=== PATIENT | female | born 1940 | race African-American/Black ===

== ENCOUNTER → 2017-07-17 | Day surgery (SDC) | payer OTHER ==
[~2017-07-17] MED LIST: LIDOCAINE 1% PF 2 ML VIAL. ID; LIDOCAINE 2% PF Vial for OR 5 ML VIAL.; ONDANSETRON PF 4 MG/2 ML VIAL. IV; PROCHLORPERAZINE 10 MG/2 ML VIAL. IV; PROPOFOL 40 ML IV; fentaNYL PF VIAL 100 MCG/2 ML VIAL IV
[2017-07-17] MEDS: IV RINGERS,LACTATED 1000ML 1,000 ML IV (10:59)
== END | disposition home or self-care (01) ==
LOC: SURG 10:14
DX: K59.00 Constipation, unspecified (principal); Z86.010 Personal history of colon polyps; M15.9 Polyosteoarthritis, unspecified; I10 Essential (primary) hypertension; E66.9 Obesity, unspecified; K21.9 Gastro-esophageal reflux disease without esophagitis; J44.9 Chronic obstructive pulmonary disease, unspecified; F17.200 Nicotine dependence, unspecified, uncomplicated; Z90.49 Acquired absence of other specified parts of digestive tract; Z98.890 Other specified postprocedural states; Z79.899 Other long term (current) drug therapy; Z88.1 Allergy status to other antibiotic agents; Z88.8 Allergy status to other drugs, medicaments and biological substances
CPT/HCPCS: 45378; J2704

== ENCOUNTER → 2017-11-09 | Outpatient (CLI) | payer OTHER ==
[2017-09-07 14:40] VITALS: BP 116/65
[~2017-11-09] MED LIST changes: +AMIT50TA PO; +AMLO5TAB4 PO; +CIPR250T30 PO; +DICY10CA3 PO; +GABA-585 PO; +IBAN150T PO; -LIDOCAINE 1% PF 2 ML VIAL. ID; -LIDOCAINE 2% PF Vial for OR 5 ML VIAL.; +LOSA25TA5 PO; +MAGN400T3 PO; +OMEP40CA5 PO; -ONDANSETRON PF 4 MG/2 ML VIAL. IV; +OXYB5TAB7 PO; +POTA20TA4 PO; -PROCHLORPERAZINE 10 MG/2 ML VIAL. IV; -PROPOFOL 40 ML IV; +ROPI1TAB PO; +TRAM50TA PO; +TRIA1CAP PO; -fentaNYL PF VIAL 100 MCG/2 ML VIAL IV
--- NOTE | 2017-11-12 08:43 | RAD ---
DATE: 11/09/2017 EXAM: DIGITAL SCREEN BILAT W/CAD HISTORY: Routine screening COMPARISON: 09/07/2014 This study was interpreted with the benefit of Computerized Aided Detection (CAD). The breast parenchyma shows scattered fibroglandular densities. Breast parenchyma level B. FINDINGS: No new or enlarging breast densities are seen. Benign-appearing lymph node type densities are again noted posterolaterally on the right. Benign type calcifications are present. No suspicious microcalcifications have developed. IMPRESSION: Stable mammograms without evidence of malignancy. BI-RADS CATEGORY: 2 BENIGN FINDING(S) RECOMMENDED FOLLOW-UP: 12M 12 MONTH FOLLOW-UP PQRS compliance statement: Patient information was entered into a reminder system with a target due date for the next mammogram. Mammography is a sensitive method for finding small breast cancers, but it does not detect them all and is not a substitute for careful clinical examination. A negative mammogram does not negate a clinically suspicious finding and should not result in delay in biopsying a clinically suspicious abnormality. "Our facility is accredited by the [employer] Mammography Program."
== END | disposition home or self-care (01) ==
LOC: MAMMO 14:00
PROVIDERS: ATTEND Internal Medicine
DX: Z12.31 Encounter for screening mammogram for malignant neoplasm of breast (principal); I12.9 Hypertensive chronic kidney disease with stage 1 through stage 4 chronic kidney disease, or unspecified chronic kidney disease; N18.2 Chronic kidney disease, stage 2 (mild); K21.9 Gastro-esophageal reflux disease without esophagitis; J44.9 Chronic obstructive pulmonary disease, unspecified; E87.6 Hypokalemia; Z90.49 Acquired absence of other specified parts of digestive tract; Z68.30 Body mass index [BMI] 30.0-30.9, adult; Z88.1 Allergy status to other antibiotic agents; Z88.8 Allergy status to other drugs, medicaments and biological substances; Z82.49 Family history of ischemic heart disease and other diseases of the circulatory system; Z83.3 Family history of diabetes mellitus
CPT/HCPCS: 77067

== ENCOUNTER → 2019-09-26 | Outpatient (CLI) | payer MEDICAID ==
[2017-09-07 14:40] VITALS: BP 116/65
[~2019-09-26] MED LIST changes: +CONTRAST GIVEN. MC PRN; -IBAN150T PO; +IBAN150T15 PO; +IOHEXOL 240 MG/ML 50ML VIAL. PO ONE; +IOHEXOL 300 MG/ML 100ML VIAL. IV ONE; -LOSA25TA5 PO; +LOSA25TA54 PO; -MAGN400T3 PO; +MAGN400T5 PO; +OMEP40CA45 PO; -OMEP40CA5 PO; +OXYB5TAB10 PO; -OXYB5TAB7 PO
[2019-09-26 11:01] LABS: CREATININE 1.3 mg/dL (0.6-1.0); GFR 47.6
--- NOTE | 2019-09-26 15:15 | RAD ---
CT abdomen and pelvis with contrast History: Ventral hernia with obstruction Technique: After the administration of intravenous contrast, CT imaging was performed of the abdomen and pelvis. Oral contrast was also given. Multiplanar images are reviewed. Exposure: One or more of the following individualized dose reduction techniques were utilized for this examination: 1. Automated exposure control 2. Adjustment of the mA and/or kV according to patient size 3. Use of iterative reconstruction technique. Comparison: None Findings: There is small dependent left pleural effusion at the lung base. There is no significant abnormality of the spleen, pancreas, adrenal glands. There is a small hypodense lesion of the left lobe of the liver 0.6 cm, density measurements suggestive of cyst 10 Hounsfield units. Both kidneys enhance without hydronephrosis. There has been cholecystectomy. Extra hepatic common bile duct is somewhat prominent at 0.9 cm, also mild central intrahepatic biliary ductal dilatation. There is a 2.2 cm hypodense lesion of the superior left kidney, density measurements suggestive of cyst 10 Hounsfield units. There is some scattered plaque of the abdominal aorta and iliac arteries. There is some variable multilevel thoracolumbar degenerative disc disease. There is grade 1 anterior spondylolisthesis L4-5, facet degenerative change greater inferiorly of the lumbar spine. There is lytic focus of the right L2 vertebral body about 1.2 cm in size. There is mild lumbar levoscoliosis. There is shallow, fairly broad ventral fat-containing hernia more eccentric to the right above the umbilicus, neck of the hernia about 2.8 cm transverse and hernia sac about 5.4 cm transverse, no internal bowel. There is also shallow fat-containing ventral hernia more superiorly in the abdomen image 18 series 2, neck about 3 cm transverse, no internal bowel. Bowel is not dilated. There is no free fluid or free air. Normal caliber appendix is visualized without adjacent inflammatory-type change. There is retained stool greater of the right colon. Impression: 1. There is small left pleural effusion. 2. There is shallow broad ventral fat-containing hernia just above the umbilicus, also separate small ventral fat-containing hernia in the abdomen more superiorly. 3. There is left renal cyst. 4. There is mild biliary ductal dilatation although sometimes can be normally seen after cholecystectomy. 5. There is lytic focus of the right L2 vertebral body. This could be a hemangioma although nonspecific. Lesion would be more accurately characterized by MRI as per clinical indication. Electronically signed by: Dean Altman MD (09/26/2019 3:11 PM) [facility]
== END ==
LOC: CT 13:57
PROVIDERS: ATTEND Specialist
DX: K43.6 Other and unspecified ventral hernia with obstruction, without gangrene (principal); J90 Pleural effusion, not elsewhere classified
CPT/HCPCS: 36415; 74177; 82565; Q9966; Q9967

== ENCOUNTER → 2019-10-23 | Outpatient (CLI) | payer MEDICAID ==
[2017-09-07 14:40] VITALS: BP 116/65
[~2019-10-23] MED LIST changes: +ACET1TAB37 PO; +ALBU2.5V8 IH; -CONTRAST GIVEN. MC PRN; -IOHEXOL 240 MG/ML 50ML VIAL. PO ONE; -IOHEXOL 300 MG/ML 100ML VIAL. IV ONE; +LATA2.5D3 EACHEYE; +MELO7.5T29 PO; +PROM25TA10 PO; +tylenol pm PO
[2019-10-23 13:33] LABS: BASO # 0.1 x10^3/uL (0.0-0.2); BASO % 1 % (0-3); EOS # 0.1 x10^3/uL (0.0-0.7); EOS % 1 % (0-3); HEMATOCRIT 38.5 % (36.0-47.0); HEMOGLOBIN 13.3 g/dL (12.0-15.5); LYMPH # 2.4 x10^3/uL (1.0-4.8); LYMPH % 27 % (24-48); MEAN CORPUSCULAR HEMOGLOBIN 33 pg (25-35); MEAN CORPUSCULAR HGB CONC 35 g/dL (31-37); MEAN CORPUSCULAR VOLUME 95 fL (79-100); MONO # 0.6 x10^3/uL (0.0-1.1); MONO % 7 % (0-9); NEUT # 5.6 x10^3/uL (1.8-7.7); NEUT % 64 % (31-73); PLATELET COUNT 422 x10^3/uL (140-400); RED BLOOD COUNT 4.03 x10^6/uL (3.50-5.40); WHITE BLOOD COUNT 8.8 x10^3/uL (4.0-11.0)
[2019-10-23 13:44] LABS: PROTHROMBIN TIME PATIENT 13.4 SEC (11.7-14.0)
[2019-10-23 13:54] LABS: ALBUMIN/GLOBULIN RATIO 0.6 (1.0-1.7); CALCIUM 8.9 mg/dL (8.5-10.1); CREATININE 1.2 mg/dL (0.6-1.0); GFR 52.2; TOTAL BILIRUBIN 0.3 mg/dL (0.2-1.0); TOTAL PROTEIN 7.9 g/dL (6.4-8.2)
[2019-10-23 14:00] LABS: POTASSIUM 2.9 mmol/L (3.5-5.1)
== END | disposition home or self-care (01) ==
LOC: SURGPAT 13:01
PROVIDERS: ATTEND Specialist
DX: Z01.812 Encounter for preprocedural laboratory examination (principal); Z20.828 Contact with and (suspected) exposure to other viral communicable diseases; K43.9 Ventral hernia without obstruction or gangrene
CPT/HCPCS: 36415; 80053; 85025; 85610; U0003

== ENCOUNTER → 2019-10-27 | Outpatient (CLI) | payer MEDICAID ==
[2017-09-07 14:40] VITALS: BP 116/65
== END | disposition home or self-care (01) ==
LOC: LAB 11:20
PROVIDERS: ATTEND Internal Medicine
DX: E87.6 Hypokalemia (principal)
CPT/HCPCS: 36415; 84132

== ENCOUNTER → 2019-10-28 | Day surgery (SDC) | payer MEDICAID ==
[~2019-10-28] VITALS: Ht 157.5 cm; Wt 83.4 kg
[~2019-10-28] MED LIST changes: +BUPIVACAINE-EPI 0.5%-1:200000 MPF 30 ML VIAL. ONE; +DEXAMETHASONE SOD PHOS 4 MG/ML VIAL ONE; +GLYCOPYRROLATE 1 MG/5 ML VIAL. ONE; +HYDROmorphone 2 MG/ML VIAL IV PRN; +IV RINGERS,LACTATED 1000ML 1,000 ML IV SCH; +LIDOCAINE 2% PF 5 ML VIAL. ONE; +MORPHINE SULFATE 2 MG/ML VIAL. IV PRN; +NEOSTIGMINE METHYLSULFATE 5 MG/5 ML SYRINGE. ONE; +ONDANSETRON PF 4 MG/2 ML VIAL. IV PRN; +ONDANSETRON PF 4 MG/2 ML VIAL. ONE; +PROCHLORPERAZINE 10 MG/2 ML VIAL. IV PRN; +PROPOFOL 10 MG/ML (20ML) VIAL. IV ONE; +ROCURONIUM 50 MG/5 ML VIAL. ONE; +ceFAZolin SODIUM IV Push 1 GM VIAL. IVP PRN; +ePHEDrine PF IN SALINE 50 MG/10 ML SYRINGE. IV ONE; +fentaNYL PF VIAL 100 MCG/2 ML VIAL IV PRN; +fentaNYL PF VIAL 100 MCG/2 ML VIAL ONE
--- NOTE | 2019-10-28 06:31 | HP ---
ADMIT DATE: HISTORY OF PRESENT ILLNESS: The patient is referred to me because of abdominal discomfort. She apparently noticed a small mass in her abdomen about 2-3 months ago and went to her doctor and was referred here to me. She states to have indigestion at times and she has noted this mass, but no other abnormalities. She does state sometimes she has to take laxatives and she has had colonoscopy about a year ago, which was normal. She also has had just vague abdominal discomfort when the mass shows up. PAST MEDICAL HISTORY: Significant in that she has had many years ago a gallbladder removed through a midline incision and then a ventral hernia through the midline incision later on. She also had a fractured elbow about a year ago and had a cystocele repair. Otherwise, she has been doing well. She does have hypertension for which she takes medication. ALLERGIES: She has no allergies. FAMILY HISTORY: Noncontributory. SOCIAL HISTORY: She does smoke about 5 cigarettes a day, but does not use illicit drugs nor does she drink. REVIEW OF SYSTEMS: Negative except for the history of present illness with sometimes indigestion, abdominal discomfort associated with this mass when it came up in the abdomen. PHYSICAL EXAMINATION: GENERAL: Shows an alert female in no acute distress. HEAD, EYES, EARS, NOSE AND THROAT: Grossly normal. Trachea was in midline. No goiter was noted. CHEST: Clear bilaterally to auscultation. ABDOMEN: Soft, did have some ill-defined masses in the mid abdomen and also above the umbilicus when she increased intra-abdominal pressure. EXTREMITIES: Negative except for the scar of the right elbow from the previous surgery. This was many years ago. Extremities were grossly normal. HEART: Had no murmurs, heaves, friction rubs or thrills. BREASTS: Not examined. IMPRESSION: 1. Hypertension. 2. Recurrent ventral hernias. BRADLEY VALLE MD DR: CELIA/natalie JOB#: [id number] / [id number] SARA
[2019-10-28 08:15] VITALS: BP 139/74
--- NOTE | 2019-10-28 14:24 | CONS ---
DATE OF CONSULTATION: HOSPITAL NOTE VISIT HISTORY OF PRESENT ILLNESS: The patient was scheduled for repair of ventral hernia. Her potassium had been down. Repeat potassium was up from 2.8 up to 3.4. She still had the small mass at the abdomen, which had been present. She was to have a CT scan the morning of surgery to locate the hernias on repeat examination and talking to the radiologist again. It was not clear that she had a hernia. She may have had an eventration, but she has had surgery before and had 2 or 3 layers of mesh, which appeared to be intact. The patient also had some shortness of breath and when we stood her up, was somewhat weak. I spoke with her and her daughter and decided that this would not be a good time to do this operation as she had 2 or 3 before, it may be a major undertaking and we need to make certain. 1. The hernias were not definitely present as there was a bunch of small posterior fascial defects, but no hernia pass the anterior fascia where the mesh was. As such, I am not sure that she had a true hernia and may have been an eventration. In addition to this, with a history of a low potassium, the shortness of breath at this time would be better, not to do the surgery at this time and I will follow her in the office and see if anything gets worse, probably repeat the CT scan in 6 months and be seen her to make certain she did not have any symptoms. She agreed to this as did her daughter and they were relieved not to have surgery done. I think this would be the best thing for this patient at this time as such the surgery was canceled. BRADLEY VALLE MD DR: CELIA/natalie JOB#: [id number] / [id number] SARA
== END | disposition home or self-care (01) ==
LOC: SURG 07:00
PROVIDERS: ATTEND Specialist
DX: K43.2 Incisional hernia without obstruction or gangrene (principal); I10 Essential (primary) hypertension; F17.210 Nicotine dependence, cigarettes, uncomplicated; Z98.890 Other specified postprocedural states; Z90.49 Acquired absence of other specified parts of digestive tract; Z53.8 Procedure and treatment not carried out for other reasons
CPT/HCPCS: J2704; J2710; J3010; J3490; J1100; J2405

== ENCOUNTER 2019-11-18 15:04 | Inpatient (IN) | payer MEDICAID ==
[~2019-11-18] VITALS: Ht 165.1 cm; Wt 79.0 kg
[~2019-11-18 15:04] MED LIST changes: -BUPIVACAINE-EPI 0.5%-1:200000 MPF 30 ML VIAL. ONE; -DEXAMETHASONE SOD PHOS 4 MG/ML VIAL ONE; -GLYCOPYRROLATE 1 MG/5 ML VIAL. ONE; -HYDROmorphone 2 MG/ML VIAL IV PRN; -IV RINGERS,LACTATED 1000ML 1,000 ML IV SCH; -LIDOCAINE 2% PF 5 ML VIAL. ONE; -MORPHINE SULFATE 2 MG/ML VIAL. IV PRN; -NEOSTIGMINE METHYLSULFATE 5 MG/5 ML SYRINGE. ONE; -ONDANSETRON PF 4 MG/2 ML VIAL. IV PRN; -ONDANSETRON PF 4 MG/2 ML VIAL. ONE; -PROCHLORPERAZINE 10 MG/2 ML VIAL. IV PRN; -PROPOFOL 10 MG/ML (20ML) VIAL. IV ONE; -ROCURONIUM 50 MG/5 ML VIAL. ONE; -ceFAZolin SODIUM IV Push 1 GM VIAL. IVP PRN; -ePHEDrine PF IN SALINE 50 MG/10 ML SYRINGE. IV ONE; -fentaNYL PF VIAL 100 MCG/2 ML VIAL IV PRN; -fentaNYL PF VIAL 100 MCG/2 ML VIAL ONE
[2019-11-18 15:56] LABS: BASO # 0.1 x10^3/uL (0.0-0.2); BASO % 1 % (0-3); EOS # 0.1 x10^3/uL (0.0-0.7); EOS % 1 % (0-3); HEMATOCRIT 37.2 % (36.0-47.0); HEMOGLOBIN 12.9 g/dL (12.0-15.5); LYMPH # 1.7 x10^3/uL (1.0-4.8); LYMPH % 18 % (24-48); MEAN CORPUSCULAR HEMOGLOBIN 33 pg (25-35); MEAN CORPUSCULAR HGB CONC 35 g/dL (31-37); MEAN CORPUSCULAR VOLUME 94 fL (79-100); MONO # 0.8 x10^3/uL (0.0-1.1); MONO % 8 % (0-9); NEUT % 73 % (31-73); PLATELET COUNT 425 x10^3/uL (140-400); RED BLOOD COUNT 3.96 x10^6/uL (3.50-5.40); RED CELL DISTRIBUTION WIDTH 12.7 % (11.5-14.5); WHITE BLOOD COUNT 9.6 x10^3/uL (4.0-11.0)
[2019-11-18 16:01] LABS: BILIRUBIN,URINE MODERATE (NEG); CLARITY,URINE CLEAR; NITRITE,URINE NEGATIVE (NEG); PROTEIN,URINE NEGATIVE (NEG-TRACE)
[2019-11-18 16:06] LABS: CALCIUM 9.5 mg/dL (8.5-10.1); COLOR,URINE DK YELLOW; CREATININE 1.2 mg/dL (0.6-1.0); GFR 52.2; SQUAMOUS EPITHELIAL CELL,UR MOD /LPF
[2019-11-18 16:07] LABS: PROTHROMBIN TIME PATIENT 13.6 SEC (11.7-14.0)
[2019-11-18 16:08] LABS: BACTERIA,URINE MODERATE /HPF (0-FEW)
[2019-11-18 16:09] LABS: RBC,URINE 0 /HPF (0-2)
[2019-11-18 16:10] LABS: HYALINE CASTS, URINE MANY /HPF
[2019-11-18 16:11] LABS: ALBUMIN/GLOBULIN RATIO 0.6 (1.0-1.7); MAGNESIUM 1.2 mg/dL (1.8-2.4); TOTAL BILIRUBIN 0.4 mg/dL (0.2-1.0); TOTAL PROTEIN 8.3 g/dL (6.4-8.2)
[2019-11-18 16:21] LABS: CREATINE KINASE 72 U/L (26-192)
--- NOTE | 2019-11-18 16:45 | RAD ---
AP portable chest radiograph 11/18/2019 Clinical History: Chest pain. An AP erect portable digital radiograph of the chest was obtained. Comparison study is dated 09/05/2017. The cardiac silhouette is mildly enlarged. The thoracic aorta is tortuous. Atherosclerotic calcification of the thoracic aorta is seen. Near complete opacification of the left hemithorax likely due to combination of a large left pleural effusion and left lung atelectasis is noted. No pneumothorax is seen. The right lung is clear. There is diffuse osteopenia the visualized bony structures. Degenerative changes are seen involving the thoracic spine and both shoulders. Impression: Near complete opacification of the left hemithorax which likely reflects a large left pleural effusion with left lung atelectasis. Electronically signed by: Charles Kearns MD (11/18/2019 4:42 PM) [id number]
[2019-11-18] MEDS ORDERED: MAGNESIUM OXIDE 400 MG TABLET PO SCH (17:15)
[2019-11-18] MEDS ORDERED: POTASSIUM CHLORIDE 20 MEQ TABLET.ER. PO ONE (17:15)
[2019-11-18] MEDS ORDERED: IOHEXOL 350 MG/ML 100 ML VIAL. IV ONE (17:30)
--- NOTE | 2019-11-18 17:31 | EKG ---
[facility] [address] [place] [address] Test Date: 2019-11-18 Test Time: 15:29:37 Pat Name: JUSTIN RICH Department: Room: Gender: F Regional Guide: : 1940 Requested By: MYA ZHANG Order Number: [id number] Reading MD: Measurements Intervals [place] Rate: 102 P: 47 MN: 148 QRS: -30 QRSD: 76 T: 49 QT: 310 QTc: 408 Interpretive Statements SINUS TACHYCARDIA ABNORMAL LEFT AXIS DEVIATION QRS(T) CONTOUR ABNORMALITY CONSIDER ANTEROSEPTAL MYOCARDIAL DAMAGE ABNORMAL ECG RI6.02 No previous ECG available for comparison
--- NOTE | 2019-11-18 18:29 | RAD ---
CT angiogram of the chest with contrast: Reason for examination: Short of breath for 3 weeks. Helical images were obtained through the chest with intravenous administration of 80 cc Omnipaque 350 using PE protocol. 3-D MIPS reconstruction was performed in sagittal and coronal planes. Exposure: One or more of the following individualized dose reduction techniques were utilized for this examination: 1. Automated exposure control 2. Adjustment of the mA and/or kV according to patient size 3. Use of iterative reconstruction technique. There is a heterogeneous hypodense lesion in the right lobe of the thyroid gland measuring approximately 1.7 cm in greatest dimension. The trachea and mainstem bronchi show no intraluminal lesion. No abnormality is seen at the esophagus. The thoracic aorta shows no aneurysmal dilatation or dissection. The heart size is normal with no pericardial effusion. There is no pulmonary embolus. There is a shift of midline to the right. There is heterogeneous density within the left hemithorax with near complete opacification of the left hemithorax. Some of this density appears to represent a moderate to large pleural effusion. There is also some minimal aeration of compressed lung in the left lower lobe. The left upper lobe however shows no aeration and the density in the left upper lobe distribution surrounds and narrows the pulmonary arteries. A mass cannot be excluded. The right lung field shows some mild emphysematous changes. No abnormality seen in the visualized portion of the liver, spleen, adrenal glands or pancreas. The gallbladder surgically absent. There is a 1.5 cm hypodense lesion in the upper pole of the left kidney which is not definitely cystic by Hounsfield units. No acute bony abnormalities are seen. IMPRESSION: No evidence of pulmonary embolus. Near complete opacification of the left hemithorax which appears be due to a moderate to large amount of left pleural effusion but there is increased density without aeration in the left upper lobe distribution which appears to surround and narrow the left pulmonary artery structures. Malignancy cannot be excluded. Collapsed left lower lung field with minimal aeration. Mild emphysematous changes in the right lung field. 1.7 cm heterogeneous hypodense nodule in the right lobe of the thyroid gland. 1.5 cm hypodense lesion in the upper pole the left kidney which is not definitely cystic by Hounsfield units. This can be further evaluated with ultrasound. Electronically signed by: Susana Garnett MD (11/18/2019 6:26 PM) [facility]
--- NOTE | 2019-11-18 20:36 | PHYS DOC ---
Past Medical History Past Medical History: Arthritis, GERD, Hypertension Past Surgical History: Other Additional Past Surgical Histo: R ELBOW, HERNIA Smoking Status: Current Every Day Smoker Alcohol Use: None Drug Use: None General Adult EDM: Chief Complaint: SHORTNESS OF BREATH HPI: HPI: Patient is a 79 year old AA female who presents to the emergency department with complaints of shortness of breath for the last 3 to 4 weeks and increases with ambulation. Patient reports that she has had a cough with white sputum produced. She reports that she was tested for COVID-19 at this facility 3 weeks ago and was advised that it was a negative result. She denies any nausea, vomiting, diarrhea, abdominal pain, chest pain, palpitations, fever, sore throat, body aches, headache, or rash. The patient denies any swelling in her lower extremities. Patient reports that she has been feeling fatigued recently. She reports that she quit smoking cigarettes approximately 2 weeks ago. She denies any pain at this time. Review of Systems: Review of Systems: Constitutional: Denies fever or chills; reports fatigue. [] Eyes: Denies change in visual acuity. [] HENT: Denies nasal congestion or sore throat. [] Respiratory: See HPI Cardiovascular: Denies chest pain, palpitation, or edema. [] GI: Denies abdominal pain, nausea, vomiting, or diarrhea. [] : Denies dysuria. [] Musculoskeletal: Denies back pain or joint pain. [] Integument: Denies rash. [] Neurologic: Denies headache, focal weakness or sensory changes. [] Psychiatric: Denies depression or anxiety. [] Heart Score: Risk Factors: Risk Factors: DM, Current or recent (<one month) smoker, HTN, HLP, family history of CAD, obesity. Risk Scores: Score 0 - 3: 2.5% MACE over next 6 weeks - Discharge Home Score 4 - 6: 20.3% MACE over next 6 weeks - Admit for Clinical Observation Score 7 - 10: 72.7% MACE over next 6 weeks - Early Invasive Strategies Current Medications: Current Medications Medications (Trade) Dose Ordered Sig/Prabhjot Start Time Stop Time Status Last Admin Dose Admin Iohexol (Omnipaque 350 Mg/ml) 80 ml 1X ONCE 11/18/19 17:30 11/18/19 17:32 DC 11/18/19 17:30 80 ML Magnesium Oxide (Magnesium Oxide) 400 mg 1X 11/18/19 17:15 11/18/19 18:27 400 MG Potassium Chloride (Klor-Con) 40 meq 1X ONCE 11/18/19 17:15 11/18/19 17:16 DC 11/18/19 18:27 40 MEQ Allergies: Allergies: Allergies Coded Allergies Type Severity Reaction Last Updated Verified No Known Drug Allergies 07/17/17 No Physical Exam: PE: Constitutional: Well developed, well nourished, no acute distress, non-toxic appearance. [] HENT: Normocephalic, atraumatic, bilateral external ears normal, oropharynx moist, nose normal. [] Eyes: PERRLA, EOMI, conjunctiva normal, no discharge. [] Neck: Normal range of motion, no stridor. [] Cardiovascular:Heart rate regular rhythm, no murmur [] Lungs & Thorax: Bilateral breath sounds clear to auscultation in upper anterior lobes and right posterior lobes; diminished in left posterior lobes, no wheezing, no retractions [] Abdomen: soft, no tenderness, no masses, no pulsatile masses. [] Skin: Warm, dry, no erythema, no rash. [] Back: No tenderness Extremities: No cyanosis, ROM intact, no edema. [] Neurologic: Alert and oriented X 3, normal motor function, normal sensory function, no focal deficits noted. [] Psychologic: Affect normal, judgement normal, mood normal. [] Current Patient Data: Labs: Laboratory Tests Test 11/18/19 15:34 White Blood Count 9.6 x10^3/uL (4.0-11.0) Red Blood Count 3.96 x10^6/uL (3.50-5.40) Hemoglobin 12.9 g/dL (12.0-15.5) Hematocrit 37.2 % (36.0-47.0) Mean Corpuscular Volume 94 fL (79-100) Mean Corpuscular Hemoglobin 33 pg (25-35) Mean Corpuscular Hemoglobin Concent 35 g/dL (31-37) Red Cell Distribution Width 12.7 % (11.5-14.5) Platelet Count 425 x10^3/uL (140-400) H Neutrophils (%) (Auto) 73 % (31-73) Lymphocytes (%) (Auto) 18 % (24-48) L Monocytes (%) (Auto) 8 % (0-9) Eosinophils (%) (Auto) 1 % (0-3) Basophils (%) (Auto) 1 % (0-3) Neutrophils # (Auto) 7.0 x10^3/uL (1.8-7.7) Lymphocytes # (Auto) 1.7 x10^3/uL (1.0-4.8) Monocytes # (Auto) 0.8 x10^3/uL (0.0-1.1) Eosinophils # (Auto) 0.1 x10^3/uL (0.0-0.7) Basophils # (Auto) 0.1 x10^3/uL (0.0-0.2) Prothrombin Time 13.6 SEC (11.7-14.0) Prothrombin Time INR 1.1 (0.8-1.1) Activated Partial Thromboplast Time 31 SEC (24-38) Urine Collection Type Void Urine Color Dk yellow Urine Clarity Clear Urine pH 5.0 (<5.0-8.0) Urine Specific [place] 1.020 (1.000-1.030) Urine Protein Negative mg/dL (NEG-TRACE) Urine Glucose (UA) Negative mg/dL (NEG) Urine Ketones (Stick) Trace mg/dL (NEG) Urine Blood Negative (NEG) Urine Nitrite Negative (NEG) Urine Bilirubin Moderate (NEG) Urine Urobilinogen Dipstick 1.0 mg/dL (0.2 mg/dL) Urine Leukocyte Esterase Negative (NEG) Urine RBC 0 /HPF (0-2) Urine WBC 1-4 /HPF (0-4) Urine Squamous Epithelial Cells Mod /LPF Urine Bacteria Moderate /HPF (0-FEW) Urine Hyaline Casts Many /HPF Urine Mucus Marked /LPF Sodium Level 136 mmol/L (136-145) Potassium Level 3.0 mmol/L (3.5-5.1) L Chloride Level 101 mmol/L (98-107) Carbon Dioxide Level 23 mmol/L (21-32) Anion Gap 12 (6-14) Blood Urea Nitrogen 14 mg/dL (7-20) Creatinine 1.2 mg/dL (0.6-1.0) H Estimated GFR (Cockcroft-Gault) 52.2 BUN/Creatinine Ratio 12 (6-20) Glucose Level 143 mg/dL (70-99) H Calcium Level 9.5 mg/dL (8.5-10.1) Magnesium Level 1.2 mg/dL (1.8-2.4) L Total Bilirubin 0.4 mg/dL (0.2-1.0) Aspartate Amino Transferase (AST) 19 U/L (15-37) Alanine Aminotransferase (ALT) 10 U/L (14-59) L Alkaline Phosphatase 63 U/L (46-116) Creatine Kinase 72 U/L (26-192) Creatine Kinase MB (Mass) 1.1 ng/mL (0.0-3.6) Creatine Kinase MB Relative Index % (0-4) Troponin I Quantitative < 0.017 ng/mL (0.000-0.055) NM-Qeo-L-Type Natriuretic Peptide 247 pg/mL (0-449) Total Protein 8.3 g/dL (6.4-8.2) H Albumin 3.0 g/dL (3.4-5.0) L Albumin/Globulin Ratio 0.6 (1.0-1.7) L Lipase 130 U/L (73-393) Laboratory Tests 11/18/19 15:34 Laboratory Tests 11/18/19 15:34 Vital Signs: Vital Signs Date Time Temp Pulse Resp B/P (MAP) Pulse Ox O2 Delivery O2 Flow Rate FiO2 11/18/19 15:45 98.9 100 20 108/69 (82) 100 Room Air 98.9 EKG: EK-sinus tachycardia rate 102, no STEMI, read by Dr. Izquierdo [] Radiology/Procedures: Radiology/Procedures: PROCEDURE: CT ANGIOGRAPHY CHEST CT angiogram of the chest with contrast: Reason for examination: Short of breath for 3 weeks. Helical images were obtained through the chest with intravenous administration of 80 cc Omnipaque 350 using PE protocol. 3-D MIPS reconstruction was performed in sagittal and coronal planes. Exposure: One or more of the following individualized dose reduction techniques were utilized for this examination: 1. Automated exposure control 2. Adjustment of the mA and/or kV according to patient size 3. Use of iterative reconstruction technique. There is a heterogeneous hypodense lesion in the right lobe of the thyroid gland measuring approximately 1.7 cm in greatest dimension. The trachea and mainstem bronchi show no intraluminal lesion. No abnormality is seen at the esophagus. The thoracic aorta shows no aneurysmal dilatation or dissection. The heart size is normal with no pericardial effusion. There is no pulmonary embolus. There is a shift of midline to the right. There is heterogeneous density within the left hemithorax with near complete opacification of the left hemithorax. Some of this density appears to represent a moderate to large pleural effusion. There is also some minimal aeration of compressed lung in the left lower lobe. The left upper lobe however shows no aeration and the density in the left upper lobe distribution surrounds and narrows the pulmonary arteries. A mass cannot be excluded. The right lung field shows some mild emphysematous changes. No abnormality seen in the visualized portion of the liver, spleen, adrenal glands or pancreas. The gallbladder surgically absent. There is a 1.5 cm hypodense lesion in the upper pole of the left kidney which is not definitely cystic by Hounsfield units. No acute bony abnormalities are seen. IMPRESSION: No evidence of pulmonary embolus. Near complete opacification of the left hemithorax which appears be due to a moderate to large amount of left pleural effusion but there is increased density without aeration in the left upper lobe distribution which appears to surround and narrow the left pulmonary artery structures. Malignancy cannot be excluded. Collapsed left lower lung field with minimal aeration. Mild emphysematous changes in the right lung field. 1.7 cm heterogeneous hypodense nodule in the right lobe of the thyroid gland. 1.5 cm hypodense lesion in the upper pole the left kidney which is not definitely cystic by Hounsfield units. This can be further evaluated with ultrasound. Electronically signed by: Susana Garnett MD (11/18/2019 6:26 PM) [facility] PROCEDURE: CHEST AP ONLY AP portable chest radiograph 11/18/2019 Clinical History: Chest pain. An AP erect portable digital radiograph of the chest was obtained. Comparison study is dated 09/05/2017. The cardiac silhouette is mildly enlarged. The thoracic aorta is tortuous. Atherosclerotic calcification of the thoracic aorta is seen. Near complete opacification of the left hemithorax likely due to combination of a large left pleural effusion and left lung atelectasis is noted. No pneumothorax is seen. The right lung is clear. There is diffuse osteopenia the visualized bony structures. Degenerative changes are seen involving the thoracic spine and both shoulders. Impression: Near complete opacification of the left hemithorax which likely reflects a large left pleural effusion with left lung atelectasis. Course & Med Decision Making: Course & Med Decision Making Pertinent Labs and Imaging studies reviewed. (See chart for details) 1900-spoke with who is the admitting physician, and care was assumed following discussion of patient. Will admit patient to med/surg for dyspnea and lung mass and consult pulmonology Patient's vital signs stable. Patient remains afebrile, appears nontoxic, respirations even and unlabored. Patient will be admitted to the med/surg floor. Patient's case and plan of care also discussed with Dr. Izquierdo [] Td Disclaimer: Td Disclaimer: This electronic medical record was generated, in whole or in part, using a voice recognition dictation system. Departure Departure Impression: Primary Impression: Dyspnea Qualified Codes: R06.00 - Dyspnea, unspecified Additional Impression: Lung mass Disposition: ADMITTED INPATIENT Admitting Physician: Gaurav Davila Condition: STABLE Referrals: GAURAV DAVILA MD (PCP) Justicifation of Admission Dx: Justifications for Admission: Justification of Admission Dx: Yes Comments: dyspnea, lung mass MYA ZHANG SHOE SALESMAN Nov 18, 2019 20:36
[2019-11-18] MEDS ORDERED: CONTRAST GIVEN. MC PRN (21:30)
[2019-11-18 21:40] VITALS: BP 149/90
--- NOTE | 2019-11-18 22:40 | NUR ---
Patient arrived on unit at 2240 by wheelchair from ER. Patient A&Ox4, on room air and does not complain of pain. Call light within reach with bed in lowest position. Assessment and admission questions were done at this time. Will continue to monitor.
[2019-11-18 23:00] VITALS: BP 117/70
[2019-11-19] VITALS (16 sets, daily range): BP systolic 92–122; BP diastolic 54–93
[2019-11-19] MEDS ORDERED: ALBUTEROL SULFATE 2.5 MG/3 ML NEBU. NEB PRN (06:30)
[2019-11-19] MEDS: cefTRIAXone IV Push 1 GM VIAL. IVP SCH (07:07)
[2019-11-19] MEDS: AZITHROMYCIN 500 MG in IV NORMAL SALINE 250ML 250 ML IV SCH (07:12)
[2019-11-19] MEDS ORDERED: traMADol 50 MG TABLET PO PRN (07:30)
[2019-11-19] MEDS: IPRATRPIUM/ALBUTEROL 0.5/2.5MG 3 ML NEBU. NEB SCH ×4 (07:33→20:28)
[2019-11-19] MEDS ORDERED: PROMETHAZINE 6.25 MG/5 ML SYRUP. PO PRN (07:45)
[2019-11-19] MEDS: LOSARTAN POTASSIUM 25 MG TABLET. PO SCH (08:43)
[2019-11-19] MEDS: amLODIPine BESYLATE 5 MG TABLET PO SCH (08:44)
[2019-11-19] MEDS: POTASSIUM CHLORIDE 20 MEQ TABLET.ER. PO SCH (08:45)
[2019-11-19] MEDS: PANTOPRAZOLE 40 MG TABLET.DR. PO SCH (08:45)
[2019-11-19] MEDS: DICYCLOMINE HCL 10 MG CAPSULE PO SCH (08:45)
[2019-11-19] MEDS: MELOXICAM 7.5 MG TABLET PO SCH (08:46)
--- NOTE | 2019-11-19 08:46 | PDOC ---
Provider Note Date of Service: DATE: 11/19/19 TIME: 08:45 Provider Note Pt seen.H&P dictated.#[id number] Justifications for Admission Other Justification WALKER DAVILA MD Nov 19, 2019 08:46
[2019-11-19] MEDS ORDERED: POTASSIUM CHLORIDE 20 MEQ TABLET.ER. PO ONE (09:00)
[2019-11-19] MEDS ORDERED: MAGNESIUM SULFATE 2GM 50 ML IV ONE (09:00)
[2019-11-19] MEDS ORDERED: TRIAMTERENE/HCTZ 37.5/25MG TABLET. PO SCH (09:00)
--- NOTE | 2019-11-19 09:34 | CONS ---
DATE OF CONSULTATION: 11/19/2019 PULMONARY CONSULTATION ATTENDING PHYSICIAN: Gaurav Spencer MD REASON FOR CONSULTATION: Abnormal CT chest. HISTORY OF PRESENT ILLNESS: The patient is an 79-year-old female who smoked for about 20 years before quitting many years ago. She presented to the hospital with increasing shortness of breath for the last 3-4 weeks. She has a cough, which has white sputum production and no hemoptysis. She was COVID-19 negative a few weeks ago. She has lost about 10-15 pounds recently. The patient was seen in the Emergency Room and a CT chest was performed, which was reviewed by me. There is a moderate to large left-sided pleural effusion, which appears to be likely malignant. There is a significant narrowing of the left mainstem bronchus. There is suspected left hilar mass with extrinsic compression. There is also narrowing of the left pulmonary artery. The left lower lung field is collapsed. There are evidence of emphysematous changes. There is 1.5 cm lesion in the left kidney. I have been asked to see her for further evaluation. She denies any headaches. No nausea, vomiting, no diarrhea, no dysuria. Occasionally, her legs hurt. No focal weakness. PAST MEDICAL HISTORY: Significant for history of arthritis, GERD, hypertension, possible COPD, could be mild. PAST SURGICAL HISTORY: Elbow and hernia surgery. SOCIAL HISTORY: Smoker for about 20 years before quitting. ALLERGIES: None. MEDICATIONS: Reviewed as listed in the MRAD. REVIEW OF SYSTEMS: Twelve-point system obtained, pertinent positives discussed in my history of present illness, otherwise noncontributory. All systems that were negative were reviewed as well. FAMILY HISTORY: Noncontributory to lungs. PHYSICAL EXAMINATION: VITAL SIGNS: Reviewed. Pulse ox 99-100% on 2 liters. NECK: Supple. LUNGS: Diminished breath sounds, left lung. CARDIOVASCULAR: With a regular rate. ABDOMEN: Soft, nontender. EXTREMITIES: With no pitting edema. LABORATORY DATA: Reviewed. White cell count 9.6, hemoglobin 12.9, platelets are 425. INR is 1.1. IMPRESSION: 1. Dyspnea with acute hypoxic respiratory failure secondary moderate to large left-sided pleural effusion, likely malignant. 2. Abnormal CT chest with moderate to large left-sided pleural effusion along with suspected left hilar mass with obstructive collapse of the left lung. There is suspected left hilar mass with extrinsic compression and left hilar adenopathy suspected as well. These findings are highly suspicious for stage IV malignant cancer. 4. 20+ years of tobacco use, likely chronic obstructive pulmonary disease, could be mild. 5. Weight loss, likely secondary to malignancy. 6. Post -obstructive collapse of lung. RECOMMENDATIONS: 1. I have discussed with the patient. At this time, we will pursue with CT-guided thoracentesis. 2. If the cytology is negative, then she will need a bronchoscopy. 3. Once diagnosis of malignancy is confirmed, we will need Medical Oncology and Radiation Oncology consultation. 4. The patient agrees to proceed with thoracentesis and we will follow along with you. d/w Dr Spencer BRIELLE SHABAZZ MD DR: KATHARINE/nts JOB#: [id number] / [id number] SARA
--- NOTE | 2019-11-19 09:48 | HP ---
ADMIT DATE: 11/18/2019 MEDICAL HISTORY AND PHYSICAL LOCATION: 430. REASON FOR ADMISSION TO THE HOSPITAL: Shortness of breath, large left pleural effusion, left lung atelectasis, and left lung mass. HISTORY OF PRESENT ILLNESS: The patient is an 79-year-old female, patient known to me. She has a history of diabetes, hypertension, smoker, smoked for at least 50 pack years. She still smokes and cut down recently and she was having shortness of breath, was brought to the hospital. She had a COVID test couple of weeks ago, was negative and x-ray and the CT scan shows a left pleural effusion and collapse of the left lung and also density in the left upper lobe, which could be causing collapse. The patient was admitted to the hospital for further investigation and treatment. PAST MEDICAL HISTORY: She has a history of hypertension, GERD, and arthritis. PAST SURGICAL HISTORY: Elbow surgery for nerve compression and hernia repair. PERSONAL HISTORY: Smoker. Social alcohol. Denies any street drugs. FAMILY HISTORY: Positive for diabetes in the brother. REVIEW OF SYSTEMS: Complains of shortness of breath. Denies any chest pain. Rest of the 14-systems was reviewed and negative. PHYSICAL EXAMINATION: GENERAL: The patient is pleasant, not in any distress. VITAL SIGNS: Temperature 99.6, pulse 90, respirations 18, blood pressure 117/70, and 92 on room air. HEENT: Head is atraumatic. Pupils equal. Oral cavity, no teeth. NECK: Supple. Thyroid not enlarged. JVD not elevated. CHEST: Symmetrical. CARDIOVASCULAR: S1, S2. LUNGS: Diminished breath sounds in the left base. ABDOMEN: Soft, no mass palpable. EXTERNAL GENITALIA: No Gibson. RECTAL: Deferred. EXTREMITIES: No calf tenderness, no edema. Pulses 1+. NEUROLOGIC: No focal deficits. Moving all extremities. LABORATORY DATA: Shows a white count 9, hemoglobin 13, and platelets 425. INR 1.1. Electrolytes show sodium 136, potassium 3.0, chloride 101, bicarbonate 23, BUN 14, creatinine 1.2, and magnesium 1.2. LFTs were normal. Troponin and BNP were negative. Urine negative. IMAGING: Chest x-ray showed complete opacification at the left hemithorax. CT of the chest shows a pleural effusion, atelectasis of the lung, possible left upper lung mass. FINAL IMPRESSION: 1. Left pleural effusion, suspicious for cancer. 2. Lung mass. 3. Smoking history for 50 years. 4. Hypertension. PLAN: At this time, was to admit to the hospital. Pulmonary consult, Dr. Jones. The patient would need a thoracocentesis, maybe bronchoscopy depending on what we find. Replace potassium and magnesium. Hold off on the Lovenox because of the procedures. WALKER DAVILA MD DR: RACHAEL/natalie JOB#: [id number] / [id number]
--- NOTE | 2019-11-19 10:00 | NUR ---
consent obtained for thoracentesis. Effie is aware what the procedure is. she has a frequent cough that is occasional productive.
--- NOTE | 2019-11-19 10:17 | NUR ---
SW following. Discussed with RN, pt from home with family, on room air and 2L oxygen. Pt having a thoracentesis, and possible bronchoscopy depending on result of thoracentesis. SW will continue to follow.
[2019-11-19] MEDS ORDERED: LIDOCAINE WITH 8.4% SOD BICARB 3 ML DISP.SYRIN. ONE (10:43)
[2019-11-19] MEDS ORDERED: LIDOCAINE WITH 8.4% SOD BICARB 3 ML DISP.SYRIN. INJ ONE ×2 (10:45→14:15)
[2019-11-19] MEDS: ACETAMINOPHEN/CODEINE 300/30MG TABLET. PO PRN (12:14)
[2019-11-19] MEDS: CODEINE SULFATE 30 MG TABLET. PO PRN (12:18)
--- NOTE | 2019-11-19 12:46 | NUR ---
awaiting thoracentesis. given Tylenol #4 for discomfort from coughing. remains NPO at this time
--- NOTE | 2019-11-19 14:51 | NUR ---
returned from thoracentesis. denies shortness of breath, refused oxygen. Dressing to left mid back is clean dry and intact. wants to eat, late lunch ordered
--- NOTE | 2019-11-19 16:38 | RAD ---
Ultrasound-guided left-sided thoracentesis 11/19/2019 2:33 PM Indication: Left Pleural Effusion Procedure: Informed consent was obtained. A timeout procedure was performed. Sonographic evaluation of the left-sided chest was performed demonstrating moderate pleural effusion. The left posterior chest was prepped and draped in sterile fashion. 1% lidocaine without epinephrine was administered for local anesthesia. Real-time ultrasonographic guidance was used in passing a 5 [place] Teblaeh catheter into the left pleural space. 1.5 L of serosanguineous pleural fluid was removed. Samples of fluid were sent to the lab for further evaluation per ordering physician request. The catheter was removed and pressure held to achieve hemostasis. A sterile dressing was applied. No immediate complications were identified. The patient tolerated the procedure well. Impression: Left sided ultrasound-guided thoracentesis
--- NOTE | 2019-11-19 19:00 | NUR ---
called out. she is more soa with exertion.breath sounds unchanged.O2 applied at 2lnc saline lock in the left antecubital came out.bleeding profusely. pillows and gown changed.
[2019-11-19] MEDS: LACTOBACILLUS RHAMNOSUS GG 1 CAPSULE. PO SCH (20:55)
[2019-11-19] MEDS: AMITRIPTYLINE HCL 25 MG TABLET. PO SCH (20:56)
[2019-11-19] MEDS: ACETAMINOPHEN 500 MG TABLET PO SCH (20:56)
[2019-11-19] MEDS: diphenhydrAMINE HCL 25 MG CAPSULE PO SCH (20:56)
[2019-11-19] MEDS: LATANOPROST 0.005% OPHTH SOLUTION 2.5ML BOTTLE. OU SCH (20:58)
[2019-11-19] MEDS ORDERED: TYLENOL PM PO SCH (21:00)
[2019-11-20] VITALS (7 sets, daily range): BP systolic 85–107; BP diastolic 51–64
[2019-11-20] MEDS: PANTOPRAZOLE 40 MG TABLET.DR. PO SCH (06:14)
[2019-11-20] MEDS: AZITHROMYCIN 500 MG in IV NORMAL SALINE 250ML 250 ML IV SCH (06:14)
[2019-11-20] MEDS: cefTRIAXone IV Push 1 GM VIAL. IVP SCH (06:14)
[2019-11-20 07:23] LABS: BASO # 0.1 x10^3/uL (0.0-0.2); BASO % 1 % (0-3); CALCIUM 8.8 mg/dL (8.5-10.1); CREATININE 1.2 mg/dL (0.6-1.0); EOS # 0.2 x10^3/uL (0.0-0.7); EOS % 3 % (0-3); GFR 52.2; HEMATOCRIT 32.9 % (36.0-47.0); HEMOGLOBIN 11.2 g/dL (12.0-15.5); LYMPH # 1.4 x10^3/uL (1.0-4.8); LYMPH % 19 % (24-48); MAGNESIUM 2.2 mg/dL (1.8-2.4); MEAN CORPUSCULAR HEMOGLOBIN 33 pg (25-35); MEAN CORPUSCULAR HGB CONC 34 g/dL (31-37); MEAN CORPUSCULAR VOLUME 96 fL (79-100); MONO # 0.8 x10^3/uL (0.0-1.1); MONO % 10 % (0-9); NEUT % 67 % (31-73); PLATELET COUNT 342 x10^3/uL (140-400); POTASSIUM 4.4 mmol/L (3.5-5.1); RED BLOOD COUNT 3.43 x10^6/uL (3.50-5.40); RED CELL DISTRIBUTION WIDTH 13.1 % (11.5-14.5); WHITE BLOOD COUNT 7.5 x10^3/uL (4.0-11.0)
[2019-11-20] MEDS: IPRATRPIUM/ALBUTEROL 0.5/2.5MG 3 ML NEBU. NEB SCH ×4 (07:58→20:00)
[2019-11-20] MEDS: LOSARTAN POTASSIUM 25 MG TABLET. PO SCH (08:45)
[2019-11-20] MEDS: amLODIPine BESYLATE 5 MG TABLET PO SCH (08:45)
[2019-11-20] MEDS: LACTOBACILLUS RHAMNOSUS GG 1 CAPSULE. PO SCH ×2 (08:46→21:17)
[2019-11-20] MEDS: DICYCLOMINE HCL 10 MG CAPSULE PO SCH (08:47)
[2019-11-20] MEDS: MELOXICAM 7.5 MG TABLET PO SCH (08:47)
[2019-11-20] MEDS: POTASSIUM CHLORIDE 20 MEQ TABLET.ER. PO SCH (08:47)
--- NOTE | 2019-11-20 08:51 | PDOC ---
PROGRESS NOTES Date of Service: DATE: 11/20/19 TIME: 08:49 Subjective Subjective no new problems Objective Objective Vital Signs Date Time Temp Pulse Resp B/P (MAP) Pulse Ox O2 Delivery O2 Flow Rate FiO2 11/20/19 08:45 81 88/54 11/20/19 08:00 95 Nasal Cannula 2.0 11/20/19 07:00 98.8 18 98.8 Intake and Output 11/20/19 07:00 Intake Total 400 ml Output Total 1550 ml Balance -1150 ml Intake Oral 400 ml Output Drainage Total 1550 ml # Voids 1 Physical Exam Abdomen: Soft Heart: Regular rate, Normal S1 Extremities: No clubbing General: Alert Lungs: Other (left lung dec breath sounds) MUSCULOSKELETAL: No deformity, No swelling Neuro: Normal speech Psych/Mental Status: Mental status NL Skin: No breakdown Assessment Assessment FINAL IMPRESSION: 1. Left pleural effusion, suspicious for cancer. 2. Lung mass. 3. Smoking history for 50 years. 4. Hypertension. PLAN: 1.5 L removed from left pleural space labs ok spoke with pulmonary oncology consult home tomorrow? At this time, was to admit to the hospital. Pulmonary consult, Dr. Jones. The patient would need a thoracocentesis, maybe bronchoscopy depending on what we find. Replace potassium and magnesium. Hold off on the Lovenox because of the procedures. Comment Review of Relevant I have reviewed the following items ankit (where applicable) has been applied. Labs Laboratory Tests Test 11/20/19 06:54 White Blood Count 7.5 x10^3/uL (4.0-11.0) Red Blood Count 3.43 x10^6/uL (3.50-5.40) Hemoglobin 11.2 g/dL (12.0-15.5) Hematocrit 32.9 % (36.0-47.0) Mean Corpuscular Volume 96 fL (79-100) Mean Corpuscular Hemoglobin 33 pg (25-35) Mean Corpuscular Hemoglobin Concent 34 g/dL (31-37) Red Cell Distribution Width 13.1 % (11.5-14.5) Platelet Count 342 x10^3/uL (140-400) Neutrophils (%) (Auto) 67 % (31-73) Lymphocytes (%) (Auto) 19 % (24-48) Monocytes (%) (Auto) 10 % (0-9) Eosinophils (%) (Auto) 3 % (0-3) Basophils (%) (Auto) 1 % (0-3) Neutrophils # (Auto) 5.0 x10^3/uL (1.8-7.7) Lymphocytes # (Auto) 1.4 x10^3/uL (1.0-4.8) Monocytes # (Auto) 0.8 x10^3/uL (0.0-1.1) Eosinophils # (Auto) 0.2 x10^3/uL (0.0-0.7) Basophils # (Auto) 0.1 x10^3/uL (0.0-0.2) Sodium Level 140 mmol/L (136-145) Potassium Level 4.4 mmol/L (3.5-5.1) Chloride Level 107 mmol/L (98-107) Carbon Dioxide Level 24 mmol/L (21-32) Anion Gap 9 (6-14) Blood Urea Nitrogen 14 mg/dL (7-20) Creatinine 1.2 mg/dL (0.6-1.0) Estimated GFR (Cockcroft-Gault) 52.2 Glucose Level 105 mg/dL (70-99) Calcium Level 8.8 mg/dL (8.5-10.1) Magnesium Level 2.2 mg/dL (1.8-2.4) Microbiology 11/19/19 Blood Culture - Preliminary, Resulted NO GROWTH AFTER 1 DAY Medications Current Medications Acetaminophen (Tylenol) 500 mg QHS PO Last administered on 11/19/19at 20:56; Start 11/19/19 at 21:00 Amitriptyline HCl (Elavil) 50 mg QHS PO Last administered on 11/19/19at 20:56; Start 11/19/19 at 21:00 Amlodipine Besylate (Norvasc) 5 mg DAILY PO ; Start 11/19/19 at 09:00 Dicyclomine HCl (Bentyl) 20 mg DAILY PO Last administered on 11/20/19at 08:47; Start 11/19/19 at 09:00 Diphenhydramine HCl (Benadryl) 25 mg QHS PO Last administered on 11/19/19at 20:56; Start 11/19/19 at 21:00 Lactobacillus Rhamnosus (Culturelle) 1 cap BID PO Last administered on 11/20/19at 08:46; Start 11/19/19 at 21:00 Latanoprost (Xalatan) 1 drop QHS OU Last administered on 11/19/19at 20:58; Start 11/19/19 at 21:00 Lidocaine HCl (Buffered Lidocaine 1%) 3 ml STK-MED ONCE .ROUTE ; Start 11/19/19 at 10:43; Stop 11/19/19 at 10:44; Status DC Lidocaine HCl (Buffered Lidocaine 1%) 6 ml 1X ONCE INJ Last administered on 11/19/19at 14:17; Start 11/19/19 at 10:45; Stop 11/19/19 at 10:47; Status DC Lidocaine HCl (Buffered Lidocaine 1%) 6 ml 1X ONCE INJ ; Start 11/19/19 at 14:15; Stop 11/19/19 at 14:16; Status DC Losartan Potassium (Cozaar) 25 mg DAILY PO ; Start 11/19/19 at 09:00 Magnesium Sulfate 50 ml @ 25 mls/hr 1X ONCE IV Last administered on 11/19/19at 12:23; Start 11/19/19 at 09:00; Stop 11/19/19 at 10:59; Status DC Meloxicam (Mobic) 7.5 mg DAILY PO Last administered on 11/20/19at 08:47; Start 11/19/19 at 09:00 Non-Formulary Medication ([tylenol pm] ) 1 tab HS PO ; Start 11/19/19 at 21:00; Status UNV Potassium Chloride (Klor-Con) 20 meq DAILY PO Last administered on 11/20/19at 08:47; Start 11/19/19 at 09:00 Potassium Chloride (Klor-Con) 40 meq 1X ONCE PO Last administered on 11/19/19at 12:17; Start 11/19/19 at 09:00; Stop 11/19/19 at 09:01; Status DC Triamterene/HCTZ (Maxzide 37.5/ 25mg) 1 tab 3X/WEEK PO ; Start 11/19/19 at 09:00; Stop 11/19/19 at 08:49; Status DC Vitals/I & O Vital Sign - Last 24 Hours 11/19/19 11/19/19 11/19/19 11/19/19 11:00 11:42 12:18 13:15 Temp 98.2 98.2 Pulse 95 Resp 18 18 22 B/P (MAP) 92/56 (68) Pulse Ox 96 94 94 100 O2 Delivery Nasal Cannula Room Air Nasal Cannula Room Air O2 Flow Rate 2.0 2.0 11/19/19 11/19/19 11/19/19 11/19/19 13:15 14:10 14:18 14:30 Pulse 89 89 80 Resp 22 B/P (MAP) 107/65 (79) 120/58 (78) 98/56 (70) Pulse Ox 100 97 97 100 O2 Delivery Room Air Room Air Room Air Room Air 11/19/19 11/19/19 11/19/19 11/19/19 14:36 14:45 15:00 15:15 Temp 97.5 97.5 Pulse 85 80 80 Resp 18 18 18 B/P (MAP) 98/56 (70) 98/56 (70) 103/63 (76) Pulse Ox 95 97 100 93 O2 Delivery Room Air Room Air Nasal Cannula Room Air O2 Flow Rate 2.0 11/19/19 11/19/19 11/19/19 11/19/19 15:30 16:00 16:30 17:30 Pulse 80 91 87 83 Resp 18 18 18 18 B/P (MAP) 103/63 (76) 103/63 (76) 115/63 (80) 122/69 (86) Pulse Ox 93 91 92 89 O2 Delivery Room Air Room Air Room Air Room Air 11/19/19 11/19/19 11/19/19 11/19/19 19:00 20:00 20:28 23:00 Temp 99.3 99.1 99.3 99.1 Pulse 83 87 Resp 18 18 B/P (MAP) 103/93 (96) 98/54 (69) Pulse Ox 97 97 93 O2 Delivery Room Air Nasal Cannula Room Air Room Air O2 Flow Rate 2.0 2.0 2.0 11/20/19 11/20/19 11/20/19 11/20/19 03:00 07:00 07:47 08:00 Temp 99.3 98.8 99.3 98.8 Pulse 84 81 Resp 18 18 B/P (MAP) 103/64 (77) 88/54 (65) Pulse Ox 90 96 95 O2 Delivery Nasal Cannula Nasal Cannula Nasal Cannula Nasal Cannula O2 Flow Rate 2.0 2.0 2.0 2.0 11/20/19 11/20/19 08:45 08:45 Pulse 81 81 B/P (MAP) 88/54 88/54 Intake and Output 11/19/19 11/19/19 11/20/19 15:00 23:00 07:00 Intake Total 200 ml 200 ml 0 ml Output Total 1550 ml Balance -1350 ml 200 ml 0 ml Justifications for Admission Other Justification WALKER DAVILA MD Nov 20, 2019 08:51
--- NOTE | 2019-11-20 09:24 | PDOC ---
PULMONARY PROGRESS NOTES DATE: 11/20/19 TIME: 09:21 Subjective FEELS BETTER POST TAP Vitals Vital Signs Date Time Temp Pulse Resp B/P (MAP) Pulse Ox O2 Delivery O2 Flow Rate FiO2 11/20/19 08:59 107/54 (71) 11/20/19 08:45 81 11/20/19 08:00 95 Nasal Cannula 2.0 11/20/19 07:00 98.8 18 98.8 General: Alert, No acute distress Lungs: Other (decrease bs left) Cardiovascular: S1 Abdomen: Soft Neuro Exam: Alert Extremities: No Edema Skin: Warm Labs Laboratory Tests Test 11/18/19 15:34 11/19/19 07:25 11/20/19 06:54 White Blood Count 9.6 x10^3/uL (4.0-11.0) 7.5 x10^3/uL (4.0-11.0) Red Blood Count 3.96 x10^6/uL (3.50-5.40) 3.43 x10^6/uL (3.50-5.40) Hemoglobin 12.9 g/dL (12.0-15.5) 11.2 g/dL (12.0-15.5) Hematocrit 37.2 % (36.0-47.0) 32.9 % (36.0-47.0) Mean Corpuscular Volume 94 fL (79-100) 96 fL (79-100) Mean Corpuscular Hemoglobin 33 pg (25-35) 33 pg (25-35) Mean Corpuscular Hemoglobin Concent 35 g/dL (31-37) 34 g/dL (31-37) Red Cell Distribution Width 12.7 % (11.5-14.5) 13.1 % (11.5-14.5) Platelet Count 425 x10^3/uL (140-400) 342 x10^3/uL (140-400) Neutrophils (%) (Auto) 73 % (31-73) 67 % (31-73) Lymphocytes (%) (Auto) 18 % (24-48) 19 % (24-48) Monocytes (%) (Auto) 8 % (0-9) 10 % (0-9) Eosinophils (%) (Auto) 1 % (0-3) 3 % (0-3) Basophils (%) (Auto) 1 % (0-3) 1 % (0-3) Neutrophils # (Auto) 7.0 x10^3/uL (1.8-7.7) 5.0 x10^3/uL (1.8-7.7) Lymphocytes # (Auto) 1.7 x10^3/uL (1.0-4.8) 1.4 x10^3/uL (1.0-4.8) Monocytes # (Auto) 0.8 x10^3/uL (0.0-1.1) 0.8 x10^3/uL (0.0-1.1) Eosinophils # (Auto) 0.1 x10^3/uL (0.0-0.7) 0.2 x10^3/uL (0.0-0.7) Basophils # (Auto) 0.1 x10^3/uL (0.0-0.2) 0.1 x10^3/uL (0.0-0.2) Prothrombin Time 13.6 SEC (11.7-14.0) Prothromb Time International Ratio 1.1 (0.8-1.1) Activated Partial Thromboplast Time 31 SEC (24-38) Urine Collection Type Void Urine Color Dk yellow Urine Clarity Clear Urine pH 5.0 (<5.0-8.0) Urine Specific [place] 1.020 (1.000-1.030) Urine Protein Negative mg/dL (NEG-TRACE) Urine Glucose (UA) Negative mg/dL (NEG) Urine Ketones (Stick) Trace mg/dL (NEG) Urine Blood Negative (NEG) Urine Nitrite Negative (NEG) Urine Bilirubin Moderate (NEG) Urine Urobilinogen Dipstick 1.0 mg/dL (0.2 mg/dL) Urine Leukocyte Esterase Negative (NEG) Urine RBC 0 /HPF (0-2) Urine WBC 1-4 /HPF (0-4) Urine Squamous Epithelial Cells Mod /LPF Urine Bacteria Moderate /HPF (0-FEW) Urine Hyaline Casts Many /HPF Urine Mucus Marked /LPF Sodium Level 136 mmol/L (136-145) 140 mmol/L (136-145) Potassium Level 3.0 mmol/L (3.5-5.1) 4.4 mmol/L (3.5-5.1) Chloride Level 101 mmol/L (98-107) 107 mmol/L (98-107) Carbon Dioxide Level 23 mmol/L (21-32) 24 mmol/L (21-32) Anion Gap 12 (6-14) 9 (6-14) Blood Urea Nitrogen 14 mg/dL (7-20) 14 mg/dL (7-20) Creatinine 1.2 mg/dL (0.6-1.0) 1.2 mg/dL (0.6-1.0) Estimated GFR (Cockcroft-Gault) 52.2 52.2 BUN/Creatinine Ratio 12 (6-20) Glucose Level 143 mg/dL (70-99) 105 mg/dL (70-99) Calcium Level 9.5 mg/dL (8.5-10.1) 8.8 mg/dL (8.5-10.1) Magnesium Level 1.2 mg/dL (1.8-2.4) 2.2 mg/dL (1.8-2.4) Total Bilirubin 0.4 mg/dL (0.2-1.0) Aspartate Amino Transf (AST/SGOT) 19 U/L (15-37) Alanine Aminotransferase (ALT/SGPT) 10 U/L (14-59) Alkaline Phosphatase 63 U/L (46-116) Creatine Kinase 72 U/L (26-192) Creatine Kinase MB (Mass) 1.1 ng/mL (0.0-3.6) Creatine Kinase MB Relative Index % (0-4) Troponin I Quantitative < 0.017 ng/mL (0.000-0.055) SJ-Gmb-A-Type Natriuretic Peptide 247 pg/mL (0-449) 275 pg/mL (0-449) Total Protein 8.3 g/dL (6.4-8.2) Albumin 3.0 g/dL (3.4-5.0) Albumin/Globulin Ratio 0.6 (1.0-1.7) Lipase 130 U/L (73-393) Laboratory Tests Test 11/20/19 06:54 White Blood Count 7.5 x10^3/uL (4.0-11.0) Red Blood Count 3.43 x10^6/uL (3.50-5.40) Hemoglobin 11.2 g/dL (12.0-15.5) Hematocrit 32.9 % (36.0-47.0) Mean Corpuscular Volume 96 fL (79-100) Mean Corpuscular Hemoglobin 33 pg (25-35) Mean Corpuscular Hemoglobin Concent 34 g/dL (31-37) Red Cell Distribution Width 13.1 % (11.5-14.5) Platelet Count 342 x10^3/uL (140-400) Neutrophils (%) (Auto) 67 % (31-73) Lymphocytes (%) (Auto) 19 % (24-48) Monocytes (%) (Auto) 10 % (0-9) Eosinophils (%) (Auto) 3 % (0-3) Basophils (%) (Auto) 1 % (0-3) Neutrophils # (Auto) 5.0 x10^3/uL (1.8-7.7) Lymphocytes # (Auto) 1.4 x10^3/uL (1.0-4.8) Monocytes # (Auto) 0.8 x10^3/uL (0.0-1.1) Eosinophils # (Auto) 0.2 x10^3/uL (0.0-0.7) Basophils # (Auto) 0.1 x10^3/uL (0.0-0.2) Sodium Level 140 mmol/L (136-145) Potassium Level 4.4 mmol/L (3.5-5.1) Chloride Level 107 mmol/L (98-107) Carbon Dioxide Level 24 mmol/L (21-32) Anion Gap 9 (6-14) Blood Urea Nitrogen 14 mg/dL (7-20) Creatinine 1.2 mg/dL (0.6-1.0) Estimated GFR (Cockcroft-Gault) 52.2 Glucose Level 105 mg/dL (70-99) Calcium Level 8.8 mg/dL (8.5-10.1) Magnesium Level 2.2 mg/dL (1.8-2.4) Medications Active Scripts Medications Dose Route/Sig Max Daily Dose Days Date Category Latanoprost 2.5 Ml Drops 1 Drop EACHEYE QHS 10/23/19 Reported Proair Hfa Inhaler (Albuterol Sulfate) 8.5 Gm Hfa.aer.ad 2 Puff IH PRN Q4-6HRS PRN 21 10/23/19 Reported Promethazine Hcl 25 Mg Tablet 5 Mg PO HS PRN 8/6/20 Reported [tylenol pm] 1 Tab PO HS 10/23/19 Reported Acetaminophen-Cod #4 Tablet (Acetaminophen/Codeine Phosphate) 1 Each Tablet 1 Tab PO Q6HRS PRN 10/23/19 Reported Meloxicam 7.5 Mg Tablet 7.5 Mg PO DAILY 10/23/19 Reported Klor-Con M20 (Potassium Chloride) 20 Meq Tab.er.prt 1 Tab PO DAILY 30 10/23/19 Reported Dicyclomine Hcl 10 Mg Capsule 20 Mg PO DAILY 10/23/19 Reported Tramadol Hcl 50 Mg Tablet 50 Mg PO Q6HRS PRN 07/17/17 Reported Norvasc (Amlodipine Besylate) 5 Mg Tablet 5 Mg PO DAILY 07/17/17 Reported Dyazide 37.5-25 Capsule (Triamterene/Hydrochlorothiazid) 1 Each Capsule 1 Cap PO 3X/WEEK 07/17/17 Reported Losartan Potassium (Losartan Potassium) 25 Mg Tablet 25 Mg PO DAILY 07/17/17 Reported Omeprazole 40 Mg Capsule.dr 40 Mg PO DAILY 07/17/17 Reported Amitriptyline Hcl 50 Mg Tablet 50 Mg PO HS 07/17/17 Reported Impression . 1. Dyspnea with acute hypoxic respiratory failure secondary moderate to large left-sided pleural effusion, likely malignant. 2. Abnormal CT chest with moderate to large left-sided pleural effusion along with suspected left hilar mass with obstructive collapse of the left lung. There is suspected left hilar mass with extrinsic compression and left hilar adenopathy suspected as well. These findings are highly suspicious for stage IV malignant cancer. 4. 20+ years of tobacco use, likely chronic obstructive pulmonary disease, could be mild. 5. Weight loss, likely secondary to malignancy. 6. Post -obstructive collapse of lung. Plan . 1. s/p left thoracentesis. feels better, await cyto 2. If the cytology is negative, then she will need a bronchoscopy. 3. Once diagnosis of malignancy is confirmed, we will need Medical Oncology and Radiation Oncology consultation. 4. The patient agrees to proceed with thoracentesis and we will follow along with you. d/w BRIELLE Grossman MD Nov 20, 2019 09:24
--- NOTE | 2019-11-20 09:31 | NUR ---
SW following. Discussed with RN, pt from home with family, requiring 2L oxygen as needed, cardiac diet. Pt had thoracentesis 11/19/2019. RN attempting to titrate pt off oxygen. SW will continue to follow.
--- NOTE | 2019-11-20 12:52 | PDOC2 ---
CONSULT Date of Consult Date of Consult DATE: 11/20/19 TIME: 12:43 Reason for Consult Reason for Consult: Suspected lung cancer Referring Physician Referring Physician: Dr. Spencer Identification/Chief Complaint Chief Complaint Shortness of breath Source Source: Chart review, Patient History of Present Illness Reason for Visit: Effie Ramesh is an 79-year-old -Spanish female with tobacco use history who was admitted to the hospital for further evaluation and management of shortness of breath. Patient reports new onset dyspnea which began approx imately 1 month ago and had gradually progressed since then. She follows with Dr. Spencer for primary care. She presented to the emergency room for further evaluation of her symptoms. She received COVID-19 test which was negative. She also reports recent weight loss of 10 pounds. She received a CT angiogram in the emergency room for further evaluation of her symptoms. This showed a large left-sided pleural effusion. Additionally narrowing of the left mainstem bronchus was noted at the left hilar mass causing extrinsic compression. There was associated left lung atelectasis. She was also found to have 1.5 cm lesion in the left kidney. She was seen in consultation by Dr. Arnie Jones went a left- sided thoracentesis in interventional radiology. Results from the study are not available at this time. Effie was resting in bed and reported improvement in her symptoms at the time of my evaluation. Denies fever or chills Denies headache or blurred vision/double vision or nausea vomitings She reports that she has smoked half pack per day for the past 20 years. She has not smoked before the age of 58. Past Medical History Cardiovascular: HTN Pulmonary: No pertinent hx GI: No pertinent hx Heme/Onc: No pertinent hx Hepatobiliary: No pertinent hx Psych: No pertinent hx Rheumatologic: No pertinent hx Infectious disease: No pertinent hx Renal/: No pertinent hx Endocrine: No pertinent hx Past Surgical History Past Surgical History: Cholecystectomy, No pertinent history Family History Family History: Cancer, Diabetes, Hypertension Social History ALCOHOL: none Drugs: None Lives: with Family Current Medications Current Medications Current Medications Potassium Chloride (Klor-Con) 40 meq 1X ONCE PO Last administered on 11/18/19at 18:27; Start 11/18/19 at 17:15; Stop 11/18/19 at 17:16; Status DC Magnesium Oxide (Magnesium Oxide) 400 mg 1X PO Last administered on 11/18/19at 18:27; Start 11/18/19 at 17:15 Iohexol (Omnipaque 350 Mg/ml) 80 ml 1X ONCE IV Last administered on 11/18/19at 17:30; Start 11/18/19 at 17:30; Stop 11/18/19 at 17:32; Status DC Info (CONTRAST GIVEN -- Rx MONITORING) 1 each PRN DAILY PRN MC SEE COMMENTS; Start 11/18/19 at 21:30; Stop 11/20/19 at 21:29 Albuterol/ Ipratropium (Duoneb) 3 ml RTQID NEB Last administered on 11/20/19at 11:38; Start 11/19/19 at 08:00 Albuterol Sulfate (Ventolin Neb Soln) 2.5 mg PRN Q4HRS PRN NEB COUGH; Start 11/19/19 at 06:30 Ceftriaxone Sodium (Rocephin) 1 gm Q24H IVP Last administered on 11/20/19at 06:14; Start 11/19/19 at 07:00 Azithromycin 500 mg/Sodium Chloride 250 ml @ 250 mls/hr Q24H IV Last administered on 11/20/19at 06:14; Start 11/19/19 at 07:00 Amlodipine Besylate (Norvasc) 5 mg DAILY PO ; Start 11/19/19 at 09:00 Dicyclomine HCl (Bentyl) 20 mg DAILY PO Last administered on 11/20/19at 08:47; Start 11/19/19 at 09:00 Latanoprost (Xalatan) 1 drop QHS OU Last administered on 11/19/19at 20:58; Start 11/19/19 at 21:00 Losartan Potassium (Cozaar) 25 mg DAILY PO ; Start 11/19/19 at 09:00 Meloxicam (Mobic) 7.5 mg DAILY PO Last administered on 11/20/19at 08:47; Start 11/19/19 at 09:00 Potassium Chloride (Klor-Con) 20 meq DAILY PO Last administered on 11/20/19at 08:47; Start 11/19/19 at 09:00 Tramadol HCl (Ultram) 50 mg PRN Q6HRS PRN PO SEVERE PAIN; Start 11/19/19 at 07:30 Acetaminophen/ Codeine Phosphate (Tylenol #3) 1 tab PRN Q6HRS PRN PO MODERATE PAIN Last administered on 11/19/19at 12:14; Start 11/19/19 at 07:45 Amitriptyline HCl (Elavil) 50 mg QHS PO Last administered on 11/19/19at 20:56; Start 11/19/19 at 21:00 Pantoprazole Sodium (Protonix) 40 mg DAILYAC PO Last administered on 11/20/19at 06:14; Start 11/19/19 at 08:00 Promethazine HCl (Phenergan Syrup) 6.25 mg PRN QHS PRN PO SLEEP; Start 11/19/19 at 07:45 Triamterene/HCTZ (Maxzide 37.5/ 25mg) 1 tab 3X/WEEK PO ; Start 11/19/19 at 09:00; Stop 11/19/19 at 08:49; Status DC Non-Formulary Medication ([tylenol pm] ) 1 tab HS PO ; Start 11/19/19 at 21:00; Status UNV Codeine Sulfate (Codeine) 30 mg PRN Q6HRS PRN PO MODERATE PAIN Last administered on 11/19/19at 12:18; Start 11/19/19 at 07:45 Acetaminophen (Tylenol) 500 mg QHS PO Last administered on 11/19/19at 20:56; Start 11/19/19 at 21:00 Diphenhydramine HCl (Benadryl) 25 mg QHS PO Last administered on 11/19/19at 20:56; Start 11/19/19 at 21:00 Magnesium Sulfate 50 ml @ 25 mls/hr 1X ONCE IV Last administered on 11/19/19at 12:23; Start 11/19/19 at 09:00; Stop 11/19/19 at 10:59; Status DC Potassium Chloride (Klor-Con) 40 meq 1X ONCE PO Last administered on 11/19/19at 12:17; Start 11/19/19 at 09:00; Stop 11/19/19 at 09:01; Status DC Lidocaine HCl (Buffered Lidocaine 1%) 3 ml STK-MED ONCE .ROUTE ; Start 11/19/19 at 10:43; Stop 11/19/19 at 10:44; Status DC Lidocaine HCl (Buffered Lidocaine 1%) 6 ml 1X ONCE INJ Last administered on 11/19/19at 14:17; Start 11/19/19 at 10:45; Stop 11/19/19 at 10:47; Status DC Lidocaine HCl (Buffered Lidocaine 1%) 6 ml 1X ONCE INJ ; Start 11/19/19 at 14:15; Stop 11/19/19 at 14:16; Status DC Lactobacillus Rhamnosus (Culturelle) 1 cap BID PO Last administered on 11/20/19at 08:46; Start 11/19/19 at 21:00 Active Scripts Active Reported Latanoprost 2.5 Ml Drops 1 Drop EACHEYE QHS Proair Hfa Inhaler (Albuterol Sulfate) 8.5 Gm Hfa.aer.ad 2 Puff IH PRN Q4-6HRS P RN 21 Days Promethazine Hcl 25 Mg Tablet 5 Mg PO HS PRN [tylenol pm] 1 Tab PO HS Acetaminophen-Cod #4 Tablet (Acetaminophen/Codeine Phosphate) 1 Each Tablet 1 Tab PO Q6HRS PRN Meloxicam 7.5 Mg Tablet 7.5 Mg PO DAILY Klor-Con M20 (Potassium Chloride) 20 Meq Tab.er.prt 1 Tab PO DAILY 30 Days Dicyclomine Hcl 10 Mg Capsule 20 Mg PO DAILY Tramadol Hcl 50 Mg Tablet 50 Mg PO Q6HRS PRN Norvasc (Amlodipine Besylate) 5 Mg Tablet 5 Mg PO DAILY Dyazide 37.5-25 Capsule (Triamterene/Hydrochlorothiazid) 1 Each Capsule 1 Cap PO 3X/WEEK Losartan Potassium (Losartan Potassium) 25 Mg Tablet 25 Mg PO DAILY Omeprazole 40 Mg Capsule.dr 40 Mg PO DAILY Amitriptyline Hcl 50 Mg Tablet 50 Mg PO HS Allergies Allergies: Coded Allergies: No Known Drug Allergies (Unverified , 07/17/17) ROS General: No: Chills, Night Sweats PSYCHOLOGICAL ROS: No: Anxiety, Behavioral Disorder Eyes: No Blurry vision, No Decreased vision HEENT: No: Heacaches, Visual Changes Hematological and Lymphatic: No: Blood Clots, Brusing ENDOCRINE: No: Malaise/lethargy, Mood Swings Breast: No New/Changing Breast Lumps Respiratory: YES: Cough, Shortness of breath; No: Hemoptysis, Pleuritic Pain Cardiovascular: No Chest Pain, No Palpitations Gastrointestinal: No Nausea, No Vomiting Genitourinary: No Dysuria, No Frequency Musculoskeletal: No Gait Disturbance, No Joint Pain Neurological: No Confusion, No Dizziness Physical Exam General: Alert, Oriented X3 HEENT: Atraumatic, PERRLA Lungs: Clear to auscultation, Normal air movement Heart: Regular rate, Normal S1, Normal S2 Abdomen: Normal bowel sounds, No tenderness, No hepatosplenomegaly Extremities: No clubbing Skin: No rashes Neuro: Normal gait Psych/Mental Status: Mental status NL MUSCULOSKELETAL: No swelling Vitals VITALS Vital Signs Date Time Temp Pulse Resp B/P (MAP) Pulse Ox O2 Delivery O2 Flow Rate FiO2 11/20/19 11:41 99 Room Air 11/20/19 11:00 97.9 86 18 107/61 (76) 97.9 11/20/19 08:00 2.0 Labs Labs Laboratory Tests Test 11/18/19 15:34 11/19/19 07:25 11/20/19 06:54 White Blood Count 9.6 x10^3/uL (4.0-11.0) 7.5 x10^3/uL (4.0-11.0) Red Blood Count 3.96 x10^6/uL (3.50-5.40) 3.43 x10^6/uL (3.50-5.40) Hemoglobin 12.9 g/dL (12.0-15.5) 11.2 g/dL (12.0-15.5) Hematocrit 37.2 % (36.0-47.0) 32.9 % (36.0-47.0) Mean Corpuscular Volume 94 fL (79-100) 96 fL (79-100) Mean Corpuscular Hemoglobin 33 pg (25-35) 33 pg (25-35) Mean Corpuscular Hemoglobin Concent 35 g/dL (31-37) 34 g/dL (31-37) Red Cell Distribution Width 12.7 % (11.5-14.5) 13.1 % (11.5-14.5) Platelet Count 425 x10^3/uL (140-400) 342 x10^3/uL (140-400) Neutrophils (%) (Auto) 73 % (31-73) 67 % (31-73) Lymphocytes (%) (Auto) 18 % (24-48) 19 % (24-48) Monocytes (%) (Auto) 8 % (0-9) 10 % (0-9) Eosinophils (%) (Auto) 1 % (0-3) 3 % (0-3) Basophils (%) (Auto) 1 % (0-3) 1 % (0-3) Neutrophils # (Auto) 7.0 x10^3/uL (1.8-7.7) 5.0 x10^3/uL (1.8-7.7) Lymphocytes # (Auto) 1.7 x10^3/uL (1.0-4.8) 1.4 x10^3/uL (1.0-4.8) Monocytes # (Auto) 0.8 x10^3/uL (0.0-1.1) 0.8 x10^3/uL (0.0-1.1) Eosinophils # (Auto) 0.1 x10^3/uL (0.0-0.7) 0.2 x10^3/uL (0.0-0.7) Basophils # (Auto) 0.1 x10^3/uL (0.0-0.2) 0.1 x10^3/uL (0.0-0.2) Prothrombin Time 13.6 SEC (11.7-14.0) Prothromb Time International Ratio 1.1 (0.8-1.1) Activated Partial Thromboplast Time 31 SEC (24-38) Urine Collection Type Void Urine Color Dk yellow Urine Clarity Clear Urine pH 5.0 (<5.0-8.0) Urine Specific [place] 1.020 (1.000-1.030) Urine Protein Negative mg/dL (NEG-TRACE) Urine Glucose (UA) Negative mg/dL (NEG) Urine Ketones (Stick) Trace mg/dL (NEG) Urine Blood Negative (NEG) Urine Nitrite Negative (NEG) Urine Bilirubin Moderate (NEG) Urine Urobilinogen Dipstick 1.0 mg/dL (0.2 mg/dL) Urine Leukocyte Esterase Negative (NEG) Urine RBC 0 /HPF (0-2) Urine WBC 1-4 /HPF (0-4) Urine Squamous Epithelial Cells Mod /LPF Urine Bacteria Moderate /HPF (0-FEW) Urine Hyaline Casts Many /HPF Urine Mucus Marked /LPF Sodium Level 136 mmol/L (136-145) 140 mmol/L (136-145) Potassium Level 3.0 mmol/L (3.5-5.1) 4.4 mmol/L (3.5-5.1) Chloride Level 101 mmol/L (98-107) 107 mmol/L (98-107) Carbon Dioxide Level 23 mmol/L (21-32) 24 mmol/L (21-32) Anion Gap 12 (6-14) 9 (6-14) Blood Urea Nitrogen 14 mg/dL (7-20) 14 mg/dL (7-20) Creatinine 1.2 mg/dL (0.6-1.0) 1.2 mg/dL (0.6-1.0) Estimated GFR (Cockcroft-Gault) 52.2 52.2 BUN/Creatinine Ratio 12 (6-20) Glucose Level 143 mg/dL (70-99) 105 mg/dL (70-99) Calcium Level 9.5 mg/dL (8.5-10.1) 8.8 mg/dL (8.5-10.1) Magnesium Level 1.2 mg/dL (1.8-2.4) 2.2 mg/dL (1.8-2.4) Total Bilirubin 0.4 mg/dL (0.2-1.0) Aspartate Amino Transf (AST/SGOT) 19 U/L (15-37) Alanine Aminotransferase (ALT/SGPT) 10 U/L (14-59) Alkaline Phosphatase 63 U/L (46-116) Creatine Kinase 72 U/L (26-192) Creatine Kinase MB (Mass) 1.1 ng/mL (0.0-3.6) Creatine Kinase MB Relative Index % (0-4) Troponin I Quantitative < 0.017 ng/mL (0.000-0.055) XP-Kgu-M-Type Natriuretic Peptide 247 pg/mL (0-449) 275 pg/mL (0-449) Total Protein 8.3 g/dL (6.4-8.2) Albumin 3.0 g/dL (3.4-5.0) Albumin/Globulin Ratio 0.6 (1.0-1.7) Lipase 130 U/L (73-393) Laboratory Tests Test 11/20/19 06:54 White Blood Count 7.5 x10^3/uL (4.0-11.0) Red Blood Count 3.43 x10^6/uL (3.50-5.40) Hemoglobin 11.2 g/dL (12.0-15.5) Hematocrit 32.9 % (36.0-47.0) Mean Corpuscular Volume 96 fL (79-100) Mean Corpuscular Hemoglobin 33 pg (25-35) Mean Corpuscular Hemoglobin Concent 34 g/dL (31-37) Red Cell Distribution Width 13.1 % (11.5-14.5) Platelet Count 342 x10^3/uL (140-400) Neutrophils (%) (Auto) 67 % (31-73) Lymphocytes (%) (Auto) 19 % (24-48) Monocytes (%) (Auto) 10 % (0-9) Eosinophils (%) (Auto) 3 % (0-3) Basophils (%) (Auto) 1 % (0-3) Neutrophils # (Auto) 5.0 x10^3/uL (1.8-7.7) Lymphocytes # (Auto) 1.4 x10^3/uL (1.0-4.8) Monocytes # (Auto) 0.8 x10^3/uL (0.0-1.1) Eosinophils # (Auto) 0.2 x10^3/uL (0.0-0.7) Basophils # (Auto) 0.1 x10^3/uL (0.0-0.2) Sodium Level 140 mmol/L (136-145) Potassium Level 4.4 mmol/L (3.5-5.1) Chloride Level 107 mmol/L (98-107) Carbon Dioxide Level 24 mmol/L (21-32) Anion Gap 9 (6-14) Blood Urea Nitrogen 14 mg/dL (7-20) Creatinine 1.2 mg/dL (0.6-1.0) Estimated GFR (Cockcroft-Gault) 52.2 Glucose Level 105 mg/dL (70-99) Calcium Level 8.8 mg/dL (8.5-10.1) Magnesium Level 2.2 mg/dL (1.8-2.4) Images Images CT angiogram of the chest: No evidence of pulmonary embolus. Near complete opacification of the left hemithorax which appears be due to a moderate to large amount of left pleural effusion but there is increased density without aeration in the left upper lobe distribution which appears to surround and narrow the left pulmonary artery structures. Malignancy cannot be excluded. Collapsed left lower lung field with minimal aeration. Mild emphysematous changes in the right lung field. 1.7 cm heterogeneous hypodense nodule in the right lobe of the thyroid gland. 1.5 cm hypodense lesion in the upper pole the left kidney which is not definitely cystic by Hounsfield units. This can be further evaluated with ultrasound. Assessment/Plan Assessment/Plan Assessment: Right-sided pleural effusion Right hilar mass Tobacco use Emphysemano PFTs available Hypertension Normocytic anemia CKD stage III Recommendations: -Agree with thoracentesis. We will follow-up on results -Would recommend bronchoscopy with sampling of perihilar mass if thoracentesis fluid does not show malignancy -Consider thyroid ultrasound and TSH for further evaluation of thyroid nodule -Would plan on staging investigations with CT of the abdomen and pelvis with contrast if thoracentesis does indicate involvement with a suspected pulmonary malignancy -Given anemia and CKD, will check B12, iron panel, SPEP and serum free light chains -Will follow Tomasz Ahmadi MD Medical Oncology/Hematology Ph: [phone] OUSMANE AHMADI MD Nov 20, 2019 12:52
[2019-11-20] MEDS: CODEINE SULFATE 30 MG TABLET. PO PRN ×2 (13:03→21:18)
[2019-11-20] MEDS: ACETAMINOPHEN/CODEINE 300/30MG TABLET. PO PRN ×2 (13:03→21:18)
[2019-11-20] MEDS: ACETAMINOPHEN 500 MG TABLET PO SCH (21:17)
[2019-11-20] MEDS: AMITRIPTYLINE HCL 25 MG TABLET. PO SCH (21:17)
[2019-11-20] MEDS: diphenhydrAMINE HCL 25 MG CAPSULE PO SCH (21:17)
[2019-11-20] MEDS: LATANOPROST 0.005% OPHTH SOLUTION 2.5ML BOTTLE. OU SCH (21:17)
[2019-11-21 03:05] VITALS: BP 97/59
[2019-11-21 07:00] VITALS: BP 94/53
[2019-11-21] MEDS: AZITHROMYCIN 500 MG in IV NORMAL SALINE 250ML 250 ML IV SCH (07:21)
[2019-11-21] MEDS: cefTRIAXone IV Push 1 GM VIAL. IVP SCH (07:22)
--- NOTE | 2019-11-21 09:18 | PDOC ---
PULMONARY PROGRESS NOTES DATE: 11/21/19 TIME: 09:16 Subjective FEELS BETTER POST TAP Vitals Vital Signs Date Time Temp Pulse Resp B/P (MAP) Pulse Ox O2 Delivery O2 Flow Rate FiO2 11/21/19 07:00 98.3 77 18 94/53 (67) 93 Room Air 98.3 11/20/19 22:18 2.0 General: Alert, No acute distress Lungs: Other (decrease bs left) Cardiovascular: S1 Abdomen: Soft Neuro Exam: Alert Extremities: No Edema Skin: Warm Labs Laboratory Tests Test 11/19/19 14:10 11/20/19 06:54 11/21/19 04:25 Body Fluid Total Protein 5.0 g/dL (.) Body Fluid Lactate Dehydrogenase 880 IU/L (.) White Blood Count 7.5 x10^3/uL (4.0-11.0) Red Blood Count 3.43 x10^6/uL (3.50-5.40) Hemoglobin 11.2 g/dL (12.0-15.5) Hematocrit 32.9 % (36.0-47.0) Mean Corpuscular Volume 96 fL (79-100) Mean Corpuscular Hemoglobin 33 pg (25-35) Mean Corpuscular Hemoglobin Concent 34 g/dL (31-37) Red Cell Distribution Width 13.1 % (11.5-14.5) Platelet Count 342 x10^3/uL (140-400) Neutrophils (%) (Auto) 67 % (31-73) Lymphocytes (%) (Auto) 19 % (24-48) Monocytes (%) (Auto) 10 % (0-9) Eosinophils (%) (Auto) 3 % (0-3) Basophils (%) (Auto) 1 % (0-3) Neutrophils # (Auto) 5.0 x10^3/uL (1.8-7.7) Lymphocytes # (Auto) 1.4 x10^3/uL (1.0-4.8) Monocytes # (Auto) 0.8 x10^3/uL (0.0-1.1) Eosinophils # (Auto) 0.2 x10^3/uL (0.0-0.7) Basophils # (Auto) 0.1 x10^3/uL (0.0-0.2) Sodium Level 140 mmol/L (136-145) Potassium Level 4.4 mmol/L (3.5-5.1) Chloride Level 107 mmol/L (98-107) Carbon Dioxide Level 24 mmol/L (21-32) Anion Gap 9 (6-14) Blood Urea Nitrogen 14 mg/dL (7-20) Creatinine 1.2 mg/dL (0.6-1.0) Estimated GFR (Cockcroft-Gault) 52.2 Glucose Level 105 mg/dL (70-99) Calcium Level 8.8 mg/dL (8.5-10.1) Magnesium Level 2.2 mg/dL (1.8-2.4) Iron Level 21 ug/dL (50-170) Total Iron Binding Capacity 170 ug/dL (250-450) Iron Saturation 12 % (15-34) Laboratory Tests Test 11/21/19 04:25 Iron Level 21 ug/dL (50-170) Total Iron Binding Capacity 170 ug/dL (250-450) Iron Saturation 12 % (15-34) Medications Active Scripts Medications Dose Route/Sig Max Daily Dose Days Date Category Latanoprost 2.5 Ml Drops 1 Drop EACHEYE QHS 10/23/19 Reported Proair Hfa Inhaler (Albuterol Sulfate) 8.5 Gm Hfa.aer.ad 2 Puff IH PRN Q4-6HRS PRN 21 10/23/19 Reported Promethazine Hcl 25 Mg Tablet 5 Mg PO HS PRN 10/23/19 Reported [tylenol pm] 1 Tab PO HS 10/23/19 Reported Acetaminophen-Cod #4 Tablet (Acetaminophen/Codeine Phosphate) 1 Each Tablet 1 Tab PO Q6HRS PRN 10/23/19 Reported Meloxicam 7.5 Mg Tablet 7.5 Mg PO DAILY 10/23/19 Reported Klor-Con M20 (Potassium Chloride) 20 Meq Tab.er.prt 1 Tab PO DAILY 30 10/23/19 Reported Dicyclomine Hcl 10 Mg Capsule 20 Mg PO DAILY 10/23/19 Reported Tramadol Hcl 50 Mg Tablet 50 Mg PO Q6HRS PRN 07/17/17 Reported Norvasc (Amlodipine Besylate) 5 Mg Tablet 5 Mg PO DAILY 07/17/17 Reported Dyazide 37.5-25 Capsule (Triamterene/Hydrochlorothiazid) 1 Each Capsule 1 Cap PO 3X/WEEK 07/17/17 Reported Losartan Potassium (Losartan Potassium) 25 Mg Tablet 25 Mg PO DAILY 07/17/17 Reported Omeprazole 40 Mg Capsule.dr 40 Mg PO DAILY 07/17/17 Reported Amitriptyline Hcl 50 Mg Tablet 50 Mg PO HS 07/17/17 Reported Impression . 1. Dyspnea with acute hypoxic respiratory failure secondary moderate to large left-sided pleural effusion, malignant. 2. Abnormal CT chest with moderate to large left-sided pleural effusion along with suspected left hilar mass with obstructive collapse of the left lung. There is suspected left hilar mass with extrinsic compression and left hilar adenopathy suspected as well. These findings are highly suspicious for stage IV malignant cancer. 4. 20+ years of tobacco use, likely chronic obstructive pulmonary disease, could be mild. 5. Weight loss, likely secondary to malignancy. 6. Post -obstructive collapse of lung. Plan . 1. s/p left thoracentesis. feels better, pleural fluid c/w small cell lung cancer 2. No need for bronchoscopy. 3. Medical Oncology and Radiation Oncology consultation. 4. d/w Dr Tj VAZQUEZ WITH [facility] TODAY F'U WITH ONCOLOGY BRIELLE SHABAZZ MD Nov 21, 2019 09:18
--- NOTE | 2019-11-21 09:29 | NUR ---
SW following. Discussed with RN, pt having a bronch at 1100 today. Possible discharge home today if bronch is negative. SW will continue to follow.
--- NOTE | 2019-11-21 09:30 | PDOC ---
PROGRESS NOTES Date of Service: DATE: 11/21/19 TIME: 09:28 Subjective Subjective no new problems Objective Objective Vital Signs Date Time Temp Pulse Resp B/P (MAP) Pulse Ox O2 Delivery O2 Flow Rate FiO2 11/21/19 07:00 98.3 77 18 94/53 (67) 93 Room Air 98.3 11/20/19 22:18 2.0 Intake and Output 11/21/19 06:59 Intake Total 980 ml Balance 980 ml Intake Oral 980 ml # Voids 2 Physical Exam Abdomen: Normal bowel sounds, No tenderness, No hepatosplenomegaly Heart: Regular rate, Normal S1, Normal S2 Extremities: No clubbing General: Alert, Oriented X3 HEENT: Atraumatic, PERRLA Lungs: Clear to auscultation, Normal air movement MUSCULOSKELETAL: No swelling Neuro: Normal gait Psych/Mental Status: Mental status NL Skin: No rashes Assessment Assessment FINAL IMPRESSION: 1. Left pleural effusion, suspicious for cancer. 2. Lung mass. 3. Smoking history for 50 years. 4. Hypertension. 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 Pulmonary consult, Dr. Jones. The patient would need a thoracocentesis, maybe bronchoscopy depending on what we find. Replace potassium and magnesium. Hold off on the Lovenox because of the procedures. Comment Review of Relevant I have reviewed the following items ankit (where applicable) has been applied. Labs Laboratory Tests Test 11/21/19 04:25 Iron Level 21 ug/dL (50-170) Total Iron Binding Capacity 170 ug/dL (250-450) Iron Saturation 12 % (15-34) Microbiology 11/19/19 Gram Stain - Final, Resulted 11/19/19 Aerobic and Anaerobic Culture - Preliminary, Resulted 11/19/19 Blood Culture - Preliminary, Resulted NO GROWTH AFTER 2 DAYS 11/18/19 Urine Culture - Final, Complete Vitals/I & O Vital Sign - Last 24 Hours 11/20/19 11/20/19 11/20/19 11/20/19 11:00 11:41 13:03 13:03 Temp 97.9 97.9 Pulse 86 Resp 18 B/P (MAP) 107/61 (76) Pulse Ox 94 99 O2 Delivery Room Air Room Air Nasal Cannula Nasal Cannula O2 Flow Rate 2.0 2.0 11/20/19 11/20/19 11/20/19 11/20/19 14:00 14:00 15:00 15:40 Temp 98.8 98.8 Pulse 95 Resp 18 B/P (MAP) 90/55 (67) Pulse Ox 97 99 O2 Delivery Nasal Cannula Nasal Cannula Room Air Room Air O2 Flow Rate 2.0 2.0 11/20/19 11/20/19 11/20/19 11/20/19 19:15 20:05 21:18 21:18 Temp 97.4 97.4 Pulse 90 Resp 18 20 20 B/P (MAP) 93/53 (66) Pulse Ox 93 O2 Delivery Room Air Nasal Cannula Room Air Room Air O2 Flow Rate 2.0 11/20/19 11/20/19 11/20/19 11/21/19 22:18 22:18 23:13 03:05 Temp 98.3 98.1 98.3 98.1 Pulse 72 82 Resp 20 20 18 18 B/P (MAP) 85/51 (62) 97/59 (72) Pulse Ox 93 97 O2 Delivery Nasal Cannula Nasal Cannula Room Air Room Air O2 Flow Rate 2.0 2.0 11/21/19 07:00 Temp 98.3 98.3 Pulse 77 Resp 18 B/P (MAP) 94/53 (67) Pulse Ox 93 O2 Delivery Room Air Intake and Output 11/20/19 11/20/19 11/21/19 14:59 22:59 06:59 Intake Total 250 ml 250 ml 480 ml Balance 250 ml 250 ml 480 ml Justifications for Admission Other Justification WALKER DAVILA MD Nov 21, 2019 09:30
[2019-11-21] MEDS ORDERED: IOHEXOL 300 MG/ML 100ML VIAL. IV ONE (09:45)
[2019-11-21] MEDS ORDERED: IOHEXOL 240 MG/ML 50ML VIAL. PO ONE (09:45)
[2019-11-21] MEDS ORDERED: CONTRAST GIVEN. MC PRN (09:45)
--- NOTE | 2019-11-21 10:07 | PATHOLOGY ---
Note [facility] Accession Number: [id number] TESTS RESULT FLAG UNITS REF RANGE LAB Clinician Provided Cytology Information No. of containers..01 Other (Miscellaneous) Source: [A] [address] [place] DIAGNOSIS: [A] [address] [place] POSITIVE FOR MALIGNANT CELLS. METASTATIC CARCINOMA IS PRESENT. THIS INTERPRETATION INCLUDES EVALUATION OF A CELL BLOCK. SEE COMMENT: Comment: Immunohistochemical stains are performed on the cellblock as follows (A1; appropriate control): CD56 - Positive TTF-1 - Positive CK7 - Highlights mesothelial cells Desmin - Highlights mesothelial cells Calretinin - Highlights mesothelial cells Napsin - Negative Julio-EP4 - Negative CK20 - Negative p40 - Negative These findings support the above diagnosis and are consistent with a metastatic small cell carcinoma. The findings are discussed with Dr. Jones on 11/21/[address] Jcarlos Zaragoza co-review. Pathologist ICD10: 02 J91.0 Signed out by: Jaison Rios MD, Pathologist NPI- [id number] Performed by: Jane Harmon, Ground Support Equipment Fitter ([facility]) Gross description: 01 30ML, RED/ORANGE, 1TP, 1CB /LCS 11/20/2019 0535 Local FLAG LEGEND: L-Low Normal,H-High Normal,LL-Alert Low,HH-Alert High <-Panic Low,>-Panic High,A-Abnormal,AA-Critical Abnormal Performed at: 01 [place] [facility] [address] [place] [address] Vishnu Higgins MD, [address] [address] Shikha Ball MD, Specimen Comment: Report sent to Performed at: [address], [place], [place] [id number] MD Vishnu Higgins MD Phone: [phone]
[2019-11-21 11:00] VITALS: BP 93/80
[2019-11-21] MEDS ORDERED: GADOTERATE 7.5 MMOL/15ML VIAL. IVP ONE (12:30)
--- NOTE | 2019-11-21 12:57 | PDOC ---
PROGRESS NOTES Date of Service DATE: 11/21/19 TIME: 12:45 Subjective Subjective Effie was resting at the time of today's visit. Discussed results of pleural fluid cytology. She denies any new symptoms today. Denies fever, chills, chest pain, nausea, vomiting or diarrhea. SOA has improved after thoracentesis. Objective Objective Vital Signs Date Time Temp Pulse Resp B/P (MAP) Pulse Ox O2 Delivery O2 Flow Rate FiO2 11/21/19 11:00 98.2 66 18 93/80 (84) 94 Nasal Cannula 2.0 98.2 Intake and Output 11/21/19 07:00 Intake Total 980 ml Balance 980 ml Intake Oral 980 ml # Voids 2 Physical Exam Abdomen: Normal bowel sounds, Soft Heart: Regular rate, Normal S1, Normal S2 Extremities: No clubbing General: Alert, Oriented X3 HEENT: Atraumatic Lungs: Clear to auscultation MUSCULOSKELETAL: No swelling Neck: Supple, No JVD Neuro: Normal gait, Normal speech Psych/Mental Status: Mental status NL Skin: No rashes Assessment Assessment 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 I counseled her on the diagnostic work-up,staging evaluation, the role of staging in defining the treatment protocol in small cell lung cancer and the prognosis of limited/extensive stage SCLC -I recommended CT abdomen and pelvis and MRI brain to complete staging. Would like MRI completed prior to DC but she may be discharged and does not need to remain inpatient if it is not completed today. -Given preliminary staging of her cancer (limited stage SCLC), I discussed the treatment options. I discussed the potential side effects of Carboplatin and Etoposide based treatment and provided her with educational literature regarding these drugs -She is interested in treatment and maintains an acceptable functional status. She plans to discuss further with her daughter and her nephew (she lives with her Nephew) -Follow-up will be arranged with my office on 11/25/2019 to further discuss treatment recommendations -Given low B12 anemia, would plan on starting outpatient B12 supplementation -I discussed her with Dr Jones and Alvino Spencer today Tomasz Ahmadi MD Medical Oncology/Hematology Ph: [phone] Comment Review of Relevant I have reviewed the following items ankit (where applicable) has been applied. Labs Laboratory Tests Test 11/19/19 14:10 11/20/19 06:54 11/21/19 04:25 Body Fluid Total Protein 5.0 g/dL (.) Body Fluid Lactate Dehydrogenase 880 IU/L (.) White Blood Count 7.5 x10^3/uL (4.0-11.0) Red Blood Count 3.43 x10^6/uL (3.50-5.40) Hemoglobin 11.2 g/dL (12.0-15.5) Hematocrit 32.9 % (36.0-47.0) Mean Corpuscular Volume 96 fL (79-100) Mean Corpuscular Hemoglobin 33 pg (25-35) Mean Corpuscular Hemoglobin Concent 34 g/dL (31-37) Red Cell Distribution Width 13.1 % (11.5-14.5) Platelet Count 342 x10^3/uL (140-400) Neutrophils (%) (Auto) 67 % (31-73) Lymphocytes (%) (Auto) 19 % (24-48) Monocytes (%) (Auto) 10 % (0-9) Eosinophils (%) (Auto) 3 % (0-3) Basophils (%) (Auto) 1 % (0-3) Neutrophils # (Auto) 5.0 x10^3/uL (1.8-7.7) Lymphocytes # (Auto) 1.4 x10^3/uL (1.0-4.8) Monocytes # (Auto) 0.8 x10^3/uL (0.0-1.1) Eosinophils # (Auto) 0.2 x10^3/uL (0.0-0.7) Basophils # (Auto) 0.1 x10^3/uL (0.0-0.2) Sodium Level 140 mmol/L (136-145) Potassium Level 4.4 mmol/L (3.5-5.1) Chloride Level 107 mmol/L (98-107) Carbon Dioxide Level 24 mmol/L (21-32) Anion Gap 9 (6-14) Blood Urea Nitrogen 14 mg/dL (7-20) Creatinine 1.2 mg/dL (0.6-1.0) Estimated GFR (Cockcroft-Gault) 52.2 Glucose Level 105 mg/dL (70-99) Calcium Level 8.8 mg/dL (8.5-10.1) Magnesium Level 2.2 mg/dL (1.8-2.4) Iron Level 21 ug/dL (50-170) Total Iron Binding Capacity 170 ug/dL (250-450) Iron Saturation 12 % (15-34) Vitamin B12 Level 255 pg/mL (247-911) Laboratory Tests Test 11/21/19 04:25 Iron Level 21 ug/dL (50-170) Total Iron Binding Capacity 170 ug/dL (250-450) Iron Saturation 12 % (15-34) Vitamin B12 Level 255 pg/mL (247-911) Microbiology 11/19/19 Gram Stain - Final, Resulted 11/19/19 Aerobic and Anaerobic Culture - Preliminary, Resulted 11/19/19 Blood Culture - Preliminary, Resulted NO GROWTH AFTER 2 DAYS 11/18/19 Urine Culture - Final, Complete Medications Current Medications Potassium Chloride (Klor-Con) 40 meq 1X ONCE PO Last administered on 11/18/19at 18:27; Start 11/18/19 at 17:15; Stop 11/18/19 at 17:16; Status DC Magnesium Oxide (Magnesium Oxide) 400 mg 1X PO Last administered on 11/18/19at 18:27; Start 11/18/19 at 17:15 Iohexol (Omnipaque 350 Mg/ml) 80 ml 1X ONCE IV Last administered on 11/18/19at 17:30; Start 11/18/19 at 17:30; Stop 11/18/19 at 17:32; Status DC Info (CONTRAST GIVEN -- Rx MONITORING) 1 each PRN DAILY PRN MC SEE COMMENTS; Start 11/18/19 at 21:30; Stop 11/20/19 at 21:29; Status DC Albuterol/ Ipratropium (Duoneb) 3 ml RTQID NEB Last administered on 11/20/19at 15:37; Start 11/19/19 at 08:00 Albuterol Sulfate (Ventolin Neb Soln) 2.5 mg PRN Q4HRS PRN NEB COUGH; Start 11/19/19 at 06:30 Ceftriaxone Sodium (Rocephin) 1 gm Q24H IVP Last administered on 11/21/19at 07:22; Start 11/19/19 at 07:00; Stop 11/21/19 at 09:31; Status DC Azithromycin 500 mg/Sodium Chloride 250 ml @ 250 mls/hr Q24H IV Last administered on 11/21/19at 07:21; Start 11/19/19 at 07:00; Stop 11/21/19 at 09:31; Status DC Amlodipine Besylate (Norvasc) 5 mg DAILY PO ; Start 11/19/19 at 09:00 Dicyclomine HCl (Bentyl) 20 mg DAILY PO Last administered on 11/20/19at 08:47; Start 11/19/19 at 09:00 Latanoprost (Xalatan) 1 drop QHS OU Last administered on 11/20/19at 21:17; Start 11/19/19 at 21:00 Losartan Potassium (Cozaar) 25 mg DAILY PO ; Start 11/19/19 at 09:00 Meloxicam (Mobic) 7.5 mg DAILY PO Last administered on 11/20/19at 08:47; Start 11/19/19 at 09:00 Potassium Chloride (Klor-Con) 20 meq DAILY PO Last administered on 11/20/19at 08:47; Start 11/19/19 at 09:00 Tramadol HCl (Ultram) 50 mg PRN Q6HRS PRN PO SEVERE PAIN; Start 11/19/19 at 07:30 Acetaminophen/ Codeine Phosphate (Tylenol #3) 1 tab PRN Q6HRS PRN PO MODERATE PAIN Last administered on 11/20/19at 21:18; Start 11/19/19 at 07:45 Amitriptyline HCl (Elavil) 50 mg QHS PO Last administered on 11/20/19at 21:17; Start 11/19/19 at 21:00 Pantoprazole Sodium (Protonix) 40 mg DAILYAC PO Last administered on 11/20/19at 06:14; Start 11/19/19 at 08:00 Promethazine HCl (Phenergan Syrup) 6.25 mg PRN QHS PRN PO SLEEP; Start 11/19/19 at 07:45 Triamterene/HCTZ (Maxzide 37.5/ 25mg) 1 tab 3X/WEEK PO ; Start 11/19/19 at 09:00; Stop 11/19/19 at 08:49; Status DC Non-Formulary Medication ([tylenol pm] ) 1 tab HS PO ; Start 11/19/19 at 21:00; Status UNV Codeine Sulfate (Codeine) 30 mg PRN Q6HRS PRN PO MODERATE PAIN Last administered on 11/20/19at 21:18; Start 11/19/19 at 07:45 Acetaminophen (Tylenol) 500 mg QHS PO Last administered on 11/20/19at 21:17; Start 11/19/19 at 21:00 Diphenhydramine HCl (Benadryl) 25 mg QHS PO Last administered on 11/20/19at 21:17; Start 11/19/19 at 21:00 Magnesium Sulfate 50 ml @ 25 mls/hr 1X ONCE IV Last administered on 11/19/19at 12:23; Start 11/19/19 at 09:00; Stop 11/19/19 at 10:59; Status DC Potassium Chloride (Klor-Con) 40 meq 1X ONCE PO Last administered on 11/19/19at 12:17; Start 11/19/19 at 09:00; Stop 11/19/19 at 09:01; Status DC Lidocaine HCl (Buffered Lidocaine 1%) 3 ml STK-MED ONCE .ROUTE ; Start 11/19/19 at 10:43; Stop 11/19/19 at 10:44; Status DC Lidocaine HCl (Buffered Lidocaine 1%) 6 ml 1X ONCE INJ Last administered on 11/19/19at 14:17; Start 11/19/19 at 10:45; Stop 11/19/19 at 10:47; Status DC Lidocaine HCl (Buffered Lidocaine 1%) 6 ml 1X ONCE INJ ; Start 11/19/19 at 14:15; Stop 11/19/19 at 14:16; Status DC Lactobacillus Rhamnosus (Culturelle) 1 cap BID PO Last administered on 11/20/19at 21:17; Start 11/19/19 at 21:00 Iohexol (Omnipaque 240 Mg/ml) 30 ml 1X ONCE PO Last administered on 11/21/19at 09:45; Start 11/21/19 at 09:45; Stop 11/21/19 at 09:46; Status DC Iohexol (Omnipaque 300 Mg/ml) 60 ml 1X ONCE IV Last administered on 11/21/19at 09:45; Start 11/21/19 at 09:45; Stop 11/21/19 at 09:46; Status DC Info (CONTRAST GIVEN -- Rx MONITORING) 1 each PRN DAILY PRN MC SEE COMMENTS; Start 11/21/19 at 09:45; Stop 11/23/19 at 09:44 Gadoterate Meglumine (Dotarem) 15.8 ml 1X ONCE IVP Last administered on 11/21/19at 12:37; Start 11/21/19 at 12:30; Stop 11/21/19 at 12:31; Status DC Active Scripts Active Reported Latanoprost 2.5 Ml Drops 1 Drop EACHEYE QHS Proair Hfa Inhaler (Albuterol Sulfate) 8.5 Gm Hfa.aer.ad 2 Puff IH PRN Q4-6HRS PRN 21 Days Promethazine Hcl 25 Mg Tablet 5 Mg PO HS PRN [tylenol pm] 1 Tab PO HS Acetaminophen-Cod #4 Tablet (Acetaminophen/Codeine Phosphate) 1 Each Tablet 1 Tab PO Q6HRS PRN Meloxicam 7.5 Mg Tablet 7.5 Mg PO DAILY Klor-Con M20 (Potassium Chloride) 20 Meq Tab.er.prt 1 Tab PO DAILY 30 Days Dicyclomine Hcl 10 Mg Capsule 20 Mg PO DAILY Tramadol Hcl 50 Mg Tablet 50 Mg PO Q6HRS PRN Norvasc (Amlodipine Besylate) 5 Mg Tablet 5 Mg PO DAILY Dyazide 37.5-25 Capsule (Triamterene/Hydrochlorothiazid) 1 Each Capsule 1 Cap PO 3X/WEEK Losartan Potassium (Losartan Potassium) 25 Mg Tablet 25 Mg PO DAILY Omeprazole 40 Mg Capsule.dr 40 Mg PO DAILY Amitriptyline Hcl 50 Mg Tablet 50 Mg PO HS Vitals/I & O Vital Sign - Last 24 Hours 11/20/19 11/20/19 11/20/19 11/20/19 13:03 13:03 14:00 14:00 O2 Delivery Nasal Cannula Nasal Cannula Nasal Cannula Nasal Cannula O2 Flow Rate 2.0 2.0 2.0 2.0 11/20/19 11/20/19 11/20/19 11/20/19 15:00 15:40 19:15 20:05 Temp 98.8 97.4 98.8 97.4 Pulse 95 90 Resp 18 18 B/P (MAP) 90/55 (67) 93/53 (66) Pulse Ox 97 99 93 O2 Delivery Room Air Room Air Room Air Nasal Cannula O2 Flow Rate 2.0 11/20/19 11/20/19 11/20/19 11/20/19 21:18 21:18 22:18 22:18 Resp 20 O2 Delivery Room Air Room Air Nasal Cannula Nasal Cannula O2 Flow Rate 2.0 2.0 11/20/19 11/21/19 11/21/19 11/21/19 23:13 03:05 07:00 11:00 Temp 98.3 98.1 98.3 98.2 98.3 98.1 98.3 98.2 Pulse 72 82 77 66 Resp 18 18 18 18 B/P (MAP) 85/51 (62) 97/59 (72) 94/53 (67) 93/80 (84) Pulse Ox 93 97 93 94 O2 Delivery Room Air Room Air Room Air Nasal Cannula O2 Flow Rate 2.0 Intake and Output 11/20/19 11/20/19 11/21/19 15:00 23:00 07:00 Intake Total 250 ml 250 ml 480 ml Balance 250 ml 250 ml 480 ml Justifications for Admission Other Justification OUSMANE AHMADI MD Nov 21, 2019 12:57
--- NOTE | 2019-11-21 13:12 | RAD ---
MRI Brain with and without contrast History: Small cell lung cancer staging Technique: Multiplanar, multi sequential pre and postcontrast MR imaging was performed of the brain. Comparison: None Findings: There is some motion degradation. There is no evidence of recent infarct or cytotoxic edema. The ventricles, sulci, and cisterns are within normal limits in size and configuration. There is no significant midline shift, intraaxial mass effect, or focal abnormal extra-axial fluid collection. There is scattered multifocal [id number]-ow-hogemkkd T2 and FLAIR hyperintense signal abnormality of the supratentorial parenchyma bilaterally. There is no nodular parenchymal or leptomeningeal enhancement. There is preservation of the major intracranial flow-voids at the skull base. The cerebellar tonsils are normal in location. There is no significant abnormality of the pineal gland. There is empty sella. Paranasal sinuses are overall aerated. There is fairly prominent fluid of the left mastoid air cells.There is preserved marrow signal of the clivus. There has been lens surgery bilaterally, slightly disconjugate gaze. There is degenerative disc disease of visualized C3-4 and likely C4-5 levels, poorly evaluated. Impression: 1. There is no abnormal intracranial enhancement. Mild to moderate T2 and FLAIR hyperintense signal abnormality of the supratentorial parenchyma bilaterally is more commonly due to chronic microvascular ischemic disease in a patient this age. 2. There is prominent fluid signal change of the left mastoid air cells, uncertain sterility. Electronically signed by: Dean Altman MD (11/21/2019 1:09 PM) [id number]
[2019-11-21 15:00] VITALS: BP 122/72
--- NOTE | 2019-11-21 15:42 | RAD ---
CT abdomen and pelvis with contrast: Reason for examination: Small cell lung cancer staging. Helical images were obtained through the abdomen and pelvis with intravenous administration of 60 cc Omnipaque 300. 30 cc Omnipaque 240 was given orally. Reconstruction was performed in sagittal and coronal planes. Exposure: One or more of the following individualized dose reduction techniques were utilized for this examination: 1. Automated exposure control 2. Adjustment of the mA and/or kV according to patient size 3. Use of iterative reconstruction technique. There continues to be a large left pleural effusion and atelectasis at the left lower lobe and abnormal wall density in the left lingula. Right lung field is clear. The heart size is normal with no significant pericardial effusion. There continues to be a small hypodense lesion in the liver near the gallbladder fossa which is unchanged. No other focal hepatic lesions are seen. No abnormality seen at the spleen, adrenal glands or pancreas. Gallbladder surgically absent. The abdominal aorta and inferior vena cava show no acute abnormalities. There are a few scattered diverticuli colon but no diverticulitis. No abnormality seen at the appendix. The small intestinal tract shows no abnormal dilatation, wall thickening or obstruction. No abnormality seen at the stomach or duodenum. The kidneys show a small hypodense lesion posteriorly at the midpole the left kidney measuring approximately 2.2 cm in size consistent with a cyst. No renal calculi, hydronephrosis or obstructive uropathy is seen. No abnormality seen at the bladder, uterus or ovaries. No free fluid or free air is seen in the abdomen or pelvis. No acute bony abnormalities are seen. IMPRESSION: Large left pleural effusion with lower lobe atelectasis and abnormal density within the lingula consistent with history of small cell carcinoma. Small hypodense lesion in the liver which is stable. Cyst at the midpole. Left kidney which is stable. Electronically signed by: Susana Garnett MD (11/21/2019 3:39 PM) IRIS
[2019-11-21] MEDS: LACTOBACILLUS RHAMNOSUS GG 1 CAPSULE. PO SCH (16:46)
[2019-11-21] MEDS: LOSARTAN POTASSIUM 25 MG TABLET. PO SCH (16:47)
[2019-11-21] MEDS: DICYCLOMINE HCL 10 MG CAPSULE PO SCH (16:47)
[2019-11-21] MEDS: PANTOPRAZOLE 40 MG TABLET.DR. PO SCH (16:47)
[2019-11-21 16:48] VITALS: BP 122/72
[2019-11-21] MEDS: amLODIPine BESYLATE 5 MG TABLET PO SCH (16:48)
[2019-11-21] MEDS: POTASSIUM CHLORIDE 20 MEQ TABLET.ER. PO SCH (16:48)
[2019-11-21] MEDS: MELOXICAM 7.5 MG TABLET PO SCH (16:49)
--- NOTE | 2019-11-21 18:07 | NUR ---
Discharge teaching completed. IV site discontinued without difficulty. Pt states she understands her discharge teaching and follow up instructions and home medications; states she has all of her personal belongings. She was discharged to home with her daughter; escorted out by staff via w/c.
[2019-11-22 16:10] LABS: KAPPA FREE 66.4 mg/L (3.3-19.4); KAPPA LAMBDA RATIO 1.28 (0.26-1.65); LAMBDA FREE 51.8 mg/L (5.7-26.3)
--- NOTE | 2019-11-25 11:22 | PDOC ---
Provider Note Date of Service: DATE: 11/25/19 TIME: 11:22 Provider Note Discharge summary dictated.#[id number]. Justifications for Admission Other Justification WALKER DAVILA MD Nov 25, 2019 11:22
--- NOTE | 2019-11-25 12:34 | DS ---
DATE OF DISCHARGE: 11/21/2019 REASON FOR ADMISSION TO THE HOSPITAL: New onset of left pleural effusion and also mass in the left lung. CONSULTATIONS: Dr. Jones, Pulmonology; and Dr. Tirado, Oncology. PROCEDURES DONE: 1. CT chest. 2. Thoracocentesis. 3. CT of the abdomen. 4. Brain MRI. HOSPITAL COURSE: The patient is an 79-year-old female, chronic smoker. She has been losing weight, cough and came to the Emergency Room. X-ray showed left lung opacification. CT chest showed left lung pleural effusion with collapse of the lung and some mass in the lung. The patient was admitted to the hospital, seen by Pulmonology. IR was consulted; 1-1/2 liters of fluid was removed and it came back positive for small cell lung CA. The patient was seen by Oncology; had a brain MRI, which was negative. The patient had a CT of the abdomen and pelvis, no metastasis in the abdomen or pelvis. The patient will be scheduled to see outpatient for chemotherapy. FINAL DIAGNOSES: 1. New onset of diagnosis of small cell lung cancer with left pleural effusion and density in the left lingula. 2. Chronic smoker. 3. Hypertension. DISPOSITION: Home. See [facility] for discharge medications. Scheduled for chemo as outpatient by Oncology. WALKER DAVILA MD DR: RACHAEL/natalie JOB#: [id number] / [id number]
[2019-11-25 15:12] LABS: ALBUM 2.4 g/dL (2.9-4.4); ALPHA 1 0.2 g/dL (0.0-0.4); BETA 1.2 g/dL (0.7-1.3); GAMMA 0.9 g/dL (0.4-1.8); PROTEIN TOTAL 5.7 g/dL (6.0-8.5); SPEP AG RATIO 0.7 (0.7-1.7)
== END 2019-11-21 18:10 | disposition home or self-care (01) | DRG 180 ==
LOC: ER 15:04 → ED HOLD 19:00 → 4 NORTH 20:41
PROVIDERS: ADMIT Internal Medicine; ATTEND Internal Medicine
PROC: 0W9B3ZZ Drainage of Left Pleural Cavity, Percutaneous Approach (ICD-10-PCS; principal; 2019-11-19)
DX: C34.90 Malignant neoplasm of unspecified part of unspecified bronchus or lung (principal); J96.01 Acute respiratory failure with hypoxia; J91.0 Malignant pleural effusion; E44.0 Moderate protein-calorie malnutrition; D64.9 Anemia, unspecified; E11.22 Type 2 diabetes mellitus with diabetic chronic kidney disease; E11.41 Type 2 diabetes mellitus with diabetic mononeuropathy; F17.200 Nicotine dependence, unspecified, uncomplicated; I12.9 Hypertensive chronic kidney disease with stage 1 through stage 4 chronic kidney disease, or unspecified chronic kidney disease; J43.9 Emphysema, unspecified; N18.3 Chronic kidney disease, stage 3 (moderate); Z82.49 Family history of ischemic heart disease and other diseases of the circulatory system; Z83.3 Family history of diabetes mellitus; K21.9 Gastro-esophageal reflux disease without esophagitis; M19.90 Unspecified osteoarthritis, unspecified site; R63.4 Abnormal weight loss; Z68.29 Body mass index [BMI] 29.0-29.9, adult
CPT/HCPCS: 32555; 36415; 70553; 71045; 71275; 74177; 80048; 80053; 81001; 82553; 82607; 83520; 83540; 83550; 83615; 83690; 83735; 83880; 84157; 84165; 84484; 85025; 85610; 85730; 87040; 87071; 87075; 87086; 88112; 88305; 88341; 88342; 93005; 94640; 94760; 99285; A9575; C1892; J0456; J0696; J3475; J3490; J7050; Q9966; Q9967; G0378; J7030; Q0163

== ENCOUNTER → 2019-12-02 | Outpatient (CLI) | payer MEDICAID ==
[2019-11-21 16:48] VITALS: BP 122/72
[2019-12-02 10:53] LABS: BASO # 0.1 x10^3/uL (0.0-0.2); BASO % 1 % (0-3); EOS # 0.2 x10^3/uL (0.0-0.7); EOS % 2 % (0-3); HEMATOCRIT 37.2 % (36.0-47.0); HEMOGLOBIN 12.6 g/dL (12.0-15.5); LYMPH # 1.7 x10^3/uL (1.0-4.8); LYMPH % 22 % (24-48); MEAN CORPUSCULAR HEMOGLOBIN 32 pg (25-35); MEAN CORPUSCULAR HGB CONC 34 g/dL (31-37); MEAN CORPUSCULAR VOLUME 95 fL (79-100); MONO # 0.8 x10^3/uL (0.0-1.1); MONO % 10 % (0-9); NEUT # 5.1 x10^3/uL (1.8-7.7); NEUT % 65 % (31-73); PLATELET COUNT 523 x10^3/uL (140-400); RED BLOOD COUNT 3.93 x10^6/uL (3.50-5.40); RED CELL DISTRIBUTION WIDTH 12.8 % (11.5-14.5); WHITE BLOOD COUNT 7.9 x10^3/uL (4.0-11.0)
[2019-12-02 11:05] LABS: CALCIUM 9.7 mg/dL (8.5-10.1); CREATININE 1.6 mg/dL (0.6-1.0); GFR 37.4; POTASSIUM 4.1 mmol/L (3.5-5.1)
[2019-12-02 11:11] LABS: ALBUMIN/GLOBULIN RATIO 0.5 (1.0-1.7); TOTAL BILIRUBIN 0.3 mg/dL (0.2-1.0); TOTAL PROTEIN 8.6 g/dL (6.4-8.2); URIC ACID 9.1 mg/dL (2.6-6.0)
== END | disposition home or self-care (01) ==
LOC: ONCLAB 10:26
PROVIDERS: ATTEND Internal Medicine Hematology & Oncology
DX: C34.92 Malignant neoplasm of unspecified part of left bronchus or lung (principal)
CPT/HCPCS: 36415; 80053; 84550; 85025

== ENCOUNTER → 2019-12-03 | Outpatient (CLI) | payer MEDICAID ==
[2019-11-21 16:48] VITALS: BP 122/72
[2019-12-03 09:01] LABS: BILIRUBIN,URINE NEGATIVE (NEG); CLARITY,URINE CLEAR; COLOR,URINE YELLOW; NITRITE,URINE NEGATIVE (NEG); PROTEIN,URINE NEGATIVE (NEG-TRACE); UROBILINOGEN,URINE 0.2 mg/dL (0.2 mg/dL)
[2019-12-03 09:11] LABS: BACTERIA,URINE MODERATE /HPF (0-FEW); HYALINE CASTS, URINE FEW /HPF; RBC,URINE OCC /HPF (0-2); SQUAMOUS EPITHELIAL CELL,UR MOD /LPF
[2019-12-03 10:24] LABS: CALCIUM 8.7 mg/dL (8.5-10.1); CREATININE 1.3 mg/dL (0.6-1.0); GFR 47.6; POTASSIUM 3.8 mmol/L (3.5-5.1)
== END | disposition home or self-care (01) ==
LOC: ONCLAB 07:58
PROVIDERS: ATTEND Physician Assistant
DX: C34.92 Malignant neoplasm of unspecified part of left bronchus or lung (principal)
CPT/HCPCS: 80048; 81001; 83921; 87086

== ENCOUNTER → 2019-12-04 | Outpatient (CLI) | payer MEDICAID ==
[2019-11-21 16:48] VITALS: BP 122/72
[2019-12-04 08:53] LABS: CALCIUM 8.9 mg/dL (8.5-10.1); CREATININE 1.3 mg/dL (0.6-1.0); GFR 47.6
[2019-12-04 08:55] LABS: URIC ACID 8.5 mg/dL (2.6-6.0)
== END | disposition home or self-care (01) ==
LOC: ONCLAB 08:04
PROVIDERS: ATTEND Physician Assistant
DX: C34.92 Malignant neoplasm of unspecified part of left bronchus or lung (principal)
CPT/HCPCS: 36415; 80048; 84550

== ENCOUNTER → 2019-12-05 | Outpatient (CLI) | payer MEDICAID ==
[2019-11-21 16:48] VITALS: BP 122/72
[2019-12-05 08:56] LABS: CALCIUM 8.9 mg/dL (8.5-10.1); CREATININE 1.2 mg/dL (0.6-1.0); GFR 52.2; POTASSIUM 3.9 mmol/L (3.5-5.1)
[2019-12-05 08:59] LABS: URIC ACID 8.2 mg/dL (2.6-6.0)
== END | disposition home or self-care (01) ==
LOC: ONCLAB 08:34
PROVIDERS: ATTEND Internal Medicine Hematology & Oncology
DX: C34.92 Malignant neoplasm of unspecified part of left bronchus or lung (principal)
CPT/HCPCS: 36415; 80048; 84550

== ENCOUNTER → 2019-12-09 | Outpatient (CLI) | payer MEDICAID ==
[2019-11-21 16:48] VITALS: BP 122/72
[2019-12-09 09:42] LABS: BASO # 0.1 x10^3/uL (0.0-0.2); BASO % 1 % (0-3); EOS # 0.1 x10^3/uL (0.0-0.7); EOS % 1 % (0-3); HEMATOCRIT 34.2 % (36.0-47.0); HEMOGLOBIN 11.6 g/dL (12.0-15.5); LYMPH # 1.6 x10^3/uL (1.0-4.8); LYMPH % 24 % (24-48); MEAN CORPUSCULAR HEMOGLOBIN 32 pg (25-35); MEAN CORPUSCULAR HGB CONC 34 g/dL (31-37); MEAN CORPUSCULAR VOLUME 94 fL (79-100); MONO % 0 % (0-9); NEUT # 4.7 x10^3/uL (1.8-7.7); NEUT % 73 % (31-73); PLATELET COUNT 324 x10^3/uL (140-400); RED BLOOD COUNT 3.63 x10^6/uL (3.50-5.40); RED CELL DISTRIBUTION WIDTH 12.8 % (11.5-14.5); WHITE BLOOD COUNT 6.4 x10^3/uL (4.0-11.0)
[2019-12-09 09:50] LABS: CREATININE 1.1 mg/dL (0.6-1.0); GFR 57.7; POTASSIUM 3.2 mmol/L (3.5-5.1)
[2019-12-09 09:56] LABS: ALBUMIN 2.7 g/dL (3.4-5.0); ALBUMIN/GLOBULIN RATIO 0.6 (1.0-1.7); TOTAL BILIRUBIN 0.4 mg/dL (0.2-1.0); TOTAL PROTEIN 7.5 g/dL (6.4-8.2)
== END | disposition home or self-care (01) ==
LOC: ONCLAB 09:27
PROVIDERS: ATTEND Internal Medicine Hematology & Oncology
DX: C34.92 Malignant neoplasm of unspecified part of left bronchus or lung (principal)
CPT/HCPCS: 36415; 80053; 84550; 85025

== ENCOUNTER → 2019-12-12 | Outpatient (CLI) | payer MEDICAID ==
[2019-11-21 16:48] VITALS: BP 122/72
--- NOTE | 2019-12-12 20:02 | RAD ---
EXAMINATION: PET W CT SKULL TO MIDTHIGH HISTORY: Small cell lung cancer initial staging COMPARISON/CORRELATION: 11/21/2019 CT abdomen and pelvis with contrast, 11/18/2019 CTA of the chest FINDINGS: Net dose 14.3 mCi F-18 FDG was administered intravenously for purposes of PET/CT exam. Blood glucose level at the time of radiotracer administration was 100 mg/dL. Imaging was performed from the skull base to the proximal thighs. Hepatic reference uptake is SUV max of 3.9 . Head and neck No abnormal uptake. Well circumscribed right thyroid gland nodule measuring up to 1.9 cm x 1.2 cm present without significant uptake. Thorax Moderate-sized pleural effusion is present. Pleural effusion tracks along the anterior aspect of the thorax and to the apex as well. Left upper lobe atelectasis is seen. There are regions of uptake adjacent to the superior mediastinum corresponding soft tissue densities with SUV maximum of 7.2. In particular, there is a mass adjacent to the left side of the ascending aorta on axial image 109 of series 3 and this measures 4.3 cm x 3 cm. Confluent mass involvement about the left hilum is noted with SUV max of 6.2. Uptake within region of atelectasis of the left upper lobe has SUV max of 4.5. This is presumably reactive. Centrilobular emphysema is present. Small hiatal hernia. Abdomen and pelvis Cholecystectomy noted. No radiopaque collecting system calculi. Liver, spleen, pancreas, adrenal glands, and kidneys are unremarkable. Uterus is grossly unremarkable for patient's age. Diverticulosis is present without acute inflammation. No enlarged abdominal or pelvic lymph nodes. No abnormal uptake of radiotracer involving the abdomen or pelvis. No suspicious bony process. IMPRESSION: Uptake in soft tissue density about the left side of the superior mediastinum and left hilum in particular corresponding to known small cell lung carcinoma. Left upper lobe atelectasis and left pleural effusion are noticeably decreased since the previous CTA of the chest. PQRS Compliance Statement: One or more of the following individualized dose reduction techniques were utilized for this examination: 1. Automated exposure control 2. Adjustment of the mA and/or kV according to patient size 3. Use of iterative reconstruction technique Electronically signed by: Willie Tripp MD (12/12/2019 7:59 PM) [id number]
== END | disposition home or self-care (01) ==
LOC: PETSC 11:27
PROVIDERS: ATTEND Radiology Radiation Oncology
DX: C34.92 Malignant neoplasm of unspecified part of left bronchus or lung (principal); J90 Pleural effusion, not elsewhere classified; K57.90 Diverticulosis of intestine, part unspecified, without perforation or abscess without bleeding; J98.11 Atelectasis; Z90.49 Acquired absence of other specified parts of digestive tract
CPT/HCPCS: 78815; A9552

== ENCOUNTER → 2019-12-24 | Outpatient (CLI) | payer MEDICAID ==
[~2019-12-24] MED LIST changes: +NICO1PAT25 TP
[2019-12-24 10:46] LABS: BASO % 1 % (0-3); EOS % 1 % (0-3); HEMATOCRIT 33.1 % (36.0-47.0); HEMOGLOBIN 11.3 g/dL (12.0-15.5); LYMPH # 2.3 x10^3/uL (1.0-4.8); LYMPH % 33 % (24-48); MEAN CORPUSCULAR HEMOGLOBIN 32 pg (25-35); MEAN CORPUSCULAR HGB CONC 34 g/dL (31-37); MEAN CORPUSCULAR VOLUME 94 fL (79-100); MONO % 14 % (0-9); NEUT # 3.6 x10^3/uL (1.8-7.7); NEUT % 52 % (31-73); PLATELET COUNT 601 x10^3/uL (140-400); RED BLOOD COUNT 3.53 x10^6/uL (3.50-5.40); RED CELL DISTRIBUTION WIDTH 13.6 % (11.5-14.5)
[2019-12-24 11:01] LABS: ALBUMIN 3.1 g/dL (3.4-5.0); ALBUMIN/GLOBULIN RATIO 0.6 (1.0-1.7); ALK PHOS 65 U/L (46-116); ANION GAP 9 (6-14); AST (SGOT) 14 U/L (15-37); BLOOD UREA NITROGEN 14 mg/dL (7-20); BUN/CREATININE RATIO 14 (6-20); CALCIUM 9.1 mg/dL (8.5-10.1); CARBON DIOXIDE 31 mmol/L (21-32); CHLORIDE 101 mmol/L (98-107); GFR 64.4; GLUCOSE 92 mg/dL (70-99); SODIUM 141 mmol/L (136-145); TOTAL BILIRUBIN 0.2 mg/dL (0.2-1.0); TOTAL PROTEIN 8.3 g/dL (6.4-8.2); URIC ACID 6.2 mg/dL (2.6-6.0)
[2019-12-24 11:06] LABS: ALT (SGPT) < 6 U/L (14-59)
[2019-12-24 11:08] LABS: POTASSIUM 2.8 mmol/L (3.5-5.1)
== END ==
LOC: ONCLAB 08:00
PROVIDERS: ATTEND Internal Medicine Hematology & Oncology
DX: C34.92 Malignant neoplasm of unspecified part of left bronchus or lung (principal)
CPT/HCPCS: 36415; 80053; 84550; 85025

== ENCOUNTER 2019-12-26 09:18 | Outpatient (CLI) | payer MEDICAID ==
[~2019-12-26] VITALS: Ht 165.1 cm; Wt 77.6 kg
[2019-12-26] VITALS (7 sets, daily range): BP systolic 98–127; BP diastolic 60–70
[~2019-12-26 09:18] MED LIST changes: -NICO1PAT25 TP
[2019-12-26 10:13] LABS: BASO % 1 % (0-3); EOS % 1 % (0-3); HEMATOCRIT 32.3 % (36.0-47.0); HEMOGLOBIN 10.8 g/dL (12.0-15.5); LYMPH # 1.4 x10^3/uL (1.0-4.8); LYMPH % 26 % (24-48); MEAN CORPUSCULAR HEMOGLOBIN 31 pg (25-35); MEAN CORPUSCULAR HGB CONC 34 g/dL (31-37); MEAN CORPUSCULAR VOLUME 93 fL (79-100); MONO # 0.5 x10^3/uL (0.0-1.1); MONO % 9 % (0-9); NEUT # 3.4 x10^3/uL (1.8-7.7); NEUT % 64 % (31-73); PLATELET COUNT 618 x10^3/uL (140-400); RED BLOOD COUNT 3.46 x10^6/uL (3.50-5.40); RED CELL DISTRIBUTION WIDTH 13.7 % (11.5-14.5); WHITE BLOOD COUNT 5.3 x10^3/uL (4.0-11.0)
[2019-12-26] MEDS ORDERED: NICO1PAT25 TP (10:21)
[2019-12-26 10:23] LABS: PROTHROMBIN TIME PATIENT 13.2 SEC (11.7-14.0)
[2019-12-26] MEDS ORDERED: LIDOCAINE 1%/EPI 1:100,000 20 ML VIAL. ONE (11:04)
[2019-12-26] MEDS ORDERED: ceFAZolin SODIUM IV Push 1 GM VIAL. IVP ONE ×2 (11:09→11:15)
[2019-12-26] MEDS ORDERED: fentaNYL PF VIAL 100 MCG/2 ML VIAL IV ONE (11:15)
[2019-12-26] MEDS ORDERED: MIDAZOLAM HCL/PF 2 MG/2 ML VIAL. IV ONE (11:15)
[2019-12-26] MEDS ORDERED: LIDOCAINE 1%/EPI 1:100,000 20 ML VIAL. INJ ONE (11:15)
--- NOTE | 2019-12-26 12:07 | RAD ---
Procedure: Ultrasound and fluoroscopically guided placement of right internal jugular power port.. 12/26/2019 10:04 AM Clinical Indication: SMALL CELL LUNG CA Sedation: Conscious sedation was administered for 30 minutes. The patient was monitored by a qualified independent observer throughout the time of sedation. Please refer to the medical record for exact doses of medications utilized to achieve moderate sedation. Fluoroscopy time: 0.4 minutes Dose area product: 2 Gycm2 Consent: The procedure was explained in its entirety to the patient or the patients designated automobile rental representative by a member of the treatment team, including a discussion of the risks, benefits and commonly accepted alternatives to the procedure, as well as the expected consequences of no therapy whatsoever. Discussion of the risks included, but was not limited to, those that are most frequent and those that are rare but possibly severe or life-threatening, as well as the possibility of unforeseen complications. Technique and Findings: All elements of maximal sterile barrier technique including the use of a cap, mask, sterile gown, sterile gloves, large sterile sheet, appropriate hand hygiene, and 2% chlorhexidine for cutaneous antisepsis (or acceptable alternative antiseptic per current guidelines) were followed for this procedure. Following informed consent, and a timeout procedure, the patient was prepped and draped in the usual sterile fashion. Ultrasound interrogation of the right neck revealed patency and compressibility of the right internal jugular vein. A 21-gauge micropuncture was then used to gain access to this vein under ultrasound guidance. A hard copy ultrasound image was recorded. The needle was exchanged over a wire for a sheath. A 1 inch incision was made several centimeters inferior to the venotomy site. A catheter was tunneled from this site dermatotomy site in the neck. Catheter was advanced through peel-away sheath such that its tip was in the proximal right atrium with the patient supine. The catheter was trimmed to length and connected to the port reservoir. The port was found to flush and aspirate normally. The wound was closed in layers using 4-0 Vicryl suture. Sterile dressings were applied. Impression: Successful ultrasound and fluoroscopically guided placement of a right internal jugular PowerPort
== END 2019-12-26 13:20 | disposition home or self-care (01) ==
LOC: INTRAD 09:18
PROVIDERS: ATTEND Physician Assistant
DX: C34.91 Malignant neoplasm of unspecified part of right bronchus or lung (principal); I12.9 Hypertensive chronic kidney disease with stage 1 through stage 4 chronic kidney disease, or unspecified chronic kidney disease; N18.9 Chronic kidney disease, unspecified; E11.22 Type 2 diabetes mellitus with diabetic chronic kidney disease; K21.9 Gastro-esophageal reflux disease without esophagitis; J43.9 Emphysema, unspecified; Z87.891 Personal history of nicotine dependence; Z79.899 Other long term (current) drug therapy; Z83.3 Family history of diabetes mellitus
CPT/HCPCS: 36415; 36561; 76937; 77001; 85025; 85610; 99152; 99153; C1751; C1892; J0690; J2250; J3010; J3490

== ENCOUNTER 2019-12-31 10:30 | Emergency (ER) | payer MEDICAID ==
[~2019-12-31] VITALS: Ht 167.6 cm; Wt 79.0 kg
[~2019-12-31 10:30] MED LIST changes: +NICO1PAT25 TP
--- NOTE | 2019-12-31 10:58 | PHYS DOC ---
Past Medical History Past Medical History: Arthritis, GERD, Hypertension Past Surgical History: Other Additional Past Surgical Histo: R ELBOW, HERNIA Smoking Status: Former Smoker Alcohol Use: None Drug Use: None General Adult EDM: Chief Complaint: SHORTNESS OF BREATH HPI: HPI: 79F with PMH of HTN, tobacco abuse, small cell lung CA, p/w SOA. The patient reports sudden onset of dyspnea this morning while undergoing radiation therapy for lung cancer. She also reports some occasional mild nonproductive cough, though this is reportedly been ongoing. No chest pain. No abdominal pain. She also reports occasional bilateral lower extremity swelling. Admitted last month 11/2019 with new diagnosis lung CA with left pleural effusion, undergoing thoracentesis with removal of 1.5 L by IR. Review of Systems: Review of Systems: Gen: No fever, chills. Eyes: No blurred vision, diplopia. ENT: No nasal congestion, sore throat. CV: No CP, palpitations. Resp. Reports SOB, cough. GI: No abd pain, N/V. : No dysuria, hematuria. Neuro: No PECK, dizziness, weakness. MSK: No myalgia, arthralgia. Skin: No acute rash or lesion. Heart Score: Risk Factors: Risk Factors: DM, Current or recent (<one month) smoker, HTN, HLP, family history of CAD, obesity. Risk Scores: Score 0 - 3: 2.5% MACE over next 6 weeks - Discharge Home Score 4 - 6: 20.3% MACE over next 6 weeks - Admit for Clinical Observation Score 7 - 10: 72.7% MACE over next 6 weeks - Early Invasive Strategies Allergies: Allergies: Allergies Coded Allergies Type Severity Reaction Last Updated Verified No Known Drug Allergies 07/17/17 No Physical Exam: PE: Gen: NAD. Head: NC/AT. Eyes: No scleral icterus. No conjunctival injection. ENT: MMM. Posterior OP clear. Neck: Supple. NT. CV: RRR. No M/R/G. Peripheral pulses intact. Resp: Faint rhonchi. Abd: Soft. NT. ND. MSK: No peripheral cyanosis. Trace nonpitting pedal edema. No calf tenderness or asymmetry. Neuro: Awake and alert. Skin. Warm. Dry. Psych: Appropriate mood & affect. Current Patient Data: Labs: Laboratory Tests Test 12/31/19 10:56 White Blood Count 16.6 x10^3/uL (4.0-11.0) Red Blood Count 3.35 x10^6/uL (3.50-5.40) Hemoglobin 10.6 g/dL (12.0-15.5) Hematocrit 31.7 % (36.0-47.0) Mean Corpuscular Volume 95 fL (79-100) Mean Corpuscular Hemoglobin 32 pg (25-35) Mean Corpuscular Hemoglobin Concent 34 g/dL (31-37) Red Cell Distribution Width 14.2 % (11.5-14.5) Platelet Count 489 x10^3/uL (140-400) Neutrophils (%) (Auto) 93 % (31-73) Lymphocytes (%) (Auto) 3 % (24-48) Monocytes (%) (Auto) 4 % (0-9) Eosinophils (%) (Auto) 0 % (0-3) Basophils (%) (Auto) 0 % (0-3) Neutrophils # (Auto) 15.4 x10^3/uL (1.8-7.7) Lymphocytes # (Auto) 0.4 x10^3/uL (1.0-4.8) Monocytes # (Auto) 0.7 x10^3/uL (0.0-1.1) Eosinophils # (Auto) 0.0 x10^3/uL (0.0-0.7) Basophils # (Auto) 0.0 x10^3/uL (0.0-0.2) Sodium Level 139 mmol/L (136-145) Chloride Level 104 mmol/L (98-107) Carbon Dioxide Level 24 mmol/L (21-32) Anion Gap 11 (6-14) Blood Urea Nitrogen 18 mg/dL (7-20) Estimated GFR (Cockcroft-Gault) 64.4 BUN/Creatinine Ratio 18 (6-20) Glucose Level 110 mg/dL (70-99) Calcium Level 9.1 mg/dL (8.5-10.1) Total Bilirubin 0.2 mg/dL (0.2-1.0) Aspartate Amino Transf (AST/SGOT) 14 U/L (15-37) Alkaline Phosphatase 64 U/L (46-116) Troponin I Quantitative < 0.017 ng/mL (0.000-0.055) Total Protein 7.8 g/dL (6.4-8.2) Albumin 3.1 g/dL (3.4-5.0) Albumin/Globulin Ratio 0.7 (1.0-1.7) Vital Signs: Vital Signs Date Time Temp Pulse Resp B/P (MAP) Pulse Ox O2 Delivery O2 Flow Rate FiO2 12/31/19 10:34 97.4 106 22 141/75 (97) 96 Room Air 97.4 EKG: EKG: EKG performed at 1046. Sinus rhythm. Heart rate 86. Normal intervals. No STEMI. Interpreted by me. Radiology/Procedures: Radiology/Procedures: EXAM: CHEST 1 VIEW History: Shortness of breath COMPARISON: 11/18/2019 TECHNIQUE: Single portable radiograph of the chest FINDINGS: The cardiac silhouette is unremarkable. Right-sided Port-A-Cath is identified. Mild prominent bilateral interstitial lung markings likely mild congestive changes or interstitial infiltrates. Trace left pleural effusion. IMPRESSION: 1. Mild prominent bilateral interstitial lung markings likely congestive changes or interstitial infiltrates. 2. Trace left pleural effusion. Electronically signed by: Ger Del Rosario MD (12/31/2019 11:29 AM) [id number] Course & Med Decision Making: Course & Med Decision Making Pertinent Labs and Imaging studies reviewed. (See chart for details) In summary, 79-year-old female who presents for the evaluation of dyspnea that began during radiation today for lung cancer. Hemodynamically stable. Pulse oximetry upper 90s on room air. Unremarkable cardiorespiratory examination. Lab work is otherwise unrevealing with the exception of mild leukocytosis of 16, though currently on steroids. Troponin negative. EKG shows no acute injury pattern. Chest x-ray with possible congestive versus infiltrative findings. The patient reports a chronic cough that is unchanged. She states she feels well and wishes to go home, which I feel would be a reasonable course of action. As a precaution, however, the patient will be conservatively managed with oral antibiotics. She has an inhaler at home. Outpatient PMD follow-up. Strict return precautions given. Dragon Disclaimer: Dragon Disclaimer: This electronic medical record was generated, in whole or in part, using a voice recognition dictation system. Departure Departure Impression: Primary Impression: Dyspnea Disposition: 01 DC HOME SELF CARE/HOMELESS Condition: STABLE Referrals: WALKER DAVILA MD (PCP) Patient Instructions: Shortness of Breath, [id number] Additional Instructions: Please follow up with your primary physician. Return to the ED if you develop new or worsening symptoms. Scripts Azithromycin (ZITHROMAX) 250 Mg Tablet 250 MG PO as directed for ANTI-BIOTIC, #6 TAB 0 Refills Take 2 PO x 1 days Then take 1 PO q 24 hour for the next 4 days Prov: MARY JO CAI DO 12/31/19 MARY JO CAI DO Dec 31, 2019 10:58
[2019-12-31 11:08] LABS: BASO % 0 % (0-3); EOS % 0 % (0-3); HEMATOCRIT 31.7 % (36.0-47.0); HEMOGLOBIN 10.6 g/dL (12.0-15.5); LYMPH # 0.4 x10^3/uL (1.0-4.8); LYMPH % 3 % (24-48); MEAN CORPUSCULAR HEMOGLOBIN 32 pg (25-35); MEAN CORPUSCULAR HGB CONC 34 g/dL (31-37); MEAN CORPUSCULAR VOLUME 95 fL (79-100); MONO # 0.7 x10^3/uL (0.0-1.1); MONO % 4 % (0-9); NEUT # 15.4 x10^3/uL (1.8-7.7); NEUT % 93 % (31-73); PLATELET COUNT 489 x10^3/uL (140-400); RED BLOOD COUNT 3.35 x10^6/uL (3.50-5.40); RED CELL DISTRIBUTION WIDTH 14.2 % (11.5-14.5); WHITE BLOOD COUNT 16.6 x10^3/uL (4.0-11.0)
[2019-12-31 11:18] LABS: CALCIUM 9.1 mg/dL (8.5-10.1); GFR 64.4
[2019-12-31 11:24] LABS: ALBUMIN 3.1 g/dL (3.4-5.0); ALBUMIN/GLOBULIN RATIO 0.7 (1.0-1.7); MAGNESIUM 1.4 mg/dL (1.8-2.4); TOTAL BILIRUBIN 0.2 mg/dL (0.2-1.0); TOTAL PROTEIN 7.8 g/dL (6.4-8.2)
--- NOTE | 2019-12-31 11:32 | RAD ---
EXAM: CHEST 1 VIEW History: Shortness of breath COMPARISON: 11/18/2019 TECHNIQUE: Single portable radiograph of the chest FINDINGS: The cardiac silhouette is unremarkable. Right-sided Port-A-Cath is identified. Mild prominent bilateral interstitial lung markings likely mild congestive changes or interstitial infiltrates. Trace left pleural effusion. IMPRESSION: 1. Mild prominent bilateral interstitial lung markings likely congestive changes or interstitial infiltrates. 2. Trace left pleural effusion. Electronically signed by: Ger Del Rosario MD (12/31/2019 11:29 AM) [id number]
[2019-12-31 14:09] LABS: % LYMPHS 1 % (24-48); % MONOS 6 % (0-10); % SEGS 93 % (35-66); ANISOCYTOSIS SLIGHT; PLT ESTIMATE INCREASED (ADEQUATE)
[2019-12-31 14:10] LABS: SCHISTOCYTES OCC
[2019-12-31] MEDS ORDERED: AZIT250T PO (14:20)
[2019-12-31 14:30] VITALS: BP 140/63
--- NOTE | 2020-01-01 05:26 | EKG ---
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
== END 2019-12-31 14:48 | disposition home or self-care (01) ==
LOC: ER 10:30
DX: R06.00 Dyspnea, unspecified (principal); R05 Cough; R60.0 Localized edema; M19.90 Unspecified osteoarthritis, unspecified site; K21.9 Gastro-esophageal reflux disease without esophagitis; I10 Essential (primary) hypertension; Z98.890 Other specified postprocedural states; Z85.9 Personal history of malignant neoplasm, unspecified
CPT/HCPCS: 36415; 71045; 80053; 83735; 83880; 84484; 85007; 85025; 93005; 99285

== ENCOUNTER → 2020-01-07 | Outpatient (CLI) | payer MEDICAID ==
[2019-12-31 14:30] VITALS: BP 140/63
[~2020-01-07] MED LIST changes: +AZIT250T PO
[2020-01-07 10:24] LABS: BASO % 1 % (0-3); EOS # 0.1 x10^3/uL (0.0-0.7); EOS % 3 % (0-3); HEMATOCRIT 27.5 % (36.0-47.0); HEMOGLOBIN 9.4 g/dL (12.0-15.5); LYMPH # 0.7 x10^3/uL (1.0-4.8); LYMPH % 19 % (24-48); MEAN CORPUSCULAR HEMOGLOBIN 32 pg (25-35); MEAN CORPUSCULAR HGB CONC 34 g/dL (31-37); MEAN CORPUSCULAR VOLUME 95 fL (79-100); MONO % 1 % (0-9); NEUT # 2.6 x10^3/uL (1.8-7.7); NEUT % 75 % (31-73); PLATELET COUNT 181 x10^3/uL (140-400); RED BLOOD COUNT 2.91 x10^6/uL (3.50-5.40); RED CELL DISTRIBUTION WIDTH 14.9 % (11.5-14.5); WHITE BLOOD COUNT 3.5 x10^3/uL (4.0-11.0)
[2020-01-07 10:32] LABS: CALCIUM 8.4 mg/dL (8.5-10.1); GFR 64.4; POTASSIUM 3.8 mmol/L (3.5-5.1)
[2020-01-07 10:38] LABS: ALBUMIN 2.8 g/dL (3.4-5.0); ALBUMIN/GLOBULIN RATIO 0.7 (1.0-1.7); TOTAL BILIRUBIN 0.3 mg/dL (0.2-1.0); TOTAL PROTEIN 6.7 g/dL (6.4-8.2); URIC ACID 5.5 mg/dL (2.6-6.0)
== END ==
LOC: ONCLAB 10:14
PROVIDERS: ATTEND Internal Medicine Hematology & Oncology
DX: C34.92 Malignant neoplasm of unspecified part of left bronchus or lung (principal)
CPT/HCPCS: 36415; 80053; 84550; 85025

== ENCOUNTER → 2020-01-21 | Outpatient (CLI) | payer MEDICAID ==
[2019-12-31 14:30] VITALS: BP 140/63
[2020-01-21 10:26] LABS: BASO % 1 % (0-3); EOS # 0.1 x10^3/uL (0.0-0.7); EOS % 2 % (0-3); HEMATOCRIT 27.6 % (36.0-47.0); HEMOGLOBIN 9.3 g/dL (12.0-15.5); LYMPH # 0.9 x10^3/uL (1.0-4.8); LYMPH % 26 % (24-48); MEAN CORPUSCULAR HEMOGLOBIN 33 pg (25-35); MEAN CORPUSCULAR HGB CONC 34 g/dL (31-37); MEAN CORPUSCULAR VOLUME 96 fL (79-100); MONO # 0.6 x10^3/uL (0.0-1.1); MONO % 16 % (0-9); NEUT % 55 % (31-73); PLATELET COUNT 257 x10^3/uL (140-400); RED BLOOD COUNT 2.87 x10^6/uL (3.50-5.40); RED CELL DISTRIBUTION WIDTH 16.6 % (11.5-14.5); WHITE BLOOD COUNT 3.6 x10^3/uL (4.0-11.0)
[2020-01-21 10:41] LABS: CALCIUM 9.1 mg/dL (8.5-10.1); CREATININE 1.1 mg/dL (0.6-1.0); GFR 57.7
[2020-01-21 10:48] LABS: ALBUMIN/GLOBULIN RATIO 0.6 (1.0-1.7); TOTAL BILIRUBIN 0.1 mg/dL (0.2-1.0); TOTAL PROTEIN 7.7 g/dL (6.4-8.2)
== END ==
LOC: ONCLAB 09:52
PROVIDERS: ATTEND Internal Medicine Hematology & Oncology
DX: C34.92 Malignant neoplasm of unspecified part of left bronchus or lung (principal)
CPT/HCPCS: 36415; 80053; 85025

== ENCOUNTER → 2020-02-16 | Outpatient (CLI) | payer MEDICAID ==
[2020-02-16 09:19] LABS: BASO % 1 % (0-3); EOS % 1 % (0-3); HEMATOCRIT 27.2 % (36.0-47.0); HEMOGLOBIN 9.2 g/dL (12.0-15.5); LYMPH # 1.1 x10^3/uL (1.0-4.8); LYMPH % 21 % (24-48); MEAN CORPUSCULAR HEMOGLOBIN 33 pg (25-35); MEAN CORPUSCULAR HGB CONC 34 g/dL (31-37); MEAN CORPUSCULAR VOLUME 99 fL (79-100); MONO # 0.9 x10^3/uL (0.0-1.1); MONO % 16 % (0-9); NEUT # 3.4 x10^3/uL (1.8-7.7); NEUT % 62 % (31-73); PLATELET COUNT 299 x10^3/uL (140-400); RED BLOOD COUNT 2.74 x10^6/uL (3.50-5.40); RED CELL DISTRIBUTION WIDTH 21.2 % (11.5-14.5); WHITE BLOOD COUNT 5.5 x10^3/uL (4.0-11.0)
[2020-02-16 09:20] LABS: CALCIUM 9.3 mg/dL (8.5-10.1); GFR 64.4; POTASSIUM 3.7 mmol/L (3.5-5.1)
[2020-02-16 09:26] LABS: ALBUMIN 2.8 g/dL (3.4-5.0); ALBUMIN/GLOBULIN RATIO 0.6 (1.0-1.7); TOTAL BILIRUBIN 0.2 mg/dL (0.2-1.0); TOTAL PROTEIN 7.2 g/dL (6.4-8.2)
[2020-02-16 19:05] LABS: PLT ESTIMATE ADEQUATE (ADEQUATE)
[2020-02-16 19:09] LABS: MICROCYTOSIS SLIGHT; OVALOCYTES FEW; POIKILOCYTOSIS SLIGHT; POLYCHROMASIA SLIGHT; TEAR DROP CELLS OCC
[2020-02-16 19:10] LABS: ANISOCYTOSIS MOD; SPHEROCYTES OCC
== END ==
LOC: ONCLAB 08:55
PROVIDERS: ATTEND Internal Medicine Hematology & Oncology
DX: C34.92 Malignant neoplasm of unspecified part of left bronchus or lung (principal); E03.9 Hypothyroidism, unspecified
CPT/HCPCS: 36415; 80053; 84443; 85025

== ENCOUNTER → 2020-03-05 | Outpatient (CLI) | payer MEDICAID ==
[~2020-03-05] MED LIST changes: +CONTRAST GIVEN. MC PRN; +GADOTERATE 7.5 MMOL/15ML VIAL. IVP ONE; +IOHEXOL 240 MG/ML 50ML VIAL. PO ONE; +IOHEXOL 300 MG/ML 100ML VIAL. IV ONE
--- NOTE | 2020-03-05 16:06 | RAD ---
EXAMINATION: Magnetic resonance imaging (MRI) of the brain and brainstem without and with contrast 11:00 AM HISTORY: Metastasis check. History of small cell lung cancer TECHNIQUE: Multiplanar multi-weighted MRI of the brain and brainstem was performed without and with i ntravenous contrast using the general brain protocol. Contrast information: 15 mL Gadolinium based contrast COMPARISON: None available. FINDINGS: The scalp and calvarium are normal. The superior sagittal sinus demonstrates normal venous flow. The corpus callosum is normal in shape and signal intensity. The posterior fossa is unremarkable. The p ituitary and sella are normal. The brainstem and craniocervical junction are unremarkable. There are T2/FLAIR signal hyperintense foci in the periventricular and subcortical white matter most suggestiv e of mild chronic small vessel ischemic changes. There is a remote lacunar infarct in left caudate he ad. Diffusion weighted images reveal no hyperintensities to suggest acute cerebral infarction. The suscep tibility weighted sequences reveal no evidence of acute or chronic hemorrhage. The ventricles are nor mal in size and position without evidence of hydrocephalus. There are no areas of abnormal contrast enhancement. The paranasal sinuses are normal. The visualized portions of the mastoids are unremarkable. The orbi ts appear normal exception of bilateral lens replacement. Normal flow voids are demonstrated in the carotid arteries and basilar artery. IMPRESSION: No evidence for intracranial metastatic disease. There are T2/FLAIR signal hyperintense foci in the periventricular and subcortical white matter most suggestive of mild chronic small vessel ischemic changes. Remote lacunar infarct in the left caudate head. Electronically signed by: Madison Michel MD (03/05/2020 4:04 PM) [id number]
--- NOTE | 2020-03-06 11:27 | RAD ---
EXAM: CT CHEST, ABDOMEN, AND PELVIS WITHOUT CONTRAST INDICATION: Small cell lung cancer COMPARISON: PET/CT 12/12/2019 CT chest 11/18/[address] abdomen pelvis 11/21/2019 TECHNIQUE: Helical CT imaging performed of the chest, abdomen and pelvis without the use of intraveno us contrast. Sagittal and coronal reformats were obtained. One or more of the following individualized dose reduction techniques were utilized for this examinat ion: 1. Automated exposure control 2. Adjustment of the mA and/or kV according to patient size 3. Use of iterative reconstruction technique. FINDINGS: CHEST: Thyroid gland and thoracic inlet: There is a 1.2 cm hypodense right thyroid nodule. No thoracic inlet lymphadenopathy. Heart and great vessels: Heart is normal in size. No pericardial effusion. The thoracic aorta is norm al in caliber. Mild calcified aortic atherosclerosis. Mediastinum and malvin: The large left mediastinal/hilar mass has near completely resolved. Small amoun t of residual left perihilar soft tissue, discussed below. Narrowing of the left central airways has decreased. There is no lymphadenopathy. Lungs and pleura: Left paramediastinal/perihilar mass has near completely resolved. There is residual left suprahilar mass or consolidation measuring approximately 1.5 x 1.5 x 2.0 cm (image 20, series 3 ). Postobstructive atelectasis in the left upper lobe has resolved. Atelectasis in the left lower lob e has resolved. The large left pleural effusion has significantly decreased, now small. There is a 1. 6 x 0.7 cm nodular opacity in the left upper lobe. There are a few scattered bilateral small pulmonar y nodules including an unchanged 3 mm pulmonary nodule in the right lower lobe. Opacities in the lung apices are likely related to pleural parenchymal scarring and are unchanged on the right. There is m ild apical predominant centrilobular and paraseptal emphysema. Chest wall and axillae: Right Port-A-Cath is noted. Breast tissue symmetric. There is a subcutaneous lipoma in the right lateral chest wall measuring 6.2 x 2.3 cm. No axillary lymphadenopathy. Bones: No acute osseous abnormality or suspicious bone lesion. Mild degenerative disc disease. ABDOMEN AND PELVIS: Liver: Unchanged 8 mm well-circumscribed hypodense lesion near the gallbladder fossa. No new liver le adams. Gallbladder/Biliary Tree: Post cholecystectomy. Bile ducts are normal Pancreas: Normal. Spleen: Normal. Adrenal Glands: Normal Kidneys/Ureters/Bladder: Kidneys are normal in size and enhance symmetrically. There is a 2 cm simple cyst in the superior left renal pole. Mild fullness of the left renal collecting system. No obstruct ing calculus identified. Ureters are normal in caliber. Bladder is normal. Reproductive Organs: Uterus and ovaries are unremarkable. Stomach, small bowel, and colon: Small hiatal hernia. No small bowel obstruction. Mild sigmoid divert iculosis. The appendix is normal. Vasculature: Abdominal aorta is normal in caliber. Mild calcified aortoiliac atherosclerosis Lymph Nodes: No lymphadenopathy in the abdomen and pelvis. Peritoneum and retroperitoneum: No free fluid or free air. Bones: No acute fracture or suspicious osseous lesion. There is grade 1 spondylolisthesis and mild de generative disc disease at L4-L5. Mild osteoarthrosis of the hips. IMPRESSION: 1. Near complete resolution of left perihilar/mediastinal mass with a small amount of residual left suprahilar soft tissue measuring approximately 2 cm. Narrowing of left central airways and postobstru ctive atelectasis of the left upper lobe has resolved. 2. Significantly decreased, now small left pleural effusion. Resolution of left lower lobe atelectas is. 3. 1.6 cm nodular opacity in the left upper lobe and a few scattered subcentimeter nodules bilateral ly, nonspecific. Mild emphysema. 4. Unchanged small hypodensity in the liver. No new liver lesion or lymphadenopathy in the abdomen o r pelvis. Electronically signed by: Debi Crenshaw MD (03/06/2020 11:24 AM) [id number]
== END ==
LOC: MRI 10:39
PROVIDERS: ATTEND Internal Medicine Hematology & Oncology
DX: C34.92 Malignant neoplasm of unspecified part of left bronchus or lung (principal); R91.1 Solitary pulmonary nodule; E04.1 Nontoxic single thyroid nodule; J98.11 Atelectasis; J43.9 Emphysema, unspecified
CPT/HCPCS: 70553; 71260; 74177; A9575; Q9967

== ENCOUNTER → 2020-03-08 | Outpatient (CLI) | payer MEDICAID ==
[~2020-03-08] MED LIST changes: -CONTRAST GIVEN. MC PRN; -GADOTERATE 7.5 MMOL/15ML VIAL. IVP ONE; -IOHEXOL 240 MG/ML 50ML VIAL. PO ONE; -IOHEXOL 300 MG/ML 100ML VIAL. IV ONE
[2020-03-08 08:27] LABS: BASO % 1 % (0-3); EOS # 0.1 x10^3/uL (0.0-0.7); EOS % 2 % (0-3); HEMATOCRIT 27.6 % (36.0-47.0); HEMOGLOBIN 9.3 g/dL (12.0-15.5); LYMPH # 0.9 x10^3/uL (1.0-4.8); LYMPH % 23 % (24-48); MEAN CORPUSCULAR HEMOGLOBIN 34 pg (25-35); MEAN CORPUSCULAR HGB CONC 34 g/dL (31-37); MEAN CORPUSCULAR VOLUME 101 fL (79-100); MONO # 0.7 x10^3/uL (0.0-1.1); MONO % 18 % (0-9); NEUT # 2.2 x10^3/uL (1.8-7.7); NEUT % 57 % (31-73); PLATELET COUNT 261 x10^3/uL (140-400); RED BLOOD COUNT 2.73 x10^6/uL (3.50-5.40); RED CELL DISTRIBUTION WIDTH 19.8 % (11.5-14.5); WHITE BLOOD COUNT 3.8 x10^3/uL (4.0-11.0)
[2020-03-08 08:42] LABS: CALCIUM 8.9 mg/dL (8.5-10.1); GFR 64.4; POTASSIUM 3.5 mmol/L (3.5-5.1)
[2020-03-08 08:46] LABS: ALBUMIN/GLOBULIN RATIO 0.7 (1.0-1.7); TOTAL BILIRUBIN 0.2 mg/dL (0.2-1.0); TOTAL PROTEIN 7.2 g/dL (6.4-8.2)
[2020-03-08 09:12] LABS: % EOS 3 % (0-5); % LYMPHS 23 % (24-48); % MONOS 10 % (0-10); % SEGS 64 % (35-66); PLT ESTIMATE ADEQUATE (ADEQUATE)
[2020-03-08 09:13] LABS: ANISOCYTOSIS SLIGHT
== END ==
LOC: ONCLAB 08:00
PROVIDERS: ATTEND Internal Medicine Hematology & Oncology
DX: C34.92 Malignant neoplasm of unspecified part of left bronchus or lung (principal)
CPT/HCPCS: 36415; 80053; 84443; 85007; 85025

== ENCOUNTER → 2020-03-29 | Outpatient (CLI) | payer MEDICAID ==
[2020-03-29 08:46] LABS: BASO % 1 % (0-3); EOS # 0.2 x10^3/uL (0.0-0.7); EOS % 3 % (0-3); HEMATOCRIT 32.4 % (36.0-47.0); LYMPH # 1.3 x10^3/uL (1.0-4.8); LYMPH % 21 % (24-48); MEAN CORPUSCULAR HEMOGLOBIN 35 pg (25-35); MEAN CORPUSCULAR HGB CONC 34 g/dL (31-37); MEAN CORPUSCULAR VOLUME 102 fL (79-100); MONO # 0.9 x10^3/uL (0.0-1.1); MONO % 15 % (0-9); NEUT # 3.7 x10^3/uL (1.8-7.7); NEUT % 60 % (31-73); PLATELET COUNT 279 x10^3/uL (140-400); RED BLOOD COUNT 3.18 x10^6/uL (3.50-5.40); RED CELL DISTRIBUTION WIDTH 15.2 % (11.5-14.5); WHITE BLOOD COUNT 6.1 x10^3/uL (4.0-11.0)
[2020-03-29 08:52] LABS: CALCIUM 9.2 mg/dL (8.5-10.1); CREATININE 1.4 mg/dL (0.6-1.0); GFR 43.7; POTASSIUM 4.1 mmol/L (3.5-5.1)
[2020-03-29 08:56] LABS: ALBUMIN 3.4 g/dL (3.4-5.0); ALBUMIN/GLOBULIN RATIO 0.8 (1.0-1.7); TOTAL BILIRUBIN 0.3 mg/dL (0.2-1.0); TOTAL PROTEIN 7.9 g/dL (6.4-8.2)
== END ==
LOC: ONCLAB 08:25
PROVIDERS: ATTEND Internal Medicine Hematology & Oncology
DX: C34.92 Malignant neoplasm of unspecified part of left bronchus or lung (principal)
CPT/HCPCS: 36415; 80053; 85025

== ENCOUNTER → 2020-04-19 | Outpatient (CLI) | payer MEDICAID ==
[~2020-04-19] MED LIST changes: -OMEP40CA45 PO; +OMEP40CA7 PO
[2020-04-19 09:19] LABS: BASO % 1 % (0-3); EOS # 0.2 x10^3/uL (0.0-0.7); EOS % 4 % (0-3); HEMATOCRIT 32.7 % (36.0-47.0); HEMOGLOBIN 10.9 g/dL (12.0-15.5); LYMPH # 1.1 x10^3/uL (1.0-4.8); LYMPH % 27 % (24-48); MEAN CORPUSCULAR HEMOGLOBIN 34 pg (25-35); MEAN CORPUSCULAR HGB CONC 34 g/dL (31-37); MEAN CORPUSCULAR VOLUME 101 fL (79-100); MONO # 0.5 x10^3/uL (0.0-1.1); MONO % 13 % (0-9); NEUT # 2.2 x10^3/uL (1.8-7.7); NEUT % 55 % (31-73); PLATELET COUNT 225 x10^3/uL (140-400); RED BLOOD COUNT 3.22 x10^6/uL (3.50-5.40); RED CELL DISTRIBUTION WIDTH 13.5 % (11.5-14.5)
[2020-04-19 09:39] LABS: CALCIUM 9.5 mg/dL (8.5-10.1); CREATININE 1.3 mg/dL (0.6-1.0); GFR 47.6; POTASSIUM 3.7 mmol/L (3.5-5.1)
[2020-04-19 09:46] LABS: ALBUMIN/GLOBULIN RATIO 0.7 (1.0-1.7); TOTAL BILIRUBIN 0.2 mg/dL (0.2-1.0); TOTAL PROTEIN 7.4 g/dL (6.4-8.2)
== END ==
LOC: ONCLAB 08:54
PROVIDERS: ATTEND Internal Medicine Hematology & Oncology
DX: C34.92 Malignant neoplasm of unspecified part of left bronchus or lung (principal)
CPT/HCPCS: 36415; 80053; 85025

== ENCOUNTER → 2020-05-10 | Outpatient (CLI) | payer MEDICAID ==
[~2020-05-10] MED LIST changes: +OMEP40CA45 PO; -OMEP40CA7 PO
[2020-05-10 09:16] LABS: BASO % 1 % (0-3); EOS # 0.2 x10^3/uL (0.0-0.7); EOS % 3 % (0-3); HEMATOCRIT 34.8 % (36.0-47.0); HEMOGLOBIN 11.5 g/dL (12.0-15.5); LYMPH # 1.2 x10^3/uL (1.0-4.8); LYMPH % 18 % (24-48); MEAN CORPUSCULAR HEMOGLOBIN 32 pg (25-35); MEAN CORPUSCULAR HGB CONC 33 g/dL (31-37); MEAN CORPUSCULAR VOLUME 97 fL (79-100); MONO % 15 % (0-9); NEUT % 64 % (31-73); PLATELET COUNT 306 x10^3/uL (140-400); RED BLOOD COUNT 3.58 x10^6/uL (3.50-5.40); RED CELL DISTRIBUTION WIDTH 13.3 % (11.5-14.5); WHITE BLOOD COUNT 6.3 x10^3/uL (4.0-11.0)
[2020-05-10 09:31] LABS: ALBUMIN 2.4 g/dL (3.4-5.0); ALBUMIN/GLOBULIN RATIO 0.6 (1.0-1.7); CALCIUM 7.4 mg/dL (8.5-10.1); CREATININE 1.1 mg/dL (0.6-1.0); GFR 57.7; TOTAL BILIRUBIN 0.2 mg/dL (0.2-1.0); TOTAL PROTEIN 6.7 g/dL (6.4-8.2)
[2020-05-10 09:35] LABS: POTASSIUM 2.8 mmol/L (3.5-5.1)
== END ==
LOC: ONCLAB 08:35
PROVIDERS: ATTEND Internal Medicine Hematology & Oncology
DX: C34.92 Malignant neoplasm of unspecified part of left bronchus or lung (principal)
CPT/HCPCS: 36415; 80053; 85025

== ENCOUNTER → 2020-06-10 | Outpatient (CLI) | payer MEDICAID ==
[2020-06-10 09:04] LABS: BASO % 1 % (0-3); EOS # 0.2 x10^3/uL (0.0-0.7); EOS % 3 % (0-3); HEMOGLOBIN 11.9 g/dL (12.0-15.5); LYMPH # 1.7 x10^3/uL (1.0-4.8); LYMPH % 26 % (24-48); MEAN CORPUSCULAR HEMOGLOBIN 33 pg (25-35); MEAN CORPUSCULAR HGB CONC 34 g/dL (31-37); MEAN CORPUSCULAR VOLUME 95 fL (79-100); MONO # 0.6 x10^3/uL (0.0-1.1); MONO % 10 % (0-9); NEUT # 3.8 x10^3/uL (1.8-7.7); NEUT % 60 % (31-73); PLATELET COUNT 253 x10^3/uL (140-400); RED BLOOD COUNT 3.66 x10^6/uL (3.50-5.40); RED CELL DISTRIBUTION WIDTH 14.4 % (11.5-14.5); WHITE BLOOD COUNT 6.3 x10^3/uL (4.0-11.0)
[2020-06-10 09:31] LABS: CALCIUM 9.3 mg/dL (8.5-10.1); CREATININE 1.4 mg/dL (0.6-1.0); GFR 43.7; POTASSIUM 3.9 mmol/L (3.5-5.1)
[2020-06-10 09:36] LABS: ALBUMIN/GLOBULIN RATIO 0.6 (1.0-1.7); TOTAL BILIRUBIN 0.3 mg/dL (0.2-1.0); TOTAL PROTEIN 8.1 g/dL (6.4-8.2)
== END ==
LOC: ONCLAB 08:35
PROVIDERS: ATTEND Internal Medicine Hematology & Oncology
DX: C34.92 Malignant neoplasm of unspecified part of left bronchus or lung (principal)
CPT/HCPCS: 36415; 80053; 85025

== ENCOUNTER → 2020-06-14 | Outpatient (CLI) | payer MEDICAID ==
[~2020-06-14] MED LIST changes: +CONTRAST GIVEN. MC PRN; +GADOTERATE 7.5 MMOL/15ML VIAL. IVP ONE; +IOHEXOL 240 MG/ML 50ML VIAL. PO ONE; +IOHEXOL 300 MG/ML 100ML VIAL. IV ONE
--- NOTE | 2020-06-14 11:03 | RAD ---
EXAM: Brain MRI with and without contrast. HISTORY: Small cell lung cancer restaging. TECHNIQUE: Multiplanar, multisequence magnetic resonance imaging of the brain was performed prior to and following the administration of intravenous contrast. COMPARISON: 03/05/2020 FINDINGS: There is no evidence of intracranial metastatic disease. There is no restricted diffusion t o suggest acute or subacute infarction. There is no susceptibility effect to suggest hemorrhage. Ther e is no mass effect or midline shift. There is no hydrocephalus. There is signal change scattered throughout the cerebral white matter and israel, most commonly due to chronic small vessel disease in patients of this age. There is age-appropriate cerebral volume loss. There is a chronic lacunar infarct within the left caudate nucleus. There is evidence of lens surgery. The paranasal sinuses are unremarkable. There is fluid within the left mastoid air cells and middle ear. There are normal flow voids within the cerebral vessels. IMPRESSION: 1. No acute intracranial finding or evidence of intracranial metastatic disease. 2. Scattered areas of signal change within the cerebral white matter and israel, most commonly due to c hronic small vessel disease in patients of this age. 3. Tiny chronic lacunar infarct within the left caudate nucleus. Electronically signed by: Donya Hurd MD (06/14/2020 11:01 AM) [id number]
--- NOTE | 2020-06-15 08:40 | RAD ---
EXAM: CT Chest, Abdomen, and Pelvis with IV contrast INDICATION: Reason: SMALL CELL LUNG CANCER / Spl. Instructions: IV OMNI 300 60 MLS AND PO OMNI 240 50 MLS / History: TECHNIQUE: Multi-detector row CT images were acquired from the thoracic inlet through the ischial tu berosities with the use of IV contrast. Sagittal and coronal images were acquired from the transaxial data. All CT scans performed at this facility utilize dose optimization techniques as appropriate to the exam, including the following: Automated exposure control and adjustment of the mA and/or KV acc ording to patient size (this includes techniques or standardized protocols for targeted exams where d ose is indication/reason for exam). IV CONTRAST: Administered ORAL CONTRAST: Administered COMPARISON: 03/05/2020 CT chest abdomen pelvis with IV contrast and CT angiogram of 11/18/2019. FINDINGS: CHEST: CARDIOVASCULAR: Stable right jugular approach tunneled chest port, tip near the cavoatrial junction. Normal caliber thoracic aorta. Normal heart size. No pericardial effusion. Scattered coronary calcif ications. MEDIASTINUM & MILOTN: Unchanged 1.5 cm inferior pole right thyroid lobe nodule. No mediastinal mass or adenopathy. No evidence of recurrence of a large left upper lobe lung mass with extensive mediastinal infiltration evident 7 months ago. Small hiatal hernia. LUNGS: Paraseptal and centrilobular pattern emphysema is again evident with stable residual scarlike density in the left suprahilar lung and stable 1.7 cm nodule opacity in the left upper lobe (image 19 series 2). New patchy consolidation has developed in the left lower lobe primarily involving the superior segmen t. PLEURAL SPACE: No pneumothorax. Slight interval increase in small left pleural effusion. OSSEOUS & SOFT TISSUE: Unremarkable ABDOMEN/PELVIS: LIVER: Stable 8 mm oval hypodensity near the gallbladder fossa. No new liver lesions. BILIARY SYSTEM: Gallbladder is surgically absent. Bile ducts are not dilated. PANCREAS: Unremarkable SPLEEN: Unremarkable ADRENALS: Unremarkable KIDNEYS & URETERS: Stable 2.3 cm hypodense lesion in the superior pole left kidney. Otherwise unrema rkable kidneys with symmetric enhancement and no hydronephrosis. BLADDER: Unremarkable REPRODUCTIVE ORGANS: Unremarkable GASTROINTESTINAL: Small hiatal hernia. Scattered colonic diverticula. There is spasm / contraction of the colon at the hepatic flexure. No findings of obstruction or acute inflammation. The appendix is normal. MESENTERY/PERITONEUM/RETROPERITONEUM: Unremarkable VASCULAR: Scattered arterial calcifications. LYMPH NODES: No adenopathy OSSEOUS & SOFT TISSUES: Stable grade 1 anterolisthesis of L4 and L5 the setting of multilevel lumbar spinal degenerative changes. IMPRESSION: 1. Continued evidence of a positive treatment response with no evidence of tumor recurrence but inter trell development of patchy opacities in the superior segment left lower lobe and increase in left pleu ral effusion that could represent pneumonia with parapneumonic effusion. Correlate clinically. 2. No evidence of metastatic disease to the abdomen or pelvis. Electronically signed by: Phyllis Patterson MD (06/15/2020 8:38 AM) [id number]
== END ==
LOC: MRI 09:36
PROVIDERS: ATTEND Internal Medicine Hematology & Oncology
DX: C34.92 Malignant neoplasm of unspecified part of left bronchus or lung (principal); J91.0 Malignant pleural effusion; K44.9 Diaphragmatic hernia without obstruction or gangrene; K57.30 Diverticulosis of large intestine without perforation or abscess without bleeding; I63.81 Other cerebral infarction due to occlusion or stenosis of small artery
CPT/HCPCS: 70553; 71260; 74177; A9575; Q9966; Q9967

== ENCOUNTER → 2020-07-01 | Outpatient (CLI) | payer MEDICAID ==
[~2020-07-01] MED LIST changes: -CONTRAST GIVEN. MC PRN; -GADOTERATE 7.5 MMOL/15ML VIAL. IVP ONE; -IOHEXOL 240 MG/ML 50ML VIAL. PO ONE; -IOHEXOL 300 MG/ML 100ML VIAL. IV ONE
[2020-07-01 09:38] LABS: BASO # 0.1 x10^3/uL (0.0-0.2); BASO % 1 % (0-3); EOS # 0.2 x10^3/uL (0.0-0.7); EOS % 2 % (0-3); HEMATOCRIT 34.2 % (36.0-47.0); HEMOGLOBIN 11.6 g/dL (12.0-15.5); LYMPH # 1.8 x10^3/uL (1.0-4.8); LYMPH % 26 % (24-48); MEAN CORPUSCULAR HEMOGLOBIN 32 pg (25-35); MEAN CORPUSCULAR HGB CONC 34 g/dL (31-37); MEAN CORPUSCULAR VOLUME 95 fL (79-100); MONO # 0.9 x10^3/uL (0.0-1.1); MONO % 12 % (0-9); NEUT # 4.3 x10^3/uL (1.8-7.7); NEUT % 59 % (31-73); PLATELET COUNT 238 x10^3/uL (140-400); WHITE BLOOD COUNT 7.2 x10^3/uL (4.0-11.0)
[2020-07-01 10:06] LABS: CALCIUM 9.3 mg/dL (8.5-10.1); CREATININE 1.3 mg/dL (0.6-1.0); GFR 47.6; POTASSIUM 4.9 mmol/L (3.5-5.1)
[2020-07-01 10:11] LABS: ALBUMIN 3.1 g/dL (3.4-5.0); ALBUMIN/GLOBULIN RATIO 0.6 (1.0-1.7); TOTAL BILIRUBIN 0.5 mg/dL (0.2-1.0)
== END ==
LOC: ONCLAB 09:19
PROVIDERS: ATTEND Internal Medicine Hematology & Oncology
DX: C34.92 Malignant neoplasm of unspecified part of left bronchus or lung (principal); E03.9 Hypothyroidism, unspecified
CPT/HCPCS: 36415; 80053; 84443; 85025

== ENCOUNTER → 2020-07-29 | Outpatient (CLI) | payer MEDICAID ==
[2020-07-29 10:17] LABS: BASO % 1 % (0-3); EOS # 0.2 x10^3/uL (0.0-0.7); EOS % 3 % (0-3); HEMATOCRIT 34.6 % (36.0-47.0); HEMOGLOBIN 11.7 g/dL (12.0-15.5); LYMPH # 1.7 x10^3/uL (1.0-4.8); LYMPH % 27 % (24-48); MEAN CORPUSCULAR HEMOGLOBIN 32 pg (25-35); MEAN CORPUSCULAR HGB CONC 34 g/dL (31-37); MEAN CORPUSCULAR VOLUME 95 fL (79-100); MONO # 0.5 x10^3/uL (0.0-1.1); MONO % 9 % (0-9); NEUT # 3.8 x10^3/uL (1.8-7.7); NEUT % 62 % (31-73); PLATELET COUNT 261 x10^3/uL (140-400); RED BLOOD COUNT 3.64 x10^6/uL (3.50-5.40); WHITE BLOOD COUNT 6.2 x10^3/uL (4.0-11.0)
[2020-07-29 10:42] LABS: CALCIUM 10.1 mg/dL (8.5-10.1); CREATININE 1.4 mg/dL (0.6-1.0); GFR 43.6; POTASSIUM 3.7 mmol/L (3.5-5.1)
[2020-07-29 10:50] LABS: ALBUMIN 3.3 g/dL (3.4-5.0); ALBUMIN/GLOBULIN RATIO 0.7 (1.0-1.7); TOTAL BILIRUBIN 0.4 mg/dL (0.2-1.0); TOTAL PROTEIN 7.9 g/dL (6.4-8.2)
== END ==
LOC: ONCLAB 09:31
PROVIDERS: ATTEND Physician Assistant
DX: C34.92 Malignant neoplasm of unspecified part of left bronchus or lung (principal); D64.9 Anemia, unspecified
CPT/HCPCS: 36415; 80053; 84443; 85025

== ENCOUNTER → 2020-08-19 | Outpatient (CLI) | payer MEDICAID ==
[~2020-08-19] MED LIST changes: -OMEP40CA45 PO; +OMEP40CA7 PO
[2020-08-19 09:56] LABS: BASO # 0.1 x10^3/uL (0.0-0.2); BASO % 1 % (0-3); EOS # 0.1 x10^3/uL (0.0-0.7); EOS % 2 % (0-3); HEMATOCRIT 33.1 % (36.0-47.0); HEMOGLOBIN 11.3 g/dL (12.0-15.5); LYMPH # 1.8 x10^3/uL (1.0-4.8); LYMPH % 30 % (24-48); MEAN CORPUSCULAR HEMOGLOBIN 33 pg (25-35); MEAN CORPUSCULAR HGB CONC 34 g/dL (31-37); MEAN CORPUSCULAR VOLUME 96 fL (79-100); MONO # 0.7 x10^3/uL (0.0-1.1); MONO % 11 % (0-9); NEUT # 3.3 x10^3/uL (1.8-7.7); NEUT % 56 % (31-73); PLATELET COUNT 244 x10^3/uL (140-400); RED BLOOD COUNT 3.44 x10^6/uL (3.50-5.40); RED CELL DISTRIBUTION WIDTH 14.9 % (11.5-14.5)
[2020-08-19 09:57] LABS: CALCIUM 8.8 mg/dL (8.5-10.1); CREATININE 1.2 mg/dL (0.6-1.0)
[2020-08-19 10:03] LABS: ALBUMIN 3.3 g/dL (3.4-5.0); ALBUMIN/GLOBULIN RATIO 0.7 (1.0-1.7); TOTAL BILIRUBIN 0.3 mg/dL (0.2-1.0); TOTAL PROTEIN 7.8 g/dL (6.4-8.2)
== END ==
LOC: ONCLAB 09:23
PROVIDERS: ATTEND Internal Medicine Hematology & Oncology
DX: C34.92 Malignant neoplasm of unspecified part of left bronchus or lung (principal); E03.9 Hypothyroidism, unspecified
CPT/HCPCS: 36415; 80053; 84443; 85025

== ENCOUNTER → 2020-09-09 | Outpatient (CLI) | payer MEDICAID ==
[2020-09-09 10:12] LABS: BASO # 0.1 x10^3/uL (0.0-0.2); BASO % 1 % (0-3); EOS # 0.2 x10^3/uL (0.0-0.7); EOS % 2 % (0-3); HEMATOCRIT 35.4 % (36.0-47.0); LYMPH # 2.1 x10^3/uL (1.0-4.8); LYMPH % 30 % (24-48); MEAN CORPUSCULAR HEMOGLOBIN 33 pg (25-35); MEAN CORPUSCULAR HGB CONC 34 g/dL (31-37); MEAN CORPUSCULAR VOLUME 97 fL (79-100); MONO # 0.8 x10^3/uL (0.0-1.1); MONO % 12 % (0-9); NEUT # 3.8 x10^3/uL (1.8-7.7); NEUT % 55 % (31-73); PLATELET COUNT 261 x10^3/uL (140-400); RED BLOOD COUNT 3.65 x10^6/uL (3.50-5.40)
[2020-09-09 10:36] LABS: CALCIUM 10.4 mg/dL (8.5-10.1); CREATININE 1.3 mg/dL (0.6-1.0); GFR 47.5; POTASSIUM 4.1 mmol/L (3.5-5.1)
[2020-09-09 10:43] LABS: ALBUMIN 3.4 g/dL (3.4-5.0); ALBUMIN/GLOBULIN RATIO 0.7 (1.0-1.7); TOTAL BILIRUBIN 0.3 mg/dL (0.2-1.0)
== END ==
LOC: ONCLAB 09:10
PROVIDERS: ATTEND Physician Assistant
DX: C34.92 Malignant neoplasm of unspecified part of left bronchus or lung (principal); E03.9 Hypothyroidism, unspecified; E87.6 Hypokalemia
CPT/HCPCS: 36415; 80053; 85025

== ENCOUNTER → 2020-09-09 | Outpatient (CLI) | payer MEDICAID ==
--- NOTE | 2020-09-09 13:20 | RAD ---
INDICATION: Reason: LT ARM SWELLING / Spl. Instructions: / History: COMPARISON: None. TECHNIQUE: Grayscale, color and doppler ultrasound images were obtained of the left upper extremity v enous vasculature. No thrombus identified in the internal jugular, subclavian, axillary, brachial, basilic, cephalic, r adial or ulnar veins. IMPRESSION: 1. No thrombus identified in deep venous system of left upper extremity. Electronically signed by: Paco Mera MD (09/09/2020 1:18 PM) [id number]
== END ==
LOC: US 12:19
PROVIDERS: ATTEND Physician Assistant
DX: C34.92 Malignant neoplasm of unspecified part of left bronchus or lung (principal); M79.89 Other specified soft tissue disorders
CPT/HCPCS: 93971

== ENCOUNTER → 2020-09-30 | Outpatient (CLI) | payer MEDICAID ==
[2020-09-30 11:35] LABS: BASO # 0.1 x10^3/uL (0.0-0.2); BASO % 1 % (0-3); EOS # 0.1 x10^3/uL (0.0-0.7); EOS % 2 % (0-3); HEMATOCRIT 35.6 % (36.0-47.0); HEMOGLOBIN 11.9 g/dL (12.0-15.5); LYMPH # 2.2 x10^3/uL (1.0-4.8); LYMPH % 30 % (24-48); MEAN CORPUSCULAR HEMOGLOBIN 33 pg (25-35); MEAN CORPUSCULAR HGB CONC 33 g/dL (31-37); MEAN CORPUSCULAR VOLUME 98 fL (79-100); MONO # 0.8 x10^3/uL (0.0-1.1); MONO % 11 % (0-9); NEUT # 4.1 x10^3/uL (1.8-7.7); NEUT % 57 % (31-73); PLATELET COUNT 259 x10^3/uL (140-400); RED BLOOD COUNT 3.63 x10^6/uL (3.50-5.40); RED CELL DISTRIBUTION WIDTH 13.8 % (11.5-14.5); WHITE BLOOD COUNT 7.3 x10^3/uL (4.0-11.0)
[2020-09-30 11:42] LABS: CALCIUM 9.5 mg/dL (8.5-10.1); CREATININE 1.6 mg/dL (0.6-1.0); GFR 37.3; POTASSIUM 3.9 mmol/L (3.5-5.1)
[2020-09-30 11:52] LABS: ALBUMIN 3.2 g/dL (3.4-5.0); ALBUMIN/GLOBULIN RATIO 0.7 (1.0-1.7); TOTAL BILIRUBIN 0.3 mg/dL (0.2-1.0); TOTAL PROTEIN 8.1 g/dL (6.4-8.2)
== END ==
LOC: ONCLAB 10:45
PROVIDERS: ATTEND Internal Medicine Hematology & Oncology
DX: C34.92 Malignant neoplasm of unspecified part of left bronchus or lung (principal); E03.9 Hypothyroidism, unspecified
CPT/HCPCS: 36415; 80053; 84443; 85025

== ENCOUNTER → 2020-10-04 | Outpatient (CLI) | payer MEDICAID ==
[~2020-10-04] MED LIST changes: +GADOTERATE 7.5 MMOL/15ML VIAL. IVP ONE; +IOHEXOL 240 MG/ML 50ML VIAL. PO ONE
--- NOTE | 2020-10-04 15:57 | RAD ---
EXAM: CT CHEST, ABDOMEN, AND PELVIS WITHOUT CONTRAST INDICATION: Small cell lung cancer COMPARISON: CT chest abdomen pelvis 06/14/2020 TECHNIQUE: Helical CT imaging performed of the chest, abdomen and pelvis without the use of intraveno us contrast. Sagittal and coronal reformats were obtained. One or more of the following individualized dose reduction techniques were utilized for this examinat ion: 1. Automated exposure control 2. Adjustment of the mA and/or kV according to patient size 3. Use of iterative reconstruction technique. FINDINGS: CHEST: Thyroid gland and thoracic inlet: A hyperdense nodule in the right thyroid lobe is better seen on cecilia or CT. No thoracic inlet lymphadenopathy. Heart and great vessels: Heart is normal in size. There are coronary calcifications. No pericardial e ffusion. Thoracic aorta is normal in caliber with mild atherosclerosis. Mediastinum and malvin: No new mediastinal or hilar lymphadenopathy. Lungs and pleura: There is mildly increased left perihilar soft tissue thickening increased left lung volume loss the patchy appearing perihilar opacities on prior exam have decreased and are more confl uent in appearance. An irregular left upper lobe pulmonary nodule now measures 9 x 9 mm, previously 1 .3 x 1.3 cm. There is mild emphysema. No new pulmonary nodules. A small left pleural effusion is unch anged Chest wall and axillae: No axillary lymphadenopathy. Right Port-A-Cath is unchanged. Bones: No acute osseous abnormality. ABDOMEN AND PELVIS: Liver: There is a calcified hepatic granuloma. Noncontrast liver is otherwise unremarkable. Gallbladd er/Biliary Tree: Cholecystectomy. Bile ducts are normal. Pancreas: Normal. Spleen: Normal. Adrenal Glands: Normal. Kidneys/Ureters/Bladder: Kidneys are normal in size. No nephrolithiasis or hydronephrosis. Ureters an d bladder are normal. Reproductive Organs: Uterus is anteverted. No adnexal mass. Stomach, small bowel, and colon: Small hiatal hernia. Stomach is otherwise normal. No small bowel obs truction. Colon is mostly decompressed, limiting evaluation. The appendix is normal. Vasculature: Abdominal aorta is normal in caliber with mild calcified atherosclerosis. Lymph Nodes: No lymphadenopathy in the abdomen and pelvis. Peritoneum and retroperitoneum: No free fluid or free air. Bones: No acute abnormality. Grade 1 anterolisthesis of L4 on L5. Other: Probable surgical changes of ventral hernia repair IMPRESSION: 1. Slightly increased consolidative appearance of left perihilar opacities with increased left lung volume loss, likely due to evolving treatment-related changes. The left upper lobe nodule has decreas ed in size. 2. No evidence of metastatic disease in the abdomen and pelvis. Electronically signed by: Debi Crenshaw MD (10/04/2020 3:54 PM) [id number]
--- NOTE | 2020-10-04 16:38 | RAD ---
MRI of the Brain without and with Contrast 10/04/2020 Clinical History: Small cell lung cancer. Technique: Unenhanced T1-weighted sagittal and axial and FLAIR, T2-weighted, gradient echo and diffus ion-weighted axial images of the brain were obtained. After the intravenous administration of 15 cc o f Clariscan, enhanced T1-weighted axial, sagittal and coronal images of the brain were obtained. Findings: Comparison study is dated 06/14/2020. There is generalized cortical atrophy. Patchy, confluent and multiple small focal areas of abnormally increased signal intensity are seen within the periventricular and subcortical white matter of both cerebral hemispheres on the FLAIR and T2-weighted images consistent with areas of small vessel ischem ic disease. These have not significantly changed. No acute parenchymal abnormality is seen. No area of abnormal contrast enhancement is seen. No extra- axial fluid collection is noted. There is no MRI evidence of acute ischemia/infarction. Very mild mucosal thickening is seen scattered throughout the paranasal sinuses. Normal flow voids ar e seen within the major vascular structures surrounding the brain parenchyma. IMPRESSION: No acute parenchymal abnormality is seen. There is no MRI evidence of metastatic disease involving the brain parenchyma. Electronically signed by: Charles Kearns MD (10/04/2020 4:36 PM) [id number]
== END ==
LOC: CT 09:12
PROVIDERS: ATTEND Internal Medicine Hematology & Oncology
DX: R91.1 Solitary pulmonary nodule (principal); J90 Pleural effusion, not elsewhere classified; J43.9 Emphysema, unspecified; G31.9 Degenerative disease of nervous system, unspecified; E04.1 Nontoxic single thyroid nodule; I25.10 Atherosclerotic heart disease of native coronary artery without angina pectoris; I70.0 Atherosclerosis of aorta; K75.3 Granulomatous hepatitis, not elsewhere classified; K44.9 Diaphragmatic hernia without obstruction or gangrene; M43.16 Spondylolisthesis, lumbar region; Z90.49 Acquired absence of other specified parts of digestive tract
CPT/HCPCS: 70553; 71250; 74176; A9575; Q9966

== ENCOUNTER → 2020-10-14 | Outpatient (CLI) | payer MEDICAID ==
[~2020-10-14] MED LIST changes: -GADOTERATE 7.5 MMOL/15ML VIAL. IVP ONE; -IOHEXOL 240 MG/ML 50ML VIAL. PO ONE; +POTA-121 PO; -POTA20TA4 PO
--- NOTE | 2020-10-14 16:55 | CARD ---
MR#: [id number] Date of Study: 10/14/2020 Ordering Physician: OUSMANE AHMADI, Referring Physician: OUSMANE HAMADI, Tech: Tamica Vegas, [facility] APPROVED REPORT EXAM: Two-dimensional and M-mode echocardiogram with Doppler and color Doppler. Other Information Quality : AverageHR: 77bpm INDICATION COPD Edema , Cancer RISK FACTORS Hypertension Previous smoker 1 year ago 2D DIMENSIONS RVDd2.9 (2.9-3.5cm)Left Atrium(2D)2.6 (1.6-4.0cm) IVSd0.7 (0.7-1.1cm)Aortic Root(2D)3.1 (2.0-3.7cm) LVDd4.3 (3.9-5.9cm)LVOT Diameter2.1 (1.8-2.4cm) PWd0.9 (0.7-1.1cm)LVDs2.9 (2.5-4.0cm) FS (%) 33.4 %SV52.7 ml Aortic Valve AoV Peak Jim.102.7cm/sAoV VTI21.7cm AO Peak GR.4.2mmHgLVOT Peak Jim.70.0cm/s LVOT VTI 15.77cmAO Mean GR.3mmHg DAMIAN (VMAX)1.94sr9JZR (VTI)2.55cm2 Mitral Valve MV E Vgygqzxv38.0cm/sMV DECEL TZYV049pk MV A Cfotxrkp668.9cm/sMV E Mean Gr.2mmHg MV HGK97yjK/A Ratio0.5 MVA (PHT)3.57cm2 TDI E/Lateral E'7.8E/Medial E'10.2 Pulmonary Valve PV Peak Kwsogird20.4cm/sPV Peak Grad.3mmHg Tricuspid Valve TR P. Rumczird128vm/sRAP LNMIGKQD1mbQz TR Peak Gr.99boJoTRAP35mgAa Pulmonary Vein S1 Qkkqpegf19.1cm/sD2 Fruwhqlt95.7cm/s PVa dzzihajj947syna LEFT VENTRICLE The left ventricle is normal size. There is normal left ventricular wall thickness. The left ventricu lar systolic function is normal. The Ejection Fraction is 50-55%. There is normal LV segmental wall m otion. Transmitral Doppler flow pattern is Grade I-abnormal relaxation pattern. RIGHT VENTRICLE The right ventricle is normal size. The right ventricular systolic function is normal. ATRIA The left atrium size is normal. The right atrium size is normal. AORTIC VALVE The aortic valve is normal in structure and function. Doppler and Color Flow revealed trace aortic re gurgitation. There is no significant aortic valvular stenosis. Calculated aortic valve area is 2.46 c m2 with maximum pressure gradient of 5 mmHg and mean pressure gradient of 3 mmHg. MITRAL VALVE The mitral valve is normal in structure and function. There is no evidence of mitral valve prolapse. There is no mitral valve stenosis. Doppler and Color-flow revealed trace mitral regurgitation. TRICUSPID VALVE The tricuspid valve is normal in structure and function. Doppler and Color Flow revealed trace tricus pid regurgitation with an estimated PAP of 30 mmHg. There is no tricuspid valve stenosis. PULMONIC VALVE The pulmonic valve is not well visualized. Doppler and Color Flow revealed trace pulmonic valvular re gurgitation. GREAT VESSELS The aortic root is normal in size. The ascending aorta is mildly dilated measuring 3.4 cm. The IVC is normal in size and collapses >50% with inspiration. PERICARDIAL EFFUSION There is no evidence of significant pericardial effusion. Critical Notification Critical Value: No <Conclusion> The left ventricle is normal size. The left ventricular systolic function is normal. The Ejection Fraction is 50-55%. Doppler and Color Flow revealed trace aortic regurgitation. There is no significant aortic valvular stenosis. Doppler and Color-flow revealed trace mitral regurgitation. Doppler and Color Flow revealed trace tricuspid regurgitation with an estimated PAP of 30 mmHg. The ascending aorta is mildly dilated. Signed by : Placido Herrmann MD Electronically Approved : 10/14/2020 16:54:40
== END ==
LOC: ECHO 10:21
PROVIDERS: ATTEND Internal Medicine Hematology & Oncology
DX: C34.92 Malignant neoplasm of unspecified part of left bronchus or lung (principal)
CPT/HCPCS: 93306

== ENCOUNTER → 2020-10-21 | Outpatient (CLI) | payer MEDICAID ==
[~2020-10-21] MED LIST changes: -POTA-121 PO; +POTA20TA4 PO
[2020-10-21 09:42] LABS: BASO # 0.1 x10^3/uL (0.0-0.2); BASO % 1 % (0-3); EOS # 0.1 x10^3/uL (0.0-0.7); EOS % 2 % (0-3); HEMATOCRIT 35.4 % (36.0-47.0); LYMPH # 2.3 x10^3/uL (1.0-4.8); LYMPH % 34 % (24-48); MEAN CORPUSCULAR HEMOGLOBIN 33 pg (25-35); MEAN CORPUSCULAR HGB CONC 34 g/dL (31-37); MEAN CORPUSCULAR VOLUME 97 fL (79-100); MONO # 0.8 x10^3/uL (0.0-1.1); MONO % 12 % (0-9); NEUT # 3.5 x10^3/uL (1.8-7.7); NEUT % 51 % (31-73); PLATELET COUNT 259 x10^3/uL (140-400); RED BLOOD COUNT 3.65 x10^6/uL (3.50-5.40); RED CELL DISTRIBUTION WIDTH 13.3 % (11.5-14.5); WHITE BLOOD COUNT 6.7 x10^3/uL (4.0-11.0)
[2020-10-21 10:10] LABS: CALCIUM 9.2 mg/dL (8.5-10.1); CREATININE 1.3 mg/dL (0.6-1.0); GFR 47.5
[2020-10-21 10:17] LABS: ALBUMIN 3.2 g/dL (3.4-5.0); ALBUMIN/GLOBULIN RATIO 0.7 (1.0-1.7); TOTAL BILIRUBIN 0.3 mg/dL (0.2-1.0); TOTAL PROTEIN 8.1 g/dL (6.4-8.2)
== END ==
LOC: ONCLAB 09:14
PROVIDERS: ATTEND Internal Medicine Hematology & Oncology
DX: C34.92 Malignant neoplasm of unspecified part of left bronchus or lung (principal); E03.9 Hypothyroidism, unspecified
CPT/HCPCS: 36415; 80053; 84443; 85025

== ENCOUNTER → 2020-11-11 | Outpatient (CLI) | payer MEDICAID ==
[2020-11-11 09:39] LABS: BASO % 1 % (0-3); EOS # 0.1 x10^3/uL (0.0-0.7); EOS % 2 % (0-3); HEMATOCRIT 36.3 % (36.0-47.0); HEMOGLOBIN 12.3 g/dL (12.0-15.5); LYMPH # 1.9 x10^3/uL (1.0-4.8); LYMPH % 28 % (24-48); MEAN CORPUSCULAR HEMOGLOBIN 33 pg (25-35); MEAN CORPUSCULAR HGB CONC 34 g/dL (31-37); MEAN CORPUSCULAR VOLUME 98 fL (79-100); MONO # 0.5 x10^3/uL (0.0-1.1); MONO % 8 % (0-9); NEUT # 4.3 x10^3/uL (1.8-7.7); NEUT % 62 % (31-73); PLATELET COUNT 269 x10^3/uL (140-400); RED BLOOD COUNT 3.72 x10^6/uL (3.50-5.40); RED CELL DISTRIBUTION WIDTH 13.8 % (11.5-14.5); WHITE BLOOD COUNT 6.9 x10^3/uL (4.0-11.0)
[2020-11-11 09:49] LABS: CALCIUM 9.6 mg/dL (8.5-10.1); CREATININE 1.5 mg/dL (0.6-1.0); GFR 40.2; POTASSIUM 3.9 mmol/L (3.5-5.1)
[2020-11-11 09:55] LABS: ALBUMIN 3.3 g/dL (3.4-5.0); ALBUMIN/GLOBULIN RATIO 0.7 (1.0-1.7); TOTAL BILIRUBIN 0.2 mg/dL (0.2-1.0); TOTAL PROTEIN 8.2 g/dL (6.4-8.2)
== END ==
LOC: ONCLAB 09:23
PROVIDERS: ATTEND Physician Assistant
DX: Z51.12 Encounter for antineoplastic immunotherapy (principal); C34.92 Malignant neoplasm of unspecified part of left bronchus or lung; D64.9 Anemia, unspecified; E03.9 Hypothyroidism, unspecified
CPT/HCPCS: 36415; 80053; 84443; 85025

== ENCOUNTER → 2020-11-29 | Outpatient (CLI) | payer MEDICAID ==
[~2020-11-29] MED LIST changes: +POTA-121 PO; -POTA20TA4 PO
[2020-11-29 10:40] LABS: BASO % 1 % (0-3); EOS # 0.1 x10^3/uL (0.0-0.7); EOS % 2 % (0-3); HEMOGLOBIN 11.9 g/dL (12.0-15.5); LYMPH % 32 % (24-48); MEAN CORPUSCULAR HEMOGLOBIN 33 pg (25-35); MEAN CORPUSCULAR HGB CONC 34 g/dL (31-37); MEAN CORPUSCULAR VOLUME 98 fL (79-100); MONO # 0.6 x10^3/uL (0.0-1.1); MONO % 9 % (0-9); NEUT # 3.5 x10^3/uL (1.8-7.7); NEUT % 56 % (31-73); PLATELET COUNT 246 x10^3/uL (140-400); RED BLOOD COUNT 3.59 x10^6/uL (3.50-5.40); RED CELL DISTRIBUTION WIDTH 13.4 % (11.5-14.5); WHITE BLOOD COUNT 6.2 x10^3/uL (4.0-11.0)
[2020-11-29 10:51] LABS: CREATININE 1.3 mg/dL (0.6-1.0); GFR 47.5; POTASSIUM 3.6 mmol/L (3.5-5.1)
[2020-11-29 10:56] LABS: ALBUMIN/GLOBULIN RATIO 0.6 (1.0-1.7); TOTAL BILIRUBIN 0.2 mg/dL (0.2-1.0); TOTAL PROTEIN 7.7 g/dL (6.4-8.2)
== END ==
LOC: ONCLAB 09:55
PROVIDERS: ATTEND Physician Assistant
DX: Z51.12 Encounter for antineoplastic immunotherapy (principal); C34.92 Malignant neoplasm of unspecified part of left bronchus or lung; D64.9 Anemia, unspecified; E03.9 Hypothyroidism, unspecified
CPT/HCPCS: 36415; 80053; 84443; 85025

== ENCOUNTER → 2020-12-20 | Outpatient (CLI) | payer MEDICAID ==
[~2020-12-20] MED LIST changes: +MAGN400T48 PO; -MAGN400T5 PO
[2020-12-20 09:30] LABS: BASO % 0 % (0-3); EOS # 0.2 x10^3/uL (0.0-0.7); EOS % 2 % (0-3); HEMATOCRIT 35.3 % (36.0-47.0); HEMOGLOBIN 12.1 g/dL (12.0-15.5); LYMPH # 2.1 x10^3/uL (1.0-4.8); LYMPH % 29 % (24-48); MEAN CORPUSCULAR HEMOGLOBIN 33 pg (25-35); MEAN CORPUSCULAR HGB CONC 34 g/dL (31-37); MEAN CORPUSCULAR VOLUME 98 fL (79-100); MONO # 0.7 x10^3/uL (0.0-1.1); MONO % 10 % (0-9); NEUT # 4.2 x10^3/uL (1.8-7.7); NEUT % 59 % (31-73); PLATELET COUNT 273 x10^3/uL (140-400); RED BLOOD COUNT 3.62 x10^6/uL (3.50-5.40); RED CELL DISTRIBUTION WIDTH 13.5 % (11.5-14.5); WHITE BLOOD COUNT 7.1 x10^3/uL (4.0-11.0)
[2020-12-20 09:42] LABS: CALCIUM 9.3 mg/dL (8.5-10.1); CREATININE 1.5 mg/dL (0.6-1.0); GFR 40.2; POTASSIUM 3.8 mmol/L (3.5-5.1)
[2020-12-20 09:48] LABS: ALBUMIN 3.1 g/dL (3.4-5.0); ALBUMIN/GLOBULIN RATIO 0.6 (1.0-1.7); TOTAL BILIRUBIN 0.2 mg/dL (0.2-1.0); TOTAL PROTEIN 8.2 g/dL (6.4-8.2)
== END ==
LOC: ONCLAB 09:06
PROVIDERS: ATTEND Internal Medicine Hematology & Oncology
DX: C34.92 Malignant neoplasm of unspecified part of left bronchus or lung (principal); Z51.12 Encounter for antineoplastic immunotherapy
CPT/HCPCS: 36415; 80053; 84443; 85025

== ENCOUNTER → 2021-01-10 | Outpatient (CLI) | payer MEDICAID ==
[2021-01-06 11:00] VITALS: BP 137/70
[~2021-01-10] MED LIST changes: +BENZ-8 PO; +DOXY100C3 PO; +MOME13HF IH
[2021-01-10 09:47] LABS: BASO % 1 % (0-3); EOS # 0.2 x10^3/uL (0.0-0.7); EOS % 3 % (0-3); HEMATOCRIT 33.7 % (36.0-47.0); HEMOGLOBIN 11.6 g/dL (12.0-15.5); LYMPH # 2.2 x10^3/uL (1.0-4.8); LYMPH % 29 % (24-48); MEAN CORPUSCULAR HEMOGLOBIN 34 pg (25-35); MEAN CORPUSCULAR HGB CONC 34 g/dL (31-37); MEAN CORPUSCULAR VOLUME 98 fL (79-100); MONO # 0.8 x10^3/uL (0.0-1.1); MONO % 11 % (0-9); NEUT # 4.3 x10^3/uL (1.8-7.7); NEUT % 57 % (31-73); PLATELET COUNT 287 x10^3/uL (140-400); RED BLOOD COUNT 3.46 x10^6/uL (3.50-5.40); RED CELL DISTRIBUTION WIDTH 14.2 % (11.5-14.5); WHITE BLOOD COUNT 7.6 x10^3/uL (4.0-11.0)
[2021-01-10 09:51] LABS: CALCIUM 8.6 mg/dL (8.5-10.1); CREATININE 1.2 mg/dL (0.6-1.0); POTASSIUM 3.9 mmol/L (3.5-5.1)
[2021-01-10 09:56] LABS: ALBUMIN 2.8 g/dL (3.4-5.0); ALBUMIN/GLOBULIN RATIO 0.6 (1.0-1.7); TOTAL BILIRUBIN 0.3 mg/dL (0.2-1.0); TOTAL PROTEIN 7.5 g/dL (6.4-8.2)
== END ==
LOC: ONCLAB 09:22
PROVIDERS: ATTEND Physician Assistant
DX: Z51.12 Encounter for antineoplastic immunotherapy (principal); C34.92 Malignant neoplasm of unspecified part of left bronchus or lung
CPT/HCPCS: 36415; 80053; 85025

== ENCOUNTER → 2021-01-17 | Outpatient (CLI) | payer MEDICAID ==
[2021-01-06 11:00] VITALS: BP 137/70
[~2021-01-17] MED LIST changes: +CONTRAST GIVEN. MC PRN; +GADOTERATE 7.5 MMOL/15ML VIAL. IVP ONE; +IOHEXOL 240 MG/ML 50ML VIAL. PO ONE; +IOHEXOL 300 MG/ML 100ML VIAL. IV ONE
--- NOTE | 2021-01-17 14:13 | RAD ---
MRI BRAIN WO+W Date: 01/17/2021 11:41 AM Indication: SMALL CELL LUNG CANCER Comparison: 10/04/2020. Technique: Multiplanar multisequence MRI of the brain was performed with and without intravenous cont rast using the standard protocol. 19 cc Clariscan contrast was administered intravenously during the exam. Findings: No acute infarct. No acute or chronic hemorrhage. The ventricles are normal in size and configuration without hydrocephalus. Moderate scattered FLAIR hyperintensities in the subcortical and periventricu lar deep white matter, a nonspecific finding, most commonly seen with chronic small vessel ischemic d isease. Mild cerebral volume loss. No abnormal enhancement. The scalp and calvarium are normal. Partial empty sella. No Chiari malformation. Mild incompletely ch aracterized degenerative spondylosis of the visualized upper cervical spine. The visualized orbits and globes are normal. The visualized paranasal sinuses are clear. The mastoid air cells are clear. Normal flow voids within the vertebral, basilar, and internal carotid arteries indicating patency. IMPRESSION: 1. No evidence of intracranial metastatic disease. 2. Moderate chronic small vessel ischemic disease and mild cerebral volume loss. Electronically signed by: Dean Willis MD (01/17/2021 2:11 PM) [facility]
--- NOTE | 2021-01-17 14:47 | RAD ---
EXAM: CT Chest, Abdomen and Pelvis with IV contrast CLINICAL HISTORY: Reason: Small cell lung cancer / Spl. Instructions: IV omni 300 60 mls and PO omni 240 50 mls / History: COMPARISON: CTA chest from 01/03/2000 multiple other priors dating back to 09/26/2019 TECHNIQUE: Helical CT of the chest, abdomen and pelvis was performed following the administration of intravenous contrast. Axial, coronal and sagittal reformatted images were generated. ---PQRS compliance statement - One or more of the following individualized dose reduction techniques were utilized for this study: 1. Automated exposure control 2. Adjustment of the mA and/or kV according to patient size 3. Use of iterative reconstruction technique--- FINDINGS: Chest: Redemonstrated hypoattenuating subcentimeter nodule in the right thyroid gland. No suspicious supracl avicular adenopathy. Similar appearance of prominent right upper level one axillary node (8/2). Right retroareolar soft tissue nodularity is decreased from prior. Chest Port-A-Cath tip terminating in th e distal SVC. Heart size is normal. No pericardial effusion. The thoracic aorta and major branching v essels are normal in course and caliber with scattered atherosclerotic disease. No pathologically enl arged mediastinal or right hilum. Similar biapical pleural thickening. Similar appearance of left perihilar soft tissue thickening. Sim ilar appearance of left upper lobe fibrotic changes with associated traction bronchiectasis. Similar mild upper lobe predominant emphysema. Similar size and appearance of the left upper lobe nodule merry uring up to 9 mm (14/2). The previously described subpleural 5 to 6 mm nodule in the superior segment of the right lower lobe is not appreciated on today's exam. Similar trace/small left pleural effusio n. Similar thickening of the lateral pleura with interspersed paraseptal emphysematous changes. Centr al airway is patent. No pneumothorax Abdomen and Pelvis: Liver and biliary system: Stable subcentimeter hypoattenuating focus adjacent to the gallbladder thomas a, too small to accurately characterize. No suspicious hepatic lesions. Gallbladder is absent. No bi liary ductal dilatation. Spleen: Unremarkable Pancreas: Unremarkable Adrenal glands: Unremarkable Kidneys: Symmetric nephrograms. Similar 2.2 cm hypodense lesion in the posterior interpolar region of the left kidney consistent with a simple cyst. No nephrolithiasis or hydronephrosis. Lymph nodes/retroperitoneum: No pathologically enlarged abdominal or pelvic adenopathy. Vessels: Aortobiiliac atherosclerotic disease is unchanged. Vasculature appears normal in course and caliber. Bowel/Peritoneal cavity: Stable small/moderate hiatal hernia. Stomach is otherwise unremarkable. Norm al appearing opacified small bowel loops. No evidence of acute inflammatory process. Appendix is norm al. Sigmoid diverticulosis without diverticulitis. No free intra-abdominal air or free fluid. Urinary bladder is decompressed precluding complete evaluation. Uterus is normal in appearance. No metz spicious adnexal masses. Abdominal wall: Small fat-containing periumbilical hernia. No evidence of acute process. Bones: No acute or suspicious osseous abnormalities. IMPRESSION: CHEST: 1. Similar consolidative appearance of the left perihilar opacities, favors evolving posttreatment ch anges. Left upper lobe nodule is similar in size and appearance. Similar small left pleural effusion. 2. Previously described indeterminate 5 to 6 mm pulmonary nodule in the superior segment of the right lower lobe is not appreciated on today's exam. No new suspicious pulmonary nodules. 3. Less conspicuous soft tissue nodularity in the subareolar region of the right breast. Similar prom inent right upper level one axillary lymph node. Further evaluation with diagnostic right breast mamm ogram and possible right breast ultrasound is still recommended. ABDOMEN/PELVIS: 1. No evidence of metastatic disease to the abdomen or pelvis. Electronically signed by: Reece Salas DO (01/17/2021 2:45 PM) [facility]
== END ==
LOC: CT 11:30
PROVIDERS: ATTEND Physician Assistant
DX: C34.92 Malignant neoplasm of unspecified part of left bronchus or lung (principal); K57.30 Diverticulosis of large intestine without perforation or abscess without bleeding; K42.9 Umbilical hernia without obstruction or gangrene; K44.9 Diaphragmatic hernia without obstruction or gangrene; J90 Pleural effusion, not elsewhere classified; R91.1 Solitary pulmonary nodule; J43.9 Emphysema, unspecified; I67.82 Cerebral ischemia; E04.1 Nontoxic single thyroid nodule; I70.0 Atherosclerosis of aorta; I70.8 Atherosclerosis of other arteries; M47.812 Spondylosis without myelopathy or radiculopathy, cervical region
CPT/HCPCS: 70553; 71260; 74177; A9575

== ENCOUNTER → 2021-01-31 | Outpatient (CLI) | payer MEDICAID ==
[2021-01-06 11:00] VITALS: BP 137/70
[~2021-01-31] MED LIST changes: -CONTRAST GIVEN. MC PRN; -GADOTERATE 7.5 MMOL/15ML VIAL. IVP ONE; -IOHEXOL 240 MG/ML 50ML VIAL. PO ONE; -IOHEXOL 300 MG/ML 100ML VIAL. IV ONE
[2021-01-31 08:57] LABS: BASO % 1 % (0-3); EOS # 0.2 x10^3/uL (0.0-0.7); EOS % 2 % (0-3); HEMATOCRIT 35.3 % (36.0-47.0); HEMOGLOBIN 11.8 g/dL (12.0-15.5); LYMPH # 1.8 x10^3/uL (1.0-4.8); LYMPH % 27 % (24-48); MEAN CORPUSCULAR HEMOGLOBIN 33 pg (25-35); MEAN CORPUSCULAR HGB CONC 33 g/dL (31-37); MEAN CORPUSCULAR VOLUME 98 fL (79-100); MONO # 0.7 x10^3/uL (0.0-1.1); MONO % 11 % (0-9); NEUT # 4.1 x10^3/uL (1.8-7.7); NEUT % 60 % (31-73); PLATELET COUNT 279 x10^3/uL (140-400); RED BLOOD COUNT 3.62 x10^6/uL (3.50-5.40); RED CELL DISTRIBUTION WIDTH 13.9 % (11.5-14.5); WHITE BLOOD COUNT 6.9 x10^3/uL (4.0-11.0)
[2021-01-31 09:05] LABS: CALCIUM 9.2 mg/dL (8.5-10.1); CREATININE 1.3 mg/dL (0.6-1.0); GFR 47.5; POTASSIUM 4.1 mmol/L (3.5-5.1)
[2021-01-31 09:12] LABS: ALBUMIN/GLOBULIN RATIO 0.6 (1.0-1.7); TOTAL BILIRUBIN 0.4 mg/dL (0.2-1.0); TOTAL PROTEIN 7.8 g/dL (6.4-8.2)
== END ==
LOC: ONCLAB 08:37
PROVIDERS: ATTEND Internal Medicine Hematology & Oncology
DX: C34.92 Malignant neoplasm of unspecified part of left bronchus or lung (principal); E03.9 Hypothyroidism, unspecified
CPT/HCPCS: 36415; 80053; 84443; 85025

== ENCOUNTER → 2021-02-03 | Outpatient (CLI) | payer MEDICAID ==
[2021-01-06 11:00] VITALS: BP 137/70
--- NOTE | 2021-02-03 13:12 | RAD ---
EXAM: Bilateral digital diagnostic mammogram with tomosynthesis; right breast sonogram. HISTORY: 80-year-old female presents for evaluation of nodularity within the subareolar aspect of the right breast demonstrated on a CT performed 01/17/2021. TECHNIQUE: Full-field digital craniocaudal and mediolateral oblique 2D and 3D tomosynthesis images of both breasts are obtained for evaluation. Computer aided detection was applied. Sonographic imaging of the right breast targeted to the subareolar location and axilla was also performed. COMPARISON: CT dated 01/17/2021. Mammograms dated 11/09/2017 and 09/07/2014. BREAST PARENCHYMAL DENSITY: Level B - Scattered fibroglandular densities. FINDINGS: There is asymmetry within the subareolar aspect of the right breast, the appearance of whic h favors dilated ducts. There is no suspicious mass, calcification or architectural distortion within either breast. There are benign calcifications and benign areas of asymmetry bilaterally. There is s ymmetric benign-appearing axillary lymph nodes. Sonographic imaging of the right breast demonstrates dilated ducts within the subareolar location. No intraductal lesion is seen. There is no suspicious axillary lymph node. IMPRESSION: 1. Dilated ducts within the subareolar aspect of the right breast. This is mammographically stable. N o intraductal lesion is seen sonographically. 2. No suspicious mammographic or sonographic finding. 3. BI-RADS Category 2: Benign finding(s). RECOMMENDATION: Annual mammography is recommended. If your mammogram demonstrates that you have dense breast tissue, which could hide abnormalities, and if you have other risk factors for breast cancer that have been identified, you might benefit from s upplemental screening tests that may be suggested by your ordering physician. Dense breast tissue, i n and of itself, is a relatively common condition. This information is not provided to cause undue c oncern, but rather to raise your awareness and to promote discussion with your physician regarding th e presence of other risk factors, in addition to dense breast tissue. A report of your mammography re sults will be sent to you and your physician. You should contact your physician if you have any ques tions or concerns regarding this report. Mammography is a sensitive method for finding small breast cancers, but it does not detect them all a nd is not a substitute for careful clinical examination. A negative mammogram does not negate a clin ically suspicious finding and should not result in delay in biopsying a clinically suspicious abnorma lity. PQRS compliance statement - Patient information was entered into a reminder system with a target due date for the next mammogram. "Our facility is accredited by the [employer] Mammography Program." Electronically signed by: Donya Hurd MD (02/03/2021 1:10 PM) [id number]
== END ==
LOC: MAMMO 12:11
PROVIDERS: ATTEND Internal Medicine
DX: R92.1 Mammographic calcification found on diagnostic imaging of breast (principal)
CPT/HCPCS: 76641; 77066; G0279; 77062

== ENCOUNTER → 2021-02-21 | Outpatient (CLI) | payer MEDICAID ==
[2021-01-06 11:00] VITALS: BP 137/70
[2021-02-21 09:38] LABS: BASO % 1 % (0-3); EOS # 0.2 x10^3/uL (0.0-0.7); EOS % 3 % (0-3); HEMATOCRIT 33.7 % (36.0-47.0); HEMOGLOBIN 11.3 g/dL (12.0-15.5); LYMPH # 2.3 x10^3/uL (1.0-4.8); LYMPH % 32 % (24-48); MEAN CORPUSCULAR HEMOGLOBIN 32 pg (25-35); MEAN CORPUSCULAR HGB CONC 33 g/dL (31-37); MEAN CORPUSCULAR VOLUME 96 fL (79-100); MONO # 0.8 x10^3/uL (0.0-1.1); MONO % 12 % (0-9); NEUT # 3.8 x10^3/uL (1.8-7.7); NEUT % 53 % (31-73); PLATELET COUNT 279 x10^3/uL (140-400); RED BLOOD COUNT 3.51 x10^6/uL (3.50-5.40); RED CELL DISTRIBUTION WIDTH 13.9 % (11.5-14.5); WHITE BLOOD COUNT 7.1 x10^3/uL (4.0-11.0)
[2021-02-21 09:44] LABS: CREATININE 1.4 mg/dL (0.6-1.0); GFR 43.6; POTASSIUM 4.5 mmol/L (3.5-5.1)
[2021-02-21 09:49] LABS: ALBUMIN 3.2 g/dL (3.4-5.0); ALBUMIN/GLOBULIN RATIO 0.7 (1.0-1.7); TOTAL BILIRUBIN 0.3 mg/dL (0.2-1.0); TOTAL PROTEIN 7.5 g/dL (6.4-8.2)
== END ==
LOC: ONCLAB 09:01
PROVIDERS: ATTEND Physician Assistant
DX: C34.92 Malignant neoplasm of unspecified part of left bronchus or lung (principal)
CPT/HCPCS: 36415; 80053; 84443; 85025

== ENCOUNTER → 2021-03-14 | Outpatient (CLI) | payer MEDICAID ==
[2021-01-06 11:00] VITALS: BP 137/70
[2021-03-14 09:53] LABS: BASO % 1 % (0-3); EOS # 0.2 x10^3/uL (0.0-0.7); EOS % 2 % (0-3); HEMATOCRIT 34.4 % (36.0-47.0); HEMOGLOBIN 11.5 g/dL (12.0-15.5); LYMPH # 2.2 x10^3/uL (1.0-4.8); LYMPH % 28 % (24-48); MEAN CORPUSCULAR HEMOGLOBIN 33 pg (25-35); MEAN CORPUSCULAR HGB CONC 34 g/dL (31-37); MEAN CORPUSCULAR VOLUME 97 fL (79-100); MONO # 0.6 x10^3/uL (0.0-1.1); MONO % 8 % (0-9); NEUT # 4.7 x10^3/uL (1.8-7.7); NEUT % 61 % (31-73); PLATELET COUNT 298 x10^3/uL (140-400); RED BLOOD COUNT 3.55 x10^6/uL (3.50-5.40); WHITE BLOOD COUNT 7.7 x10^3/uL (4.0-11.0)
[2021-03-14 10:02] LABS: CALCIUM 8.7 mg/dL (8.5-10.1); CREATININE 1.5 mg/dL (0.6-1.0); GFR 40.2; POTASSIUM 3.8 mmol/L (3.5-5.1)
[2021-03-14 10:07] LABS: ALBUMIN/GLOBULIN RATIO 0.6 (1.0-1.7); TOTAL BILIRUBIN 0.4 mg/dL (0.2-1.0); TOTAL PROTEIN 8.1 g/dL (6.4-8.2)
== END ==
LOC: ONCLAB 09:36
PROVIDERS: ATTEND Physician Assistant
DX: C34.92 Malignant neoplasm of unspecified part of left bronchus or lung (principal); D64.9 Anemia, unspecified
CPT/HCPCS: 36415; 80053; 84443; 85025

== ENCOUNTER 2021-04-04 09:10 | Inpatient (IN) | payer MEDICAID ==
[~2021-04-04] VITALS: Ht 167.6 cm; Wt 97.0 kg
[2021-04-04] MEDS ORDERED: methylPREDNISolone SOD SUCC PF 125 MG/2 ML VIAL. IV ONE (09:15)
--- NOTE | 2021-04-04 09:21 | ED.ADGEN ---
Past Medical History Past Medical History: Arthritis, Cancer, GERD, Hypertension, Other Additional Past Medical Histor: small cell lung cancer Past Surgical History: Other Additional Past Surgical Histo: R ELBOW, HERNIA Smoking Status: Former Smoker Alcohol Use: None Drug Use: None General Adult HPI: HPI: Patient is a 80-year-old female who arrives via EMS complaining of a cough for the past 2 weeks. Patient was short of breath today and contacted paramedics who upon arrival observed the patient to have room air saturations of 85% which was quickly corrected after supplemental oxygen was provided. Patient reports she contacted her primary care physician and was treated for sinusitis during this time. Patient states she does have a history of lung cancer and continues to take treatment for this. Patient states over the past 2 weeks she has had a nagging cough with chest congestion. Patient states she feels as if she is getting weaker during this time. The patient states she has had one of the coronavirus vaccines but has not completed the series. She denies fever or chest pain. She further denies any abdominal symptoms or known sick contacts. She is awake, alert and nontoxic-appearing Review of Systems: Review of Systems: Constitutional: Reports generalized weakness. Denies fever or chills. [] Eyes: Denies change in visual acuity. [] HENT: Denies nasal congestion or sore throat. [] Respiratory: Reports cough and shortness of breath. [] Cardiovascular: Denies chest pain or edema. [] GI: Denies abdominal pain, nausea, vomiting, bloody stools or diarrhea. [] : Denies dysuria. [] Musculoskeletal: Denies back pain or joint pain. [] Integument: Denies rash. [] Neurologic: Denies headache, focal weakness or sensory changes. [] Endocrine: Denies polyuria or polydipsia. [] Lymphatic: Denies swollen glands. [] Psychiatric: Denies depression or anxiety. [] Current Medications: Current Medications Medications (Trade) Dose Ordered Sig/Prabhjot Start Time Stop Time Status Last Admin Dose Admin Acetaminophen (Tylenol) 650 mg PRN Q4HRS PRN 04/04/21 11:15 04/05/21 11:14 Methylprednisolone Sodium Succinate (SOLU-Medrol 125MG VIAL) 125 mg 1X ONCE 04/04/21 09:15 04/04/21 09:19 DC 04/04/21 10:11 125 MG Allergies: Allergies: Allergies Coded Allergies Type Severity Reaction Last Updated Verified No Known Drug Allergies 01/02/21 No Physical Exam: PE: Constitutional: Frail in appearance. No acute distress, non-toxic appearance. [] HENT: Normocephalic, atraumatic, bilateral external ears normal, oropharynx mois t, no oral exudates, nose normal. [] Eyes: PERRLA, EOMI, conjunctiva normal, no discharge. [] Neck: Normal range of motion, no tenderness, supple, no stridor. [] Cardiovascular:Heart rate regular rhythm, no murmur [] Lungs & Thorax: Diminished on the left side. No wheezes, rhonchi or rales present. Bilateral breath sounds clear to auscultation [] Abdomen: Bowel sounds normal, soft, no tenderness, no masses, no pulsatile masses. [] Skin: Warm, dry, no erythema, no rash. [] Back: No tenderness, no CVA tenderness. [] Extremities: No tenderness, no cyanosis, no clubbing, ROM intact, no edema. [] Neurologic: Alert and oriented X 3, normal motor function, normal sensory function, no focal deficits noted. [] Psychologic: Affect normal, judgement normal, mood normal. [] Current Patient Data: Labs: Laboratory Tests Test 04/04/21 09:35 04/04/21 10:08 White Blood Count 5.1 x10^3/uL (4.0-11.0) Red Blood Count 3.69 x10^6/uL (3.50-5.40) Hemoglobin 12.1 g/dL (12.0-15.5) Hematocrit 35.6 % (36.0-47.0) L Mean Corpuscular Volume 97 fL (79-100) Mean Corpuscular Hemoglobin 33 pg (25-35) Mean Corpuscular Hemoglobin Concent 34 g/dL (31-37) Red Cell Distribution Width 13.9 % (11.5-14.5) Platelet Count 233 x10^3/uL (140-400) Neutrophils (%) (Auto) 80 % (31-73) H Lymphocytes (%) (Auto) 13 % (24-48) L Monocytes (%) (Auto) 7 % (0-9) Eosinophils (%) (Auto) 0 % (0-3) Basophils (%) (Auto) 0 % (0-3) Neutrophils # (Auto) 4.1 x10^3/uL (1.8-7.7) Lymphocytes # (Auto) 0.7 x10^3/uL (1.0-4.8) L Monocytes # (Auto) 0.4 x10^3/uL (0.0-1.1) Eosinophils # (Auto) 0.0 x10^3/uL (0.0-0.7) Basophils # (Auto) 0.0 x10^3/uL (0.0-0.2) Troponin I High Sensitivity 15 ng/L (4-50) KM-Sih-Y-Type Natriuretic Peptide 232 pg/mL (0-449) Sodium Level 135 mmol/L (136-145) L Potassium Level 4.3 mmol/L (3.5-5.1) Chloride Level 100 mmol/L (98-107) Carbon Dioxide Level 25 mmol/L (21-32) Anion Gap 10 (6-14) Blood Urea Nitrogen 31 mg/dL (7-20) H Creatinine 1.6 mg/dL (0.6-1.0) H Estimated GFR (Cockcroft-Gault) 37.3 BUN/Creatinine Ratio 19 (6-20) Glucose Level 119 mg/dL (70-99) H Calcium Level 8.3 mg/dL (8.5-10.1) L Total Bilirubin 0.3 mg/dL (0.2-1.0) Aspartate Amino Transferase (AST) 37 U/L (15-37) Alanine Aminotransferase (ALT) 30 U/L (14-59) Alkaline Phosphatase 62 U/L (46-116) Total Protein 7.9 g/dL (6.4-8.2) Albumin 2.9 g/dL (3.4-5.0) L Albumin/Globulin Ratio 0.6 (1.0-1.7) L Influenza Type A Antigen Negative (NEGATIVE) Influenza Type B Antigen Negative (NEGATIVE) SARS-CoV-2 Antigen (Rapid) Positive (NEGATIVE) *A Laboratory Tests 04/04/21 09:35 Laboratory Tests 04/04/21 10:08 Vital Signs: Vital Signs Date Time Temp Pulse Resp B/P (MAP) Pulse Ox O2 Delivery O2 Flow Rate FiO2 04/04/21 09:21 99.4 112 20 138/65 (89) 100 Nasal Cannula 4.0 99.4 EKG: EKG: [] EKG was obtained at 9:27 AM and reveals a sinus tachycardia with ventricular rate of 108 bpm. There is left axis deviation present. There is T wave inversion in the high lateral leads. There is no STEMI present. Heart Score: C/O Chest Pain: No Risk Factors: Risk Factors: DM, Current or recent (<one month) smoker, HTN, HLP, family history of CAD, obesity. Risk Scores: Score 0 - 3: 2.5% MACE over next 6 weeks - Discharge Home Score 4 - 6: 20.3% MACE over next 6 weeks - Admit for Clinical Observation Score 7 - 10: 72.7% MACE over next 6 weeks - Early Invasive Strategies Radiology/Procedures: Radiology/Procedures: [][facility] [address] [place] [address] IMAGING REPORT Signed PATIENT: JUSTIN RICH ACCOUNT: [id number] : 1940 LOCATION: ER AGE: 80 SEX: F EXAM STATUS: PRE ER ORD. PHYSICIAN: ANUP PENNINGTON DO REASON: COUGH PROCEDURE: CHEST AP ONLY EXAM: CHEST 1 VIEW History: Cough COMPARISON: 12/31/2019 TECHNIQUE: Single portable radiograph of the chest FINDINGS: Mild cardiomegaly. Right-sided Port-A-Cath is unchanged. Moderate prominent bilateral interstitial lung markings likely chronic interstitial changes. There is focal airspace opacity identified in the left suprahilar region similar to CT chest from 10/04/2020. Probable small left pleural effusion. Mild airspace opacity right lower lobe of the lung likely atelectasis or infiltrate. IMPRESSION: 1.Focal airspace opacity identified in the left suprahilar region similar to CT chest from 10/04/2020 likely pneumonia or neoplasm or posttreatment changes 2. Mild airspace opacity right lung base likely atelectasis or infiltrate. Follow-up to resolution. 3. Probable small left pleural effusion. Electronically signed by: Ger Del Rosario MD (04/04/2021 10:23 AM) [id number] DICTATED and SIGNED BY: GER DEL ROSARIO MD DATE: 04/04/21 [id number] Course & Med Decision Making: Course & Med Decision Making Pertinent Labs and Imaging studies reviewed. (See chart for details) [] Dragon Disclaimer: Dragon Disclaimer: This electronic medical record was generated, in whole or in part, using a voice recognition dictation system. Departure Departure Impression: Primary Impression: COVID-19 Disposition: 09 ADMITTED INPATIENT Admitting Physician: Gaurav Davila Condition: STABLE Referrals: GAURAV DAVILA MD (PCP) ANUP PENNINGTON DO Apr 04, 2021 09:21
[2021-04-04 10:08] LABS: BASO % 0 % (0-3); EOS % 0 % (0-3); HEMATOCRIT 35.6 % (36.0-47.0); HEMOGLOBIN 12.1 g/dL (12.0-15.5); LYMPH # 0.7 x10^3/uL (1.0-4.8); LYMPH % 13 % (24-48); MEAN CORPUSCULAR HEMOGLOBIN 33 pg (25-35); MEAN CORPUSCULAR HGB CONC 34 g/dL (31-37); MEAN CORPUSCULAR VOLUME 97 fL (79-100); MONO # 0.4 x10^3/uL (0.0-1.1); MONO % 7 % (0-9); NEUT # 4.1 x10^3/uL (1.8-7.7); NEUT % 80 % (31-73); PLATELET COUNT 233 x10^3/uL (140-400); RED BLOOD COUNT 3.69 x10^6/uL (3.50-5.40); RED CELL DISTRIBUTION WIDTH 13.9 % (11.5-14.5); WHITE BLOOD COUNT 5.1 x10^3/uL (4.0-11.0)
--- NOTE | 2021-04-04 10:17 | EKG ---
[facility] [address] [place] [address] Test Date: 2021-04-04 Test Time: 09:27:08 Pat Name: JUSTIN RICH Department: Room: Gender: F Bar Host/Hostess: : 1940 Requested By: ANUP PENNINGTON Order Number: [id number] Reading MD: Sammy Orozco MD Measurements Intervals [place] Rate: 108 P: 41 SD: 140 QRS: -2 QRSD: 76 T: 90 QT: 322 QTc: 435 Interpretive Statements SINUS TACHYCARDIA Electronically Signed On 04-04-2021 10:41:08 TRACK LABORER by Sammy Orozco MD
--- NOTE | 2021-04-04 10:25 | RAD ---
EXAM: CHEST 1 VIEW History: Cough COMPARISON: 12/31/2019 TECHNIQUE: Single portable radiograph of the chest FINDINGS: Mild cardiomegaly. Right-sided Port-A-Cath is unchanged. Moderate prominent bilateral interstitial l uzma markings likely chronic interstitial changes. There is focal airspace opacity identified in the l eft suprahilar region similar to CT chest from 10/04/2020. Probable small left pleural effusion. Mild airspace opacity right lower lobe of the lung likely atelectasis or infiltrate. IMPRESSION: 1.Focal airspace opacity identified in the left suprahilar region similar to CT chest from 10/04/2020 likely pneumonia or neoplasm or posttreatment changes 2. Mild airspace opacity right lung base likely atelectasis or infiltrate. Follow-up to resolution. 3. Probable small left pleural effusion. Electronically signed by: Ger Del Rosario MD (04/04/2021 10:23 AM) [id number]
[2021-04-04 10:35] LABS: CALCIUM 8.3 mg/dL (8.5-10.1); CREATININE 1.6 mg/dL (0.6-1.0); GFR 37.3; POTASSIUM 4.3 mmol/L (3.5-5.1)
[2021-04-04 10:42] LABS: ALBUMIN 2.9 g/dL (3.4-5.0); ALBUMIN/GLOBULIN RATIO 0.6 (1.0-1.7); TOTAL BILIRUBIN 0.3 mg/dL (0.2-1.0); TOTAL PROTEIN 7.9 g/dL (6.4-8.2)
[2021-04-04 10:48] LABS: INFLUENZA A PATIENT NEGATIVE (NEGATIVE); INFLUENZA B PATIENT NEGATIVE (NEGATIVE)
[2021-04-04] MEDS ORDERED: ACETAMINOPHEN 325 MG TABLET. PO PRN (11:15)
[2021-04-04] MEDS ORDERED: MONT10TA49 PO (18:26)
[2021-04-04] MEDS ORDERED: PANT40TA6 PO (18:26)
[2021-04-04] MEDS ORDERED: HYDR-2761 PO (18:26)
[2021-04-04] MEDS ORDERED: MAGN400T48 PO (18:26)
[2021-04-04 19:00] VITALS: BP 154/75
[2021-04-04] MEDS: HYDROcodone/APAP 5/325MG 1 TAB TABLET PO PRN (21:45)
[2021-04-04] MEDS: ENOXAPARIN 40 MG/0.4 ML SYRINGE. SQ SCH (21:46)
[2021-04-04] MEDS: AMITRIPTYLINE HCL 25 MG TABLET. PO SCH (21:46)
[2021-04-04] MEDS: cefTRIAXone IV Push 1 GM VIAL. IVP SCH (21:46)
[2021-04-04] MEDS: MONTELUKAST SODIUM 10 MG TABLET. PO SCH (21:46)
[2021-04-04] MEDS: IV NORMAL SALINE 1000ML BAG 1,000 ML IV SCH (21:48)
[2021-04-04] MEDS ORDERED: AZITHROMYCIN 250 MG TABLET. PO ONE (22:00)
[2021-04-04 23:00] VITALS: BP 128/76
[2021-04-05 03:44] LABS: BASO % 0 % (0-3); EOS % 0 % (0-3); HEMOGLOBIN 12.2 g/dL (12.0-15.5); LYMPH # 0.8 x10^3/uL (1.0-4.8); LYMPH % 19 % (24-48); MEAN CORPUSCULAR HEMOGLOBIN 32 pg (25-35); MEAN CORPUSCULAR HGB CONC 33 g/dL (31-37); MEAN CORPUSCULAR VOLUME 97 fL (79-100); MONO # 0.4 x10^3/uL (0.0-1.1); MONO % 9 % (0-9); NEUT # 3.2 x10^3/uL (1.8-7.7); NEUT % 72 % (31-73); PLATELET COUNT 266 x10^3/uL (140-400); RED BLOOD COUNT 3.82 x10^6/uL (3.50-5.40); RED CELL DISTRIBUTION WIDTH 13.9 % (11.5-14.5); WHITE BLOOD COUNT 4.5 x10^3/uL (4.0-11.0)
[2021-04-05 03:46] VITALS: BP 112/63
[2021-04-05 03:58] LABS: CALCIUM 8.6 mg/dL (8.5-10.1); CREATININE 1.3 mg/dL (0.6-1.0); GFR 47.5; POTASSIUM 4.6 mmol/L (3.5-5.1)
[2021-04-05 07:00] VITALS: BP 143/69
[2021-04-05] MEDS: MAGNESIUM OXIDE 400 MG TABLET PO SCH (09:09)
[2021-04-05] MEDS: DICYCLOMINE HCL 10 MG CAPSULE PO SCH (09:10)
[2021-04-05] MEDS: PANTOPRAZOLE 40 MG TABLET.DR. PO SCH (09:10)
[2021-04-05] MEDS: DEXAMETHASONE 4 MG TABLET PO SCH (09:10)
[2021-04-05] MEDS: LOSARTAN POTASSIUM 25 MG TABLET. PO SCH (09:10)
[2021-04-05] MEDS: AZITHROMYCIN 250 MG TABLET. PO SCH (09:10)
[2021-04-05] MEDS: POTASSIUM CHLORIDE 20 MEQ TABLET.ER. PO SCH (09:10)
[2021-04-05] MEDS: IV NORMAL SALINE 1000ML BAG 1,000 ML IV SCH ×3 (09:11→18:00)
--- NOTE | 2021-04-05 09:37 | PDOC ---
Provider Note Date of Service: DATE: 04/05/21 TIME: 09:36 Provider Note Pt seen .H&P dictated.#[id number]. Justifications for Admission Other Justification WALKER DAVILA MD Apr 05, 2021 09:37
--- NOTE | 2021-04-05 09:49 | HP ---
DATE OF SERVICE: 04/05/2021 ADMIT DATE: 04/04/2021 REASON FOR ADMISSION TO THE HOSPITAL: COVID pneumonia. HISTORY OF PRESENT ILLNESS: The patient is an 80-year-old female. The patient has history of lung cancer. She is getting chemotherapy. She had two doses of COVID vaccination. She is supposed to get the booster. She has been weak and coughing for last 2 weeks, came to the Emergency Room. X-ray shows pneumonia. COVID test was positive. The patient was admitted to the hospital and started on antibiotics and dexamethasone. PAST MEDICAL HISTORY: Has a history of lung cancer. She is getting chemotherapy and small cell lung cancer. Other medical history hypertension, COPD. PAST SURGICAL HISTORY: Hernia. ALLERGIES: No allergies. MEDICATIONS AT HOME: The patient is on nebulizer machine at home and Tylenol No. 3 for pain, tramadol for pain. She also takes medicine for blood pressure, cholesterol. PERSONAL HISTORY: Ex-smoker, stopped smoking after the lung cancer, smoked for 30 years. Denies alcohol, illicit drugs. REVIEW OF SYMPTOMS: The patient has some coughing spells, no chills and the rest of the 14 system was reviewed. PHYSICAL EXAMINATION: VITAL SIGNS: At the time of admission shows temperature 99, pulse 112, respirations 20, blood pressure 132/65, 100% on 4 liters nasal cannula. HEENT: Head is atraumatic. Pupils equal. Oral cavity, dentures. NECK: Supple. Thyroid not enlarged. JVP not elevated. CHEST: Symmetrical. CARDIOVASCULAR: S1, S2. LUNGS: Occasional crackles at the bases. ABDOMEN: Soft. No mass palpable. EXTERNAL GENITALIA: No Gibson. RECTUM: Deferred. EXTREMITIES: No calf tenderness, no edema. NEUROLOGIC: Moving all extremities. No focal deficits noted. The patient has a Groshong catheter for chemo. LABORATORY DATA: White count 5, hemoglobin 12, platelets 233. Electrolyte shows sodium 135, potassium 4.3, chloride 100, bicarbonate 25, BUN 31, creatinine 1.6. Troponin negative. LFTs negative. Influenzae A and B negative. Rapid COVID test positive and chest x-ray shows infiltrates at the bases. FINAL IMPRESSION: 1. COVID pneumonia,brakthroug infection , had 2 doses not boosted yet 2. Immune compromised, patient is on chemo for small cell lung cancer. 3. Small cell lung cancer, getting chemotherapy. 4. Hypertension. 5. Hyperlipidemia. 6.ac renal failure ,vasomotor nephropathy. PLAN: At this time, the patient was immunized with 2 shots, did not get the booster for COVID, started on Zithromax and Rocephin and dexamethasone and DVT prophylaxis and see how she improves in the next couple of days. Also, hydrated with IV fluids for kidney failure 1.6, coming down to 1.3, monitor. Holding the Dyazide. CYNTHIA DR: RACHAEL/natalie TID: [id number] MTDD
[2021-04-05 11:18] VITALS: BP 127/82
--- NOTE | 2021-04-05 13:22 | NUR ---
SS following for discharge planning. SS reviewed pt chart and discussed with pt RN. Pt is from home and is currently requiring oxygen at six liters nasal canula. COVID19 positive. Pt on IV Zosyn and PO Azithromycin. SS will continue to follow for discharge planning.
[2021-04-05 15:06] VITALS: BP 143/69
[2021-04-05 19:00] VITALS: BP 141/78
[2021-04-05] MEDS: ENOXAPARIN 40 MG/0.4 ML SYRINGE. SQ SCH (20:31)
[2021-04-05] MEDS: AMITRIPTYLINE HCL 25 MG TABLET. PO SCH (20:31)
[2021-04-05] MEDS: cefTRIAXone IV Push 1 GM VIAL. IVP SCH (20:31)
[2021-04-05] MEDS: MONTELUKAST SODIUM 10 MG TABLET. PO SCH (20:31)
[2021-04-05 23:00] VITALS: BP 132/71
[2021-04-06] MEDS: IV NORMAL SALINE 1000ML BAG 1,000 ML IV SCH (02:05)
[2021-04-06 03:30] VITALS: BP 150/76
[2021-04-06 07:00] VITALS: BP 147/86
[2021-04-06 07:45] LABS: CALCIUM 8.4 mg/dL (8.5-10.1); CREATININE 1.1 mg/dL (0.6-1.0); GFR 57.5; POTASSIUM 4.5 mmol/L (3.5-5.1)
[2021-04-06] MEDS: POTASSIUM CHLORIDE 20 MEQ TABLET.ER. PO SCH (10:05)
[2021-04-06] MEDS: AZITHROMYCIN 250 MG TABLET. PO SCH (10:05)
[2021-04-06] MEDS: MAGNESIUM OXIDE 400 MG TABLET PO SCH (10:05)
[2021-04-06] MEDS: DEXAMETHASONE 4 MG TABLET PO SCH (10:05)
[2021-04-06] MEDS: PANTOPRAZOLE 40 MG TABLET.DR. PO SCH (10:05)
[2021-04-06] MEDS: HYDROcodone/APAP 5/325MG 1 TAB TABLET PO PRN (10:05)
[2021-04-06] MEDS: DICYCLOMINE HCL 10 MG CAPSULE PO SCH (10:05)
[2021-04-06] MEDS: LOSARTAN POTASSIUM 25 MG TABLET. PO SCH (10:06)
--- NOTE | 2021-04-06 10:32 | PDOC ---
PROGRESS NOTES Date of Service: DATE: 04/06/21 TIME: 10:30 Subjective Subjective on oxygen 5L Objective Objective Vital Signs Date Time Temp Pulse Resp B/P (MAP) Pulse Ox O2 Delivery O2 Flow Rate FiO2 04/06/21 10:06 97 147/86 04/06/21 10:05 Nasal Cannula 4.0 04/06/21 07:00 97.6 22 90 97.6 Intake and Output 04/06/21 07:00 Intake Total 1600 ml Output Total 800 ml Balance 800 ml Intake Oral 600 ml IV Total 1000 ml Output Urine Total 800 ml Stool Total 0 ml # Voids 3 Physical Exam Abdomen: Soft Heart: Regular rate, Normal S1, Normal S2 Extremities: No clubbing General: Alert HEENT: Atraumatic Lungs: Other (rales at base) MUSCULOSKELETAL: No swelling Neuro: Normal speech Psych/Mental Status: Mental status NL Skin: No breakdown Diagnosis Problem List Problems Medical Problems: (1) COVID-19 Status: Acute Assessment Assessment Problems Medical Problems: (1) COVID-19 Status: Acute FINAL IMPRESSION: 1. COVID pneumonia.Break through infection,pt vaccinated not boosted. 2. Immune compromised, patient is on chemo for small cell lung cancer. 3. Small cell lung cancer, getting chemotherapy. 4. Hypertension. 5. Hyperlipidemia. PLAN: on oxygen 5 L kidney normal with iv fluids pulmonary consult. dvt prevention home in 1-2 days. iv Rocephin+dexamethasone+z pack At this time, the patient was immunized with 2 shots, did not get the booster for COVID, started on Zithromax and Rocephin and dexamethasone and DVT prophylaxis and see how she improves in the next couple of days. Also, hydrated with IV fluids for kidney failure 1.6, coming down to 1.3, monitor. Holding the Dyazide. Plan Plan of Care Problems Medical Problems: (1) COVID-19 Status: Acute Comment Review of Relevant I have reviewed the following items ankit (where applicable) has been applied. Labs Laboratory Tests Test 04/06/21 07:05 Sodium Level 139 mmol/L (136-145) Potassium Level 4.5 mmol/L (3.5-5.1) Chloride Level 105 mmol/L (98-107) Carbon Dioxide Level 23 mmol/L (21-32) Anion Gap 11 (6-14) Blood Urea Nitrogen 21 mg/dL (7-20) Creatinine 1.1 mg/dL (0.6-1.0) Estimated GFR (Cockcroft-Gault) 57.5 Glucose Level 100 mg/dL (70-99) Calcium Level 8.4 mg/dL (8.5-10.1) Vitals/I & O Vital Sign - Last 24 Hours 04/05/21 04/05/21 04/05/21 04/05/21 11:18 15:06 19:00 19:25 Temp 98.2 98.5 98.1 98.2 98.5 98.1 Pulse 96 98 93 Resp B/P (MAP) 127/82 (97) 143/69 (93) 141/78 (99) Pulse Ox 100 100 86 O2 Delivery Nasal Cannula Nasal Cannula Nasal Cannula Nasal Cannula O2 Flow Rate 6.0 6.0 4.0 4.0 04/05/21 04/05/21 04/06/21 04/06/21 20:00 23:00 03:30 07:00 Temp 98.0 97.3 97.6 98.0 97.3 97.6 Pulse 88 98 97 Resp B/P (MAP) 132/71 (91) 150/76 (100) 147/86 (106) Pulse Ox 90 91 99 90 O2 Delivery Nasal Cannula Nasal Cannula Nasal Cannula O2 Flow Rate 5.0 5.0 5.0 5.0 04/06/21 04/06/21 04/06/21 10:05 10:06 10:06 Pulse 97 97 B/P (MAP) 147/86 147/86 O2 Delivery Nasal Cannula O2 Flow Rate 4.0 Intake and Output 04/05/21 04/05/21 04/06/21 15:00 23:00 07:00 Intake Total 360 ml 1240 ml Output Total 800 ml Balance 360 ml 440 ml Justifications for Admission Other Justification WALKER DAVILA MD Apr 06, 2021 10:32
[2021-04-06 11:00] VITALS: BP 135/65
[2021-04-06] MEDS: BENZONATATE 100 MG CAPSULE. PO PRN (11:01)
--- NOTE | 2021-04-06 11:49 | CONS ---
DATE OF CONSULTATION: 04/06/2021 PULMONARY CONSULTATION ATTENDING PHYSICIAN: Gaurav Spencer MD. REASON FOR CONSULTATION: COVID-19. HISTORY OF PRESENT ILLNESS: The patient is an 80-year-old female who has history of small cell lung cancer. She said it was diagnosed a year ago. She received radiation and chemo. She also has COPD. She said that she received Ede and Ede vaccine. She was brought into the hospital with complaint of some shortness of breath. The patient has been tested positive for COVID. She is currently requiring oxygen via nasal cannula at 4 liters. She does not appear to be in any obvious respiratory distress. She is not febrile. Her chest x-ray reviewed and it shows airspace opacities in the left lung. There are also mild airspace opacities in the right lung base and a tiny left pleural effusion. I have been asked to see her for further evaluation. PAST MEDICAL HISTORY: Significant for history of small cell lung cancer, status post radiation and chemo. History of hypertension. History of COPD. PAST SURGICAL HISTORY: Hernia repair. ALLERGIES: None. MEDICATIONS: Reviewed as listed in the [facility]. SOCIAL HISTORY: Ex-smoker, stopped smoking after the diagnosis of lung cancer. REVIEW OF SYSTEMS: Twelve-point system obtained. Pertinent positives discussed in my present illness, otherwise noncontributory. All systems that were negative were reviewed as well. PHYSICAL EXAMINATION: VITAL SIGNS: Reviewed. Blood pressure stable, pulse ox 91% on 4 liters. GENERAL: Visual exam done due to COVID-19. No paradoxical breathing. No skin rash. EXTREMITIES: No leg edema. LABORATORY DATA: COVID is positive. Influenza negative. BUN 21, creatinine 1.1, improved from admission. White cell count 4.5, hemoglobin 12.2. IMPRESSION: 1. Acute hypoxic respiratory failure secondary to COVID-19 viral pneumonia. 2. Underlying chronic obstructive pulmonary disease, the patient is not on home oxygen. 3. History of lung cancer, the patient reports radiation and chemo. Last CT chest from 01/27/2021 showed post-radiation changes in the left perihilar area. No other suspicious nodules seen. RECOMMENDATIONS: 1. Continue with present oxygen, gradually wean to keep saturation 92% and above. 2. Empiric antibiotics. 3. Dexamethasone. 4. Lovenox for DVT prophylaxis. 5. Follow with Medical-Oncology. KATHARINE/ARCHIE DR: Joe TID: [phone]
[2021-04-06 15:00] VITALS: BP 160/78
[2021-04-06 19:00] VITALS: BP 145/84
[2021-04-06] MEDS: AMITRIPTYLINE HCL 25 MG TABLET. PO SCH (21:54)
[2021-04-06] MEDS: MONTELUKAST SODIUM 10 MG TABLET. PO SCH (21:54)
[2021-04-06] MEDS: ENOXAPARIN 40 MG/0.4 ML SYRINGE. SQ SCH (21:56)
[2021-04-06] MEDS: cefTRIAXone IV Push 1 GM VIAL. IVP SCH (21:56)
[2021-04-06 23:42] VITALS: BP 132/77
[2021-04-07] VITALS (7 sets, daily range): BP systolic 117–141; BP diastolic 62–79
[2021-04-07] MEDS: POTASSIUM CHLORIDE 20 MEQ TABLET.ER. PO SCH (08:42)
[2021-04-07] MEDS: DICYCLOMINE HCL 10 MG CAPSULE PO SCH (08:42)
[2021-04-07] MEDS: AZITHROMYCIN 250 MG TABLET. PO SCH (08:42)
[2021-04-07] MEDS: DEXAMETHASONE 4 MG TABLET PO SCH (08:43)
[2021-04-07] MEDS: PANTOPRAZOLE 40 MG TABLET.DR. PO SCH (08:43)
[2021-04-07] MEDS: MAGNESIUM OXIDE 400 MG TABLET PO SCH (08:44)
[2021-04-07] MEDS: LOSARTAN POTASSIUM 25 MG TABLET. PO SCH (08:45)
--- NOTE | 2021-04-07 09:33 | PDOC ---
PROGRESS NOTES Date of Service: DATE: 04/07/21 TIME: 09:33 Subjective Subjective feels ok , inc oxygen to 8 L from 5 L Objective Objective Vital Signs Date Time Temp Pulse Resp B/P (MAP) Pulse Ox O2 Delivery O2 Flow Rate FiO2 04/07/21 08:45 90 128/68 04/07/21 07:00 98.3 16 93 Nasal Cannula 5.0 98.3 Intake and Output 04/07/21 07:00 Intake Total 240 ml Balance 240 ml Intake Oral 240 ml # Voids 3 Physical Exam Abdomen: Soft Heart: Regular rate, Normal S1, Normal S2 Extremities: No clubbing General: Alert HEENT: Atraumatic Lungs: Other (rales at base) MUSCULOSKELETAL: No swelling Neuro: Normal speech Psych/Mental Status: Mental status NL Skin: No breakdown Diagnosis Problem List Problems Medical Problems: (1) COVID-19 Status: Acute Assessment Assessment Problems Medical Problems: (1) COVID-19 Status: Acute FINAL IMPRESSION:inc hypoxia 1. COVID pneumonia.Break through infection,pt vaccinated not boosted. 2. Immune compromised, patient is on chemo for small cell lung cancer. 3. Small cell lung cancer, getting chemotherapy. 4. Hypertension. 5. Hyperlipidemia. PLAN: spoke with pulmonary and RN. on oxygen 8 L now inc from 5L kidney normal with iv fluids pulmonary consult. dvt prevention home in 1-2 days. iv Rocephin+dexamethasone+z pack At this time, the patient was immunized with 2 shots, did not get the booster for COVID, started on Zithromax and Rocephin and dexamethasone and DVT prophylaxis and see how she improves in the next couple of days. Also, hydrated with IV fluids for kidney failure 1.6, coming down to 1.3, monitor. Holding the Dyazide. Plan Plan of Care Problems Medical Problems: (1) COVID-19 Status: Acute Comment Review of Relevant I have reviewed the following items ankit (where applicable) has been applied. Vitals/I & O Vital Sign - Last 24 Hours 04/06/21 04/06/21 04/06/21 04/06/21 10:05 10:06 10:06 11:00 Temp 97.4 97.4 Pulse 97 97 95 Resp 22 B/P (MAP) 147/86 147/86 135/65 (88) Pulse Ox 100 O2 Delivery Nasal Cannula Nasal Cannula O2 Flow Rate 4.0 5.0 04/06/21 04/06/21 04/06/21 04/06/21 11:01 15:00 19:00 23:42 Temp 97.2 98.6 97.9 97.2 98.6 97.9 Pulse 68 91 96 Resp 22 18 18 B/P (MAP) 160/78 (105) 145/84 (104) 132/77 (95) Pulse Ox 100 95 92 O2 Delivery Nasal Cannula Nasal Cannula Nasal Cannula Nasal Cannula O2 Flow Rate 4.0 5.0 5.0 5.0 04/07/21 04/07/21 04/07/21 04/07/21 00:37 03:00 07:00 08:43 Temp 98.5 98.3 98.5 98.3 Pulse 91 90 90 Resp 16 16 B/P (MAP) 141/73 (95) 128/68 (88) 128/68 Pulse Ox 85 93 O2 Delivery Nasal Cannula Nasal Cannula Nasal Cannula O2 Flow Rate 4.0 5.0 5.0 04/07/21 08:45 Pulse 90 B/P (MAP) 128/68 Intake and Output 04/06/21 04/06/21 04/07/21 15:00 23:00 07:00 Intake Total 240 ml Balance 240 ml Justifications for Admission Other Justification WALKER DAVILA MD Apr 07, 2021 09:33
--- NOTE | 2021-04-07 11:31 | PDOC ---
PULMONARY PROGRESS NOTES DATE: 04/07/21 TIME: 11:29 Subjective Denies any shortness of breath. Currently on 8 L of oxygen Vitals Vital Signs Date Time Temp Pulse Resp B/P (MAP) Pulse Ox O2 Delivery O2 Flow Rate FiO2 04/07/21 08:45 90 128/68 04/07/21 07:00 98.3 16 93 Nasal Cannula 5.0 98.3 Comments Visual exam done due to COVID-19. No paradoxical breathing. No skin rash no leg edema General: Alert, No acute distress Labs Laboratory Tests Test 04/06/21 07:05 Sodium Level 139 mmol/L (136-145) Potassium Level 4.5 mmol/L (3.5-5.1) Chloride Level 105 mmol/L (98-107) Carbon Dioxide Level 23 mmol/L (21-32) Anion Gap 11 (6-14) Blood Urea Nitrogen 21 mg/dL (7-20) Creatinine 1.1 mg/dL (0.6-1.0) Estimated GFR (Cockcroft-Gault) 57.5 Glucose Level 100 mg/dL (70-99) Calcium Level 8.4 mg/dL (8.5-10.1) Medications Active Scripts Medications Dose Route/Sig Max Daily Dose Days Date Category Hydrocodone-Apap 5-325 (Hydrocodone Bit/Acetaminophen) 1 Tab Tablet 1 Tab PO PRN Q8HRS PRN 04/04/21 Reported Magnesium Oxide 400 Mg Tablet 1 Tab PO DAILY 04/04/21 Reported Singulair Tablet (Montelukast Sodium) 10 Mg Tablet 10 Mg PO HS 04/04/21 Reported Pantoprazole Sodium 40 Mg Tablet.dr 40 Mg PO DAILY 04/04/21 Reported Benzonatate 100 Mg Capsule 1 Cap PO TID PRN 01/02/21 Reported Proair Hfa Inhaler (Albuterol Sulfate) 8.5 Gm Hfa.aer.ad 2 Puff IH PRN Q4HRS PRN 21 01/02/21 Reported Meloxicam 7.5 Mg Tablet 7.5 Mg PO DAILY 10/23/19 Reported Klor-Con M20 (Potassium Chloride) 20 Meq Tab.er.prt 1 Tab PO DAILY 30 10/23/19 Reported Dicyclomine Hcl 10 Mg Capsule 20 Mg PO DAILY 10/23/19 Reported Tramadol Hcl 50 Mg Tablet 50 Mg PO Q6HRS PRN 07/17/17 Reported Norvasc (Amlodipine Besylate) 5 Mg Tablet 5 Mg PO DAILY 07/17/17 Reported Dyazide 37.5-25 Capsule (Triamterene/Hydrochlorothiazid) 1 Each Capsule 1 Cap PO QMWF 07/17/17 Reported Losartan Potassium (Losartan Potassium) 25 Mg Tablet 25 Mg PO DAILY 07/17/17 Reported Amitriptyline Hcl 50 Mg Tablet 25 Mg PO HS 07/17/17 Reported Impression . 1. Acute hypoxic respiratory failure secondary to COVID-19 viral pneumonia. 2. Underlying chronic obstructive pulmonary disease, the patient is not on home oxygen. 3. History of lung cancer, the patient reports radiation and chemo. Last CT chest from 01/27/2021 showed post-radiation changes in the left perihilar area. No other suspicious nodules seen. Plan . 1. Continue with present oxygen, gradually wean to keep saturation 92% and above. Oxygen requirement has increased. Patient is immunocompromised. 2. Empiric antibiotics. 3. Dexamethasone. 4. Lovenox for DVT prophylaxis. 5. Follow with Medical-Oncology recommendations Discussed with RN. We will closely monitor respiratory status BRIELLE SHABAZZ MD Apr 07, 2021 11:30
--- NOTE | 2021-04-07 12:19 | NUR ---
SW following. Discussed with RN, pt from home with daughter, 8L (does not use oxygen at home), ada diet, COVID-19 positive. PT/OT following. Pt will need to return home due to insurance. SW will continue to follow.
[2021-04-07] MEDS: cefTRIAXone IV Push 1 GM VIAL. IVP SCH (21:22)
[2021-04-07] MEDS: ENOXAPARIN 40 MG/0.4 ML SYRINGE. SQ SCH (21:25)
[2021-04-07] MEDS: MONTELUKAST SODIUM 10 MG TABLET. PO SCH (21:25)
[2021-04-07] MEDS: AMITRIPTYLINE HCL 25 MG TABLET. PO SCH (21:25)
[2021-04-07] MEDS: HYDROcodone/APAP 5/325MG 1 TAB TABLET PO PRN (21:36)
[2021-04-08 03:13] VITALS: BP 137/73
[2021-04-08 07:00] VITALS: BP 122/65
[2021-04-08] MEDS: AZITHROMYCIN 250 MG TABLET. PO SCH (09:10)
[2021-04-08] MEDS: DICYCLOMINE HCL 10 MG CAPSULE PO SCH (09:10)
[2021-04-08] MEDS: PANTOPRAZOLE 40 MG TABLET.DR. PO SCH (09:10)
[2021-04-08] MEDS: DEXAMETHASONE 4 MG TABLET PO SCH (09:10)
[2021-04-08] MEDS: LOSARTAN POTASSIUM 25 MG TABLET. PO SCH (09:11)
[2021-04-08] MEDS: POTASSIUM CHLORIDE 20 MEQ TABLET.ER. PO SCH (09:11)
[2021-04-08] MEDS: MAGNESIUM OXIDE 400 MG TABLET PO SCH (09:11)
--- NOTE | 2021-04-08 09:25 | PDOC ---
PROGRESS NOTES Date of Service: DATE: 04/08/21 TIME: 09: Subjective Subjective nausea no appetite Objective Objective Vital Signs Date Time Temp Pulse Resp B/P (MAP) Pulse Ox O2 Delivery O2 Flow Rate FiO2 04/08/21 09:11 99 122/65 04/08/21 07:00 98.7 20 92 Nasal Cannula 98.7 04/07/21 21:36 8.0 Intake and Output 04/08/21 07:00 Intake Total 240 ml Output Total 200 ml Balance 40 ml Intake Oral 240 ml Output Urine Total 200 ml Physical Exam Abdomen: Soft Heart: Regular rate, Normal S1, Normal S2 Extremities: No clubbing General: Alert HEENT: Atraumatic Lungs: Other (rales at base) MUSCULOSKELETAL: No swelling Neuro: Normal speech Psych/Mental Status: Mental status NL Skin: No breakdown Diagnosis Problem List Problems Medical Problems: (1) COVID-19 Status: Acute Assessment Assessment Problems Medical Problems: (1) COVID-19 Status: Acute FINAL IMPRESSION:inc hypoxia 1. COVID pneumonia.Break through infection,pt vaccinated not boosted. 2. Immune compromised, patient is on chemo for small cell lung cancer. 3. Small cell lung cancer, getting chemotherapy. 4. Hypertension. 5. Hyperlipidemia. PLAN: zofran for n/v spoke with pulmonary and RN. on oxygen 8 L now inc from 5L kidney normal with iv fluids pulmonary consult. dvt prevention home in 1-2 days. iv Rocephin+dexamethasone+z pack Plan Plan of Care Problems Medical Problems: (1) COVID-19 Status: Acute Comment Review of Relevant I have reviewed the following items ankit (where applicable) has been applied. Vitals/I & O Vital Sign - Last 24 Hours 04/07/21 04/07/21 04/07/21 04/07/21 11:00 15:00 19:00 20:14 Temp 98.6 98.4 98.4 98.6 98.4 98.4 Pulse 95 94 94 Resp 16 16 20 B/P (MAP) 139/69 (92) 117/62 (80) 132/79 (96) Pulse Ox 90 93 98 O2 Delivery Nasal Cannula Nasal Cannula Nasal Cannula Nasal Cannula O2 Flow Rate 8.0 8.0 8.0 04/07/21 04/07/21 04/07/21 04/08/21 21:36 22:34 23:10 03:13 Temp 98.0 98.6 98.0 98.6 Pulse 92 94 Resp 16 16 20 20 B/P (MAP) 132/75 (94) 137/73 (94) Pulse Ox 95 91 93 91 O2 Delivery Nasal Cannula Room Air Nasal Cannula Nasal Cannula O2 Flow Rate 8.0 04/08/21 04/08/21 04/08/21 07:00 09:10 09:11 Temp 98.7 98.7 Pulse 99 99 99 Resp 20 B/P (MAP) 122/65 (84) 122/65 122/65 Pulse Ox 92 O2 Delivery Nasal Cannula Intake and Output 04/07/21 04/07/21 04/08/21 15:00 23:00 07:00 Intake Total 240 ml Output Total 200 ml Balance 240 ml -200 ml Justifications for Admission Other Justification WALKER DAVILA MD Apr 08, 2021 09:25
--- NOTE | 2021-04-08 10:05 | PDOC ---
PULMONARY PROGRESS NOTES DATE: 04/08/21 TIME: 10:03 Subjective Denies any shortness of breath. continues on 8 L of oxygen Vitals Vital Signs Date Time Temp Pulse Resp B/P (MAP) Pulse Ox O2 Delivery O2 Flow Rate FiO2 04/08/21 09:11 99 122/65 04/08/21 07:00 98.7 20 92 Nasal Cannula 98.7 04/07/21 21:36 8.0 Comments Visual exam done due to COVID-19. No paradoxical breathing. No skin rash no leg edema General: Alert, No acute distress Medications Active Scripts Medications Dose Route/Sig Max Daily Dose Days Date Category Hydrocodone-Apap 5-325 (Hydrocodone Bit/Acetaminophen) 1 Tab Tablet 1 Tab PO PRN Q8HRS PRN 04/04/21 Reported Magnesium Oxide 400 Mg Tablet 1 Tab PO DAILY 04/04/21 Reported Singulair Tablet (Montelukast Sodium) 10 Mg Tablet 10 Mg PO HS 04/04/21 Reported Pantoprazole Sodium 40 Mg Tablet.dr 40 Mg PO DAILY 04/04/21 Reported Benzonatate 100 Mg Capsule 1 Cap PO TID PRN 01/02/21 Reported Proair Hfa Inhaler (Albuterol Sulfate) 8.5 Gm Hfa.aer.ad 2 Puff IH PRN Q4HRS PRN 21 01/02/21 Reported Meloxicam 7.5 Mg Tablet 7.5 Mg PO DAILY 10/23/19 Reported Klor-Con M20 (Potassium Chloride) 20 Meq Tab.er.prt 1 Tab PO DAILY 30 10/23/19 Reported Dicyclomine Hcl 10 Mg Capsule 20 Mg PO DAILY 10/23/19 Reported Tramadol Hcl 50 Mg Tablet 50 Mg PO Q6HRS PRN 07/17/17 Reported Norvasc (Amlodipine Besylate) 5 Mg Tablet 5 Mg PO DAILY 07/17/17 Reported Dyazide 37.5-25 Capsule (Triamterene/Hydrochlorothiazid) 1 Each Capsule 1 Cap PO QMWF 07/17/17 Reported Losartan Potassium (Losartan Potassium) 25 Mg Tablet 25 Mg PO DAILY 07/17/17 Reported Amitriptyline Hcl 50 Mg Tablet 25 Mg PO HS 07/17/17 Reported Impression . 1. Acute hypoxic respiratory failure secondary to COVID-19 viral pneumonia. 2. Underlying chronic obstructive pulmonary disease, the patient is not on home oxygen. 3. History of lung cancer, the patient reports radiation and chemo. Last CT chest from 01/27/2021 showed post-radiation changes in the left perihilar area. No other suspicious nodules seen. Plan . 1. Continue with present oxygen, gradually wean to keep saturation 92% and above. Patient is immunocompromised. 2. Empiric antibiotics. 3. Dexamethasone. 4. Lovenox for DVT prophylaxis. 5. Follow with Medical-Oncology recommendations Discussed with RN. We will closely monitor respiratory status BRIELLE SHABAZZ MD Apr 08, 2021 10:05
[2021-04-08 11:00] VITALS: BP 117/76
--- NOTE | 2021-04-08 11:04 | NUR ---
SW following. Discussed with RN, pt from home with daughter, now requiring 8L oxygen, ada diet, COVID-19 positive. Pt will need a 6 minute walk prior to discharge home. SW will continue to follow.
[2021-04-08 15:00] VITALS: BP 119/71
[2021-04-08 19:00] VITALS: BP 118/78
[2021-04-08] MEDS: MONTELUKAST SODIUM 10 MG TABLET. PO SCH (20:47)
[2021-04-08] MEDS: AMITRIPTYLINE HCL 25 MG TABLET. PO SCH (20:47)
[2021-04-08] MEDS: cefTRIAXone IV Push 1 GM VIAL. IVP SCH (21:45)
[2021-04-08] MEDS: ENOXAPARIN 40 MG/0.4 ML SYRINGE. SQ SCH (21:46)
[2021-04-08 23:00] VITALS: BP 107/65
[2021-04-09 03:00] VITALS: BP 162/82
[2021-04-09] MEDS: PANTOPRAZOLE 40 MG TABLET.DR. PO SCH (06:23)
[2021-04-09 07:00] VITALS: BP 137/77
--- NOTE | 2021-04-09 07:37 | PDOC ---
IM PROGRESS NOTES- Subjective Subjective Complaints of cough and congestion. She desats when she takes off oxygen. Advised her not to do so. Objective Vitals/I&O Vital Signs Date Time Temp Pulse Resp B/P (MAP) Pulse Ox O2 Delivery O2 Flow Rate FiO2 04/09/21 03:00 91 20 162/82 (108) 92 Nasal Cannula 8.0 04/08/21 23:00 98.5 98.5 I & O 04/08/21 04/08/21 04/09/21 15:00 23:00 07:00 Intake Total 240 ml 180 ml Balance 240 ml 180 ml Physical Exam Physical Exam General Appearance - alert and in mild distress, on oxygen by nasal cannula 8 L/min Chest - decreased breath sounds at bases, occasional coarse breath sounds. Heart - S1 and S2 normal Abdomen - soft, non tender Neurological - alert and oriented Musculoskeletal - generalized weakness Extremities - no edema Assessment Assessment Problems Medical Problems: (1) COVID-19 Status: Acute FINAL IMPRESSION:inc hypoxia 1. COVID pneumonia.Break through infection,pt vaccinated not boosted. 2. Immune compromised, patient is on chemo for small cell lung cancer. 3. Small cell lung cancer, getting chemotherapy. 4. Hypertension. 5. Hyperlipidemia. PLAN: COVID 19 pneumonia on oxygen 8 L . Desats to 61% when she is not using oxygen. pulmonary consult. dvt prevention Recheck labs in AM. iv Rocephin+dexamethasone+z pack For details please refer to the orders. Plan Plan For more details regarding further plans, please refer to the orders. Justifications for Admission Other Justification DAV MENDEZ MD Apr 09, 2021 07:37
[2021-04-09 08:07] LABS: BASO % 0 % (0-3); EOS # 0.1 x10^3/uL (0.0-0.7); EOS % 1 % (0-3); HEMATOCRIT 39.5 % (36.0-47.0); HEMOGLOBIN 13.4 g/dL (12.0-15.5); LYMPH # 1.7 x10^3/uL (1.0-4.8); LYMPH % 19 % (24-48); MEAN CORPUSCULAR HEMOGLOBIN 33 pg (25-35); MEAN CORPUSCULAR HGB CONC 34 g/dL (31-37); MEAN CORPUSCULAR VOLUME 96 fL (79-100); MONO # 0.8 x10^3/uL (0.0-1.1); MONO % 9 % (0-9); NEUT # 6.6 x10^3/uL (1.8-7.7); NEUT % 72 % (31-73); PLATELET COUNT 326 x10^3/uL (140-400); RED BLOOD COUNT 4.11 x10^6/uL (3.50-5.40); RED CELL DISTRIBUTION WIDTH 13.8 % (11.5-14.5); WHITE BLOOD COUNT 9.1 x10^3/uL (4.0-11.0)
[2021-04-09] MEDS: POTASSIUM CHLORIDE 20 MEQ TABLET.ER. PO SCH (08:13)
[2021-04-09] MEDS: MAGNESIUM OXIDE 400 MG TABLET PO SCH (08:13)
[2021-04-09] MEDS: DEXAMETHASONE 4 MG TABLET PO SCH (08:13)
[2021-04-09] MEDS: DICYCLOMINE HCL 10 MG CAPSULE PO SCH (08:13)
[2021-04-09] MEDS: LOSARTAN POTASSIUM 25 MG TABLET. PO SCH (08:14)
[2021-04-09 08:22] LABS: CREATININE 1.3 mg/dL (0.6-1.0); GFR 47.5; POTASSIUM 4.1 mmol/L (3.5-5.1)
[2021-04-09 11:00] VITALS: BP 116/71
--- NOTE | 2021-04-09 11:14 | PDOC ---
PULMONARY PROGRESS NOTES DATE: 04/09/21 TIME: 11:12 Subjective Denies any shortness of breath. she is on 10L of oxygen this morning, appears comfortable. she reports her last chemo approximately 2 weeks ago Vitals Vital Signs Date Time Temp Pulse Resp B/P (MAP) Pulse Ox O2 Delivery O2 Flow Rate FiO2 04/09/21 08:14 93 137/77 04/09/21 07:00 97.8 20 90 Nasal Cannula 8.0 97.8 Comments Visual exam done due to COVID-19. No paradoxical breathing. No skin rash no leg edema General: Alert, No acute distress Labs Laboratory Tests Test 04/09/21 07:20 White Blood Count 9.1 x10^3/uL (4.0-11.0) Red Blood Count 4.11 x10^6/uL (3.50-5.40) Hemoglobin 13.4 g/dL (12.0-15.5) Hematocrit 39.5 % (36.0-47.0) Mean Corpuscular Volume 96 fL (79-100) Mean Corpuscular Hemoglobin 33 pg (25-35) Mean Corpuscular Hemoglobin Concent 34 g/dL (31-37) Red Cell Distribution Width 13.8 % (11.5-14.5) Platelet Count 326 x10^3/uL (140-400) Neutrophils (%) (Auto) 72 % (31-73) Lymphocytes (%) (Auto) 19 % (24-48) Monocytes (%) (Auto) 9 % (0-9) Eosinophils (%) (Auto) 1 % (0-3) Basophils (%) (Auto) 0 % (0-3) Neutrophils # (Auto) 6.6 x10^3/uL (1.8-7.7) Lymphocytes # (Auto) 1.7 x10^3/uL (1.0-4.8) Monocytes # (Auto) 0.8 x10^3/uL (0.0-1.1) Eosinophils # (Auto) 0.1 x10^3/uL (0.0-0.7) Basophils # (Auto) 0.0 x10^3/uL (0.0-0.2) Sodium Level 137 mmol/L (136-145) Potassium Level 4.1 mmol/L (3.5-5.1) Chloride Level 103 mmol/L (98-107) Carbon Dioxide Level 22 mmol/L (21-32) Anion Gap 12 (6-14) Blood Urea Nitrogen 33 mg/dL (7-20) Creatinine 1.3 mg/dL (0.6-1.0) Estimated GFR (Cockcroft-Gault) 47.5 Glucose Level 90 mg/dL (70-99) Calcium Level 9.0 mg/dL (8.5-10.1) Laboratory Tests Test 04/09/21 07:20 White Blood Count 9.1 x10^3/uL (4.0-11.0) Red Blood Count 4.11 x10^6/uL (3.50-5.40) Hemoglobin 13.4 g/dL (12.0-15.5) Hematocrit 39.5 % (36.0-47.0) Mean Corpuscular Volume 96 fL (79-100) Mean Corpuscular Hemoglobin 33 pg (25-35) Mean Corpuscular Hemoglobin Concent 34 g/dL (31-37) Red Cell Distribution Width 13.8 % (11.5-14.5) Platelet Count 326 x10^3/uL (140-400) Neutrophils (%) (Auto) 72 % (31-73) Lymphocytes (%) (Auto) 19 % (24-48) Monocytes (%) (Auto) 9 % (0-9) Eosinophils (%) (Auto) 1 % (0-3) Basophils (%) (Auto) 0 % (0-3) Neutrophils # (Auto) 6.6 x10^3/uL (1.8-7.7) Lymphocytes # (Auto) 1.7 x10^3/uL (1.0-4.8) Monocytes # (Auto) 0.8 x10^3/uL (0.0-1.1) Eosinophils # (Auto) 0.1 x10^3/uL (0.0-0.7) Basophils # (Auto) 0.0 x10^3/uL (0.0-0.2) Sodium Level 137 mmol/L (136-145) Potassium Level 4.1 mmol/L (3.5-5.1) Chloride Level 103 mmol/L (98-107) Carbon Dioxide Level 22 mmol/L (21-32) Anion Gap 12 (6-14) Blood Urea Nitrogen 33 mg/dL (7-20) Creatinine 1.3 mg/dL (0.6-1.0) Estimated GFR (Cockcroft-Gault) 47.5 Glucose Level 90 mg/dL (70-99) Calcium Level 9.0 mg/dL (8.5-10.1) Medications Active Scripts Medications Dose Route/Sig Max Daily Dose Days Date Category Hydrocodone-Apap 5-325 (Hydrocodone Bit/Acetaminophen) 1 Tab Tablet 1 Tab PO PRN Q8HRS PRN 04/04/21 Reported Magnesium Oxide 400 Mg Tablet 1 Tab PO DAILY 04/04/21 Reported Singulair Tablet (Montelukast Sodium) 10 Mg Tablet 10 Mg PO HS 04/04/21 Reported Pantoprazole Sodium 40 Mg Tablet.dr 40 Mg PO DAILY 04/04/21 Reported Benzonatate 100 Mg Capsule 1 Cap PO TID PRN 01/02/21 Reported Proair Hfa Inhaler (Albuterol Sulfate) 8.5 Gm Hfa.aer.ad 2 Puff IH PRN Q4HRS PRN 21 01/02/21 Reported Meloxicam 7.5 Mg Tablet 7.5 Mg PO DAILY 10/23/19 Reported Klor-Con M20 (Potassium Chloride) 20 Meq Tab.er.prt 1 Tab PO DAILY 30 10/23/19 Reported Dicyclomine Hcl 10 Mg Capsule 20 Mg PO DAILY 10/23/19 Reported Tramadol Hcl 50 Mg Tablet 50 Mg PO Q6HRS PRN 07/17/17 Reported Norvasc (Amlodipine Besylate) 5 Mg Tablet 5 Mg PO DAILY 07/17/17 Reported Dyazide 37.5-25 Capsule (Triamterene/Hydrochlorothiazid) 1 Each Capsule 1 Cap PO QMWF 07/17/17 Reported Losartan Potassium (Losartan Potassium) 25 Mg Tablet 25 Mg PO DAILY 07/17/17 Reported Amitriptyline Hcl 50 Mg Tablet 25 Mg PO HS 07/17/17 Reported Impression . 1. Acute hypoxic respiratory failure secondary to COVID-19 viral pneumonia. 2. Underlying chronic obstructive pulmonary disease, the patient is not on home oxygen. 3. History of lung cancer, the patient reports radiation and chemo. Last CT chest from 01/27/2021 showed post-radiation changes in the left perihilar area. No other suspicious nodules seen. Plan . 1. Continue with present oxygen, gradually wean to keep saturation 92% and above. Patient is immunocompromised. 2. Empiric antibiotics. 3. Dexamethasone. 4. Lovenox for DVT prophylaxis. 5. Follow with Medical-Oncology recommendations Discussed with RN. We will closely monitor respiratory status BRIELLE SHABAZZ MD Apr 09, 2021 11:14
[2021-04-09 15:00] VITALS: BP 104/67
[2021-04-09 19:00] VITALS: BP 119/68
[2021-04-09] MEDS: MONTELUKAST SODIUM 10 MG TABLET. PO SCH (21:31)
[2021-04-09] MEDS: AMITRIPTYLINE HCL 25 MG TABLET. PO SCH (21:31)
[2021-04-09] MEDS: ENOXAPARIN 40 MG/0.4 ML SYRINGE. SQ SCH (21:31)
[2021-04-09] MEDS: cefTRIAXone IV Push 1 GM VIAL. IVP SCH (21:32)
[2021-04-09 23:00] VITALS: BP 129/77
[2021-04-10 03:00] VITALS: BP 119/67
[2021-04-10 07:00] VITALS: BP 126/78
[2021-04-10] MEDS: MAGNESIUM OXIDE 400 MG TABLET PO SCH (08:49)
[2021-04-10] MEDS: PANTOPRAZOLE 40 MG TABLET.DR. PO SCH (08:49)
[2021-04-10] MEDS: BENZONATATE 100 MG CAPSULE. PO PRN (08:49)
[2021-04-10] MEDS: DICYCLOMINE HCL 10 MG CAPSULE PO SCH (08:49)
[2021-04-10] MEDS: DEXAMETHASONE 4 MG TABLET PO SCH (08:49)
[2021-04-10] MEDS: POTASSIUM CHLORIDE 20 MEQ TABLET.ER. PO SCH (08:50)
[2021-04-10] MEDS: LOSARTAN POTASSIUM 25 MG TABLET. PO SCH (09:15)
--- NOTE | 2021-04-10 10:10 | PDOC ---
PROGRESS NOTES Date of Service: DATE: 04/10/21 TIME: 10:08 Subjective Subjective more hypoxic now requiring 15 L Objective Objective Vital Signs Date Time Temp Pulse Resp B/P (MAP) Pulse Ox O2 Delivery O2 Flow Rate FiO2 04/10/21 09:16 99 126/78 04/10/21 07:00 98.1 20 91 Nasal Cannula 10.0 98.1 Intake and Output 04/10/21 07:00 Intake Total 520 ml Balance 520 ml Intake Oral 520 ml # Voids 3 Physical Exam Abdomen: Soft Heart: Regular rate, Normal S1, Normal S2 Extremities: No clubbing General: Alert HEENT: Atraumatic Lungs: Other (rales at base) MUSCULOSKELETAL: No swelling Neuro: Normal speech Psych/Mental Status: Mental status NL Skin: No breakdown Diagnosis Problem List Problems Medical Problems: (1) COVID-19 Status: Acute Assessment Assessment Problems Medical Problems: (1) COVID-19 Status: Acute FINAL IMPRESSION:inc hypoxia 1. COVID pneumonia.Break through infection,pt vaccinated not boosted. 2. Immune compromised, patient is on chemo for small cell lung cancer. 3. Small cell lung cancer, getting chemotherapy. 4. Hypertension. 5. Hyperlipidemia. PLAN: CT chest O2 requirements went up top 15 L add remdesivr spoke with pharmacy change antibiotics to Zyvox+zosyn DVT prevention inhaler COVID 19 pneumonia Plan Plan of Care Problems Medical Problems: (1) COVID-19 Status: Acute Comment Review of Relevant I have reviewed the following items ankit (where applicable) has been applied. Medications Current Medications Remdesivir 100 mg/ Sodium Chloride 230 ml @ 460 mls/hr Q24H IV ; Start 04/11/21 at 11:00; Stop 04/14/21 at 11:29 Remdesivir 200 mg/ Sodium Chloride 210 ml @ 210 mls/hr 1X ONCE IV ; Start 04/10/21 at 11:00; Stop 04/10/21 at 11:59 Vitals/I & O Vital Sign - Last 24 Hours 04/09/21 04/09/21 04/09/21 04/09/21 11:00 15:00 19:00 20:00 Temp 98.0 98.0 97.8 98.0 98.0 97.8 Pulse 94 102 87 Resp 20 20 16 B/P (MAP) 116/71 (86) 104/67 (79) 119/68 (85) Pulse Ox 92 94 94 O2 Delivery Nasal Cannula Nasal Cannula Nasal Cannula Nasal Cannula O2 Flow Rate 10.0 10.0 10.0 8.0 04/09/21 04/10/21 04/10/21 04/10/21 23:00 03:00 07:00 09:15 Temp 97.7 97.6 98.1 97.7 97.6 98.1 Pulse 89 89 99 99 Resp 16 18 20 B/P (MAP) 129/77 (94) 119/67 (84) 126/78 (94) 126/78 Pulse Ox 91 88 91 O2 Delivery Nasal Cannula Nasal Cannula Nasal Cannula O2 Flow Rate 10.0 10.0 10.0 04/10/21 09:16 Pulse 99 B/P (MAP) 126/78 Intake and Output 04/09/21 04/09/21 04/10/21 15:00 23:00 07:00 Intake Total 400 ml 120 ml Balance 400 ml 120 ml Justifications for Admission Other Justification WALKER DAVILA MD Apr 10, 2021 10:10
[2021-04-10] MEDS: PIPERACILLIN/TAZOBACTAM 3.375 GM in IV NORMAL SALINE 50ML 50 ML IV SCH ×2 (10:54→18:05)
[2021-04-10 11:00] VITALS: BP 121/80
[2021-04-10] MEDS ORDERED: REMDESIVIR LOAD in IV NORMAL SALINE 250ML TV IV ONE (11:00)
[2021-04-10] MEDS: IV NORMAL SALINE 1000ML BAG 1,000 ML IV SCH (11:22)
[2021-04-10] MEDS: IPRATROPIUM/ALBUTEROL 20/100mcg/INH INHALER. INH SCH ×3 (11:25→21:14)
[2021-04-10] MEDS: guaiFENesin DM 600/30MG 1 TAB TAB.ER.12H PO SCH ×2 (11:26→21:14)
[2021-04-10 15:00] VITALS: BP 108/65
--- NOTE | 2021-04-10 15:43 | NUR ---
Nurse's note: The patient complained of worsening dyspnea, O2 sats at 82-83% on 10 liters oxygen per nasal cannula. Oxygen increased to 12 liters per NRB with O2 sat at 91-92%. Two hours later oxygen sats dropped to 85-86%, O2 increased to 15 liters NRB. 1100 remdesivir dose administered late, IV access had to be replaced.
--- NOTE | 2021-04-10 17:10 | RAD ---
CT THORAX WO History: Covid pneumonia, worsening hypoxia. Comparison: CT chest 01/17/2021 Technique: Noncontrast CT of the chest. Findings: Assessment is limited by lack of IV contrast. Cardiovascular: Moderate aortic and coronary artery atherosclerotic calcification. Normal heart size. No pericardial effusion. Right chest Mediport with IJ approach catheter tip terminating at the lower SVC. Mediastinum and malvin: Left perihilar soft tissue thickening, similar to comparison. Unremarkable thyr oid. Patulous esophagus containing fluid with moderate hiatal hernia. Airways, lungs and pleura: Moderate paraseptal emphysematous change. Redemonstrated left upper lobe 9 mm nodular opacity with spiculations similar to comparison. Left parahilar density suspected to repr esent posttreatment changes. New bilateral peripheral predominant groundglass attenuation. No pleural effusion or pneumothorax. Upper abdomen: Cholecystectomy changes. Left renal cyst. Unremarkable adrenal glands. Moderate slidin g hiatal hernia. Osseous structures and soft tissues: Within normal limits for age. Impression: 1. New bilateral peripheral groundglass airspace opacities compatible with Covid pneumonia. 2. History lung cancer with redemonstrated left perihilar soft tissue thickening and left upper lobe spiculated nodule similar to January comparison. ------ Exposure: One or more of the following individualized dose reduction techniques were utilized for thi s examination: 1. Automated exposure control 2. Adjustment of the mA and/or kV according to patient size 3. Use of iterative reconstruction technique. Electronically signed by: Bravo Chavez MD (04/10/2021 5:07 PM) [facility]
[2021-04-10 19:00] VITALS: BP 127/74
[2021-04-10] MEDS: MONTELUKAST SODIUM 10 MG TABLET. PO SCH (21:14)
[2021-04-10] MEDS: AMITRIPTYLINE HCL 25 MG TABLET. PO SCH (21:14)
[2021-04-10] MEDS: ENOXAPARIN 40 MG/0.4 ML SYRINGE. SQ SCH (21:15)
[2021-04-10 23:00] VITALS: BP 117/65
[2021-04-11] MEDS: PIPERACILLIN/TAZOBACTAM 3.375 GM in IV NORMAL SALINE 50ML 50 ML IV SCH ×5 (01:19→23:57)
[2021-04-11] MEDS: IV NORMAL SALINE 1000ML BAG 1,000 ML IV SCH ×2 (01:57→06:30)
[2021-04-11 03:00] VITALS: BP 126/73
[2021-04-11 07:00] VITALS: BP 132/72
[2021-04-11 07:52] LABS: BASO % 0 % (0-3); EOS # 0.1 x10^3/uL (0.0-0.7); EOS % 1 % (0-3); HEMATOCRIT 39.1 % (36.0-47.0); HEMOGLOBIN 12.6 g/dL (12.0-15.5); LYMPH # 1.3 x10^3/uL (1.0-4.8); LYMPH % 12 % (24-48); MEAN CORPUSCULAR HEMOGLOBIN 31 pg (25-35); MEAN CORPUSCULAR HGB CONC 32 g/dL (31-37); MEAN CORPUSCULAR VOLUME 97 fL (79-100); MONO # 0.8 x10^3/uL (0.0-1.1); MONO % 7 % (0-9); NEUT # 8.9 x10^3/uL (1.8-7.7); NEUT % 80 % (31-73); PLATELET COUNT 276 x10^3/uL (140-400); RED BLOOD COUNT 4.04 x10^6/uL (3.50-5.40); RED CELL DISTRIBUTION WIDTH 14.1 % (11.5-14.5); WHITE BLOOD COUNT 11.1 x10^3/uL (4.0-11.0)
[2021-04-11 08:30] LABS: CALCIUM 8.6 mg/dL (8.5-10.1); CREATININE 1.3 mg/dL (0.6-1.0); GFR 47.5; POTASSIUM 4.3 mmol/L (3.5-5.1)
[2021-04-11] MEDS: guaiFENesin DM 600/30MG 1 TAB TAB.ER.12H PO SCH ×2 (08:55→20:37)
[2021-04-11] MEDS: IPRATROPIUM/ALBUTEROL 20/100mcg/INH INHALER. INH SCH ×4 (08:55→20:38)
[2021-04-11] MEDS: POTASSIUM CHLORIDE 20 MEQ TABLET.ER. PO SCH (08:56)
[2021-04-11] MEDS: BENZONATATE 100 MG CAPSULE. PO PRN ×2 (08:56→20:37)
[2021-04-11] MEDS: MAGNESIUM OXIDE 400 MG TABLET PO SCH (08:56)
[2021-04-11] MEDS: DICYCLOMINE HCL 10 MG CAPSULE PO SCH (08:56)
[2021-04-11] MEDS: DEXAMETHASONE 4 MG TABLET PO SCH (08:56)
[2021-04-11] MEDS: LOSARTAN POTASSIUM 25 MG TABLET. PO SCH (08:56)
[2021-04-11] MEDS: PANTOPRAZOLE 40 MG TABLET.DR. PO SCH (08:56)
--- NOTE | 2021-04-11 09:08 | PDOC ---
PROGRESS NOTES Date of Service: DATE: 04/11/21 TIME: 09:06 Subjective Subjective pt on NRBM 12 L Objective Objective Vital Signs Date Time Temp Pulse Resp B/P (MAP) Pulse Ox O2 Delivery O2 Flow Rate FiO2 04/11/21 08:57 89 132/72 04/11/21 07:00 97.7 18 96 NonRebreather Mask 12.0 97.7 Intake and Output 04/11/21 07:00 Intake Total 400 ml Balance 400 ml Intake Oral 400 ml # Voids 1 # Bowel Movements 1 Physical Exam Abdomen: Soft Heart: Regular rate, Normal S1, Normal S2 Extremities: No clubbing General: Alert HEENT: Atraumatic Lungs: Other (rales at base) MUSCULOSKELETAL: No swelling Neuro: Normal speech Psych/Mental Status: Mental status NL Skin: No breakdown Diagnosis Problem List Problems Medical Problems: (1) COVID-19 Status: Acute Assessment Assessment Problems Medical Problems: (1) COVID-19 Status: Acute FINAL IMPRESSION:inc hypoxia 1. COVID pneumonia.Break through infection,pt vaccinated not boosted. 2. Immune compromised, patient is on chemo for small cell lung cancer. 3. Small cell lung cancer, getting chemotherapy. 4. Hypertension. 5. Hyperlipidemia. PLAN:inc dexa methasone dose CT chest christa groundglass infiltrates O2 requirements went up top 12 L add remdesivr spoke with pharmacy change antibiotics to Zyvox+zosyn DVT prevention with Lovenox inhaler spoke with RN Plan Plan of Care Problems Medical Problems: (1) COVID-19 Status: Acute Comment Review of Relevant I have reviewed the following items ankit (where applicable) has been applied. Labs Laboratory Tests Test 04/11/21 07:20 White Blood Count 11.1 x10^3/uL (4.0-11.0) Red Blood Count 4.04 x10^6/uL (3.50-5.40) Hemoglobin 12.6 g/dL (12.0-15.5) Hematocrit 39.1 % (36.0-47.0) Mean Corpuscular Volume 97 fL (79-100) Mean Corpuscular Hemoglobin 31 pg (25-35) Mean Corpuscular Hemoglobin Concent 32 g/dL (31-37) Red Cell Distribution Width 14.1 % (11.5-14.5) Platelet Count 276 x10^3/uL (140-400) Neutrophils (%) (Auto) 80 % (31-73) Lymphocytes (%) (Auto) 12 % (24-48) Monocytes (%) (Auto) 7 % (0-9) Eosinophils (%) (Auto) 1 % (0-3) Basophils (%) (Auto) 0 % (0-3) Neutrophils # (Auto) 8.9 x10^3/uL (1.8-7.7) Lymphocytes # (Auto) 1.3 x10^3/uL (1.0-4.8) Monocytes # (Auto) 0.8 x10^3/uL (0.0-1.1) Eosinophils # (Auto) 0.1 x10^3/uL (0.0-0.7) Basophils # (Auto) 0.0 x10^3/uL (0.0-0.2) Sodium Level 138 mmol/L (136-145) Potassium Level 4.3 mmol/L (3.5-5.1) Chloride Level 107 mmol/L (98-107) Carbon Dioxide Level 19 mmol/L (21-32) Anion Gap 12 (6-14) Blood Urea Nitrogen 35 mg/dL (7-20) Creatinine 1.3 mg/dL (0.6-1.0) Estimated GFR (Cockcroft-Gault) 47.5 Glucose Level 94 mg/dL (70-99) Calcium Level 8.6 mg/dL (8.5-10.1) Medications Current Medications Albuterol/ Ipratropium (Combivent Respimat 20-100 Mcg) 1 puff RTQID INH Last administered on 04/11/21at 08:55; Start 04/10/21 at 12:00 Guaifenesin (MUCINEX ER with DM) 1 tab BID PO Last administered on 04/11/21 08:55; Start 04/10/21 at 11:00 Linezolid/Dextrose 300 ml @ 300 mls/hr Q12HR IV Last administered on 04/11/21 08:55; Start 04/10/21 at 11:00 Piperacillin Sod/ Tazobactam Sod 3.375 gm/Sodium Chloride 50 ml @ 100 mls/hr Q 6HRS IV Last administered on 04/11/21at 06:30; Start 04/10/21 at 11:00 Remdesivir 100 mg/ Sodium Chloride 230 ml @ 460 mls/hr Q24H IV ; Start 04/11/21 at 11:00; Stop 04/14/21 at 11:29 Remdesivir 200 mg/ Sodium Chloride 210 ml @ 210 mls/hr 1X ONCE IV Last administered on 04/10/21at 15:43; Start 04/10/21 at 11:00; Stop 04/10/21 at 11:59; Status DC Sodium Chloride 1,000 ml @ 75 mls/hr [id number] IV Last administered on 04/11/21at 06:30; Start 04/10/21 at 11:00 Vitals/I & O Vital Sign - Last 24 Hours 04/10/21 04/10/21 04/10/21 04/10/21 09:15 09:16 11:00 15:00 Temp 97.9 97.7 97.9 97.7 Pulse 99 99 109 93 Resp 20 20 B/P (MAP) 126/78 126/78 121/80 (94) 108/65 (79) Pulse Ox 94 95 O2 Delivery NonRebreather Mask NonRebreather Mask O2 Flow Rate 12.0 12.0 04/10/21 04/10/21 04/10/21 04/11/21 19:00 20:00 23:00 03:00 Temp 97.7 97.5 97.5 97.7 97.5 97.5 Pulse 87 82 85 Resp 20 22 20 B/P (MAP) 127/74 (91) 117/65 (82) 126/73 (90) Pulse Ox 94 91 92 O2 Delivery NonRebreather Mask Non-Rebreather NonRebreather Mask NonRebreather Mask O2 Flow Rate 12.0 15.0 12.0 12.0 04/11/21 04/11/21 04/11/21 07:00 08:56 08:57 Temp 97.7 97.7 Pulse 89 89 89 Resp 18 B/P (MAP) 132/72 (92) 132/72 132/72 Pulse Ox 96 O2 Delivery NonRebreather Mask O2 Flow Rate 12.0 Intake and Output 04/10/21 04/10/21 04/11/21 15:00 23:00 07:00 Intake Total 100 ml 300 ml Balance 100 ml 300 ml Justifications for Admission Other Justification WALKER DAVILA MD Apr 11, 2021 09:08
--- NOTE | 2021-04-11 10:51 | NUR ---
SW following. Chart reviewed, pt now on a 15L NRB, ada diet. COVID-19 positive. Pt not ready for discharge. SW will continue to follow.
[2021-04-11 11:00] VITALS: BP 141/76
--- NOTE | 2021-04-11 11:03 | PDOC ---
PULMONARY PROGRESS NOTES DATE: 04/11/21 TIME: 10:56 Subjective patient seen sitting up in bed. appears comfortable on 12L nc Vitals Vital Signs Date Time Temp Pulse Resp B/P (MAP) Pulse Ox O2 Delivery O2 Flow Rate FiO2 04/11/21 08:57 89 132/72 04/11/21 07:00 97.7 18 96 NonRebreather Mask 12.0 97.7 Comments Visual exam done due to COVID-19. No paradoxical breathing. No skin rash no leg edema General: Alert, No acute distress Labs Laboratory Tests Test 04/11/21 07:20 White Blood Count 11.1 x10^3/uL (4.0-11.0) Red Blood Count 4.04 x10^6/uL (3.50-5.40) Hemoglobin 12.6 g/dL (12.0-15.5) Hematocrit 39.1 % (36.0-47.0) Mean Corpuscular Volume 97 fL (79-100) Mean Corpuscular Hemoglobin 31 pg (25-35) Mean Corpuscular Hemoglobin Concent 32 g/dL (31-37) Red Cell Distribution Width 14.1 % (11.5-14.5) Platelet Count 276 x10^3/uL (140-400) Neutrophils (%) (Auto) 80 % (31-73) Lymphocytes (%) (Auto) 12 % (24-48) Monocytes (%) (Auto) 7 % (0-9) Eosinophils (%) (Auto) 1 % (0-3) Basophils (%) (Auto) 0 % (0-3) Neutrophils # (Auto) 8.9 x10^3/uL (1.8-7.7) Lymphocytes # (Auto) 1.3 x10^3/uL (1.0-4.8) Monocytes # (Auto) 0.8 x10^3/uL (0.0-1.1) Eosinophils # (Auto) 0.1 x10^3/uL (0.0-0.7) Basophils # (Auto) 0.0 x10^3/uL (0.0-0.2) Sodium Level 138 mmol/L (136-145) Potassium Level 4.3 mmol/L (3.5-5.1) Chloride Level 107 mmol/L (98-107) Carbon Dioxide Level 19 mmol/L (21-32) Anion Gap 12 (6-14) Blood Urea Nitrogen 35 mg/dL (7-20) Creatinine 1.3 mg/dL (0.6-1.0) Estimated GFR (Cockcroft-Gault) 47.5 Glucose Level 94 mg/dL (70-99) Calcium Level 8.6 mg/dL (8.5-10.1) Laboratory Tests Test 04/11/21 07:20 White Blood Count 11.1 x10^3/uL (4.0-11.0) Red Blood Count 4.04 x10^6/uL (3.50-5.40) Hemoglobin 12.6 g/dL (12.0-15.5) Hematocrit 39.1 % (36.0-47.0) Mean Corpuscular Volume 97 fL (79-100) Mean Corpuscular Hemoglobin 31 pg (25-35) Mean Corpuscular Hemoglobin Concent 32 g/dL (31-37) Red Cell Distribution Width 14.1 % (11.5-14.5) Platelet Count 276 x10^3/uL (140-400) Neutrophils (%) (Auto) 80 % (31-73) Lymphocytes (%) (Auto) 12 % (24-48) Monocytes (%) (Auto) 7 % (0-9) Eosinophils (%) (Auto) 1 % (0-3) Basophils (%) (Auto) 0 % (0-3) Neutrophils # (Auto) 8.9 x10^3/uL (1.8-7.7) Lymphocytes # (Auto) 1.3 x10^3/uL (1.0-4.8) Monocytes # (Auto) 0.8 x10^3/uL (0.0-1.1) Eosinophils # (Auto) 0.1 x10^3/uL (0.0-0.7) Basophils # (Auto) 0.0 x10^3/uL (0.0-0.2) Sodium Level 138 mmol/L (136-145) Potassium Level 4.3 mmol/L (3.5-5.1) Chloride Level 107 mmol/L (98-107) Carbon Dioxide Level 19 mmol/L (21-32) Anion Gap 12 (6-14) Blood Urea Nitrogen 35 mg/dL (7-20) Creatinine 1.3 mg/dL (0.6-1.0) Estimated GFR (Cockcroft-Gault) 47.5 Glucose Level 94 mg/dL (70-99) Calcium Level 8.6 mg/dL (8.5-10.1) Medications Active Scripts Medications Dose Route/Sig Max Daily Dose Days Date Category Hydrocodone-Apap 5-325 (Hydrocodone Bit/Acetaminophen) 1 Tab Tablet 1 Tab PO PRN Q8HRS PRN 04/04/21 Reported Magnesium Oxide 400 Mg Tablet 1 Tab PO DAILY 04/04/21 Reported Singulair Tablet (Montelukast Sodium) 10 Mg Tablet 10 Mg PO HS 04/04/21 Reported Pantoprazole Sodium 40 Mg Tablet.dr 40 Mg PO DAILY 04/04/21 Reported Benzonatate 100 Mg Capsule 1 Cap PO TID PRN 01/02/21 Reported Proair Hfa Inhaler (Albuterol Sulfate) 8.5 Gm Hfa.aer.ad 2 Puff IH PRN Q4HRS PRN 21 01/02/21 Reported Meloxicam 7.5 Mg Tablet 7.5 Mg PO DAILY 10/23/19 Reported Klor-Con M20 (Potassium Chloride) 20 Meq Tab.er.prt 1 Tab PO DAILY 30 10/23/19 Reported Dicyclomine Hcl 10 Mg Capsule 20 Mg PO DAILY 10/23/19 Reported Tramadol Hcl 50 Mg Tablet 50 Mg PO Q6HRS PRN 07/17/17 Reported Norvasc (Amlodipine Besylate) 5 Mg Tablet 5 Mg PO DAILY 07/17/17 Reported Dyazide 37.5-25 Capsule (Triamterene/Hydrochlorothiazid) 1 Each Capsule 1 Cap PO QMWF 07/17/17 Reported Losartan Potassium (Losartan Potassium) 25 Mg Tablet 25 Mg PO DAILY 07/17/17 Reported Amitriptyline Hcl 50 Mg Tablet 25 Mg PO HS 07/17/[address] chest reviewed 04/10/2021 Diffuse emphysema, worse in the upper lobes. Development of groundglass infiltrates bilaterally. Is post radiation treatment in the left perihilar area. Impression . 1. Acute hypoxic respiratory failure secondary to COVID-19 viral pneumonia. 2. Underlying chronic obstructive pulmonary disease, the patient is not on home oxygen. 3. History of lung cancer, the patient reports radiation and chemo. Last CT chest from 01/27/2021 showed post-radiation changes in the left perihilar area. New CT chest 04/10/2021 was reviewed. Development of new bilateral groundglass infiltrates compatible with COVID-19 viral pneumonia. 4. Left upper lobe spiculated nodule unchanged in size since January. Plan . 1. Continue with present oxygen, gradually wean to keep saturation 92% and above. Patient is immunocompromised. 2. escalated antibiotic coverage, zosyn and zyvox 3. continue Dexamethasone. 4. Lovenox for DVT prophylaxis. 5. Follow with Medical-Oncology recommendations Discussed with RN. We will closely monitor respiratory status BRIELLE SHABAZZ MD Apr 11, 2021 11:03
--- NOTE | 2021-04-11 11:38 | CONS ---
DATE OF CONSULTATION: 04/11/2021 REFERRING PHYSICIAN: Gaurav Spencer MD. REASON FOR CONSULTATION: COVID pneumonia. HISTORY OF PRESENT ILLNESS: An 80-year-old female with history of some small lung cell carcinoma on chemotherapy through right Port-A-Cath, presented to the ER on 04/04/2021 with a cough, generalized weakness, worsening 2 weeks prior to admission. The patient was found hypoxic. The patient had poor appetite. Denied any fevers, chills, nausea, vomiting, chest pain, abdominal pain, or symptoms. Denied any sick contact. The patient had received COVID vaccination and was ready to get the booster. White count on admission was 5.1, platelets of 233, creatinine 1.6. Sodium 135, albumin of 2.9. SARS-COVID antigen was positive. Influenza screen was negative. Chest x-ray revealed a focal airspace opacity identified in the left suprahilar area similar to the CT chest, 10/04/2020, likely pneumonia or neoplasm are post-treatment changes, mild airspace opacities, right lung base atelectasis or infiltrate, probable small left pleural effusion. The patient was started on azithromycin, ceftriaxone, got a dose of dexamethasone. Pulmonary team was consulted. The patient's O2 requirement went up. Yesterday, she was started on remdesivir and dexamethasone was added today. The patient's antibiotics were changed to Zosyn and linezolid yesterday. ID consultation has been requested for antibiotic management. Today, the patient states she feels a little better, still has cough, shortness of breath, remains on nonrebreather at 12 liters. REVIEW OF SYSTEMS: Negative except for above in HPI. PAST MEDICAL HISTORY: Small cell lung CA on chemotherapy through right Port-A-Cath, hypertension, COPD, hiatal hernia. PAST SURGICAL HISTORY: Hernia surgery. ALLERGIES: No known drug allergies. SOCIAL HISTORY: Quit smoking about a year ago when she was diagnosed with lung cancer. No alcohol, no illicit drugs. Lives with her daughter at home. CURRENT MEDICATIONS: Zyvox, Zosyn, dexamethasone, remdesivir, was on ceftriaxone and azithromycin. Other medications reviewed in medication list. PHYSICAL EXAMINATION: VITAL SIGNS: Temperature 97.7, pulse 89, respiratory rate 18, blood pressure 132/70, oxygen saturation 96% on 12 liters by nonrebreather. GENERAL: Alert, oriented x 3. Well-developed, well-nourished female in no acute distress, nontoxic appearing. HEENT: Normocephalic, atraumatic. Anicteric. No thrush. Oral mucosa moist. NECK: Supple, no JVD. LUNGS: Coarse rales present at the bases, otherwise no accessory muscle use. HEART: S1, S2. No murmurs. ABDOMEN: Soft, nontender, nondistended. Bowel sounds present. EXTREMITIES: No edema, no cyanosis. DERMATOLOGIC: Warm, dry, no generalized rash. NEUROLOGIC: Alert, oriented x 3. She has some weakness. Able to move all 4 extremities. PSYCHIATRIC: Calm and cooperative. CHEST WALL: Right Port-A-Cath site clean. LABORATORY DATA: SARS-COVID rapid positive. Influenza screen negative. WBC 11.1, hemoglobin 12.6, hematocrit 39.1, platelets 276. Sodium 138, potassium 4.3, chloride 107, bicarbonate 19, BUN 35, creatinine 1.3, glucose 94, calcium 8.6, albumin 2.0. IMAGING: Chest CT shows new bilateral parenchymal ground glass airspace opacities compatible with COVID pneumonia, history of lung cancer with redemonstrated left perihilar soft tissue thickening in the left upper lobe spiculated nodule similar to January comparison. Chest x-ray as above. IMPRESSION: 1. COVID-19 pneumonia. 2. Acute hypoxic respiratory failure secondary to COVID-19 pneumonia. 3. Leukocytosis, mild, on steroids. 4. History of small lung carcinoma, status post radiation and chemo through right Port-A-Cath. 5. Right Port-A-Cath. 6. History of smoking, quit a year ago. 7. Chronic obstructive pulmonary disease. 8. Generalized weakness. 9. Acute kidney injury. RECOMMENDATIONS: 1. Continue empiric Zosyn and Zyvox. 2. On remdesivir and steroids. 3. COVID-19 management per primary ,pulmonary team following. 4. Monitor labs and cultures. 5. Continue supportive care. Thank you for allowing me to participate in this patient's care. If you have any questions, do not hesitate to contact me. CARLOTTA DR: Giovanna TID: [phone] [facility]
[2021-04-11] MEDS: REMDESIVIR 100mg in NORMAL SALINE 250ML X 4 DAYS IV SCH (13:04)
[2021-04-11 15:00] VITALS: BP 142/71
[2021-04-11 19:00] VITALS: BP 139/72
[2021-04-11] MEDS: AMITRIPTYLINE HCL 25 MG TABLET. PO SCH (20:37)
[2021-04-11] MEDS: MONTELUKAST SODIUM 10 MG TABLET. PO SCH (20:37)
[2021-04-11] MEDS: ENOXAPARIN 40 MG/0.4 ML SYRINGE. SQ SCH (20:37)
[2021-04-11] MEDS: HYDROcodone/APAP 5/325MG 1 TAB TABLET PO PRN (20:55)
[2021-04-11 23:00] VITALS: BP 149/85
[2021-04-12] MEDS: IV NORMAL SALINE 1000ML BAG 1,000 ML IV SCH ×2 (03:00→16:20)
[2021-04-12 03:10] VITALS: BP 155/85
[2021-04-12] MEDS: PIPERACILLIN/TAZOBACTAM 3.375 GM in IV NORMAL SALINE 50ML 50 ML IV SCH ×4 (05:34→23:59)
[2021-04-12 07:00] VITALS: BP 128/77
--- NOTE | 2021-04-12 08:57 | PDOC ---
PROGRESS NOTES Date of Service: DATE: 04/12/21 TIME: 08:55 Subjective Subjective no complaints on 15L oxygen,NRBM Objective Objective Vital Signs Date Time Temp Pulse Resp B/P (MAP) Pulse Ox O2 Delivery O2 Flow Rate FiO2 04/12/21 07:00 98.7 98 20 128/77 (94) 92 NonRebreather Mask 15.0 98.7 Intake and Output 04/12/21 07:00 Intake Total 50 ml Balance 50 ml Intake Oral 0 ml IV Total 50 ml Physical Exam Abdomen: Soft Heart: Regular rate, Normal S1, Normal S2 Extremities: No clubbing General: Alert HEENT: Atraumatic Lungs: Other (rales at base) MUSCULOSKELETAL: No swelling Neuro: Normal speech Psych/Mental Status: Mental status NL Skin: No breakdown Diagnosis Problem List Problems Medical Problems: (1) COVID-19 Status: Acute Assessment Assessment Problems Medical Problems: (1) COVID-19 Status: Acute FINAL IMPRESSION:inc hypoxia 1. COVID pneumonia.Break through infection,pt vaccinated not boosted. 2. Immune compromised, patient is on chemo for small cell lung cancer. 3. Small cell lung cancer, getting chemotherapy. 4. Hypertension. 5. Hyperlipidemia. PLAN:inc dexa methasone dose to [address] chest christa groundglass infiltrates O2 requirements went up top 15 L added remdesivr spoke with pharmacy changed antibiotics to Zyvox+zosyn DVT prevention with Lovenox inhaler labs stable Plan Plan of Care Problems Medical Problems: (1) COVID-19 Status: Acute Comment Review of Relevant I have reviewed the following items ankit (where applicable) has been applied. Medications Current Medications Dexamethasone (Decadron) 6 mg [id number] PO ; Start 04/12/21 at 08:00 Remdesivir 100 mg/ Sodium Chloride 230 ml @ 460 mls/hr Q24H IV Last administered on 04/11/21at 13:04; Start 04/11/21 at 11:00; Stop 04/14/21 at 11:29 Vitals/I & O Vital Sign - Last 24 Hours 04/11/21 04/11/21 04/11/21 04/11/21 08:57 11:00 15:00 19:00 Temp 99.1 98.1 97.7 99.1 98.1 97.7 Pulse 89 90 87 93 Resp 18 18 18 B/P (MAP) 132/72 141/76 (97) 142/71 (94) 139/72 (94) Pulse Ox 96 94 94 O2 Delivery NonRebreather Mask NonRebreather Mask NonRebreather Mask O2 Flow Rate 15.0 15.0 15.0 04/11/21 04/11/21 04/11/21 04/11/21 20:05 20:55 21:25 23:00 Temp 97.5 97.5 Pulse 85 Resp 18 B/P (MAP) 149/85 (106) Pulse Ox 94 94 92 O2 Delivery Non-Rebreather NonRebreather Mask O2 Flow Rate 15.0 15.0 15.0 15.0 04/12/21 04/12/21 03:10 07:00 Temp 97.5 98.7 97.5 98.7 Pulse 102 98 Resp 20 20 B/P (MAP) 155/85 (108) 128/77 (94) Pulse Ox 92 92 O2 Delivery NonRebreather Mask NonRebreather Mask O2 Flow Rate 15.0 15.0 Intake and Output 0 04/11/21 04/11/21 04/12/21 15:00 23:00 07:00 Intake Total 50 ml Balance 50 ml Justifications for Admission Other Justification WALKER DAVILA MD Apr 12, 2021 08:57
[2021-04-12] MEDS: POTASSIUM CHLORIDE 20 MEQ TABLET.ER. PO SCH (09:15)
[2021-04-12] MEDS: MAGNESIUM OXIDE 400 MG TABLET PO SCH (09:15)
[2021-04-12] MEDS: guaiFENesin DM 600/30MG 1 TAB TAB.ER.12H PO SCH ×2 (09:15→20:47)
[2021-04-12] MEDS: PANTOPRAZOLE 40 MG TABLET.DR. PO SCH (09:15)
[2021-04-12] MEDS: IPRATROPIUM/ALBUTEROL 20/100mcg/INH INHALER. INH SCH ×4 (09:15→20:47)
[2021-04-12] MEDS: LOSARTAN POTASSIUM 25 MG TABLET. PO SCH (09:16)
[2021-04-12] MEDS: DEXAMETHASONE 4 MG TABLET PO SCH (09:16)
[2021-04-12] MEDS: DICYCLOMINE HCL 10 MG CAPSULE PO SCH (09:16)
--- NOTE | 2021-04-12 09:30 | PDOC ---
PULMONARY PROGRESS NOTES DATE: 04/12/21 TIME: 09:30 Subjective Patient feels better, does not wear oxygen at home Vitals Vital Signs Date Time Temp Pulse Resp B/P (MAP) Pulse Ox O2 Delivery O2 Flow Rate FiO2 04/12/21 09:17 98 128/77 04/12/21 07:00 98.7 20 92 NonRebreather Mask 15.0 98.7 Comments Visual exam done due to COVID-19. No paradoxical breathing. No skin rash no leg edema General: Alert, No acute distress Lungs: Clear Cardiovascular: S1, S2 Abdomen: Soft Neuro Exam: Alert Extremities: No Edema Skin: Warm Labs Laboratory Tests Test 04/11/21 07:20 White Blood Count 11.1 x10^3/uL (4.0-11.0) Red Blood Count 4.04 x10^6/uL (3.50-5.40) Hemoglobin 12.6 g/dL (12.0-15.5) Hematocrit 39.1 % (36.0-47.0) Mean Corpuscular Volume 97 fL (79-100) Mean Corpuscular Hemoglobin 31 pg (25-35) Mean Corpuscular Hemoglobin Concent 32 g/dL (31-37) Red Cell Distribution Width 14.1 % (11.5-14.5) Platelet Count 276 x10^3/uL (140-400) Neutrophils (%) (Auto) 80 % (31-73) Lymphocytes (%) (Auto) 12 % (24-48) Monocytes (%) (Auto) 7 % (0-9) Eosinophils (%) (Auto) 1 % (0-3) Basophils (%) (Auto) 0 % (0-3) Neutrophils # (Auto) 8.9 x10^3/uL (1.8-7.7) Lymphocytes # (Auto) 1.3 x10^3/uL (1.0-4.8) Monocytes # (Auto) 0.8 x10^3/uL (0.0-1.1) Eosinophils # (Auto) 0.1 x10^3/uL (0.0-0.7) Basophils # (Auto) 0.0 x10^3/uL (0.0-0.2) Sodium Level 138 mmol/L (136-145) Potassium Level 4.3 mmol/L (3.5-5.1) Chloride Level 107 mmol/L (98-107) Carbon Dioxide Level 19 mmol/L (21-32) Anion Gap 12 (6-14) Blood Urea Nitrogen 35 mg/dL (7-20) Creatinine 1.3 mg/dL (0.6-1.0) Estimated GFR (Cockcroft-Gault) 47.5 Glucose Level 94 mg/dL (70-99) Calcium Level 8.6 mg/dL (8.5-10.1) Medications Active Scripts Medications Dose Route/Sig Max Daily Dose Days Date Category Hydrocodone-Apap 5-325 (Hydrocodone Bit/Acetaminophen) 1 Tab Tablet 1 Tab PO PRN Q8HRS PRN 04/04/21 Reported Magnesium Oxide 400 Mg Tablet 1 Tab PO DAILY 04/04/21 Reported Singulair Tablet (Montelukast Sodium) 10 Mg Tablet 10 Mg PO HS 04/04/21 Reported Pantoprazole Sodium 40 Mg Tablet.dr 40 Mg PO DAILY 04/04/21 Reported Benzonatate 100 Mg Capsule 1 Cap PO TID PRN 01/02/21 Reported Proair Hfa Inhaler (Albuterol Sulfate) 8.5 Gm Hfa.aer.ad 2 Puff IH PRN Q4HRS PRN 21 01/02/21 Reported Meloxicam 7.5 Mg Tablet 7.5 Mg PO DAILY 10/23/19 Reported Klor-Con M20 (Potassium Chloride) 20 Meq Tab.er.prt 1 Tab PO DAILY 30 10/23/19 Reported Dicyclomine Hcl 10 Mg Capsule 20 Mg PO DAILY 10/23/19 Reported Tramadol Hcl 50 Mg Tablet 50 Mg PO Q6HRS PRN 07/17/17 Reported Norvasc (Amlodipine Besylate) 5 Mg Tablet 5 Mg PO DAILY 07/17/17 Reported Dyazide 37.5-25 Capsule (Triamterene/Hydrochlorothiazid) 1 Each Capsule 1 Cap PO QMWF 07/17/17 Reported Losartan Potassium (Losartan Potassium) 25 Mg Tablet 25 Mg PO DAILY 07/17/17 Reported Amitriptyline Hcl 50 Mg Tablet 25 Mg PO HS 07/17/[address] chest reviewed 04/10/2021 Diffuse emphysema, worse in the upper lobes. Development of groundglass infiltrates bilaterally. Is post radiation treatment in the left perihilar area. Impression . 1. Acute hypoxic respiratory failure secondary to COVID-19 viral pneumonia. 2. Underlying chronic obstructive pulmonary disease, the patient is not on home oxygen. 3. History of lung cancer, the patient reports radiation and chemo. Last CT chest from 01/27/2021 showed post-radiation changes in the left perihilar area. New CT chest 04/10/2021 was reviewed. Development of new bilateral groundglass infiltrates compatible with COVID-19 viral pneumonia. 4. Left upper lobe spiculated nodule unchanged in size since January. Plan . Updated 04/12 Continue current support Empiric antibiotics Dexamethasone 04/11 1. Continue with present oxygen, gradually wean to keep saturation 92% and above. Patient is immunocompromised. 2. escalated antibiotic coverage, zosyn and zyvox 3. continue Dexamethasone. 4. Lovenox for DVT prophylaxis. 5. Follow with Medical-Oncology recommendations Discussed with RN. We will closely monitor respiratory status MARIBEL VOGT MD Apr 12, 2021 09:30
--- NOTE | 2021-04-12 10:25 | PDOC ---
Infectious Disease Note Subjective: Subjective Patient remains on nonrebreather States feels a little better Denies fever, nausea, vomiting, chest pain Vital Signs: Vital Signs Vital Signs Date Time Temp Pulse Resp B/P (MAP) Pulse Ox O2 Delivery O2 Flow Rate FiO2 04/12/21 09:17 98 128/77 04/12/21 07:00 98.7 20 92 NonRebreather Mask 15.0 98.7 Physical Exam: PHYSICAL EXAM GENERAL: Alert, oriented x 3. Well-developed, well-nourished female in no acute distress, nontoxic appearing. HEENT: Normocephalic, atraumatic. Anicteric. No thrush. Oral mucosa moist. NECK: Supple, no JVD. LUNGS: Coarse rales present at the bases, otherwise no accessory muscle use. HEART: S1, S2. No murmurs. ABDOMEN: Soft, nontender, nondistended. Bowel sounds present. EXTREMITIES: No edema, no cyanosis. DERMATOLOGIC: Warm, dry, no generalized rash. NEUROLOGIC: Alert, oriented x 3. She has some weakness. Able to move all 4 extremities. PSYCHIATRIC: Calm and cooperative. CHEST WALL: Right Port-A-Cath site clean. Medications: Inpatient Meds: Medications reviewed. Objective: Assessment: 1. 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 2. Acute hypoxic respiratory failure secondary to COVID-19 pneumonia. 3. Leukocytosis, on steroids. 4. 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 Right Port-A-Cath. 6. History of smoking, quit a year ago. 7. Chronic obstructive pulmonary disease. 8. Generalized weakness. 9. Acute kidney injury. Plan: Plan of Care Continue supportive care Continue empiric Zosyn and Zyvox. Patient was started on on remdesivir and steroids. Discussed with nursing staff monitor labs and cultures. Discussed with nursing staff ALINE JACKSON MD Apr 12, 2021 10:25
[2021-04-12 11:00] VITALS: BP 149/84
[2021-04-12] MEDS: REMDESIVIR 100mg in NORMAL SALINE 250ML X 4 DAYS IV SCH (11:25)
[2021-04-12 15:00] VITALS: BP 131/78
[2021-04-12 19:00] VITALS: BP 154/81
[2021-04-12] MEDS: AMITRIPTYLINE HCL 25 MG TABLET. PO SCH (20:47)
[2021-04-12] MEDS: MONTELUKAST SODIUM 10 MG TABLET. PO SCH (20:47)
[2021-04-12] MEDS: LINEZOLID 600 MG TABLET PO SCH (20:47)
[2021-04-12] MEDS: ENOXAPARIN 40 MG/0.4 ML SYRINGE. SQ SCH (21:44)
[2021-04-12] MEDS: BENZONATATE 100 MG CAPSULE. PO PRN (21:48)
[2021-04-12 23:00] VITALS: BP 157/77
[2021-04-13 03:00] VITALS: BP 165/86
[2021-04-13] MEDS: IV NORMAL SALINE 1000ML BAG 1,000 ML IV SCH ×2 (05:40→09:55)
[2021-04-13] MEDS: PIPERACILLIN/TAZOBACTAM 3.375 GM in IV NORMAL SALINE 50ML 50 ML IV SCH ×4 (05:44→22:55)
[2021-04-13 07:00] VITALS: BP 155/81
--- NOTE | 2021-04-13 08:47 | PDOC ---
PROGRESS NOTES Date of Service: DATE: 04/13/21 TIME: 08:45 Subjective Subjective feels slightly better Objective Objective Vital Signs Date Time Temp Pulse Resp B/P (MAP) Pulse Ox O2 Delivery O2 Flow Rate FiO2 04/13/21 03:00 97.9 103 20 165/86 (112) 95 NonRebreather Mask 15.0 97.9 Intake and Output 04/13/21 07:00 Intake Total 180 ml Balance 180 ml Intake Oral 180 ml # Voids 1 # Bowel Movements 1 Physical Exam Abdomen: Soft Heart: Regular rate, Normal S1, Normal S2 Extremities: No clubbing General: Alert HEENT: Atraumatic Lungs: Other (rales at base) MUSCULOSKELETAL: No swelling Neuro: Normal speech Psych/Mental Status: Mental status NL Skin: No breakdown Diagnosis Problem List Problems Medical Problems: (1) COVID-19 Status: Acute Assessment Assessment Problems Medical Problems: (1) COVID-19 Status: Acute FINAL IMPRESSION:inc hypoxia 1. COVID pneumonia.Break through infection,pt vaccinated not boosted. 2. Immune compromised, patient is on chemo for small cell lung cancer. 3. Small cell lung cancer, getting chemotherapy. 4. Hypertension. 5. Hyperlipidemia. PLAN: tachycardia 106 today , continue iv fluids inc dexa methasone dose to [address] chest -christa groundglass infiltrates O2 requirements went up top 15 L added remdesivr , day#3 spoke with pharmacy changed antibiotics to Zyvox+zosyn,day#3 DVT prevention with Lovenox inhaler labs stable Plan Plan of Care Problems Medical Problems: (1) COVID-19 Status: Acute Comment Review of Relevant I have reviewed the following items ankit (where applicable) has been applied. Medications Current Medications Linezolid (Zyvox) 600 mg BID PO Last administered on 04/12/21at 20:47; Start at 21:00 Vitals/I & O Vital Sign - Last 24 Hours 04/12/21 04/12/21 04/12/21 04/12/21 09:16 09:17 11:00 15:00 Temp 99.0 98.9 99.0 98.9 Pulse 98 98 96 102 Resp 20 20 B/P (MAP) 128/77 128/77 149/84 (105) 131/78 (95) Pulse Ox 93 94 O2 Delivery NonRebreather Mask NonRebreather Mask O2 Flow Rate 15.0 15.0 04/12/21 04/12/21 04/12/21 04/13/21 19:00 20:00 23:00 03:00 Temp 97.8 97.4 97.9 97.8 97.4 97.9 Pulse 100 94 103 Resp 18 18 20 B/P (MAP) 154/81 (105) 157/77 (103) 165/86 (112) Pulse Ox 96 94 95 O2 Delivery NonRebreather Mask Non-Rebreather NonRebreather Mask NonRebreather Mask O2 Flow Rate 15.0 15.0 15.0 15.0 Intake and Output 04/12/21 04/12/21 04/13/21 15:00 23:00 07:00 Intake Total 180 ml Balance 180 ml Justifications for Admission Other Justification WALKER DAVILA MD Apr 13, 2021 08:47
[2021-04-13] MEDS: IPRATROPIUM/ALBUTEROL 20/100mcg/INH INHALER. INH SCH ×4 (09:41→22:13)
[2021-04-13] MEDS: DICYCLOMINE HCL 10 MG CAPSULE PO SCH (09:41)
[2021-04-13] MEDS: PANTOPRAZOLE 40 MG TABLET.DR. PO SCH (09:41)
[2021-04-13] MEDS: LOSARTAN POTASSIUM 25 MG TABLET. PO SCH (09:42)
[2021-04-13] MEDS: POTASSIUM CHLORIDE 20 MEQ TABLET.ER. PO SCH (09:42)
--- NOTE | 2021-04-13 09:42 | PDOC ---
PULMONARY PROGRESS NOTES DATE: 04/13/21 TIME: 09:42 Subjective Patient feels no better nor worse Currently on nasal cannula and nonrebreather No chest pain or pressure Vitals Vital Signs Date Time Temp Pulse Resp B/P (MAP) Pulse Ox O2 Delivery O2 Flow Rate FiO2 04/13/21 07:00 98.5 108 20 155/81 (105) 94 NonRebreather Mask 15.0 98.5 General: Alert, No acute distress Lungs: Clear Cardiovascular: S1, S2 Abdomen: Soft Neuro Exam: Alert Extremities: No Edema Skin: Warm Medications Active Scripts Medications Dose Route/Sig Max Daily Dose Days Date Category Hydrocodone-Apap 5-325 (Hydrocodone Bit/Acetaminophen) 1 Tab Tablet 1 Tab PO PRN Q8HRS PRN 04/04/21 Reported Magnesium Oxide 400 Mg Tablet 1 Tab PO DAILY 04/04/21 Reported Singulair Tablet (Montelukast Sodium) 10 Mg Tablet 10 Mg PO HS 04/04/21 Reported Pantoprazole Sodium 40 Mg Tablet.dr 40 Mg PO DAILY 04/04/21 Reported Benzonatate 100 Mg Capsule 1 Cap PO TID PRN 01/02/21 Reported Proair Hfa Inhaler (Albuterol Sulfate) 8.5 Gm Hfa.aer.ad 2 Puff IH PRN Q4HRS PRN 21 01/02/21 Reported Meloxicam 7.5 Mg Tablet 7.5 Mg PO DAILY 10/23/19 Reported Klor-Con M20 (Potassium Chloride) 20 Meq Tab.er.prt 1 Tab PO DAILY 30 10/23/19 Reported Dicyclomine Hcl 10 Mg Capsule 20 Mg PO DAILY 10/23/19 Reported Tramadol Hcl 50 Mg Tablet 50 Mg PO Q6HRS PRN 07/17/17 Reported Norvasc (Amlodipine Besylate) 5 Mg Tablet 5 Mg PO DAILY 07/17/17 Reported Dyazide 37.5-25 Capsule (Triamterene/Hydrochlorothiazid) 1 Each Capsule 1 Cap PO QMWF 07/17/17 Reported Losartan Potassium (Losartan Potassium) 25 Mg Tablet 25 Mg PO DAILY 07/17/17 Reported Amitriptyline Hcl 50 Mg Tablet 25 Mg PO HS 07/17/[address] chest reviewed 04/10/2021 Diffuse emphysema, worse in the upper lobes. Development of groundglass infiltrates bilaterally. Is post radiation treatment in the left perihilar area. Impression . 1. Acute hypoxic respiratory failure secondary to COVID-19 viral pneumonia. 2. Underlying chronic obstructive pulmonary disease, the patient is not on home oxygen. 3. History of lung cancer, the patient reports radiation and chemo. Last CT chest from 01/27/2021 showed post-radiation changes in the left perihilar area. New CT chest 04/10/2021 was reviewed. Development of new bilateral groundglass infiltrates compatible with COVID-19 viral pneumonia. 4. Left upper lobe spiculated nodule unchanged in size since January. Plan . Continue oxygen supplementation Empiric antibiotics Dexamethasone DVT GI prophylaxis Follow oncology input MARIBEL VOGT MD Apr 13, 2021 09:42
[2021-04-13] MEDS: DEXAMETHASONE 4 MG TABLET PO SCH (09:43)
[2021-04-13] MEDS: guaiFENesin DM 600/30MG 1 TAB TAB.ER.12H PO SCH ×2 (09:43→22:14)
[2021-04-13] MEDS: MAGNESIUM OXIDE 400 MG TABLET PO SCH (09:43)
[2021-04-13] MEDS: LINEZOLID 600 MG TABLET PO SCH (09:50)
--- NOTE | 2021-04-13 10:11 | NUR ---
SW following. Discussed with RN, pt still requiring high levels of oxygen. COVID-19 positive. Not yet ready for discharge. SW will continue to follow.
[2021-04-13] MEDS: REMDESIVIR 100mg in NORMAL SALINE 250ML X 4 DAYS IV SCH (10:31)
--- NOTE | 2021-04-13 10:33 | PDOC ---
Infectious Disease Note Subjective: Subjective Patient states he feels a little better Remains on nonrebreather Has dry cough Desaturates with getting out of bed Denies fever, nausea, vomiting, chest pain Discussed with RN Vital Signs: Vital Signs Vital Signs Date Time Temp Pulse Resp B/P (MAP) Pulse Ox O2 Delivery O2 Flow Rate FiO2 04/13/21 09:43 108 155/81 04/13/21 07:00 98.5 20 94 NonRebreather Mask 15.0 98.5 Physical Exam: PHYSICAL EXAM GENERAL: Alert, awake well-developed, well-nourished female in no acute distress, nontoxic appearing. On nonrebreather HEENT: Normocephalic, atraumatic. Anicteric. No thrush. Oral mucosa moist. NECK: Supple, no JVD. LUNGS: Coarse rales present at the bases, otherwise no accessory muscle use. HEART: S1, S2. No murmurs. ABDOMEN: Soft, nontender, nondistended. Bowel sounds present. EXTREMITIES: No edema, no cyanosis. DERMATOLOGIC: Warm, dry, no generalized rash. NEUROLOGIC: Alert, oriented x 3. She has some weakness. Able to move all 4 extremities. PSYCHIATRIC: Calm and cooperative. CHEST WALL: Right Groshong shunt site clean Medications: Inpatient Meds: Medications reviewed. Objective: Assessment: 1. 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 2. Acute hypoxic respiratory failure secondary to COVID-19 pneumonia. 3. Leukocytosis, on steroids. 4. 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 Right chest wall Groshong shunt 6. History of smoking, quit a year ago. 7. Chronic obstructive pulmonary disease. 8. Generalized weakness. 9. Acute kidney injury. Plan: Plan of Care Continue supportive care Continue empiric VALENCIA Kirkpatrick Zyvox. Was previously on ceftriaxone and azithromycin Patient was started on on remdesivir and steroids. monitor labs and cultures. Discussed with nursing staff ALINE JACKSON MD Apr 13, 2021 10:33
[2021-04-13 11:00] VITALS: BP 171/81
[2021-04-13 15:00] VITALS: BP 146/77
[2021-04-13 19:00] VITALS: BP 156/85
[2021-04-13] MEDS: BENZONATATE 100 MG CAPSULE. PO PRN (22:13)
[2021-04-13] MEDS: HYDROcodone/APAP 5/325MG 1 TAB TABLET PO PRN (22:14)
[2021-04-13] MEDS: AMITRIPTYLINE HCL 25 MG TABLET. PO SCH (22:14)
[2021-04-13] MEDS: MONTELUKAST SODIUM 10 MG TABLET. PO SCH (22:14)
[2021-04-13] MEDS: ENOXAPARIN 40 MG/0.4 ML SYRINGE. SQ SCH (22:17)
[2021-04-13 23:03] VITALS: BP 157/76
[2021-04-14 03:12] VITALS: BP 127/69
[2021-04-14] MEDS: IV NORMAL SALINE 1000ML BAG 1,000 ML IV SCH ×2 (03:45→21:37)
[2021-04-14] MEDS: PIPERACILLIN/TAZOBACTAM 3.375 GM in IV NORMAL SALINE 50ML 50 ML IV SCH ×4 (05:18→23:34)
[2021-04-14 07:00] VITALS: BP 127/69
[2021-04-14 08:05] LABS: BASO % 0 % (0-3); EOS % 0 % (0-3); HEMATOCRIT 36.9 % (36.0-47.0); LYMPH # 1.2 x10^3/uL (1.0-4.8); LYMPH % 10 % (24-48); MEAN CORPUSCULAR HEMOGLOBIN 32 pg (25-35); MEAN CORPUSCULAR HGB CONC 33 g/dL (31-37); MEAN CORPUSCULAR VOLUME 96 fL (79-100); MONO # 0.7 x10^3/uL (0.0-1.1); MONO % 6 % (0-9); NEUT # 9.6 x10^3/uL (1.8-7.7); NEUT % 84 % (31-73); PLATELET COUNT 238 x10^3/uL (140-400); RED BLOOD COUNT 3.83 x10^6/uL (3.50-5.40); RED CELL DISTRIBUTION WIDTH 14.1 % (11.5-14.5); WHITE BLOOD COUNT 11.5 x10^3/uL (4.0-11.0)
[2021-04-14 08:33] LABS: CALCIUM 8.3 mg/dL (8.5-10.1); CREATININE 1.1 mg/dL (0.6-1.0); GFR 57.5; POTASSIUM 4.1 mmol/L (3.5-5.1)
[2021-04-14] MEDS: MAGNESIUM OXIDE 400 MG TABLET PO SCH (08:34)
[2021-04-14] MEDS: guaiFENesin DM 600/30MG 1 TAB TAB.ER.12H PO SCH ×2 (08:34→20:16)
[2021-04-14] MEDS: DICYCLOMINE HCL 10 MG CAPSULE PO SCH (08:34)
[2021-04-14] MEDS: DEXAMETHASONE 4 MG TABLET PO SCH (08:35)
[2021-04-14] MEDS: IPRATROPIUM/ALBUTEROL 20/100mcg/INH INHALER. INH SCH ×4 (08:35→20:15)
[2021-04-14] MEDS: POTASSIUM CHLORIDE 20 MEQ TABLET.ER. PO SCH (08:35)
[2021-04-14] MEDS: PANTOPRAZOLE 40 MG TABLET.DR. PO SCH (08:35)
--- NOTE | 2021-04-14 08:49 | PDOC ---
PULMONARY PROGRESS NOTES DATE: 04/14/21 TIME: 08:47 Subjective Patient feels no better nor worse Currently on NC 15L and NRB 15L No chest pain or pressure Vitals Vital Signs Date Time Temp Pulse Resp B/P (MAP) Pulse Ox O2 Delivery O2 Flow Rate FiO2 04/14/21 07:00 98.2 89 20 127/69 (88) 97 NonRebreather Mask 98.2 04/13/21 22:44 15.0 ROS: No Nausea, No Chest Pain, No Abdominal Pain, No Increase Cough General: Alert, No acute distress Lungs: Clear Cardiovascular: S1, S2 Abdomen: Soft Neuro Exam: Alert Extremities: No Edema Skin: Warm Labs Laboratory Tests Test 04/14/21 06:15 04/14/21 06:35 White Blood Count 11.5 x10^3/uL (4.0-11.0) Red Blood Count 3.83 x10^6/uL (3.50-5.40) Hemoglobin 12.0 g/dL (12.0-15.5) Hematocrit 36.9 % (36.0-47.0) Mean Corpuscular Volume 96 fL (79-100) Mean Corpuscular Hemoglobin 32 pg (25-35) Mean Corpuscular Hemoglobin Concent 33 g/dL (31-37) Red Cell Distribution Width 14.1 % (11.5-14.5) Platelet Count 238 x10^3/uL (140-400) Neutrophils (%) (Auto) 84 % (31-73) Lymphocytes (%) (Auto) 10 % (24-48) Monocytes (%) (Auto) 6 % (0-9) Eosinophils (%) (Auto) 0 % (0-3) Basophils (%) (Auto) 0 % (0-3) Neutrophils # (Auto) 9.6 x10^3/uL (1.8-7.7) Lymphocytes # (Auto) 1.2 x10^3/uL (1.0-4.8) Monocytes # (Auto) 0.7 x10^3/uL (0.0-1.1) Eosinophils # (Auto) 0.0 x10^3/uL (0.0-0.7) Basophils # (Auto) 0.0 x10^3/uL (0.0-0.2) Sodium Level 139 mmol/L (136-145) Potassium Level 4.1 mmol/L (3.5-5.1) Chloride Level 105 mmol/L (98-107) Carbon Dioxide Level 22 mmol/L (21-32) Anion Gap 12 (6-14) Blood Urea Nitrogen 27 mg/dL (7-20) Creatinine 1.1 mg/dL (0.6-1.0) Estimated GFR (Cockcroft-Gault) 57.5 Glucose Level 90 mg/dL (70-99) Calcium Level 8.3 mg/dL (8.5-10.1) Laboratory Tests Test 04/14/21 06:15 04/14/21 06:35 White Blood Count 11.5 x10^3/uL (4.0-11.0) Red Blood Count 3.83 x10^6/uL (3.50-5.40) Hemoglobin 12.0 g/dL (12.0-15.5) Hematocrit 36.9 % (36.0-47.0) Mean Corpuscular Volume 96 fL (79-100) Mean Corpuscular Hemoglobin 32 pg (25-35) Mean Corpuscular Hemoglobin Concent 33 g/dL (31-37) Red Cell Distribution Width 14.1 % (11.5-14.5) Platelet Count 238 x10^3/uL (140-400) Neutrophils (%) (Auto) 84 % (31-73) Lymphocytes (%) (Auto) 10 % (24-48) Monocytes (%) (Auto) 6 % (0-9) Eosinophils (%) (Auto) 0 % (0-3) Basophils (%) (Auto) 0 % (0-3) Neutrophils # (Auto) 9.6 x10^3/uL (1.8-7.7) Lymphocytes # (Auto) 1.2 x10^3/uL (1.0-4.8) Monocytes # (Auto) 0.7 x10^3/uL (0.0-1.1) Eosinophils # (Auto) 0.0 x10^3/uL (0.0-0.7) Basophils # (Auto) 0.0 x10^3/uL (0.0-0.2) Sodium Level 139 mmol/L (136-145) Potassium Level 4.1 mmol/L (3.5-5.1) Chloride Level 105 mmol/L (98-107) Carbon Dioxide Level 22 mmol/L (21-32) Anion Gap 12 (6-14) Blood Urea Nitrogen 27 mg/dL (7-20) Creatinine 1.1 mg/dL (0.6-1.0) Estimated GFR (Cockcroft-Gault) 57.5 Glucose Level 90 mg/dL (70-99) Calcium Level 8.3 mg/dL (8.5-10.1) Medications Active Scripts Medications Dose Route/Sig Max Daily Dose Days Date Category Hydrocodone-Apap 5-325 (Hydrocodone Bit/Acetaminophen) 1 Tab Tablet 1 Tab PO PRN Q8HRS PRN 04/04/21 Reported Magnesium Oxide 400 Mg Tablet 1 Tab PO DAILY 04/04/21 Reported Singulair Tablet (Montelukast Sodium) 10 Mg Tablet 10 Mg PO HS 04/04/21 Reported Pantoprazole Sodium 40 Mg Tablet.dr 40 Mg PO DAILY 04/04/21 Reported Benzonatate 100 Mg Capsule 1 Cap PO TID PRN 01/02/21 Reported Proair Hfa Inhaler (Albuterol Sulfate) 8.5 Gm Hfa.aer.ad 2 Puff IH PRN Q4HRS PRN 21 01/02/21 Reported Meloxicam 7.5 Mg Tablet 7.5 Mg PO DAILY 10/23/19 Reported Klor-Con M20 (Potassium Chloride) 20 Meq Tab.er.prt 1 Tab PO DAILY 30 10/23/19 Reported Dicyclomine Hcl 10 Mg Capsule 20 Mg PO DAILY 10/23/19 Reported Tramadol Hcl 50 Mg Tablet 50 Mg PO Q6HRS PRN 07/17/17 Reported Norvasc (Amlodipine Besylate) 5 Mg Tablet 5 Mg PO DAILY 07/17/17 Reported Dyazide 37.5-25 Capsule (Triamterene/Hydrochlorothiazid) 1 Each Capsule 1 Cap PO QMWF 07/17/17 Reported Losartan Potassium (Losartan Potassium) 25 Mg Tablet 25 Mg PO DAILY 07/17/17 Reported Amitriptyline Hcl 50 Mg Tablet 25 Mg PO HS 07/17/[address] chest reviewed 04/10/2021 Diffuse emphysema, worse in the upper lobes. Development of groundglass infiltrates bilaterally. Is post radiation treatment in the left perihilar area. Impression . 1. Acute hypoxic respiratory failure secondary to COVID-19 viral pneumonia. 2. Underlying chronic obstructive pulmonary disease, the patient is not on home oxygen. 3. History of lung cancer, the patient reports radiation and chemo. Last CT chest from 01/27/2021 showed post-radiation changes in the left perihilar area. New CT chest 04/10/2021 was reviewed. Development of new bilateral groundglass infiltrates compatible with COVID-19 viral pneumonia. 4. Left upper lobe spiculated nodule unchanged in size since January. Plan . Continue oxygen supplementation Empiric antibiotics Dexamethasone DVT GI prophylaxis Follow oncology input MARIBEL VOGT MD Apr 14, 2021 08:49
--- NOTE | 2021-04-14 08:54 | PDOC ---
Infectious Disease Note Subjective: Subjective Patient feels okay Still remains on nonrebreather Discussed with RN Vital Signs: Vital Signs Vital Signs Date Time Temp Pulse Resp B/P (MAP) Pulse Ox O2 Delivery O2 Flow Rate FiO2 04/14/21 07:00 98.2 89 20 127/69 (88) 97 NonRebreather Mask 98.2 04/13/21 22:44 15.0 Physical Exam: PHYSICAL EXAM GENERAL: Alert, awake well-developed, well-nourished female in no acute distress, nontoxic appearing. On nonrebreather HEENT: Normocephalic, atraumatic. Anicteric. No thrush. Oral mucosa moist. NECK: Supple, no JVD. LUNGS: Coarse rales present at the bases, otherwise no accessory muscle use. HEART: S1, S2. No murmurs. ABDOMEN: Soft, nontender, nondistended. Bowel sounds present. EXTREMITIES: No edema, no cyanosis. DERMATOLOGIC: Warm, dry, no generalized rash. NEUROLOGIC: Alert, oriented x 3. She has some weakness. Able to move all 4 extremities. PSYCHIATRIC: Calm and cooperative. CHEST WALL: Right Groshong shunt site clean Medications: Inpatient Meds: Medications reviewed. Labs: Lab Laboratory Tests Test 04/14/21 06:15 04/14/21 06:35 White Blood Count 11.5 x10^3/uL (4.0-11.0) Red Blood Count 3.83 x10^6/uL (3.50-5.40) Hemoglobin 12.0 g/dL (12.0-15.5) Hematocrit 36.9 % (36.0-47.0) Mean Corpuscular Volume 96 fL (79-100) Mean Corpuscular Hemoglobin 32 pg (25-35) Mean Corpuscular Hemoglobin Concent 33 g/dL (31-37) Red Cell Distribution Width 14.1 % (11.5-14.5) Platelet Count 238 x10^3/uL (140-400) Neutrophils (%) (Auto) 84 % (31-73) Lymphocytes (%) (Auto) 10 % (24-48) Monocytes (%) (Auto) 6 % (0-9) Eosinophils (%) (Auto) 0 % (0-3) Basophils (%) (Auto) 0 % (0-3) Neutrophils # (Auto) 9.6 x10^3/uL (1.8-7.7) Lymphocytes # (Auto) 1.2 x10^3/uL (1.0-4.8) Monocytes # (Auto) 0.7 x10^3/uL (0.0-1.1) Eosinophils # (Auto) 0.0 x10^3/uL (0.0-0.7) Basophils # (Auto) 0.0 x10^3/uL (0.0-0.2) Sodium Level 139 mmol/L (136-145) Potassium Level 4.1 mmol/L (3.5-5.1) Chloride Level 105 mmol/L (98-107) Carbon Dioxide Level 22 mmol/L (21-32) Anion Gap 12 (6-14) Blood Urea Nitrogen 27 mg/dL (7-20) Creatinine 1.1 mg/dL (0.6-1.0) Estimated GFR (Cockcroft-Gault) 57.5 Glucose Level 90 mg/dL (70-99) Calcium Level 8.3 mg/dL (8.5-10.1) Objective: Assessment: 1. 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 2. Acute hypoxic respiratory failure secondary to COVID-19 pneumonia. 3. Leukocytosis, on steroids. 4. 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 Right chest wall Groshong shunt 6. History of smoking, quit a year ago. 7. Chronic obstructive pulmonary disease. 8. Generalized weakness. 9. Acute kidney injury. Plan: Plan of Care Continue supportive care Continue empiric Zosyn , Was previously on ceftriaxone, azithromycin and Zyvox Currently on remdesivir and steroids per primary. monitor labs and cultures. Discussed with nursing staff ALINE JACKSON MD Apr 14, 2021 08:54
--- NOTE | 2021-04-14 09:03 | PDOC ---
PROGRESS NOTES Date of Service: DATE: 04/14/21 TIME: 09:01 Subjective Subjective no new problems Objective Objective Vital Signs Date Time Temp Pulse Resp B/P (MAP) Pulse Ox O2 Delivery O2 Flow Rate FiO2 04/14/21 07:00 98.2 89 20 127/69 (88) 97 NonRebreather Mask 98.2 04/13/21 22:44 15.0 Intake and Output 04/14/21 07:00 Intake Total 580 ml Output Total 400 ml Balance 180 ml Intake Oral 580 ml Output Urine Total 400 ml # Bowel Movements 1 Physical Exam Abdomen: Soft Heart: Regular rate, Normal S1, Normal S2 Extremities: No clubbing General: Alert HEENT: Atraumatic Lungs: Other (rales at base) MUSCULOSKELETAL: No swelling Neuro: Normal speech Psych/Mental Status: Mental status NL Skin: No breakdown Diagnosis Problem List Problems Medical Problems: (1) COVID-19 Status: Acute Assessment Assessment Problems Medical Problems: (1) COVID-19 Status: Acute FINAL IMPRESSION:Pneumonia with hypoxia 1. COVID pneumonia.Break through infection,pt vaccinated not boosted. 2. Immune compromised, patient is on chemo for small cell lung cancer. 3. Small cell lung cancer, getting chemotherapy. 4. Hypertension. 5. Hyperlipidemia. PLAN:labs good today tachycardia resolved , continue iv fluids inc dexa methasone dose to [address] chest -christa groundglass infiltrates O2 requirements went up top 15 L added remdesivr , day#4 spoke with pharmacy changed antibiotics to Zyvox+zosyn,day#4 DVT prevention with Lovenox Plan Plan of Care Problems Medical Problems: (1) COVID-19 Status: Acute Comment Review of Relevant I have reviewed the following items ankit (where applicable) has been applied. Labs Laboratory Tests Test 04/14/21 06:15 04/14/21 06:35 White Blood Count 11.5 x10^3/uL (4.0-11.0) Red Blood Count 3.83 x10^6/uL (3.50-5.40) Hemoglobin 12.0 g/dL (12.0-15.5) Hematocrit 36.9 % (36.0-47.0) Mean Corpuscular Volume 96 fL (79-100) Mean Corpuscular Hemoglobin 32 pg (25-35) Mean Corpuscular Hemoglobin Concent 33 g/dL (31-37) Red Cell Distribution Width 14.1 % (11.5-14.5) Platelet Count 238 x10^3/uL (140-400) Neutrophils (%) (Auto) 84 % (31-73) Lymphocytes (%) (Auto) 10 % (24-48) Monocytes (%) (Auto) 6 % (0-9) Eosinophils (%) (Auto) 0 % (0-3) Basophils (%) (Auto) 0 % (0-3) Neutrophils # (Auto) 9.6 x10^3/uL (1.8-7.7) Lymphocytes # (Auto) 1.2 x10^3/uL (1.0-4.8) Monocytes # (Auto) 0.7 x10^3/uL (0.0-1.1) Eosinophils # (Auto) 0.0 x10^3/uL (0.0-0.7) Basophils # (Auto) 0.0 x10^3/uL (0.0-0.2) Sodium Level 139 mmol/L (136-145) Potassium Level 4.1 mmol/L (3.5-5.1) Chloride Level 105 mmol/L (98-107) Carbon Dioxide Level 22 mmol/L (21-32) Anion Gap 12 (6-14) Blood Urea Nitrogen 27 mg/dL (7-20) Creatinine 1.1 mg/dL (0.6-1.0) Estimated GFR (Cockcroft-Gault) 57.5 Glucose Level 90 mg/dL (70-99) Calcium Level 8.3 mg/dL (8.5-10.1) Vitals/I & O Vital Sign - Last 24 Hours 04/13/21 04/13/21 04/13/21 04/13/21 09:42 09:43 11:00 15:00 Temp 98.7 98.4 98.7 98.4 Pulse 108 108 104 99 Resp 18 18 B/P (MAP) 155/81 155/81 171/81 (111) 146/77 (100) Pulse Ox 95 96 O2 Delivery NonRebreather Mask NonRebreather Mask O2 Flow Rate 15.0 15.0 04/13/21 04/13/21 04/13/21 04/13/21 19:00 20:00 22:14 22:44 Temp 98.5 98.5 Pulse 97 Resp 20 18 18 B/P (MAP) 156/85 (108) Pulse Ox 98 98 98 O2 Delivery NonRebreather Mask Non-Rebreather NonRebreather Mask O2 Flow Rate 15.0 15.0 15.0 04/13/21 04/14/21 04/14/21 23:03 03:12 07:00 Temp 98.2 97.7 98.2 98.2 97.7 98.2 Pulse 93 85 89 Resp 20 20 20 B/P (MAP) 157/76 (103) 127/69 (88) 127/69 (88) Pulse Ox 96 93 97 O2 Delivery NonRebreather Mask NonRebreather Mask NonRebreather Mask Intake and Output 04/13/21 04/13/21 04/14/21 15:00 23:00 07:00 Intake Total 100 ml 480 ml Output Total 400 ml Balance 100 ml 80 ml Justifications for Admission Other Justification WALKER DAVILA MD Apr 14, 2021 09:03
[2021-04-14] MEDS: LOSARTAN POTASSIUM 25 MG TABLET. PO SCH (09:50)
[2021-04-14 11:00] VITALS: BP 120/72
[2021-04-14] MEDS: REMDESIVIR 100mg in NORMAL SALINE 250ML X 4 DAYS IV SCH (13:36)
[2021-04-14 15:00] VITALS: BP 143/77
[2021-04-14 19:00] VITALS: BP 134/75
[2021-04-14] MEDS: HYDROcodone/APAP 5/325MG 1 TAB TABLET PO PRN (20:16)
[2021-04-14] MEDS: BENZONATATE 100 MG CAPSULE. PO PRN (20:16)
[2021-04-14] MEDS: MONTELUKAST SODIUM 10 MG TABLET. PO SCH (20:16)
[2021-04-14] MEDS: AMITRIPTYLINE HCL 25 MG TABLET. PO SCH (20:16)
[2021-04-14] MEDS: ENOXAPARIN 40 MG/0.4 ML SYRINGE. SQ SCH (21:40)
[2021-04-14 23:04] VITALS: BP 140/71
[2021-04-15 03:29] VITALS: BP 129/64
[2021-04-15] MEDS: PIPERACILLIN/TAZOBACTAM 3.375 GM in IV NORMAL SALINE 50ML 50 ML IV SCH ×3 (05:14→18:00)
--- NOTE | 2021-04-15 05:57 | PDOC ---
Infectious Disease Note Subjective: Subjective Patient feels better Still remains on nonrebreather Discussed with RN Vital Signs: Vital Signs Vital Signs Date Time Temp Pulse Resp B/P (MAP) Pulse Ox O2 Delivery O2 Flow Rate FiO2 04/15/21 03:29 97.4 78 20 129/64 (85) 93 NonRebreather Mask 97.4 04/14/21 20:46 15.0 Physical Exam: PHYSICAL EXAM GENERAL: Alert, awake well-developed, well-nourished female in no acute distress, nontoxic appearing. On nonrebreather HEENT: Normocephalic, atraumatic. Anicteric. No thrush. Oral mucosa moist. NECK: Supple, no JVD. LUNGS: Coarse rales present at the bases, otherwise no accessory muscle use. HEART: S1, S2. No murmurs. ABDOMEN: Soft, nontender, nondistended. Bowel sounds present. EXTREMITIES: No edema, no cyanosis. DERMATOLOGIC: Warm, dry, no generalized rash. NEUROLOGIC: Alert, oriented x 3. She has some weakness. Able to move all 4 extremities. PSYCHIATRIC: Calm and cooperative. CHEST WALL: Right Gro[place]ong shunt site clean Medications: Inpatient Meds: Medications reviewed. Labs: Lab Laboratory Tests Test 04/14/21 06:15 04/14/21 06:35 White Blood Count 11.5 x10^3/uL (4.0-11.0) Red Blood Count 3.83 x10^6/uL (3.50-5.40) Hemoglobin 12.0 g/dL (12.0-15.5) Hematocrit 36.9 % (36.0-47.0) Mean Corpuscular Volume 96 fL (79-100) Mean Corpuscular Hemoglobin 32 pg (25-35) Mean Corpuscular Hemoglobin Concent 33 g/dL (31-37) Red Cell Distribution Width 14.1 % (11.5-14.5) Platelet Count 238 x10^3/uL (140-400) Neutrophils (%) (Auto) 84 % (31-73) Lymphocytes (%) (Auto) 10 % (24-48) Monocytes (%) (Auto) 6 % (0-9) Eosinophils (%) (Auto) 0 % (0-3) Basophils (%) (Auto) 0 % (0-3) Neutrophils # (Auto) 9.6 x10^3/uL (1.8-7.7) Lymphocytes # (Auto) 1.2 x10^3/uL (1.0-4.8) Monocytes # (Auto) 0.7 x10^3/uL (0.0-1.1) Eosinophils # (Auto) 0.0 x10^3/uL (0.0-0.7) Basophils # (Auto) 0.0 x10^3/uL (0.0-0.2) Sodium Level 139 mmol/L (136-145) Potassium Level 4.1 mmol/L (3.5-5.1) Chloride Level 105 mmol/L (98-107) Carbon Dioxide Level 22 mmol/L (21-32) Anion Gap 12 (6-14) Blood Urea Nitrogen 27 mg/dL (7-20) Creatinine 1.1 mg/dL (0.6-1.0) Estimated GFR (Cockcroft-Gault) 57.5 Glucose Level 90 mg/dL (70-99) Calcium Level 8.3 mg/dL (8.5-10.1) Objective: Assessment: 1. COVID-19 pneumonia [employer] 2 weeks before admission. 2. Acute hypoxic respiratory failure secondary to COVID-19 pneumonia. 3. Leukocytosis, on steroids. 4. History of small lung carcinoma, status post radiation and chemo, recent chemotherapy [employer] 5. Right chest wall Groshong shunt 6. History of smoking, quit a year ago. 7. Chronic obstructive pulmonary disease. 8. Generalized weakness. 9. Acute kidney injury. Plan: Plan of Care Continue supportive care Cont Zosyn, taper soon Currently on remdesivir and steroids per primary. monitor labs and cultures. Discussed with nursing staff ALINE JACKSON MD Apr 15, 2021 05:57
[2021-04-15 07:00] VITALS: BP 162/91
--- NOTE | 2021-04-15 08:22 | PDOC ---
PROGRESS NOTES Date of Service: DATE: 04/15/21 TIME: 08:20 Subjective Subjective no new complaints Objective Objective Vital Signs Date Time Temp Pulse Resp B/P (MAP) Pulse Ox O2 Delivery O2 Flow Rate FiO2 04/15/21 03:29 97.4 78 20 129/64 (85) 93 NonRebreather Mask 97.4 04/14/21 20:46 15.0 Intake and Output 04/15/21 07:00 Intake Total 360 ml Output Total 1000 ml Balance -640 ml Intake Oral 360 ml Output Urine Total 1000 ml Physical Exam Abdomen: Soft Heart: Regular rate, Normal S1, Normal S2 Extremities: No clubbing General: Alert HEENT: Atraumatic Lungs: Other (rales at base) MUSCULOSKELETAL: No swelling Neuro: Normal speech Psych/Mental Status: Mental status NL Skin: No breakdown Diagnosis Problem List Problems Medical Problems: (1) COVID-19 Status: Acute Assessment Assessment Problems Medical Problems: (1) COVID-19 Status: Acute FINAL IMPRESSION:Pneumonia with hypoxia 1. COVID pneumonia.Break through infection,pt vaccinated not boosted. 2. Immune compromised, patient is on chemo for small cell lung cancer. 3. Small cell lung cancer, getting chemotherapy. 4. Hypertension. 5. Hyperlipidemia. PLAN: spoke nino DAMICO. labs good today tachycardia resolved , continue iv fluids inc dexa methasone dose to [address] chest -christa groundglass infiltrates O2 requirements went up top 15 L added remdesivr , day#5 spoke with pharmacy changed antibiotics to zosyn,day#5,Zyvox d/mehran DVT prevention with Lovenox Plan Plan of Care Problems Medical Problems: (1) COVID-19 Status: Acute Comment Review of Relevant I have reviewed the following items ankit (where applicable) has been applied. Vitals/I & O Vital Sign - Last 24 Hours 04/14/21 04/14/21 04/14/21 04/14/21 09:50 09:50 11:00 15:00 Temp 98.3 98.0 98.3 98.0 Pulse 89 89 97 80 Resp 20 20 B/P (MAP) 127/69 127/69 120/72 (88) 143/77 (99) Pulse Ox 95 98 O2 Delivery NonRebreather Mask NonRebreather Mask O2 Flow Rate 15.0 15.0 04/14/21 04/14/21 04/14/21 04/14/21 19:00 20:00 20:16 20:46 Temp 98.4 98.4 Pulse 94 Resp 20 18 18 B/P (MAP) 134/75 (94) Pulse Ox 96 96 96 O2 Delivery NonRebreather Mask Non-Rebreather NonRebreather Mask NonRebreather Mask O2 Flow Rate 15.0 15.0 15.0 04/14/21 04/15/21 23:04 03:29 Temp 98.3 97.4 98.3 97.4 Pulse 89 78 Resp 20 20 B/P (MAP) 140/71 (94) 129/64 (85) Pulse Ox 91 93 O2 Delivery NonRebreather Mask NonRebreather Mask Intake and Output 04/14/21 04/14/21 04/15/21 15:00 23:00 07:00 Intake Total 240 ml 120 ml Output Total 600 ml 400 ml Balance -360 ml -280 ml Justifications for Admission Other Justification WALKER DAVILA MD Apr 15, 2021 08:22
[2021-04-15] MEDS: DICYCLOMINE HCL 10 MG CAPSULE PO SCH (09:43)
[2021-04-15] MEDS: DEXAMETHASONE 4 MG TABLET PO SCH (09:43)
[2021-04-15] MEDS: guaiFENesin DM 600/30MG 1 TAB TAB.ER.12H PO SCH ×2 (09:44→21:24)
[2021-04-15] MEDS: LOSARTAN POTASSIUM 25 MG TABLET. PO SCH (09:44)
[2021-04-15] MEDS: MAGNESIUM OXIDE 400 MG TABLET PO SCH (09:44)
[2021-04-15] MEDS: PANTOPRAZOLE 40 MG TABLET.DR. PO SCH (09:44)
[2021-04-15] MEDS: POTASSIUM CHLORIDE 20 MEQ TABLET.ER. PO SCH (09:44)
[2021-04-15] MEDS: IPRATROPIUM/ALBUTEROL 20/100mcg/INH INHALER. INH SCH ×4 (09:45→21:23)
[2021-04-15] MEDS: IV NORMAL SALINE 1000ML BAG 1,000 ML IV SCH (09:52)
--- NOTE | 2021-04-15 10:19 | PDOC ---
PULMONARY PROGRESS NOTES DATE: 04/15/21 TIME: 10:19 Subjective Patient sitting up in bed this morning, feels a little better today Continues on NC 15L and NRB 15L No new concerns voiced. Vitals Vital Signs Date Time Temp Pulse Resp B/P (MAP) Pulse Ox O2 Delivery O2 Flow Rate FiO2 04/15/21 09:45 82 162/91 04/15/21 07:00 98.2 20 94 NonRebreather Mask 98.2 04/14/21 20:46 15.0 ROS: No Nausea, No Chest Pain, No Abdominal Pain, No Increase Cough General: Alert, No acute distress Lungs: Clear Cardiovascular: S1, S2 Abdomen: Soft Neuro Exam: Alert Extremities: No Edema Skin: Warm Labs Laboratory Tests Test 04/14/21 06:15 04/14/21 06:35 White Blood Count 11.5 x10^3/uL (4.0-11.0) Red Blood Count 3.83 x10^6/uL (3.50-5.40) Hemoglobin 12.0 g/dL (12.0-15.5) Hematocrit 36.9 % (36.0-47.0) Mean Corpuscular Volume 96 fL (79-100) Mean Corpuscular Hemoglobin 32 pg (25-35) Mean Corpuscular Hemoglobin Concent 33 g/dL (31-37) Red Cell Distribution Width 14.1 % (11.5-14.5) Platelet Count 238 x10^3/uL (140-400) Neutrophils (%) (Auto) 84 % (31-73) Lymphocytes (%) (Auto) 10 % (24-48) Monocytes (%) (Auto) 6 % (0-9) Eosinophils (%) (Auto) 0 % (0-3) Basophils (%) (Auto) 0 % (0-3) Neutrophils # (Auto) 9.6 x10^3/uL (1.8-7.7) Lymphocytes # (Auto) 1.2 x10^3/uL (1.0-4.8) Monocytes # (Auto) 0.7 x10^3/uL (0.0-1.1) Eosinophils # (Auto) 0.0 x10^3/uL (0.0-0.7) Basophils # (Auto) 0.0 x10^3/uL (0.0-0.2) Sodium Level 139 mmol/L (136-145) Potassium Level 4.1 mmol/L (3.5-5.1) Chloride Level 105 mmol/L (98-107) Carbon Dioxide Level 22 mmol/L (21-32) Anion Gap 12 (6-14) Blood Urea Nitrogen 27 mg/dL (7-20) Creatinine 1.1 mg/dL (0.6-1.0) Estimated GFR (Cockcroft-Gault) 57.5 Glucose Level 90 mg/dL (70-99) Calcium Level 8.3 mg/dL (8.5-10.1) Medications Active Scripts Medications Dose Route/Sig Max Daily Dose Days Date Category Hydrocodone-Apap 5-325 (Hydrocodone Bit/Acetaminophen) 1 Tab Tablet 1 Tab PO PRN Q8HRS PRN 04/04/21 Reported Magnesium Oxide 400 Mg Tablet 1 Tab PO DAILY 04/04/21 Reported Singulair Tablet (Montelukast Sodium) 10 Mg Tablet 10 Mg PO HS 04/04/21 Reported Pantoprazole Sodium 40 Mg Tablet.dr 40 Mg PO DAILY 04/04/21 Reported Benzonatate 100 Mg Capsule 1 Cap PO TID PRN 01/02/21 Reported Proair Hfa Inhaler (Albuterol Sulfate) 8.5 Gm Hfa.aer.ad 2 Puff IH PRN Q4HRS PRN 21 01/02/21 Reported Meloxicam 7.5 Mg Tablet 7.5 Mg PO DAILY 10/23/19 Reported Klor-Con M20 (Potassium Chloride) 20 Meq Tab.er.prt 1 Tab PO DAILY 30 10/23/19 Reported Dicyclomine Hcl 10 Mg Capsule 20 Mg PO DAILY 10/23/19 Reported Tramadol Hcl 50 Mg Tablet 50 Mg PO Q6HRS PRN 07/17/17 Reported Norvasc (Amlodipine Besylate) 5 Mg Tablet 5 Mg PO DAILY 07/17/17 Reported Dyazide 37.5-25 Capsule (Triamterene/Hydrochlorothiazid) 1 Each Capsule 1 Cap PO QMWF 07/17/17 Reported Losartan Potassium (Losartan Potassium) 25 Mg Tablet 25 Mg PO DAILY 07/17/17 Reported Amitriptyline Hcl 50 Mg Tablet 25 Mg PO HS 07/17/[address] chest reviewed 04/10/2021 Diffuse emphysema, worse in the upper lobes. Development of groundglass infiltrates bilaterally. Is post radiation treatment in the left perihilar area. Impression . 1. Acute hypoxic respiratory failure secondary to COVID-19 viral pneumonia. 2. Underlying chronic obstructive pulmonary disease, the patient is not on home oxygen. 3. History of lung cancer, the patient reports radiation and chemo. Last CT chest from 01/27/2021 showed post-radiation changes in the left perihilar area. New CT chest 04/10/2021 was reviewed. Development of new bilateral groundglass infiltrates compatible with COVID-19 viral pneumonia. 4. Left upper lobe spiculated nodule unchanged in size since January. Plan . Updated 04/15 Continue oxygen supplementation Continue Dexamethasone Continue antibiotics per Infectious Disease Labs reviewed; kidney function stable DVT GI prophylaxis Follow oncology input MARIBEL VOGT MD Apr 15, 2021 10:19
--- NOTE | 2021-04-15 10:22 | NUR ---
SW following. Discussed with RN, pt from home with daughter, still requiring high levels of oxygen, COVID-19 positive. Pt not ready for discharge. SW will continue to follow.
[2021-04-15 11:00] VITALS: BP 129/72
[2021-04-15 15:00] VITALS: BP 153/73
--- NOTE | 2021-04-15 18:53 | NUR ---
Nurse's note: Attempted to titrate oxygen per Dr. Spencer's instruction, but patient did not tolerate the intervention. The patient's oxygen saturation decreased to 80 to 84% on 15 L NC , 10 L NRB. Previous O2 delivery settings maintained; will continue to monitor.
[2021-04-15 19:00] VITALS: BP 142/76
[2021-04-15] MEDS: ENOXAPARIN 40 MG/0.4 ML SYRINGE. SQ SCH (21:24)
[2021-04-15] MEDS: AMITRIPTYLINE HCL 25 MG TABLET. PO SCH (21:24)
[2021-04-15] MEDS: MONTELUKAST SODIUM 10 MG TABLET. PO SCH (21:24)
[2021-04-15 23:03] VITALS: BP 138/77
[2021-04-16] MEDS: IV NORMAL SALINE 1000ML BAG 1,000 ML IV SCH ×3 (00:02→20:27)
[2021-04-16] MEDS: PIPERACILLIN/TAZOBACTAM 3.375 GM in IV NORMAL SALINE 50ML 50 ML IV SCH ×4 (00:03→17:29)
[2021-04-16] MEDS: BENZONATATE 100 MG CAPSULE. PO PRN ×2 (02:18→10:54)
[2021-04-16 03:16] VITALS: BP 154/74
[2021-04-16 07:00] VITALS: BP 141/80
[2021-04-16] MEDS: IPRATROPIUM/ALBUTEROL 20/100mcg/INH INHALER. INH SCH ×4 (07:55→20:27)
[2021-04-16 08:39] LABS: BASO % 0 % (0-3); EOS % 0 % (0-3); HEMATOCRIT 36.9 % (36.0-47.0); LYMPH # 1.1 x10^3/uL (1.0-4.8); LYMPH % 8 % (24-48); MEAN CORPUSCULAR HEMOGLOBIN 31 pg (25-35); MEAN CORPUSCULAR HGB CONC 33 g/dL (31-37); MEAN CORPUSCULAR VOLUME 96 fL (79-100); MONO # 0.7 x10^3/uL (0.0-1.1); MONO % 5 % (0-9); NEUT # 11.7 x10^3/uL (1.8-7.7); NEUT % 86 % (31-73); PLATELET COUNT 212 x10^3/uL (140-400); RED BLOOD COUNT 3.85 x10^6/uL (3.50-5.40); RED CELL DISTRIBUTION WIDTH 14.1 % (11.5-14.5); WHITE BLOOD COUNT 13.5 x10^3/uL (4.0-11.0)
[2021-04-16 09:05] LABS: CALCIUM 8.5 mg/dL (8.5-10.1); CREATININE 0.8 mg/dL (0.6-1.0); GFR 83.1; POTASSIUM 3.9 mmol/L (3.5-5.1)
--- NOTE | 2021-04-16 09:39 | PDOC ---
PULMONARY PROGRESS NOTES DATE: 04/16/21 TIME: 09:31 Subjective Patient sitting up in bed, feels slightly better Currently on 15L NC and 12L NRB Epitaxis with blowing nose Vitals Vital Signs Date Time Temp Pulse Resp B/P (MAP) Pulse Ox O2 Delivery O2 Flow Rate FiO2 04/16/21 07:00 96.4 93 18 141/80 (100) 97 NonRebreather Mask 15.0 96.4 ROS: No Nausea, No Chest Pain, No Abdominal Pain, No Increase Cough General: Alert, No acute distress Lungs: Clear Cardiovascular: S1, S2 Abdomen: Soft Neuro Exam: Alert Extremities: No Edema Skin: Warm Labs Laboratory Tests Test 04/16/21 08:05 White Blood Count 13.5 x10^3/uL (4.0-11.0) Red Blood Count 3.85 x10^6/uL (3.50-5.40) Hemoglobin 12.0 g/dL (12.0-15.5) Hematocrit 36.9 % (36.0-47.0) Mean Corpuscular Volume 96 fL (79-100) Mean Corpuscular Hemoglobin 31 pg (25-35) Mean Corpuscular Hemoglobin Concent 33 g/dL (31-37) Red Cell Distribution Width 14.1 % (11.5-14.5) Platelet Count 212 x10^3/uL (140-400) Neutrophils (%) (Auto) 86 % (31-73) Lymphocytes (%) (Auto) 8 % (24-48) Monocytes (%) (Auto) 5 % (0-9) Eosinophils (%) (Auto) 0 % (0-3) Basophils (%) (Auto) 0 % (0-3) Neutrophils # (Auto) 11.7 x10^3/uL (1.8-7.7) Lymphocytes # (Auto) 1.1 x10^3/uL (1.0-4.8) Monocytes # (Auto) 0.7 x10^3/uL (0.0-1.1) Eosinophils # (Auto) 0.0 x10^3/uL (0.0-0.7) Basophils # (Auto) 0.0 x10^3/uL (0.0-0.2) Sodium Level 138 mmol/L (136-145) Potassium Level 3.9 mmol/L (3.5-5.1) Chloride Level 105 mmol/L (98-107) Carbon Dioxide Level 20 mmol/L (21-32) Anion Gap 13 (6-14) Blood Urea Nitrogen 21 mg/dL (7-20) Creatinine 0.8 mg/dL (0.6-1.0) Estimated GFR (Cockcroft-Gault) 83.1 Glucose Level 104 mg/dL (70-99) Calcium Level 8.5 mg/dL (8.5-10.1) Laboratory Tests Test 04/16/21 08:05 White Blood Count 13.5 x10^3/uL (4.0-11.0) Red Blood Count 3.85 x10^6/uL (3.50-5.40) Hemoglobin 12.0 g/dL (12.0-15.5) Hematocrit 36.9 % (36.0-47.0) Mean Corpuscular Volume 96 fL (79-100) Mean Corpuscular Hemoglobin 31 pg (25-35) Mean Corpuscular Hemoglobin Concent 33 g/dL (31-37) Red Cell Distribution Width 14.1 % (11.5-14.5) Platelet Count 212 x10^3/uL (140-400) Neutrophils (%) (Auto) 86 % (31-73) Lymphocytes (%) (Auto) 8 % (24-48) Monocytes (%) (Auto) 5 % (0-9) Eosinophils (%) (Auto) 0 % (0-3) Basophils (%) (Auto) 0 % (0-3) Neutrophils # (Auto) 11.7 x10^3/uL (1.8-7.7) Lymphocytes # (Auto) 1.1 x10^3/uL (1.0-4.8) Monocytes # (Auto) 0.7 x10^3/uL (0.0-1.1) Eosinophils # (Auto) 0.0 x10^3/uL (0.0-0.7) Basophils # (Auto) 0.0 x10^3/uL (0.0-0.2) Sodium Level 138 mmol/L (136-145) Potassium Level 3.9 mmol/L (3.5-5.1) Chloride Level 105 mmol/L (98-107) Carbon Dioxide Level 20 mmol/L (21-32) Anion Gap 13 (6-14) Blood Urea Nitrogen 21 mg/dL (7-20) Creatinine 0.8 mg/dL (0.6-1.0) Estimated GFR (Cockcroft-Gault) 83.1 Glucose Level 104 mg/dL (70-99) Calcium Level 8.5 mg/dL (8.5-10.1) Medications Active Scripts Medications Dose Route/Sig Max Daily Dose Days Date Category Hydrocodone-Apap 5-325 (Hydrocodone Bit/Acetaminophen) 1 Tab Tablet 1 Tab PO PRN Q8HRS PRN 04/04/21 Reported Magnesium Oxide 400 Mg Tablet 1 Tab PO DAILY 04/04/21 Reported Singulair Tablet (Montelukast Sodium) 10 Mg Tablet 10 Mg PO HS 04/04/21 Reported Pantoprazole Sodium 40 Mg Tablet.dr 40 Mg PO DAILY 04/04/21 Reported Benzonatate 100 Mg Capsule 1 Cap PO TID PRN 01/02/21 Reported Proair Hfa Inhaler (Albuterol Sulfate) 8.5 Gm Hfa.aer.ad 2 Puff IH PRN Q4HRS PRN 21 01/02/21 Reported Meloxicam 7.5 Mg Tablet 7.5 Mg PO DAILY 10/23/19 Reported Klor-Con M20 (Potassium Chloride) 20 Meq Tab.er.prt 1 Tab PO DAILY 30 10/23/19 Reported Dicyclomine Hcl 10 Mg Capsule 20 Mg PO DAILY 10/23/19 Reported Tramadol Hcl 50 Mg Tablet 50 Mg PO Q6HRS PRN 07/17/17 Reported Norvasc (Amlodipine Besylate) 5 Mg Tablet 5 Mg PO DAILY 07/17/17 Reported Dyazide 37.5-25 Capsule (Triamterene/Hydrochlorothiazid) 1 Each Capsule 1 Cap PO QMWF 07/17/17 Reported Losartan Potassium (Losartan Potassium) 25 Mg Tablet 25 Mg PO DAILY 07/17/17 Reported Amitriptyline Hcl 50 Mg Tablet 25 Mg PO HS 07/17/[address] chest reviewed 04/10/2021 Diffuse emphysema, worse in the upper lobes. Development of groundglass infiltrates bilaterally. Is post radiation treatment in the left perihilar area. Impression . 1. Acute hypoxic respiratory failure secondary to COVID-19 viral pneumonia. 2. Underlying chronic obstructive pulmonary disease, the patient is not on home oxygen. 3. History of lung cancer, the patient reports radiation and chemo. Last CT chest from 01/27/2021 showed post-radiation changes in the left perihilar area. New CT chest 04/10/2021 was reviewed. Development of new bilateral groundglass infiltrates compatible with COVID-19 viral pneumonia. 4. Left upper lobe spiculated nodule unchanged in size since January. Plan . Updated 04/16 Continue current support Titrate O2 down as tolerated Antibiotics per ID Saline Nasal [place] for Epitaxis Continue Dexamethasone Lovenox for DVT PPX Updated 04/15 Continue oxygen supplementation Continue Dexamethasone Continue antibiotics per Infectious Disease Labs reviewed; kidney function stable DVT GI prophylaxis Follow oncology input MARIBEL VOGT MD Apr 16, 2021 09:38
[2021-04-16] MEDS ORDERED: SODIUM CHLORIDE 0.65% NASAL SPRAY 45ML BOTTLE. NS PRN (09:45)
[2021-04-16] MEDS: DEXAMETHASONE 4 MG TABLET PO SCH (10:54)
[2021-04-16] MEDS: DICYCLOMINE HCL 10 MG CAPSULE PO SCH (10:54)
[2021-04-16] MEDS: guaiFENesin DM 600/30MG 1 TAB TAB.ER.12H PO SCH ×2 (10:54→20:28)
[2021-04-16] MEDS: MAGNESIUM OXIDE 400 MG TABLET PO SCH (10:54)
[2021-04-16] MEDS: PANTOPRAZOLE 40 MG TABLET.DR. PO SCH (10:55)
[2021-04-16] MEDS: LOSARTAN POTASSIUM 25 MG TABLET. PO SCH (10:56)
[2021-04-16] MEDS: POTASSIUM CHLORIDE 20 MEQ TABLET.ER. PO SCH (10:56)
--- NOTE | 2021-04-16 10:58 | PDOC ---
PROGRESS NOTES Date of Service: DATE: 04/16/21 TIME: 10:55 Subjective Subjective no new problems Objective Objective Vital Signs Date Time Temp Pulse Resp B/P (MAP) Pulse Ox O2 Delivery O2 Flow Rate FiO2 04/16/21 07:00 96.4 93 18 141/80 (100) 97 NonRebreather Mask 15.0 96.4 Intake and Output 04/16/21 07:00 Output Total 600 ml Balance -600 ml Output Urine Total 300 ml Urine/Stool Mix 300 ml Physical Exam Abdomen: Soft Heart: Regular rate, Normal S1, Normal S2 Extremities: No clubbing General: Alert HEENT: Atraumatic Lungs: Other (rales at base) MUSCULOSKELETAL: No swelling Neuro: Normal speech Psych/Mental Status: Mental status NL Skin: No breakdown Diagnosis Problem List Problems Medical Problems: (1) COVID-19 Status: Acute Assessment Assessment Problems Medical Problems: (1) COVID-19 Status: Acute FINAL IMPRESSION:Pneumonia with hypoxia 1. COVID pneumonia.Break through infection,pt vaccinated not boosted. 2. Immune compromised, patient is on chemo for small cell lung cancer. 3. Small cell lung cancer, getting chemotherapy. 4. Hypertension. 5. Hyperlipidemia. PLAN:no new problems. spoke with RN. labs good today tachycardia resolved , continue iv fluids inc dexa methasone dose to [address] chest -christa groundglass infiltrates O2 requirements went up top 25 L added remdesivr , completed 5 days of treatment on04/15 changed antibiotics to zosyn,day#6,Zyvox d/mehran 04/14 DVT prevention with Lovenox Plan Plan of Care Problems Medical Problems: (1) COVID-19 Status: Acute Comment Review of Relevant I have reviewed the following items ankit (where applicable) has been applied. Labs Laboratory Tests Test 04/16/21 08:05 White Blood Count 13.5 x10^3/uL (4.0-11.0) Red Blood Count 3.85 x10^6/uL (3.50-5.40) Hemoglobin 12.0 g/dL (12.0-15.5) Hematocrit 36.9 % (36.0-47.0) Mean Corpuscular Volume 96 fL (79-100) Mean Corpuscular Hemoglobin 31 pg (25-35) Mean Corpuscular Hemoglobin Concent 33 g/dL (31-37) Red Cell Distribution Width 14.1 % (11.5-14.5) Platelet Count 212 x10^3/uL (140-400) Neutrophils (%) (Auto) 86 % (31-73) Lymphocytes (%) (Auto) 8 % (24-48) Monocytes (%) (Auto) 5 % (0-9) Eosinophils (%) (Auto) 0 % (0-3) Basophils (%) (Auto) 0 % (0-3) Neutrophils # (Auto) 11.7 x10^3/uL (1.8-7.7) Lymphocytes # (Auto) 1.1 x10^3/uL (1.0-4.8) Monocytes # (Auto) 0.7 x10^3/uL (0.0-1.1) Eosinophils # (Auto) 0.0 x10^3/uL (0.0-0.7) Basophils # (Auto) 0.0 x10^3/uL (0.0-0.2) Sodium Level 138 mmol/L (136-145) Potassium Level 3.9 mmol/L (3.5-5.1) Chloride Level 105 mmol/L (98-107) Carbon Dioxide Level 20 mmol/L (21-32) Anion Gap 13 (6-14) Blood Urea Nitrogen 21 mg/dL (7-20) Creatinine 0.8 mg/dL (0.6-1.0) Estimated GFR (Cockcroft-Gault) 83.1 Glucose Level 104 mg/dL (70-99) Calcium Level 8.5 mg/dL (8.5-10.1) Medications Current Medications Sodium Chloride (Saline Mist Nasal) 1 miles PRN Q1HR PRN NS NASAL CONGESTION; Start 04/16/21 at 09:45 Vitals/I & O Vital Sign - Last 24 Hours 04/15/21 04/15/21 04/15/21 04/15/21 11:00 15:00 19:00 20:30 Temp 98.1 98.3 97.6 98.1 98.3 97.6 Pulse 106 89 60 Resp 20 20 20 B/P (MAP) 129/72 (91) 153/73 (99) 142/76 (98) Pulse Ox 96 92 93 O2 Delivery NonRebreather Mask NonRebreather Mask NonRebreather Mask Non- Rebreather O2 Flow Rate 15.0 04/15/21 04/16/21 04/16/21 23:03 03:16 07:00 Temp 97.4 97.3 96.4 97.4 97.3 96.4 Pulse 90 96 93 Resp 20 20 18 B/P (MAP) 138/77 (97) 154/74 (100) 141/80 (100) Pulse Ox 96 91 97 O2 Delivery NonRebreather Mask NonRebreather Mask NonRebreather Mask O2 Flow Rate 15.0 Intake and Output0 04/15/21 04/15/21 04/16/21 15:00 23:00 07:00 Output Total 600 ml Balance -600 ml Justifications for Admission Other Justification WALKER DAVILA MD Apr 16, 2021 10:58
[2021-04-16 11:00] VITALS: BP 130/71
[2021-04-16] MEDS ORDERED: HEPARIN PF 500 UNIT/5 ML DISP.SYRIN. IVP ONE (14:15)
[2021-04-16 15:00] VITALS: BP 147/63
[2021-04-16 19:00] VITALS: BP 122/68
[2021-04-16] MEDS: ENOXAPARIN 40 MG/0.4 ML SYRINGE. SQ SCH (20:27)
[2021-04-16] MEDS: MONTELUKAST SODIUM 10 MG TABLET. PO SCH (20:28)
[2021-04-16] MEDS: AMITRIPTYLINE HCL 25 MG TABLET. PO SCH (20:28)
[2021-04-16 23:00] VITALS: BP 131/63
[2021-04-17] MEDS: PIPERACILLIN/TAZOBACTAM 3.375 GM in IV NORMAL SALINE 50ML 50 ML IV SCH ×4 (00:17→17:38)
[2021-04-17 03:00] VITALS: BP 130/72
[2021-04-17 07:00] VITALS: BP 131/71
[2021-04-17] MEDS: POTASSIUM CHLORIDE 20 MEQ TABLET.ER. PO SCH (09:00)
--- NOTE | 2021-04-17 09:20 | PDOC ---
IM PROGRESS NOTES- Subjective Subjective Complaints of cough and congestion. She desats when she takes off oxygen. Advised her not to do so. Objective Vitals/I&O Vital Signs Date Time Temp Pulse Resp B/P (MAP) Pulse Ox O2 Delivery O2 Flow Rate FiO2 04/17/21 07:00 97.9 85 19 131/71 (91) 98 Nasal Cannula 10.0 97.9 I & O 04/16/21 04/16/21 04/17/21 15:00 23:00 07:00 Output Total 500 ml Balance -500 ml Physical Exam Physical Exam General Appearance - alert and in mild distress Chest - decreased breath sounds at bases On high flow oxygen by nasal cannula Heart - S1 and S2 normal Abdomen - soft, non tender Neurological - alert and oriented Musculoskeletal - generalized weakness Extremities - no edema Meds Current Medications Medications (Trade) Dose Ordered Sig/Prabhjot Route PRN Reason Start Time Stop Time Status Last Admin Dose Admin Sodium Chloride (Saline Mist Nasal) 1 miles PRN Q1HR PRN NS NASAL CONGESTION 04/16/21 09:45 04/16/21 10:57 Heparin Sodium (Porcine) (Hep Lock Adult) 500 unit 1X ONCE IVP 04/16/21 14:15 04/16/21 14:16 DC 04/16/21 14:20 Assessment Assessment Problems Medical Problems: (1) COVID-19 Status: Acute FINAL IMPRESSION:Pneumonia with hypoxia 1. COVID pneumonia.Break through infection,pt vaccinated not boosted. 2. Immune compromised, patient is on chemo for small cell lung cancer. 3. Small cell lung cancer, getting chemotherapy. 4. Hypertension. 5. Hyperlipidemia. PLAN:, WBC 13.5. Leukocytosis due to steroids. continue iv fluids inc dexa methasone dose to [address] chest -christa groundglass infiltrates O2 requirements went up top 25 L Treated with remdesivir. changed antibiotics to zosyn,day#6,Zyvox d/merhan 04/14 DVT prevention with Lovenox Plan Plan For more details regarding further plans, please refer to the orders. Justifications for Admission Other Justification DAV MENDEZ MD Apr 17, 2021 09:20
[2021-04-17] MEDS: BENZONATATE 100 MG CAPSULE. PO PRN (10:05)
[2021-04-17] MEDS: IPRATROPIUM/ALBUTEROL 20/100mcg/INH INHALER. INH SCH ×4 (10:05→21:16)
[2021-04-17] MEDS: DEXAMETHASONE 4 MG TABLET PO SCH (10:07)
[2021-04-17] MEDS: MAGNESIUM OXIDE 400 MG TABLET PO SCH (10:08)
[2021-04-17] MEDS: DICYCLOMINE HCL 10 MG CAPSULE PO SCH (10:08)
[2021-04-17] MEDS: guaiFENesin DM 600/30MG 1 TAB TAB.ER.12H PO SCH ×2 (10:08→21:16)
[2021-04-17] MEDS: PANTOPRAZOLE 40 MG TABLET.DR. PO SCH (10:09)
--- NOTE | 2021-04-17 10:23 | PDOC ---
PULMONARY PROGRESS NOTES DATE: 04/17/21 TIME: 10:20 Subjective Patient sitting up in bed, feeling no better, nor worse Currently on 15L NC and 10L NRB Cough, not increased, not decreased, non-productive Vitals Vital Signs Date Time Temp Pulse Resp B/P (MAP) Pulse Ox O2 Delivery O2 Flow Rate FiO2 04/17/21 10:07 85 131/71 04/17/21 07:00 97.9 19 98 Nasal Cannula 10.0 97.9 ROS: No Nausea, No Chest Pain, No Abdominal Pain, No Increase Cough General: Alert, No acute distress Lungs: Clear Cardiovascular: S1, S2 Abdomen: Soft Neuro Exam: Alert Extremities: No Edema Skin: Warm Labs Laboratory Tests Test 04/16/21 08:05 White Blood Count 13.5 x10^3/uL (4.0-11.0) Red Blood Count 3.85 x10^6/uL (3.50-5.40) Hemoglobin 12.0 g/dL (12.0-15.5) Hematocrit 36.9 % (36.0-47.0) Mean Corpuscular Volume 96 fL (79-100) Mean Corpuscular Hemoglobin 31 pg (25-35) Mean Corpuscular Hemoglobin Concent 33 g/dL (31-37) Red Cell Distribution Width 14.1 % (11.5-14.5) Platelet Count 212 x10^3/uL (140-400) Neutrophils (%) (Auto) 86 % (31-73) Lymphocytes (%) (Auto) 8 % (24-48) Monocytes (%) (Auto) 5 % (0-9) Eosinophils (%) (Auto) 0 % (0-3) Basophils (%) (Auto) 0 % (0-3) Neutrophils # (Auto) 11.7 x10^3/uL (1.8-7.7) Lymphocytes # (Auto) 1.1 x10^3/uL (1.0-4.8) Monocytes # (Auto) 0.7 x10^3/uL (0.0-1.1) Eosinophils # (Auto) 0.0 x10^3/uL (0.0-0.7) Basophils # (Auto) 0.0 x10^3/uL (0.0-0.2) Sodium Level 138 mmol/L (136-145) Potassium Level 3.9 mmol/L (3.5-5.1) Chloride Level 105 mmol/L (98-107) Carbon Dioxide Level 20 mmol/L (21-32) Anion Gap 13 (6-14) Blood Urea Nitrogen 21 mg/dL (7-20) Creatinine 0.8 mg/dL (0.6-1.0) Estimated GFR (Cockcroft-Gault) 83.1 Glucose Level 104 mg/dL (70-99) Calcium Level 8.5 mg/dL (8.5-10.1) Medications Active Scripts Medications Dose Route/Sig Max Daily Dose Days Date Category Hydrocodone-Apap 5-325 (Hydrocodone Bit/Acetaminophen) 1 Tab Tablet 1 Tab PO PRN Q8HRS PRN 04/04/21 Reported Magnesium Oxide 400 Mg Tablet 1 Tab PO DAILY 04/04/21 Reported Singulair Tablet (Montelukast Sodium) 10 Mg Tablet 10 Mg PO HS 04/04/21 Reported Pantoprazole Sodium 40 Mg Tablet.dr 40 Mg PO DAILY 04/04/21 Reported Benzonatate 100 Mg Capsule 1 Cap PO TID PRN 01/02/21 Reported Proair Hfa Inhaler (Albuterol Sulfate) 8.5 Gm Hfa.aer.ad 2 Puff IH PRN Q4HRS PRN 21 01/02/21 Reported Meloxicam 7.5 Mg Tablet 7.5 Mg PO DAILY 10/23/19 Reported Klor-Con M20 (Potassium Chloride) 20 Meq Tab.er.prt 1 Tab PO DAILY 30 10/23/19 Reported Dicyclomine Hcl 10 Mg Capsule 20 Mg PO DAILY 10/23/19 Reported Tramadol Hcl 50 Mg Tablet 50 Mg PO Q6HRS PRN 07/17/17 Reported Norvasc (Amlodipine Besylate) 5 Mg Tablet 5 Mg PO DAILY 07/17/17 Reported Dyazide 37.5-25 Capsule (Triamterene/Hydrochlorothiazid) 1 Each Capsule 1 Cap PO QMWF 07/17/17 Reported Losartan Potassium (Losartan Potassium) 25 Mg Tablet 25 Mg PO DAILY 07/17/17 Reported Amitriptyline Hcl 50 Mg Tablet 25 Mg PO HS 07/17/[address] chest reviewed 04/10/2021 Diffuse emphysema, worse in the upper lobes. Development of groundglass infiltrates bilaterally. Is post radiation treatment in the left perihilar area. Impression . 1. Acute hypoxic respiratory failure secondary to COVID-19 viral pneumonia. 2. Underlying chronic obstructive pulmonary disease, the patient is not on home oxygen. 3. History of lung cancer, the patient reports radiation and chemo. Last CT chest from 01/27/2021 showed post-radiation changes in the left perihilar area. New CT chest 04/10/2021 was reviewed. Development of new bilateral groundglass infiltrates compatible with COVID-19 viral pneumonia. 4. Left upper lobe spiculated nodule unchanged in size since January. Plan . Update 04/17 Continue current support Continue to titrate O2 down as tolerated Antibiotics Steroids DVT PPX Updated 04/16 Continue current support Titrate O2 down as tolerated Antibiotics per ID Saline Nasal Dexter for Epitaxis Continue Dexamethasone Lovenox for DVT PPX Updated 04/15 Continue oxygen supplementation Continue Dexamethasone Continue antibiotics per Infectious Disease Labs reviewed; kidney function stable DVT GI prophylaxis Follow oncology input MARIBEL VOGT MD Apr 17, 2021 10:23
[2021-04-17 11:00] VITALS: BP 136/67
[2021-04-17] MEDS: LOSARTAN POTASSIUM 25 MG TABLET. PO SCH (12:13)
[2021-04-17 14:54] VITALS: BP 139/70
[2021-04-17 19:00] VITALS: BP 130/71
[2021-04-17] MEDS: IV NORMAL SALINE 1000ML BAG 1,000 ML IV SCH (21:16)
[2021-04-17] MEDS: MONTELUKAST SODIUM 10 MG TABLET. PO SCH (21:16)
[2021-04-17] MEDS: ENOXAPARIN 40 MG/0.4 ML SYRINGE. SQ SCH (21:16)
[2021-04-17] MEDS: AMITRIPTYLINE HCL 25 MG TABLET. PO SCH (21:16)
[2021-04-17 23:00] VITALS: BP 138/63
[2021-04-18] MEDS: PIPERACILLIN/TAZOBACTAM 3.375 GM in IV NORMAL SALINE 50ML 50 ML IV SCH ×4 (00:12→17:41)
[2021-04-18 03:00] VITALS: BP 148/80
[2021-04-18] MEDS: IV NORMAL SALINE 1000ML BAG 1,000 ML IV SCH ×2 (05:40→20:51)
[2021-04-18 07:12] VITALS: BP 147/72
--- NOTE | 2021-04-18 08:57 | PDOC ---
PULMONARY PROGRESS NOTES DATE: 04/18/21 TIME: 08:57 Subjective Patient awake and awaiting breakfast this morning Currently on 10L NRB only at 93% Feeling slightly better this morning No new concerns this morning Vitals Vital Signs Date Time Temp Pulse Resp B/P (MAP) Pulse Ox O2 Delivery O2 Flow Rate FiO2 04/18/21 07:12 97.8 96 17 147/72 (97) 94 97.8 04/17/21 20:07 Non-Rebreather 15.0 ROS: No Nausea, No Chest Pain, No Abdominal Pain, No Increase Cough General: Alert, No acute distress Lungs: Clear Cardiovascular: S1, S2 Abdomen: Soft Neuro Exam: Alert Extremities: No Edema Skin: Warm Medications Active Scripts Medications Dose Route/Sig Max Daily Dose Days Date Category Hydrocodone-Apap 5-325 (Hydrocodone Bit/Acetaminophen) 1 Tab Tablet 1 Tab PO PRN Q8HRS PRN 04/04/21 Reported Magnesium Oxide 400 Mg Tablet 1 Tab PO DAILY 04/04/21 Reported Singulair Tablet (Montelukast Sodium) 10 Mg Tablet 10 Mg PO HS 04/04/21 Reported Pantoprazole Sodium 40 Mg Tablet.dr 40 Mg PO DAILY 04/04/21 Reported Benzonatate 100 Mg Capsule 1 Cap PO TID PRN 01/02/21 Reported Proair Hfa Inhaler (Albuterol Sulfate) 8.5 Gm Hfa.aer.ad 2 Puff IH PRN Q4HRS PRN 21 01/02/21 Reported Meloxicam 7.5 Mg Tablet 7.5 Mg PO DAILY 10/23/19 Reported Klor-Con M20 (Potassium Chloride) 20 Meq Tab.er.prt 1 Tab PO DAILY 30 10/23/19 Reported Dicyclomine Hcl 10 Mg Capsule 20 Mg PO DAILY 10/23/19 Reported Tramadol Hcl 50 Mg Tablet 50 Mg PO Q6HRS PRN 07/17/17 Reported Norvasc (Amlodipine Besylate) 5 Mg Tablet 5 Mg PO DAILY 07/17/17 Reported Dyazide 37.5-25 Capsule (Triamterene/Hydrochlorothiazid) 1 Each Capsule 1 Cap PO QMWF 07/17/17 Reported Losartan Potassium (Losartan Potassium) 25 Mg Tablet 25 Mg PO DAILY 07/17/17 Reported Amitriptyline Hcl 50 Mg Tablet 25 Mg PO HS 07/17/[address] chest reviewed 04/10/2021 Diffuse emphysema, worse in the upper lobes. Development of groundglass infiltrates bilaterally. Is post radiation treatment in the left perihilar area. Impression . 1. Acute hypoxic respiratory failure secondary to COVID-19 viral pneumonia. 2. Underlying chronic obstructive pulmonary disease, the patient is not on home oxygen. 3. History of lung cancer, the patient reports radiation and chemo. Last CT chest from 01/27/2021 showed post-radiation changes in the left perihilar area. New CT chest 04/10/2021 was reviewed. Development of new bilateral groundglass infiltrates compatible with COVID-19 viral pneumonia. 4. Left upper lobe spiculated nodule unchanged in size since January. Plan . Updated 04/18 Continue current support with antibiotics and steroids Titrate O2 down Discussed with RN DVT PPX MARIBEL VOGT MD Apr 18, 2021 08:57
--- NOTE | 2021-04-18 09:10 | PDOC ---
PROGRESS NOTES Date of Service: DATE: 04/18/21 TIME: 09:09 Subjective Subjective no new problems Objective Objective Vital Signs Date Time Temp Pulse Resp B/P (MAP) Pulse Ox O2 Delivery O2 Flow Rate FiO2 04/18/21 07:12 97.8 96 17 147/72 (97) 94 97.8 04/17/21 20:07 Non-Rebreather 15.0 Intake and Output 04/18/21 07:00 Intake Total 100 ml Output Total 300 ml Balance -200 ml Intake Oral 100 ml Output Urine Total 300 ml # Voids 2 Physical Exam Abdomen: Soft Heart: Regular rate, Normal S1, Normal S2 Extremities: No clubbing General: Alert HEENT: Atraumatic Lungs: Other (rales at base) MUSCULOSKELETAL: No swelling Neuro: Normal speech Psych/Mental Status: Mental status NL Skin: No breakdown Diagnosis Problem List Problems Medical Problems: (1) COVID-19 Status: Acute Assessment Assessment Problems Medical Problems: (1) COVID-19 Status: Acute FINAL IMPRESSION:Pneumonia with hypoxia 1. COVID pneumonia.Break through infection,pt vaccinated not boosted. 2. Immune compromised, patient is on chemo for small cell lung cancer. 3. Small cell lung cancer, getting chemotherapy. 4. Hypertension. 5. Hyperlipidemia. PLAN:, on NRBM 15 L WBC 13.5. Leukocytosis due to steroids. continue iv fluids inc dexa methasone dose to [address] chest -christa groundglass infiltrates O2 requirements down to 15 L Treated with remdesivir. changed antibiotics to zosyn,day#7,Zyvox d/mehran 04/14 DVT prevention with Lovenox Plan Plan of Care Problems Medical Problems: (1) COVID-19 Status: Acute Comment Review of Relevant I have reviewed the following items ankit (where applicable) has been applied. Vitals/I & O Vital Sign - Last 24 Hours 04/17/21 04/17/21 04/17/21 04/17/21 10:07 11:00 12:13 14:54 Temp 97.3 97.1 97.3 97.1 Pulse 85 87 87 90 Resp 19 19 B/P (MAP) 131/71 136/67 (90) 136/67 139/70 (93) Pulse Ox 95 99 O2 Delivery NonRebreather Mask NonRebreather Mask O2 Flow Rate 15.0 15.0 04/17/21 04/17/21 04/17/21/31/22 19:00 20:07 23:00 03:00 Temp 98.0 97.0 98.0 98.0 97.0 98.0 Pulse 88 92 95 Resp 18 16 16 B/P (MAP) 130/71 (90) 138/63 (88) 148/80 (102) Pulse Ox 95 92 95 O2 Delivery Non-Rebreather O2 Flow Rate 15.0 04/18/21 07:12 Temp 97.8 97.8 Pulse 96 Resp 17 B/P (MAP) 147/72 (97) Pulse Ox 94 Intake and Output 04/17/21 04/17/21 04/18/21 15:00 23:00 07:00 Intake Total 100 ml Output Total 300 ml Balance 100 ml -300 ml Justifications for Admission Other Justification WALKER DAVILA MD Apr 18, 2021 09:10
[2021-04-18] MEDS: DEXAMETHASONE 4 MG TABLET PO SCH (09:43)
[2021-04-18] MEDS: BENZONATATE 100 MG CAPSULE. PO PRN ×2 (09:43→15:23)
[2021-04-18] MEDS: IPRATROPIUM/ALBUTEROL 20/100mcg/INH INHALER. INH SCH ×4 (09:43→20:52)
[2021-04-18] MEDS: MAGNESIUM OXIDE 400 MG TABLET PO SCH (09:43)
[2021-04-18] MEDS: guaiFENesin DM 600/30MG 1 TAB TAB.ER.12H PO SCH ×2 (09:44→20:52)
[2021-04-18] MEDS: LOSARTAN POTASSIUM 25 MG TABLET. PO SCH (09:44)
[2021-04-18] MEDS: DICYCLOMINE HCL 10 MG CAPSULE PO SCH (09:45)
[2021-04-18] MEDS: traMADol 50 MG TABLET PO PRN (09:45)
[2021-04-18] MEDS: POTASSIUM CHLORIDE 20 MEQ TABLET.ER. PO SCH (09:46)
[2021-04-18] MEDS: PANTOPRAZOLE 40 MG TABLET.DR. PO SCH (09:47)
[2021-04-18 10:58] VITALS: BP 146/80
[2021-04-18 15:00] VITALS: BP 144/70
[2021-04-18 19:53] VITALS: BP 148/83
[2021-04-18] MEDS: ENOXAPARIN 40 MG/0.4 ML SYRINGE. SQ SCH (20:52)
[2021-04-18] MEDS: MONTELUKAST SODIUM 10 MG TABLET. PO SCH (20:52)
[2021-04-18] MEDS: AMITRIPTYLINE HCL 25 MG TABLET. PO SCH (20:52)
[2021-04-18 23:13] VITALS: BP 146/82
[2021-04-19] MEDS: PIPERACILLIN/TAZOBACTAM 3.375 GM in IV NORMAL SALINE 50ML 50 ML IV SCH ×4 (01:20→17:26)
[2021-04-19 03:16] VITALS: BP 145/76
[2021-04-19 07:00] VITALS: BP 145/76
[2021-04-19 08:02] LABS: BASO % 0 % (0-3); EOS % 0 % (0-3); HEMATOCRIT 39.6 % (36.0-47.0); HEMOGLOBIN 12.7 g/dL (12.0-15.5); LYMPH % 10 % (24-48); MEAN CORPUSCULAR HEMOGLOBIN 32 pg (25-35); MEAN CORPUSCULAR HGB CONC 32 g/dL (31-37); MEAN CORPUSCULAR VOLUME 99 fL (79-100); MONO # 0.8 x10^3/uL (0.0-1.1); MONO % 7 % (0-9); NEUT # 8.7 x10^3/uL (1.8-7.7); NEUT % 83 % (31-73); PLATELET COUNT 218 x10^3/uL (140-400); RED CELL DISTRIBUTION WIDTH 14.4 % (11.5-14.5); WHITE BLOOD COUNT 10.4 x10^3/uL (4.0-11.0)
[2021-04-19] MEDS: IPRATROPIUM/ALBUTEROL 20/100mcg/INH INHALER. INH SCH ×4 (08:04→21:01)
[2021-04-19] MEDS: POTASSIUM CHLORIDE 20 MEQ TABLET.ER. PO SCH (08:05)
[2021-04-19] MEDS: DICYCLOMINE HCL 10 MG CAPSULE PO SCH (08:05)
[2021-04-19] MEDS: DEXAMETHASONE 4 MG TABLET PO SCH (08:06)
[2021-04-19] MEDS: PANTOPRAZOLE 40 MG TABLET.DR. PO SCH (08:07)
[2021-04-19] MEDS: LOSARTAN POTASSIUM 25 MG TABLET. PO SCH (08:07)
[2021-04-19] MEDS: guaiFENesin DM 600/30MG 1 TAB TAB.ER.12H PO SCH ×2 (08:07→21:00)
[2021-04-19] MEDS: MAGNESIUM OXIDE 400 MG TABLET PO SCH (08:07)
[2021-04-19 09:01] LABS: ALBUMIN/GLOBULIN RATIO 0.4 (1.0-1.7); CALCIUM 8.6 mg/dL (8.5-10.1); CREATININE 0.9 mg/dL (0.6-1.0); GFR 72.5; POTASSIUM 4.1 mmol/L (3.5-5.1); TOTAL BILIRUBIN 0.5 mg/dL (0.2-1.0); TOTAL PROTEIN 6.9 g/dL (6.4-8.2)
--- NOTE | 2021-04-19 09:11 | PDOC ---
PROGRESS NOTES Date of Service: DATE: 04/19/21 TIME: 09:10 Subjective Subjective no new problems Objective Objective Vital Signs Date Time Temp Pulse Resp B/P (MAP) Pulse Ox O2 Delivery O2 Flow Rate FiO2 04/19/21 08:08 98 145/76 04/19/21 07:00 97.6 22 94 NonRebreather Mask 15.0 97.6 Intake and Output 04/19/21 07:00 Intake Total 0 ml Output Total 1 ml Balance -1 ml Intake Oral 0 ml Urine/Stool Mix 1 ml # Voids 1 Physical Exam Abdomen: Soft Heart: Regular rate, Normal S1, Normal S2 Extremities: No clubbing General: Alert HEENT: Atraumatic Lungs: Other (rales at base) MUSCULOSKELETAL: No swelling Neuro: Normal speech Psych/Mental Status: Mental status NL Skin: No breakdown Diagnosis Problem List Problems Medical Problems: (1) COVID-19 Status: Acute Assessment Assessment Problems Medical Problems: (1) COVID-19 Status: Acute FINAL IMPRESSION:Pneumonia with hypoxia 1. COVID pneumonia.Break through infection,pt vaccinated not boosted. 2. Immune compromised, patient is on chemo for small cell lung cancer. 3. Small cell lung cancer, getting chemotherapy. 4. Hypertension. 5. Hyperlipidemia. PLAN:, on NRBM 15 L WBC 13.5. Leukocytosis due to steroids. continue iv fluids inc dexa methasone dose to [address] chest -christa groundglass infiltrates O2 requirements down to 15 L Treated with remdesivir. changed antibiotics to zosyn,day#8,Zyvox d/mehran 04/14 DVT prevention with Lovenox Plan Plan of Care Problems Medical Problems: (1) COVID-19 Status: Acute Comment Review of Relevant I have reviewed the following items ankit (where applicable) has been applied. Labs Laboratory Tests Test 04/19/21 06:45 White Blood Count 10.4 x10^3/uL (4.0-11.0) Red Blood Count 4.00 x10^6/uL (3.50-5.40) Hemoglobin 12.7 g/dL (12.0-15.5) Hematocrit 39.6 % (36.0-47.0) Mean Corpuscular Volume 99 fL (79-100) Mean Corpuscular Hemoglobin 32 pg (25-35) Mean Corpuscular Hemoglobin Concent 32 g/dL (31-37) Red Cell Distribution Width 14.4 % (11.5-14.5) Platelet Count 218 x10^3/uL (140-400) Neutrophils (%) (Auto) 83 % (31-73) Lymphocytes (%) (Auto) 10 % (24-48) Monocytes (%) (Auto) 7 % (0-9) Eosinophils (%) (Auto) 0 % (0-3) Basophils (%) (Auto) 0 % (0-3) Neutrophils # (Auto) 8.7 x10^3/uL (1.8-7.7) Lymphocytes # (Auto) 1.0 x10^3/uL (1.0-4.8) Monocytes # (Auto) 0.8 x10^3/uL (0.0-1.1) Eosinophils # (Auto) 0.0 x10^3/uL (0.0-0.7) Basophils # (Auto) 0.0 x10^3/uL (0.0-0.2) Sodium Level 141 mmol/L (136-145) Potassium Level 4.1 mmol/L (3.5-5.1) Chloride Level 106 mmol/L (98-107) Carbon Dioxide Level 22 mmol/L (21-32) Anion Gap 13 (6-14) Blood Urea Nitrogen 24 mg/dL (7-20) Creatinine 0.9 mg/dL (0.6-1.0) Estimated GFR (Cockcroft-Gault) 72.5 BUN/Creatinine Ratio 27 (6-20) Glucose Level 91 mg/dL (70-99) Calcium Level 8.6 mg/dL (8.5-10.1) Total Bilirubin 0.5 mg/dL (0.2-1.0) Aspartate Amino Transf (AST/SGOT) 16 U/L (15-37) Alanine Aminotransferase (ALT/SGPT) 18 U/L (14-59) Alkaline Phosphatase 71 U/L (46-116) Total Protein 6.9 g/dL (6.4-8.2) Albumin 2.0 g/dL (3.4-5.0) Albumin/Globulin Ratio 0.4 (1.0-1.7) Vitals/I & O Vital Sign - Last 24 Hours 04/18/21 04/18/21 04/18/21 04/18/21 09:44 09:45 09:45 10:58 Temp 97.5 97.5 Pulse 96 96 97 Resp 17 B/P (MAP) 147/72 147/72 146/80 (102) Pulse Ox 92 94 O2 Delivery NonRebreather Mask NonRebreather Mask O2 Flow Rate 15.0 15.0 04/18/21 04/18/21 04/18/21 04/18/21 11:00 15:00 19:53 20:00 Temp 96.6 97.5 96.6 97.5 Pulse 90 82 Resp 28 24 B/P (MAP) 144/70 (94) 148/83 (104) Pulse Ox 94 92 96 O2 Delivery NonRebreather Mask NonRebreather Mask NonRebreather Mask Non- Rebreather O2 Flow Rate 15.0 15.0 15.0 15.0 04/18/21 04/19/21 04/19/21 04/19/21 23:13 03:16 07:00 08:07 Temp 97.8 97.5 97.6 97.8 97.5 97.6 Pulse 81 76 98 98 Resp B/P (MAP) 146/82 (103) 145/76 (99) 145/76 (99) 145/76 Pulse Ox 92 95 94 O2 Delivery NonRebreather Mask NonRebreather Mask NonRebreather Mask O2 Flow Rate 15.0 15.0 15.0 04/19/21 08:08 Pulse 98 B/P (MAP) 145/76 Intake and Output 04/18/21 04/18/21 04/19/21 15:00 23:00 07:00 Intake Total 0 ml Output Total 1 ml Balance -1 ml Justifications for Admission Other Justification WALKER DAVILA MD Apr 19, 2021 09:11
--- NOTE | 2021-04-19 10:03 | PDOC ---
PULMONARY PROGRESS NOTES DATE: 04/19/21 TIME: 09:56 Subjective Patient sitting up in bed, eating breakfast Currently on 15L NC with standby NRB due to desaturation while eating Reports feeling no better, nor worse Vitals Vital Signs Date Time Temp Pulse Resp B/P (MAP) Pulse Ox O2 Delivery O2 Flow Rate FiO2 04/19/21 08:08 98 145/76 04/19/21 07:00 97.6 22 94 NonRebreather Mask 15.0 97.6 ROS: No Nausea, No Chest Pain, No Abdominal Pain, No Increase Cough General: Alert, No acute distress Lungs: Clear Cardiovascular: S1, S2 Abdomen: Soft Neuro Exam: Alert Extremities: No Edema Skin: Warm Labs Laboratory Tests Test 04/19/21 06:45 White Blood Count 10.4 x10^3/uL (4.0-11.0) Red Blood Count 4.00 x10^6/uL (3.50-5.40) Hemoglobin 12.7 g/dL (12.0-15.5) Hematocrit 39.6 % (36.0-47.0) Mean Corpuscular Volume 99 fL (79-100) Mean Corpuscular Hemoglobin 32 pg (25-35) Mean Corpuscular Hemoglobin Concent 32 g/dL (31-37) Red Cell Distribution Width 14.4 % (11.5-14.5) Platelet Count 218 x10^3/uL (140-400) Neutrophils (%) (Auto) 83 % (31-73) Lymphocytes (%) (Auto) 10 % (24-48) Monocytes (%) (Auto) 7 % (0-9) Eosinophils (%) (Auto) 0 % (0-3) Basophils (%) (Auto) 0 % (0-3) Neutrophils # (Auto) 8.7 x10^3/uL (1.8-7.7) Lymphocytes # (Auto) 1.0 x10^3/uL (1.0-4.8) Monocytes # (Auto) 0.8 x10^3/uL (0.0-1.1) Eosinophils # (Auto) 0.0 x10^3/uL (0.0-0.7) Basophils # (Auto) 0.0 x10^3/uL (0.0-0.2) Sodium Level 141 mmol/L (136-145) Potassium Level 4.1 mmol/L (3.5-5.1) Chloride Level 106 mmol/L (98-107) Carbon Dioxide Level 22 mmol/L (21-32) Anion Gap 13 (6-14) Blood Urea Nitrogen 24 mg/dL (7-20) Creatinine 0.9 mg/dL (0.6-1.0) Estimated GFR (Cockcroft-Gault) 72.5 BUN/Creatinine Ratio 27 (6-20) Glucose Level 91 mg/dL (70-99) Calcium Level 8.6 mg/dL (8.5-10.1) Total Bilirubin 0.5 mg/dL (0.2-1.0) Aspartate Amino Transf (AST/SGOT) 16 U/L (15-37) Alanine Aminotransferase (ALT/SGPT) 18 U/L (14-59) Alkaline Phosphatase 71 U/L (46-116) Total Protein 6.9 g/dL (6.4-8.2) Albumin 2.0 g/dL (3.4-5.0) Albumin/Globulin Ratio 0.4 (1.0-1.7) Laboratory Tests Test 04/19/21 06:45 White Blood Count 10.4 x10^3/uL (4.0-11.0) Red Blood Count 4.00 x10^6/uL (3.50-5.40) Hemoglobin 12.7 g/dL (12.0-15.5) Hematocrit 39.6 % (36.0-47.0) Mean Corpuscular Volume 99 fL (79-100) Mean Corpuscular Hemoglobin 32 pg (25-35) Mean Corpuscular Hemoglobin Concent 32 g/dL (31-37) Red Cell Distribution Width 14.4 % (11.5-14.5) Platelet Count 218 x10^3/uL (140-400) Neutrophils (%) (Auto) 83 % (31-73) Lymphocytes (%) (Auto) 10 % (24-48) Monocytes (%) (Auto) 7 % (0-9) Eosinophils (%) (Auto) 0 % (0-3) Basophils (%) (Auto) 0 % (0-3) Neutrophils # (Auto) 8.7 x10^3/uL (1.8-7.7) Lymphocytes # (Auto) 1.0 x10^3/uL (1.0-4.8) Monocytes # (Auto) 0.8 x10^3/uL (0.0-1.1) Eosinophils # (Auto) 0.0 x10^3/uL (0.0-0.7) Basophils # (Auto) 0.0 x10^3/uL (0.0-0.2) Sodium Level 141 mmol/L (136-145) Potassium Level 4.1 mmol/L (3.5-5.1) Chloride Level 106 mmol/L (98-107) Carbon Dioxide Level 22 mmol/L (21-32) Anion Gap 13 (6-14) Blood Urea Nitrogen 24 mg/dL (7-20) Creatinine 0.9 mg/dL (0.6-1.0) Estimated GFR (Cockcroft-Gault) 72.5 BUN/Creatinine Ratio 27 (6-20) Glucose Level 91 mg/dL (70-99) Calcium Level 8.6 mg/dL (8.5-10.1) Total Bilirubin 0.5 mg/dL (0.2-1.0) Aspartate Amino Transf (AST/SGOT) 16 U/L (15-37) Alanine Aminotransferase (ALT/SGPT) 18 U/L (14-59) Alkaline Phosphatase 71 U/L (46-116) Total Protein 6.9 g/dL (6.4-8.2) Albumin 2.0 g/dL (3.4-5.0) Albumin/Globulin Ratio 0.4 (1.0-1.7) Medications Active Scripts Medications Dose Route/Sig Max Daily Dose Days Date Category Hydrocodone-Apap 5-325 (Hydrocodone Bit/Acetaminophen) 1 Tab Tablet 1 Tab PO PRN Q8HRS PRN 04/04/21 Reported Magnesium Oxide 400 Mg Tablet 1 Tab PO DAILY 04/04/21 Reported Singulair Tablet (Montelukast Sodium) 10 Mg Tablet 10 Mg PO HS 04/04/21 Reported Pantoprazole Sodium 40 Mg Tablet.dr 40 Mg PO DAILY 04/04/21 Reported Benzonatate 100 Mg Capsule 1 Cap PO TID PRN 01/02/21 Reported Proair Hfa Inhaler (Albuterol Sulfate) 8.5 Gm Hfa.aer.ad 2 Puff IH PRN Q4HRS PRN 21 01/02/21 Reported Meloxicam 7.5 Mg Tablet 7.5 Mg PO DAILY 10/23/19 Reported Klor-Con M20 (Potassium Chloride) 20 Meq Tab.er.prt 1 Tab PO DAILY 30 10/23/19 Reported Dicyclomine Hcl 10 Mg Capsule 20 Mg PO DAILY 10/23/19 Reported Tramadol Hcl 50 Mg Tablet 50 Mg PO Q6HRS PRN 07/17/17 Reported Norvasc (Amlodipine Besylate) 5 Mg Tablet 5 Mg PO DAILY 07/17/17 Reported Dyazide 37.5-25 Capsule (Triamterene/Hydrochlorothiazid) 1 Each Capsule 1 Cap PO QMWF 07/17/17 Reported Losartan Potassium (Losartan Potassium) 25 Mg Tablet 25 Mg PO DAILY 07/17/17 Reported Amitriptyline Hcl 50 Mg Tablet 25 Mg PO HS 07/17/[address] chest reviewed 04/10/2021 Diffuse emphysema, worse in the upper lobes. Development of groundglass infiltrates bilaterally. Is post radiation treatment in the left perihilar area. Impression . 1. Acute hypoxic respiratory failure secondary to COVID-19 viral pneumonia. 2. Underlying chronic obstructive pulmonary disease, the patient is not on home oxygen. 3. History of lung cancer, the patient reports radiation and chemo. Last CT chest from 01/27/2021 showed post-radiation changes in the left perihilar area. New CT chest 04/10/2021 was reviewed. Development of new bilateral groundglass infiltrates compatible with COVID-19 viral pneumonia. 4. Left upper lobe spiculated nodule unchanged in size since January. Plan . Updated 04/19 Continue current support Monitor O2 needs closely CXR today Labs reviewed Updated 04/18 Continue current support with antibiotics and steroids Titrate O2 down Discussed with RN DVT PPX MARIBEL VOGT MD Apr 19, 2021 10:03
[2021-04-19 11:00] VITALS: BP 132/76
--- NOTE | 2021-04-19 11:06 | RAD ---
EXAM: XR CHEST 1V 04/19/2021 10:25 AM CLINICAL INDICATION: Increased rest of breath COMPARISON: Chest radiograph 04/04/2021 TECHNIQUE: AP upright view of the chest FINDINGS: Right chest wall port is unchanged with tip over the lower superior vena cava. The heart i s normal in size. There are thoracic aortic calcifications. Mild left lung volume loss. There are inc reased interstitial and alveolar opacities throughout both lungs, greatest in the bases. Unchanged sm all left pleural effusion. No pneumothorax. IMPRESSION: 1. Worsened bilateral opacities. 2. Unchanged small left pleural effusion. Electronically signed by: Debi Crenshaw MD (04/19/2021 11:03 AM) [id number]
[2021-04-19 15:00] VITALS: BP 120/73
[2021-04-19] MEDS: IV NORMAL SALINE 1000ML BAG 1,000 ML IV SCH ×2 (15:18→21:40)
[2021-04-19 19:57] VITALS: BP 139/79
[2021-04-19] MEDS: AMITRIPTYLINE HCL 25 MG TABLET. PO SCH (21:01)
[2021-04-19] MEDS: ENOXAPARIN 40 MG/0.4 ML SYRINGE. SQ SCH (21:03)
[2021-04-19] MEDS: MONTELUKAST SODIUM 10 MG TABLET. PO SCH (21:03)
[2021-04-19 23:17] VITALS: BP 134/74
[2021-04-20 03:23] VITALS: BP 142/76
[2021-04-20] MEDS: PIPERACILLIN/TAZOBACTAM 3.375 GM in IV NORMAL SALINE 50ML 50 ML IV SCH ×3 (05:13→12:18)
[2021-04-20 07:00] VITALS: BP 141/75
[2021-04-20] MEDS: DEXAMETHASONE 4 MG TABLET PO SCH (07:34)
[2021-04-20] MEDS: PANTOPRAZOLE 40 MG TABLET.DR. PO SCH (07:34)
[2021-04-20] MEDS: IPRATROPIUM/ALBUTEROL 20/100mcg/INH INHALER. INH SCH ×4 (07:36→20:35)
[2021-04-20] MEDS: guaiFENesin DM 600/30MG 1 TAB TAB.ER.12H PO SCH ×2 (08:36→20:36)
[2021-04-20] MEDS: POTASSIUM CHLORIDE 20 MEQ TABLET.ER. PO SCH (08:36)
[2021-04-20] MEDS: MAGNESIUM OXIDE 400 MG TABLET PO SCH (08:36)
[2021-04-20] MEDS: LOSARTAN POTASSIUM 25 MG TABLET. PO SCH (08:37)
[2021-04-20] MEDS: DICYCLOMINE HCL 10 MG CAPSULE PO SCH (08:38)
[2021-04-20 11:00] VITALS: BP 162/72
--- NOTE | 2021-04-20 12:50 | PDOC ---
PROGRESS NOTES Date of Service: DATE: 04/20/21 TIME: 12:48 Subjective Subjective no new problems Objective Objective Vital Signs Date Time Temp Pulse Resp B/P (MAP) Pulse Ox O2 Delivery O2 Flow Rate FiO2 04/20/21 08:38 96 141/75 04/20/21 07:41 Non-Rebreather 15.0 04/20/21 07:00 98.2 22 96 98.2 Intake and Output 04/20/21 07:00 Intake Total 1000 ml Output Total 501 ml Balance 499 ml Intake Oral 0 ml IV Total 1000 ml Urine/Stool Mix 501 ml # Voids 1 Physical Exam Abdomen: Soft Heart: Regular rate, Normal S1, Normal S2 Extremities: No clubbing General: Alert HEENT: Atraumatic Lungs: Other (rales at base) MUSCULOSKELETAL: No swelling Neuro: Normal speech Psych/Mental Status: Mental status NL Skin: No breakdown Diagnosis Problem List Problems Medical Problems: (1) COVID-19 Status: Acute Assessment Assessment Problems Medical Problems: (1) COVID-19 Status: Acute FINAL IMPRESSION:Pneumonia with hypoxia 1. COVID pneumonia.Break through infection,pt vaccinated not boosted. 2. Immune compromised, patient is on chemo for small cell lung cancer. 3. Small cell lung cancer, getting chemotherapy. 4. Hypertension. 5. Hyperlipidemia. PLAN:,no new problems , continue the same. on NRBM 15 L WBC 13.5. Leukocytosis due to steroids. continue iv fluids inc dexa methasone dose to [address] chest -christa groundglass infiltrates O2 requirements down to 15 L Treated with remdesivir. changed antibiotics to zosyn,day#9,Zyvox d/mehran 04/14 DVT prevention with Lovenox Plan Plan of Care Problems Medical Problems: (1) COVID-19 Status: Acute Comment Review of Relevant I have reviewed the following items ankit (where applicable) has been applied. Vitals/I & O Vital Sign - Last 24 Hours 04/19/21 04/19/21 04/19/21 04/20/21 15:00 19:57 23:17 03:23 Temp 98.2 97.7 98.2 98.2 97.7 98.2 Pulse 93 86 84 75 Resp 20 20 20 20 B/P (MAP) 120/73 (89) 139/79 (99) 134/74 (94) 142/76 (98) Pulse Ox 100 97 98 94 O2 Delivery NonRebreather Mask NonRebreather Mask NonRebreather Mask NonRebreather Mask O2 Flow Rate 15.0 15.0 15.0 15.0 04/20/21 04/20/21 04/20/21 04/20/21 07:00 07:41 08:37 08:38 Temp 98.2 98.2 Pulse 96 96 96 Resp 22 B/P (MAP) 141/75 (97) 141/75 141/75 Pulse Ox 96 O2 Delivery NonRebreather Mask Non-Rebreather O2 Flow Rate 15.0 15.0 Intake and Output 04/19/21 04/19/21 04/20/21 15:00 23:00 07:00 Intake Total 50 ml 950 ml 0 ml Output Total 500 ml 1 ml Balance -450 ml 950 ml -1 ml Justifications for Admission Other Justification WALKER DAVILA MD Apr 20, 2021 12:50
--- NOTE | 2021-04-20 14:08 | NUR ---
SW following. Discussed with RN, pt remains on NRB - RN may try titrating today. COVID-19 positive. Pt not medically ready for discharge. SW will continue to follow.
[2021-04-20] MEDS: IV NORMAL SALINE 1000ML BAG 1,000 ML IV SCH (16:25)
--- NOTE | 2021-04-20 16:31 | PDOC ---
PULMONARY PROGRESS NOTES DATE: 04/20/21 TIME: 16:27 Subjective Patient with no significant improvement, continues to require nasal cannula oxygen and nonrebreather Vitals Vital Signs Date Time Temp Pulse Resp B/P (MAP) Pulse Ox O2 Delivery O2 Flow Rate FiO2 04/20/21 11:00 98.1 75 22 162/72 (102) 97 NonRebreather Mask 15.0 98.1 ROS: No Nausea, No Chest Pain, No Abdominal Pain, No Increase Cough General: Alert, No acute distress Lungs: Clear Cardiovascular: S1, S2 Abdomen: Soft Neuro Exam: Alert Extremities: No Edema Skin: Warm Labs Laboratory Tests Test 04/19/21 06:45 White Blood Count 10.4 x10^3/uL (4.0-11.0) Red Blood Count 4.00 x10^6/uL (3.50-5.40) Hemoglobin 12.7 g/dL (12.0-15.5) Hematocrit 39.6 % (36.0-47.0) Mean Corpuscular Volume 99 fL (79-100) Mean Corpuscular Hemoglobin 32 pg (25-35) Mean Corpuscular Hemoglobin Concent 32 g/dL (31-37) Red Cell Distribution Width 14.4 % (11.5-14.5) Platelet Count 218 x10^3/uL (140-400) Neutrophils (%) (Auto) 83 % (31-73) Lymphocytes (%) (Auto) 10 % (24-48) Monocytes (%) (Auto) 7 % (0-9) Eosinophils (%) (Auto) 0 % (0-3) Basophils (%) (Auto) 0 % (0-3) Neutrophils # (Auto) 8.7 x10^3/uL (1.8-7.7) Lymphocytes # (Auto) 1.0 x10^3/uL (1.0-4.8) Monocytes # (Auto) 0.8 x10^3/uL (0.0-1.1) Eosinophils # (Auto) 0.0 x10^3/uL (0.0-0.7) Basophils # (Auto) 0.0 x10^3/uL (0.0-0.2) Sodium Level 141 mmol/L (136-145) Potassium Level 4.1 mmol/L (3.5-5.1) Chloride Level 106 mmol/L (98-107) Carbon Dioxide Level 22 mmol/L (21-32) Anion Gap 13 (6-14) Blood Urea Nitrogen 24 mg/dL (7-20) Creatinine 0.9 mg/dL (0.6-1.0) Estimated GFR (Cockcroft-Gault) 72.5 BUN/Creatinine Ratio 27 (6-20) Glucose Level 91 mg/dL (70-99) Calcium Level 8.6 mg/dL (8.5-10.1) Total Bilirubin 0.5 mg/dL (0.2-1.0) Aspartate Amino Transf (AST/SGOT) 16 U/L (15-37) Alanine Aminotransferase (ALT/SGPT) 18 U/L (14-59) Alkaline Phosphatase 71 U/L (46-116) Total Protein 6.9 g/dL (6.4-8.2) Albumin 2.0 g/dL (3.4-5.0) Albumin/Globulin Ratio 0.4 (1.0-1.7) Medications Active Scripts Medications Dose Route/Sig Max Daily Dose Days Date Category Hydrocodone-Apap 5-325 (Hydrocodone Bit/Acetaminophen) 1 Tab Tablet 1 Tab PO PRN Q8HRS PRN 04/04/21 Reported Magnesium Oxide 400 Mg Tablet 1 Tab PO DAILY 04/04/21 Reported Singulair Tablet (Montelukast Sodium) 10 Mg Tablet 10 Mg PO HS 04/04/21 Reported Pantoprazole Sodium 40 Mg Tablet.dr 40 Mg PO DAILY 04/04/21 Reported Benzonatate 100 Mg Capsule 1 Cap PO TID PRN 01/02/21 Reported Proair Hfa Inhaler (Albuterol Sulfate) 8.5 Gm Hfa.aer.ad 2 Puff IH PRN Q4HRS PRN 21 01/02/21 Reported Meloxicam 7.5 Mg Tablet 7.5 Mg PO DAILY 10/23/19 Reported Klor-Con M20 (Potassium Chloride) 20 Meq Tab.er.prt 1 Tab PO DAILY 30 10/23/19 Reported Dicyclomine Hcl 10 Mg Capsule 20 Mg PO DAILY 10/23/19 Reported Tramadol Hcl 50 Mg Tablet 50 Mg PO Q6HRS PRN 07/17/17 Reported Norvasc (Amlodipine Besylate) 5 Mg Tablet 5 Mg PO DAILY 07/17/17 Reported Dyazide 37.5-25 Capsule (Triamterene/Hydrochlorothiazid) 1 Each Capsule 1 Cap PO QMWF 07/17/17 Reported Losartan Potassium (Losartan Potassium) 25 Mg Tablet 25 Mg PO DAILY 07/17/17 Reported Amitriptyline Hcl 50 Mg Tablet 25 Mg PO HS 07/17/[address] chest reviewed 04/10/2021 Diffuse emphysema, worse in the upper lobes. Development of groundglass infiltrates bilaterally. Is post radiation treatment in the left perihilar area. Impression . 1. Acute hypoxic respiratory failure secondary to COVID-19 viral pneumonia. 2. Underlying chronic obstructive pulmonary disease, the patient is not on home oxygen. 3. History of lung cancer, the patient reports radiation and chemo. Last CT chest from 01/27/2021 showed post-radiation changes in the left perihilar area. New CT chest 04/10/2021 was reviewed. Development of new bilateral groundglass infiltrates compatible with COVID-19 viral pneumonia. 4. Left upper lobe spiculated nodule unchanged in size since January. Plan . Updated 2/2 Continue nasal cannula oxygen nonrebreather 100% FiO2 Up to chair Possible physical therapy Chest x-ray reviewed Kristie x140 mg MARIBEL VOGT MD Apr 20, 2021 16:31
[2021-04-20] MEDS ORDERED: FUROSEMIDE 40 MG/4 ML VIAL. IVP ONE (17:00)
[2021-04-20 19:00] VITALS: BP 114/69
[2021-04-20] MEDS: ENOXAPARIN 40 MG/0.4 ML SYRINGE. SQ SCH (20:35)
[2021-04-20] MEDS: AMITRIPTYLINE HCL 25 MG TABLET. PO SCH (20:36)
[2021-04-20] MEDS: MONTELUKAST SODIUM 10 MG TABLET. PO SCH (20:36)
[2021-04-20 22:52] VITALS: BP 124/81
[2021-04-21] MEDS: IV NORMAL SALINE 1000ML BAG 1,000 ML IV SCH (00:20)
[2021-04-21 02:41] VITALS: BP 128/78
[2021-04-21 07:00] VITALS: BP 108/68
[2021-04-21 08:43] LABS: CALCIUM 8.5 mg/dL (8.5-10.1); CREATININE 0.9 mg/dL (0.6-1.0); GFR 72.5; POTASSIUM 3.9 mmol/L (3.5-5.1)
--- NOTE | 2021-04-21 09:23 | PDOC ---
PULMONARY PROGRESS NOTES DATE: 04/21/21 TIME: 09:23 Subjective Patient with no significant improvement, continues to require nasal cannula oxygen and nonrebreather Vitals Vital Signs Date Time Temp Pulse Resp B/P (MAP) Pulse Ox O2 Delivery O2 Flow Rate FiO2 04/21/21 07:00 98.4 92 108/68 (81) 96 NonRebreather Mask 15.0 98.4 04/21/21 02:41 19 ROS: No Nausea, No Chest Pain, No Abdominal Pain, No Increase Cough General: Alert, No acute distress Lungs: Clear Cardiovascular: S1, S2 Abdomen: Soft Neuro Exam: Alert Extremities: No Edema Skin: Warm Labs Laboratory Tests Test 04/21/21 07:35 Sodium Level 138 mmol/L (136-145) Potassium Level 3.9 mmol/L (3.5-5.1) Chloride Level 104 mmol/L (98-107) Carbon Dioxide Level 26 mmol/L (21-32) Anion Gap 8 (6-14) Blood Urea Nitrogen 23 mg/dL (7-20) Creatinine 0.9 mg/dL (0.6-1.0) Estimated GFR (Cockcroft-Gault) 72.5 Glucose Level 81 mg/dL (70-99) Calcium Level 8.5 mg/dL (8.5-10.1) Laboratory Tests Test 04/21/21 07:35 Sodium Level 138 mmol/L (136-145) Potassium Level 3.9 mmol/L (3.5-5.1) Chloride Level 104 mmol/L (98-107) Carbon Dioxide Level 26 mmol/L (21-32) Anion Gap 8 (6-14) Blood Urea Nitrogen 23 mg/dL (7-20) Creatinine 0.9 mg/dL (0.6-1.0) Estimated GFR (Cockcroft-Gault) 72.5 Glucose Level 81 mg/dL (70-99) Calcium Level 8.5 mg/dL (8.5-10.1) Medications Active Scripts Medications Dose Route/Sig Max Daily Dose Days Date Category Hydrocodone-Apap 5-325 (Hydrocodone Bit/Acetaminophen) 1 Tab Tablet 1 Tab PO PRN Q8HRS PRN 04/04/21 Reported Magnesium Oxide 400 Mg Tablet 1 Tab PO DAILY 04/04/21 Reported Singulair Tablet (Montelukast Sodium) 10 Mg Tablet 10 Mg PO HS 04/04/21 Reported Pantoprazole Sodium 40 Mg Tablet.dr 40 Mg PO DAILY 04/04/21 Reported Benzonatate 100 Mg Capsule 1 Cap PO TID PRN 01/02/21 Reported Proair Hfa Inhaler (Albuterol Sulfate) 8.5 Gm Hfa.aer.ad 2 Puff IH PRN Q4HRS PRN 21 01/02/21 Reported Meloxicam 7.5 Mg Tablet 7.5 Mg PO DAILY 10/23/19 Reported Klor-Con M20 (Potassium Chloride) 20 Meq Tab.er.prt 1 Tab PO DAILY 30 10/23/19 Reported Dicyclomine Hcl 10 Mg Capsule 20 Mg PO DAILY 10/23/19 Reported Tramadol Hcl 50 Mg Tablet 50 Mg PO Q6HRS PRN 07/17/17 Reported Norvasc (Amlodipine Besylate) 5 Mg Tablet 5 Mg PO DAILY 07/17/17 Reported Dyazide 37.5-25 Capsule (Triamterene/Hydrochlorothiazid) 1 Each Capsule 1 Cap PO QMWF 07/17/17 Reported Losartan Potassium (Losartan Potassium) 25 Mg Tablet 25 Mg PO DAILY 07/17/17 Reported Amitriptyline Hcl 50 Mg Tablet 25 Mg PO HS 07/17/[address] chest reviewed 04/10/2021 Diffuse emphysema, worse in the upper lobes. Development of groundglass infiltrates bilaterally. Is post radiation treatment in the left perihilar area. Impression . 1. Acute hypoxic respiratory failure secondary to COVID-19 viral pneumonia. 2. Underlying chronic obstructive pulmonary disease, the patient is not on home oxygen. 3. History of lung cancer, the patient reports radiation and chemo. Last CT chest from 01/27/2021 showed post-radiation changes in the left perihilar area. New CT chest 04/10/2021 was reviewed. Development of new bilateral groundglass infiltrates compatible with COVID-19 viral pneumonia. 4. Left upper lobe spiculated nodule unchanged in size since January. Plan . Updated 2/2 Continue nasal cannula oxygen nonrebreather 100% FiO2 Up to chair Possible physical therapy Chest x-ray reviewed Lasix x140 mg MARIBEL VOGT MD Apr 21, 2021 09:23
--- NOTE | 2021-04-21 09:42 | PDOC ---
PROGRESS NOTES Date of Service: DATE: 04/21/21 TIME: 09:42 Subjective Subjective feeling ok Objective Objective Vital Signs Date Time Temp Pulse Resp B/P (MAP) Pulse Ox O2 Delivery O2 Flow Rate FiO2 04/21/21 07:00 98.4 92 108/68 (81) 96 NonRebreather Mask 15.0 98.4 04/21/21 02:41 19 Intake and Output 04/21/21 07:00 Intake Total 950 ml Output Total 400 ml Balance 550 ml IV Total 950 ml Output Urine Total 400 ml Physical Exam Abdomen: Soft Heart: Regular rate, Normal S1, Normal S2 Extremities: No clubbing General: Alert HEENT: Atraumatic Lungs: Other (rales at base) MUSCULOSKELETAL: No swelling Neuro: Normal speech Psych/Mental Status: Mental status NL Skin: No breakdown Diagnosis Problem List Problems Medical Problems: (1) COVID-19 Status: Acute Assessment Assessment Problems Medical Problems: (1) COVID-19 Status: Acute FINAL IMPRESSION:Pneumonia with hypoxia 1. COVID pneumonia.Break through infection,pt vaccinated not boosted. 2. Immune compromised, patient is on chemo for small cell lung cancer. 3. Small cell lung cancer, getting chemotherapy. 4. Hypertension. 5. Hyperlipidemia. PLAN:,d/c iv antibiotics on NRBM 15 L WBC 13.5. Leukocytosis due to steroids. d/c iv fluids inc dexa methasone dose to [address] chest -christa groundglass infiltrates O2 requirements down to 15 L completed 14 days of antbiotics treated with 5 days of remdesisvir DVT prevention with Lovenox Plan Plan of Care Problems Medical Problems: (1) COVID-19 Status: Acute Comment Review of Relevant I have reviewed the following items ankit (where applicable) has been applied. Labs Laboratory Tests Test 04/21/21 07:35 Sodium Level 138 mmol/L (136-145) Potassium Level 3.9 mmol/L (3.5-5.1) Chloride Level 104 mmol/L (98-107) Carbon Dioxide Level 26 mmol/L (21-32) Anion Gap 8 (6-14) Blood Urea Nitrogen 23 mg/dL (7-20) Creatinine 0.9 mg/dL (0.6-1.0) Estimated GFR (Cockcroft-Gault) 72.5 Glucose Level 81 mg/dL (70-99) Calcium Level 8.5 mg/dL (8.5-10.1) ED-Xsh-M-Type Natriuretic Peptide 465 pg/mL (0-449) Medications Current Medications Furosemide (Lasix) 40 mg 1X ONCE IVP Last administered on 04/20/21at 17:10; Start 04/20/21 at 17:00; Stop 04/20/21 at 17:01; Status DC Furosemide (Lasix) 40 mg DAILY IVP ; Start 04/21/21 at 09:00 Vitals/I & O Vital Sign - Last 24 Hours 04/20/21 04/20/21 04/20/21 04/20/21 11:00 19:00 20:00 22:52 Temp 98.1 97.6 97.8 98.1 97.6 97.8 Pulse 75 94 91 Resp 22 18 19 B/P (MAP) 162/72 (102) 114/69 (84) 124/81 (95) Pulse Ox 97 99 100 O2 Delivery NonRebreather Mask NonRebreather Mask Non-Rebreather NonRebreather Mask O2 Flow Rate 15.0 15.0 15.0 15.0 04/21/21 04/21/21 02:41 07:00 Temp 97.7 98.4 97.7 98.4 Pulse 90 92 Resp 19 B/P (MAP) 128/78 (95) 108/68 (81) Pulse Ox 100 96 O2 Delivery NonRebreather Mask NonRebreather Mask O2 Flow Rate 15.0 15.0 Intake and Output 04/20/21 04/20/21 04/21/21 15:00 23:00 07:00 Intake Total 950 ml Output Total 400 ml Balance 950 ml -400 ml Justifications for Admission Other Justification WALKER DAVILA MD Apr 21, 2021 09:42
[2021-04-21] MEDS: MAGNESIUM OXIDE 400 MG TABLET PO SCH (09:55)
[2021-04-21] MEDS: POTASSIUM CHLORIDE 20 MEQ TABLET.ER. PO SCH (09:55)
[2021-04-21] MEDS: DICYCLOMINE HCL 10 MG CAPSULE PO SCH (09:55)
[2021-04-21] MEDS: PANTOPRAZOLE 40 MG TABLET.DR. PO SCH (09:55)
[2021-04-21] MEDS: DEXAMETHASONE 4 MG TABLET PO SCH (09:56)
[2021-04-21] MEDS: LOSARTAN POTASSIUM 25 MG TABLET. PO SCH (09:56)
[2021-04-21] MEDS: FUROSEMIDE 40 MG/4 ML VIAL. IVP SCH (09:57)
[2021-04-21] MEDS: IPRATROPIUM/ALBUTEROL 20/100mcg/INH INHALER. INH SCH ×4 (09:57→22:07)
[2021-04-21 11:00] VITALS: BP 96/63
[2021-04-21] MEDS: guaiFENesin DM 600/30MG 1 TAB TAB.ER.12H PO SCH ×2 (12:13→22:07)
[2021-04-21 15:00] VITALS: BP 105/65
[2021-04-21 19:00] VITALS: BP 99/61
[2021-04-21] MEDS: ENOXAPARIN 40 MG/0.4 ML SYRINGE. SQ SCH (22:07)
[2021-04-21] MEDS: AMITRIPTYLINE HCL 25 MG TABLET. PO SCH (22:07)
[2021-04-21] MEDS: MONTELUKAST SODIUM 10 MG TABLET. PO SCH (22:07)
[2021-04-21 22:37] VITALS: BP 109/64
[2021-04-22 02:47] VITALS: BP 115/62
[2021-04-22 07:00] VITALS: BP 113/66
--- NOTE | 2021-04-22 08:22 | PDOC ---
PULMONARY PROGRESS NOTES DATE: 04/22/21 TIME: 08:22 Subjective Patient laying in bed, continues with non rebreather. complains of shortness of breath. Vitals Vital Signs Date Time Temp Pulse Resp B/P (MAP) Pulse Ox O2 Delivery O2 Flow Rate FiO2 04/22/21 02:47 97.7 98 19 115/62 (79) 94 NonRebreather Mask 15.0 97.7 ROS: No Nausea, No Chest Pain, No Abdominal Pain, No Increase Cough General: Alert, No acute distress Lungs: Clear Cardiovascular: S1, S2 Abdomen: Soft Neuro Exam: Alert Extremities: No Edema Skin: Warm Labs Laboratory Tests Test 04/21/21 07:35 04/21/21 14:35 Sodium Level 138 mmol/L (136-145) Potassium Level 3.9 mmol/L (3.5-5.1) Chloride Level 104 mmol/L (98-107) Carbon Dioxide Level 26 mmol/L (21-32) Anion Gap 8 (6-14) Blood Urea Nitrogen 23 mg/dL (7-20) Creatinine 0.9 mg/dL (0.6-1.0) Estimated GFR (Cockcroft-Gault) 72.5 Glucose Level 81 mg/dL (70-99) Calcium Level 8.5 mg/dL (8.5-10.1) RQ-Fyq-L-Type Natriuretic Peptide 465 pg/mL (0-449) Erythrocyte Sedimentation Rate 105 (0-25) Laboratory Tests Test 04/21/21 14:35 Erythrocyte Sedimentation Rate 105 (0-25) Medications Active Scripts Medications Dose Route/Sig Max Daily Dose Days Date Category Hydrocodone-Apap 5-325 (Hydrocodone Bit/Acetaminophen) 1 Tab Tablet 1 Tab PO PRN Q8HRS PRN 04/04/21 Reported Magnesium Oxide 400 Mg Tablet 1 Tab PO DAILY 04/04/21 Reported Singulair Tablet (Montelukast Sodium) 10 Mg Tablet 10 Mg PO HS 04/04/21 Reported Pantoprazole Sodium 40 Mg Tablet.dr 40 Mg PO DAILY 04/04/21 Reported Benzonatate 100 Mg Capsule 1 Cap PO TID PRN 01/02/21 Reported Proair Hfa Inhaler (Albuterol Sulfate) 8.5 Gm Hfa.aer.ad 2 Puff IH PRN Q4HRS PRN 21 01/02/21 Reported Meloxicam 7.5 Mg Tablet 7.5 Mg PO DAILY 10/23/19 Reported Klor-Con M20 (Potassium Chloride) 20 Meq Tab.er.prt 1 Tab PO DAILY 30 10/23/19 Reported Dicyclomine Hcl 10 Mg Capsule 20 Mg PO DAILY 10/23/19 Reported Tramadol Hcl 50 Mg Tablet 50 Mg PO Q6HRS PRN 07/17/17 Reported Norvasc (Amlodipine Besylate) 5 Mg Tablet 5 Mg PO DAILY 07/17/17 Reported Dyazide 37.5-25 Capsule (Triamterene/Hydrochlorothiazid) 1 Each Capsule 1 Cap PO QMWF 07/17/17 Reported Losartan Potassium (Losartan Potassium) 25 Mg Tablet 25 Mg PO DAILY 07/17/17 Reported Amitriptyline Hcl 50 Mg Tablet 25 Mg PO HS 07/17/[address] chest reviewed 04/10/2021 Diffuse emphysema, worse in the upper lobes. Development of groundglass infiltrates bilaterally. Is post radiation treatment in the left perihilar area. Impression . 1. Acute hypoxic respiratory failure secondary to COVID-19 viral pneumonia. 2. Underlying chronic obstructive pulmonary disease, the patient is not on home oxygen. 3. History of lung cancer, the patient reports radiation and chemo. Last CT chest from 01/27/2021 showed post-radiation changes in the left perihilar area. New CT chest 04/10/2021 was reviewed. Development of new bilateral groundglass infiltrates compatible with COVID-19 viral pneumonia. 4. Left upper lobe spiculated nodule unchanged in size since January. Plan . Updated / Physical therapy Continue nasal cannula oxygen nonrebreather 100% FiO2, titrate as able Up to chair as tolerated continue steroid daily MARIBEL Smallwood MD Apr 22, 2021 08:22
[2021-04-22] MEDS: DEXAMETHASONE 4 MG TABLET PO SCH (10:13)
[2021-04-22] MEDS: guaiFENesin DM 600/30MG 1 TAB TAB.ER.12H PO SCH ×3 (10:13→21:00)
[2021-04-22] MEDS: PANTOPRAZOLE 40 MG TABLET.DR. PO SCH (10:14)
[2021-04-22] MEDS: MAGNESIUM OXIDE 400 MG TABLET PO SCH (10:14)
[2021-04-22] MEDS: POTASSIUM CHLORIDE 20 MEQ TABLET.ER. PO SCH (10:14)
[2021-04-22] MEDS: DICYCLOMINE HCL 10 MG CAPSULE PO SCH (10:14)
[2021-04-22] MEDS: FUROSEMIDE 40 MG/4 ML VIAL. IVP SCH (10:15)
[2021-04-22] MEDS: LOSARTAN POTASSIUM 25 MG TABLET. PO SCH (10:15)
[2021-04-22] MEDS: IPRATROPIUM/ALBUTEROL 20/100mcg/INH INHALER. INH SCH ×4 (10:18→20:53)
[2021-04-22 11:00] VITALS: BP 108/63
[2021-04-22] MEDS: HYDROcodone/APAP 5/325MG 1 TAB TABLET PO PRN (11:20)
--- NOTE | 2021-04-22 11:47 | PDOC ---
PROGRESS NOTES Date of Service: DATE: 04/22/21 TIME: 11:46 Subjective Subjective weak Objective Objective Vital Signs Date Time Temp Pulse Resp B/P (MAP) Pulse Ox O2 Delivery O2 Flow Rate FiO2 04/22/21 11:20 20 93 NonRebreather Mask 15.0 04/22/21 10:15 86 113/66 04/22/21 07:00 97.3 97.3 Intake and Output 04/22/21 07:00 # Voids 2 Physical Exam Abdomen: Soft Heart: Regular rate, Normal S1, Normal S2 Extremities: No clubbing General: Alert HEENT: Atraumatic Lungs: Other (rales at base) MUSCULOSKELETAL: No swelling Neuro: Normal speech Psych/Mental Status: Mental status NL Skin: No breakdown Diagnosis Problem List Problems Medical Problems: (1) COVID-19 Status: Acute Assessment Assessment Problems Medical Problems: (1) COVID-19 Status: Acute FINAL IMPRESSION:Pneumonia with hypoxia 1. COVID pneumonia.Break through infection,pt vaccinated not boosted. 2. Immune compromised, patient is on chemo for small cell lung cancer. 3. Small cell lung cancer, getting chemotherapy. 4. Hypertension. 5. Hyperlipidemia. PLAN:[facility] screen,spoke with caseworker intake d/c iv antibiotics on NRBM 15 L WBC 13.5. Leukocytosis due to steroids. d/c iv fluids inc dexa methasone dose to [address] chest -christa groundglass infiltrates O2 requirements down to 15 L completed 14 days of antbiotics treated with 5 days of remdesisvir DVT prevention with Lovenox Plan Plan of Care Problems Medical Problems: (1) COVID-19 Status: Acute Comment Review of Relevant I have reviewed the following items ankit (where applicable) has been applied. Labs Laboratory Tests Test 04/21/21 14:35 Erythrocyte Sedimentation Rate 105 (0-25) Vitals/I & O Vital Sign - Last 24 Hours 04/21/21 04/21/21 04/21/21 04/21/21 15:00 19:00 19:30 22:37 Temp 97.8 97.8 97.9 97.8 97.8 97.9 Pulse 107 97 94 Resp 20 19 19 B/P (MAP) 105/65 (78) 99/61 (74) 109/64 (79) Pulse Ox 99 94 93 O2 Delivery NonRebreather Mask NonRebreather Mask Non-Rebreather NonRebreather Mask O2 Flow Rate 15.0 15.0 15.0 15.0 04/22/21 04/22/21 04/22/21 04/22/21 02:47 07:00 08:00 10:13 Temp 97.7 97.3 97.7 97.3 Pulse 98 86 86 Resp 19 17 B/P (MAP) 115/62 (79) 113/66 (82) 113/66 Pulse Ox 94 100 O2 Delivery NonRebreather Mask NonRebreather Mask Non-Rebreather O2 Flow Rate 15.0 15.0 15.0 04/22/21 04/22/21 10:15 11:20 Pulse 86 Resp 20 B/P (MAP) 113/66 Pulse Ox 93 O2 Delivery NonRebreather Mask O2 Flow Rate 15.0 Justifications for Admission Other Justification WALKER DAVILA MD Apr 22, 2021 11:47
--- NOTE | 2021-04-22 12:27 | NUR ---
RENEE following. Discussed with Dr. Spencer - requesting pt be screened at [facility]. RENEE spoke with pt's daughter, Rosetta (ph: [phone]), she is agreeable. Referral phoned and faxed to [facility] - they are in network with pt's insurance. Awaiting acceptance decision. RENEE will continue to follow. Addendum: 04/22/21 at 1415 by JEANNE DURAN Pt accepted at [facility], pending insurance auth. Berenice submitting today. RENEE will continue to follow. Berenice spoke with pt's daughter, no need for RENEE to call daughter back today.
[2021-04-22 15:00] VITALS: BP 109/59
[2021-04-22 19:30] VITALS: BP 122/72
[2021-04-22] MEDS: ENOXAPARIN 40 MG/0.4 ML SYRINGE. SQ SCH (20:53)
[2021-04-22] MEDS: MONTELUKAST SODIUM 10 MG TABLET. PO SCH ×2 (20:53→21:00)
[2021-04-22] MEDS: AMITRIPTYLINE HCL 25 MG TABLET. PO SCH ×2 (20:53→21:00)
--- NOTE | 2021-04-22 21:00 | NUR ---
Pt's port-a-cath de accessed since not in use at this time and does not flush properly and no blood return. Pt tolerated without complications.
--- NOTE | 2021-04-22 22:00 | NUR ---
Pt noc meds not given at this time since pt with difficulty with breathing since mask was on her chest. Will attempt again later when breathing improved.
[2021-04-23 02:44] VITALS: BP 135/76
[2021-04-23 07:00] VITALS: BP 122/75
[2021-04-23] MEDS: PANTOPRAZOLE 40 MG TABLET.DR. PO SCH (08:01)
[2021-04-23] MEDS: IPRATROPIUM/ALBUTEROL 20/100mcg/INH INHALER. INH SCH ×4 (08:02→20:46)
[2021-04-23] MEDS: HYDROcodone/APAP 5/325MG 1 TAB TABLET PO PRN (08:02)
[2021-04-23] MEDS: FUROSEMIDE 40 MG/4 ML VIAL. IVP SCH (08:46)
[2021-04-23] MEDS: MAGNESIUM OXIDE 400 MG TABLET PO SCH (08:48)
[2021-04-23] MEDS: POTASSIUM CHLORIDE 20 MEQ TABLET.ER. PO SCH (08:48)
[2021-04-23] MEDS: DICYCLOMINE HCL 10 MG CAPSULE PO SCH (08:48)
[2021-04-23] MEDS: LOSARTAN POTASSIUM 25 MG TABLET. PO SCH (08:49)
[2021-04-23] MEDS: guaiFENesin DM 600/30MG 1 TAB TAB.ER.12H PO SCH ×2 (08:54→20:47)
--- NOTE | 2021-04-23 11:06 | PDOC ---
PULMONARY PROGRESS NOTES DATE: 04/23/21 TIME: 11:03 Subjective Patient seen this morning resting in bed. she is on NRB mask. appears to be comfortable. Vitals Vital Signs Date Time Temp Pulse Resp B/P (MAP) Pulse Ox O2 Delivery O2 Flow Rate FiO2 04/23/21 08:49 99 122/75 04/23/21 07:25 Non-Rebreather 15.0 04/23/21 07:00 97.1 16 100 97.1 ROS: No Nausea, No Chest Pain, No Abdominal Pain, No Increase Cough General: Alert, No acute distress Lungs: Clear Cardiovascular: S1, S2 Abdomen: Soft Neuro Exam: Alert Extremities: No Edema Skin: Warm Labs Laboratory Tests Test 04/21/21 14:35 04/22/21 23:16 Erythrocyte Sedimentation Rate 105 (0-25) Glucose (Fingerstick) 122 mg/dL (70-99) Laboratory Tests Test 04/22/21 23:16 Glucose (Fingerstick) 122 mg/dL (70-99) Medications Active Scripts Medications Dose Route/Sig Max Daily Dose Days Date Category Hydrocodone-Apap 5-325 (Hydrocodone Bit/Acetaminophen) 1 Tab Tablet 1 Tab PO PRN Q8HRS PRN 04/04/21 Reported Magnesium Oxide 400 Mg Tablet 1 Tab PO DAILY 04/04/21 Reported Singulair Tablet (Montelukast Sodium) 10 Mg Tablet 10 Mg PO HS 04/04/21 Reported Pantoprazole Sodium 40 Mg Tablet.dr 40 Mg PO DAILY 04/04/21 Reported Benzonatate 100 Mg Capsule 1 Cap PO TID PRN 01/02/21 Reported Proair Hfa Inhaler (Albuterol Sulfate) 8.5 Gm Hfa.aer.ad 2 Puff IH PRN Q4HRS PRN 21 01/02/21 Reported Meloxicam 7.5 Mg Tablet 7.5 Mg PO DAILY 10/23/19 Reported Klor-Con M20 (Potassium Chloride) 20 Meq Tab.er.prt 1 Tab PO DAILY 30 10/23/19 Reported Dicyclomine Hcl 10 Mg Capsule 20 Mg PO DAILY 10/23/19 Reported Tramadol Hcl 50 Mg Tablet 50 Mg PO Q6HRS PRN 07/17/17 Reported Norvasc (Amlodipine Besylate) 5 Mg Tablet 5 Mg PO DAILY 07/17/17 Reported Dyazide 37.5-25 Capsule (Triamterene/Hydrochlorothiazid) 1 Each Capsule 1 Cap PO QMWF 07/17/17 Reported Losartan Potassium (Losartan Potassium) 25 Mg Tablet 25 Mg PO DAILY 07/17/17 Reported Amitriptyline Hcl 50 Mg Tablet 25 Mg PO HS 07/17/[address] chest reviewed 04/10/2021 Diffuse emphysema, worse in the upper lobes. Development of groundglass infiltrates bilaterally. Is post radiation treatment in the left perihilar area. Impression . 1. Acute hypoxic respiratory failure secondary to COVID-19 viral pneumonia. 2. Underlying chronic obstructive pulmonary disease, the patient is not on home oxygen. 3. History of lung cancer, the patient reports radiation and chemo. Last CT chest from 01/27/2021 showed post-radiation changes in the left perihilar area. New CT chest 04/10/2021 was reviewed. Development of new bilateral groundglass infiltrates compatible with COVID-19 viral pneumonia. 4. Left upper lobe spiculated nodule unchanged in size since January. Plan . Updated 04/23 Physical therapy as Continue nasal cannula oxygen nonrebreather 100% FiO2, titrate as able Up to chair as tolerated continue steroid daily MARIBEL Smallwood MD Apr 23, 2021 11:06
[2021-04-23 11:18] VITALS: BP 115/76
--- NOTE | 2021-04-23 11:52 | PDOC ---
PROGRESS NOTES Date of Service: DATE: 04/23/21 TIME: 11:51 Subjective Subjective doing well Objective Objective Vital Signs Date Time Temp Pulse Resp B/P (MAP) Pulse Ox O2 Delivery O2 Flow Rate FiO2 04/23/21 11:18 98.6 96 18 115/76 (89) 97 NonRebreather Mask 15.0 98.6 Intake and Output 04/23/21 07:00 Output Total 401 ml Balance -401 ml Output Urine Total 401 ml # Voids 4 Physical Exam Abdomen: Soft Heart: Regular rate, Normal S1, Normal S2 Extremities: No clubbing General: Alert HEENT: Atraumatic Lungs: Other (rales at base) MUSCULOSKELETAL: No swelling Neuro: Normal speech Psych/Mental Status: Mental status NL Skin: No breakdown Diagnosis Problem List Problems Medical Problems: (1) COVID-19 Status: Acute Assessment Assessment Problems Medical Problems: (1) COVID-19 Status: Acute FINAL IMPRESSION:Pneumonia with hypoxia 1. COVID pneumonia.Break through infection,pt vaccinated not boosted. 2. Immune compromised, patient is on chemo for small cell lung cancer. 3. Small cell lung cancer, getting chemotherapy. 4. Hypertension. 5. Hyperlipidemia. PLAN:LTAC screen,spoke with hospice case manager d/c iv antibiotics on NRBM 15 L, will wean down oxygen WBC 13.5. Leukocytosis due to steroids. d/c iv fluids inc dexa methasone dose to [address] chest -christa groundglass infiltrates O2 requirements down to 15 L completed 14 days of antbiotics treated with 5 days of remdesisvir DVT prevention with Lovenox Plan Plan of Care Problems Medical Problems: (1) COVID-19 Status: Acute Comment Review of Relevant I have reviewed the following items ankit (where applicable) has been applied. Labs Laboratory Tests Test 04/22/21 23:16 Glucose (Fingerstick) 122 mg/dL (70-99) Vitals/I & O Vital Sign - Last 24 Hours 04/22/21 04/22/21 04/22/21 04/22/21 12:00 15:00 19:30 20:00 Temp 97.3 96.1 97.3 96.1 Pulse 86 103 Resp 19 20 18 B/P (MAP) 109/59 (76) 122/72 (89) Pulse Ox 93 100 98 O2 Delivery NonRebreather Mask NonRebreather Mask NonRebreather Mask Non- Rebreather O2 Flow Rate 15.0 15.0 15.0 15.0 04/22/21 04/23/21 04/23/21 04/23/21 23:00 02:44 07:00 07:25 Temp 97.6 97.1 97.6 97.1 Pulse 78 98 99 Resp 18 16 B/P (MAP) 135/76 (95) 122/75 (91) Pulse Ox 96 98 100 O2 Delivery NonRebreather Mask NonRebreather Mask NonRebreather Mask Non- Rebreather O2 Flow Rate 15.0 15.0 15.0 04/23/21 04/23/21 04/23/21 08:48 08:49 11:18 Temp 98.6 98.6 Pulse 99 99 96 Resp 18 B/P (MAP) 122/75 122/75 115/76 (89) Pulse Ox 97 O2 Delivery NonRebreather Mask O2 Flow Rate 15.0 Intake and Output 04/22/21 04/22/21 04/23/21 15:00 23:00 07:00 Output Total 1 ml 200 ml 200 ml Balance -1 ml -200 ml -200 ml Justifications for Admission Other Justification WALKER DAVILA MD Apr 23, 2021 11:52
[2021-04-23 14:55] VITALS: BP 134/74
[2021-04-23 19:00] VITALS: BP 103/60
[2021-04-23] MEDS: AMITRIPTYLINE HCL 25 MG TABLET. PO SCH (20:47)
[2021-04-23] MEDS: MONTELUKAST SODIUM 10 MG TABLET. PO SCH (20:47)
[2021-04-23] MEDS: ENOXAPARIN 40 MG/0.4 ML SYRINGE. SQ SCH (22:00)
[2021-04-23 23:00] VITALS: BP 105/63
[2021-04-24 07:00] VITALS: BP 145/70
[2021-04-24] MEDS: PANTOPRAZOLE 40 MG TABLET.DR. PO SCH (07:24)
[2021-04-24] MEDS: IPRATROPIUM/ALBUTEROL 20/100mcg/INH INHALER. INH SCH ×4 (07:24→19:48)
[2021-04-24 08:02] LABS: BASO % 0 % (0-3); EOS # 0.4 x10^3/uL (0.0-0.7); EOS % 4 % (0-3); HEMATOCRIT 39.5 % (36.0-47.0); HEMOGLOBIN 12.9 g/dL (12.0-15.5); LYMPH % 11 % (24-48); MEAN CORPUSCULAR HEMOGLOBIN 32 pg (25-35); MEAN CORPUSCULAR HGB CONC 33 g/dL (31-37); MEAN CORPUSCULAR VOLUME 97 fL (79-100); MONO # 0.5 x10^3/uL (0.0-1.1); MONO % 5 % (0-9); NEUT # 7.5 x10^3/uL (1.8-7.7); NEUT % 80 % (31-73); PLATELET COUNT 224 x10^3/uL (140-400); RED BLOOD COUNT 4.07 x10^6/uL (3.50-5.40); RED CELL DISTRIBUTION WIDTH 14.9 % (11.5-14.5); WHITE BLOOD COUNT 9.3 x10^3/uL (4.0-11.0)
[2021-04-24 08:31] LABS: CALCIUM 9.2 mg/dL (8.5-10.1); GFR 64.2; POTASSIUM 4.5 mmol/L (3.5-5.1)
[2021-04-24] MEDS: guaiFENesin DM 600/30MG 1 TAB TAB.ER.12H PO SCH ×2 (08:56→20:06)
[2021-04-24] MEDS: LOSARTAN POTASSIUM 25 MG TABLET. PO SCH (08:56)
[2021-04-24] MEDS: POTASSIUM CHLORIDE 20 MEQ TABLET.ER. PO SCH (08:56)
[2021-04-24] MEDS: MAGNESIUM OXIDE 400 MG TABLET PO SCH (08:56)
[2021-04-24] MEDS: DICYCLOMINE HCL 10 MG CAPSULE PO SCH (08:57)
[2021-04-24] MEDS: FUROSEMIDE 40 MG TABLET. PO SCH (08:57)
--- NOTE | 2021-04-24 10:33 | PDOC ---
PULMONARY PROGRESS NOTES DATE: 04/24/21 TIME: 10:30 Subjective Patient seen this morning resting in bed. continues with NRB mask. appears to be comfortable. Vitals Vital Signs Date Time Temp Pulse Resp B/P (MAP) Pulse Ox O2 Delivery O2 Flow Rate FiO2 04/24/21 08:56 99 145/70 04/24/21 07:50 Non-Rebreather 10.0 04/24/21 07:00 97.5 20 100 97.5 ROS: No Nausea, No Chest Pain, No Abdominal Pain, No Increase Cough General: Alert, No acute distress Lungs: Clear Cardiovascular: S1, S2 Abdomen: Soft Neuro Exam: Alert Extremities: No Edema Skin: Warm Labs Laboratory Tests Test 04/22/21 23:16 04/24/21 06:15 Glucose (Fingerstick) 122 mg/dL (70-99) White Blood Count 9.3 x10^3/uL (4.0-11.0) Red Blood Count 4.07 x10^6/uL (3.50-5.40) Hemoglobin 12.9 g/dL (12.0-15.5) Hematocrit 39.5 % (36.0-47.0) Mean Corpuscular Volume 97 fL (79-100) Mean Corpuscular Hemoglobin 32 pg (25-35) Mean Corpuscular Hemoglobin Concent 33 g/dL (31-37) Red Cell Distribution Width 14.9 % (11.5-14.5) Platelet Count 224 x10^3/uL (140-400) Neutrophils (%) (Auto) 80 % (31-73) Lymphocytes (%) (Auto) 11 % (24-48) Monocytes (%) (Auto) 5 % (0-9) Eosinophils (%) (Auto) 4 % (0-3) Basophils (%) (Auto) 0 % (0-3) Neutrophils # (Auto) 7.5 x10^3/uL (1.8-7.7) Lymphocytes # (Auto) 1.0 x10^3/uL (1.0-4.8) Monocytes # (Auto) 0.5 x10^3/uL (0.0-1.1) Eosinophils # (Auto) 0.4 x10^3/uL (0.0-0.7) Basophils # (Auto) 0.0 x10^3/uL (0.0-0.2) Sodium Level 144 mmol/L (136-145) Potassium Level 4.5 mmol/L (3.5-5.1) Chloride Level 103 mmol/L (98-107) Carbon Dioxide Level 29 mmol/L (21-32) Anion Gap 12 (6-14) Blood Urea Nitrogen 42 mg/dL (7-20) Creatinine 1.0 mg/dL (0.6-1.0) Estimated GFR (Cockcroft-Gault) 64.2 Glucose Level 102 mg/dL (70-99) Calcium Level 9.2 mg/dL (8.5-10.1) Laboratory Tests Test 04/24/21 06:15 White Blood Count 9.3 x10^3/uL (4.0-11.0) Red Blood Count 4.07 x10^6/uL (3.50-5.40) Hemoglobin 12.9 g/dL (12.0-15.5) Hematocrit 39.5 % (36.0-47.0) Mean Corpuscular Volume 97 fL (79-100) Mean Corpuscular Hemoglobin 32 pg (25-35) Mean Corpuscular Hemoglobin Concent 33 g/dL (31-37) Red Cell Distribution Width 14.9 % (11.5-14.5) Platelet Count 224 x10^3/uL (140-400) Neutrophils (%) (Auto) 80 % (31-73) Lymphocytes (%) (Auto) 11 % (24-48) Monocytes (%) (Auto) 5 % (0-9) Eosinophils (%) (Auto) 4 % (0-3) Basophils (%) (Auto) 0 % (0-3) Neutrophils # (Auto) 7.5 x10^3/uL (1.8-7.7) Lymphocytes # (Auto) 1.0 x10^3/uL (1.0-4.8) Monocytes # (Auto) 0.5 x10^3/uL (0.0-1.1) Eosinophils # (Auto) 0.4 x10^3/uL (0.0-0.7) Basophils # (Auto) 0.0 x10^3/uL (0.0-0.2) Sodium Level 144 mmol/L (136-145) Potassium Level 4.5 mmol/L (3.5-5.1) Chloride Level 103 mmol/L (98-107) Carbon Dioxide Level 29 mmol/L (21-32) Anion Gap 12 (6-14) Blood Urea Nitrogen 42 mg/dL (7-20) Creatinine 1.0 mg/dL (0.6-1.0) Estimated GFR (Cockcroft-Gault) 64.2 Glucose Level 102 mg/dL (70-99) Calcium Level 9.2 mg/dL (8.5-10.1) Medications Active Scripts Medications Dose Route/Sig Max Daily Dose Days Date Category Hydrocodone-Apap 5-325 (Hydrocodone Bit/Acetaminophen) 1 Tab Tablet 1 Tab PO PRN Q8HRS PRN 04/04/21 Reported Magnesium Oxide 400 Mg Tablet 1 Tab PO DAILY 04/04/21 Reported Singulair Tablet (Montelukast Sodium) 10 Mg Tablet 10 Mg PO HS 04/04/21 Reported Pantoprazole Sodium 40 Mg Tablet.dr 40 Mg PO DAILY 04/04/21 Reported Benzonatate 100 Mg Capsule 1 Cap PO TID PRN 01/02/21 Reported Proair Hfa Inhaler (Albuterol Sulfate) 8.5 Gm Hfa.aer.ad 2 Puff IH PRN Q4HRS PRN 21 01/02/21 Reported Meloxicam 7.5 Mg Tablet 7.5 Mg PO DAILY 10/23/19 Reported Klor-Con M20 (Potassium Chloride) 20 Meq Tab.er.prt 1 Tab PO DAILY 30 10/23/19 Reported Dicyclomine Hcl 10 Mg Capsule 20 Mg PO DAILY 10/23/19 Reported Tramadol Hcl 50 Mg Tablet 50 Mg PO Q6HRS PRN 07/17/17 Reported Norvasc (Amlodipine Besylate) 5 Mg Tablet 5 Mg PO DAILY 07/17/17 Reported Dyazide 37.5-25 Capsule (Triamterene/Hydrochlorothiazid) 1 Each Capsule 1 Cap PO QMWF 07/17/17 Reported Losartan Potassium (Losartan Potassium) 25 Mg Tablet 25 Mg PO DAILY 07/17/17 Reported Amitriptyline Hcl 50 Mg Tablet 25 Mg PO HS 07/17/[address] chest reviewed 04/10/2021 Diffuse emphysema, worse in the upper lobes. Development of groundglass infiltrates bilaterally. Is post radiation treatment in the left perihilar area. Impression . 1. Acute hypoxic respiratory failure secondary to COVID-19 viral pneumonia. 2. Underlying chronic obstructive pulmonary disease, the patient is not on home oxygen. 3. History of lung cancer, the patient reports radiation and chemo. Last CT chest from 01/27/2021 showed post-radiation changes in the left perihilar area. New CT chest 04/10/2021 was reviewed. Development of new bilateral groundglass infiltrates compatible with COVID-19 viral pneumonia. 4. Left upper lobe spiculated nodule unchanged in size since January. Plan . Updated 04/24 Physical therapy as able Continue nasal cannula oxygen nonrebreather 100% FiO2, titrate as able Up to chair as tolerated completed steroid daily MARIBEL Smallwood MD Apr 24, 2021 10:33
[2021-04-24 10:40] VITALS: BP 132/86
--- NOTE | 2021-04-24 11:12 | PDOC ---
PROGRESS NOTES Date of Service: DATE: 04/24/21 TIME: 11:09 Subjective Subjective pt anxious, on oxygen by face mask Objective Objective Vital Signs Date Time Temp Pulse Resp B/P (MAP) Pulse Ox O2 Delivery O2 Flow Rate FiO2 04/24/21 10:40 97.5 105 22 132/86 (101) 99 NonRebreather Mask 10.0 97.5 Intake and Output 04/24/21 07:00 Intake Total 120 ml Balance 120 ml Intake Oral 120 ml # Voids 3 # Bowel Movements 1 Physical Exam Abdomen: Soft Heart: Regular rate, Normal S1, Normal S2 Extremities: No clubbing General: Alert HEENT: Atraumatic Lungs: Other (rales at base) MUSCULOSKELETAL: No swelling Neuro: Normal speech Psych/Mental Status: Mental status NL Skin: No breakdown Diagnosis Problem List Problems Medical Problems: (1) COVID-19 Status: Acute Assessment Assessment Problems Medical Problems: (1) COVID-19 Status: Acute FINAL IMPRESSION:Pneumonia with hypoxia 1. COVID pneumonia.Break through infection,pt vaccinated not boosted. 2. Immune compromised, patient is on chemo for small cell lung cancer. 3. Small cell lung cancer, getting chemotherapy. 4. Hypertension. 5. Hyperlipidemia. PLAN:xanax for anxiety. d/mehran iv antibiotics and steroids on face mask 7 L, will wean down oxygen WBC 9. down ,bmp -normal d/mehran iv fluids DVT prevention with Lovenox LTAC screen,spoke with cyanide case hardener Plan Plan of Care Problems Medical Problems: (1) COVID-19 Status: Acute Comment Review of Relevant I have reviewed the following items ankit (where applicable) has been applied. Labs Laboratory Tests Test 04/24/21 06:15 White Blood Count 9.3 x10^3/uL (4.0-11.0) Red Blood Count 4.07 x10^6/uL (3.50-5.40) Hemoglobin 12.9 g/dL (12.0-15.5) Hematocrit 39.5 % (36.0-47.0) Mean Corpuscular Volume 97 fL (79-100) Mean Corpuscular Hemoglobin 32 pg (25-35) Mean Corpuscular Hemoglobin Concent 33 g/dL (31-37) Red Cell Distribution Width 14.9 % (11.5-14.5) Platelet Count 224 x10^3/uL (140-400) Neutrophils (%) (Auto) 80 % (31-73) Lymphocytes (%) (Auto) 11 % (24-48) Monocytes (%) (Auto) 5 % (0-9) Eosinophils (%) (Auto) 4 % (0-3) Basophils (%) (Auto) 0 % (0-3) Neutrophils # (Auto) 7.5 x10^3/uL (1.8-7.7) Lymphocytes # (Auto) 1.0 x10^3/uL (1.0-4.8) Monocytes # (Auto) 0.5 x10^3/uL (0.0-1.1) Eosinophils # (Auto) 0.4 x10^3/uL (0.0-0.7) Basophils # (Auto) 0.0 x10^3/uL (0.0-0.2) Sodium Level 144 mmol/L (136-145) Potassium Level 4.5 mmol/L (3.5-5.1) Chloride Level 103 mmol/L (98-107) Carbon Dioxide Level 29 mmol/L (21-32) Anion Gap 12 (6-14) Blood Urea Nitrogen 42 mg/dL (7-20) Creatinine 1.0 mg/dL (0.6-1.0) Estimated GFR (Cockcroft-Gault) 64.2 Glucose Level 102 mg/dL (70-99) Calcium Level 9.2 mg/dL (8.5-10.1) Medications Current Medications Furosemide (Lasix) 40 mg DAILY PO Last administered on 04/24/21at 08:57; Start 04/24/21 at 09:00 Vitals/I & O Vital Sign - Last 24 Hours 04/23/21 04/23/21 04/23/21 04/23/21 11:18 14:55 19:00 20:00 Temp 98.6 97.6 97.3 98.6 97.6 97.3 Pulse 96 81 93 Resp 18 16 16 B/P (MAP) 115/76 (89) 134/74 (94) 103/60 (74) Pulse Ox 97 96 99 O2 Delivery NonRebreather Mask NonRebreather Mask NonRebreather Mask Non- Rebreather O2 Flow Rate 15.0 10.0 10.0 10.0 04/23/21 04/24/21 04/24/21 04/24/21 23:00 03:00 07:00 07:50 Temp 97.4 97.5 97.4 97.5 Pulse 94 72 99 Resp 18 20 B/P (MAP) 105/63 (77) 145/70 (95) Pulse Ox 100 99 100 O2 Delivery NonRebreather Mask NonRebreather Mask NonRebreather Mask Non- Rebreather O2 Flow Rate 10.0 10.0 10.0 10.0 04/24/21 04/24/21 04/24/21 08:55 08:56 10:40 Temp 97.5 97.5 Pulse 99 99 105 Resp 22 B/P (MAP) 145/70 145/70 132/86 (101) Pulse Ox 99 O2 Delivery NonRebreather Mask O2 Flow Rate 10.0 Intake and Output 04/23/21 04/23/21 04/24/21 15:00 23:00 07:00 Intake Total 120 ml 0 ml Balance 120 ml 0 ml Justifications for Admission Other Justification WALKER DAVILA MD Apr 24, 2021 11:12
[2021-04-24] MEDS: ALPRAZolam 0.25 MG TABLET PO PRN (13:03)
[2021-04-24 14:43] VITALS: BP 147/84
[2021-04-24 19:00] VITALS: BP 136/91
[2021-04-24] MEDS: AMITRIPTYLINE HCL 25 MG TABLET. PO SCH (20:06)
[2021-04-24] MEDS: MONTELUKAST SODIUM 10 MG TABLET. PO SCH (20:06)
[2021-04-24] MEDS: ENOXAPARIN 40 MG/0.4 ML SYRINGE. SQ SCH (20:07)
[2021-04-24 23:00] VITALS: BP 149/90
[2021-04-25 03:00] VITALS: BP 105/66
[2021-04-25 07:00] VITALS: BP 136/88
[2021-04-25] MEDS: LOSARTAN POTASSIUM 25 MG TABLET. PO SCH (09:06)
[2021-04-25] MEDS: DICYCLOMINE HCL 10 MG CAPSULE PO SCH (09:06)
[2021-04-25] MEDS: MAGNESIUM OXIDE 400 MG TABLET PO SCH (09:06)
[2021-04-25] MEDS: guaiFENesin DM 600/30MG 1 TAB TAB.ER.12H PO SCH ×2 (09:06→20:13)
[2021-04-25] MEDS: PANTOPRAZOLE 40 MG TABLET.DR. PO SCH (09:07)
[2021-04-25] MEDS: FUROSEMIDE 40 MG TABLET. PO SCH (09:07)
[2021-04-25] MEDS: POTASSIUM CHLORIDE 20 MEQ TABLET.ER. PO SCH (09:07)
[2021-04-25] MEDS: IPRATROPIUM/ALBUTEROL 20/100mcg/INH INHALER. INH SCH ×4 (09:07→20:13)
--- NOTE | 2021-04-25 09:15 | NUR ---
RN attempted to give patient morning meds, patient was nauseated. She took the pills and then took a drink and spit them out. She stated "I cant take these right now, they arent going down."
--- NOTE | 2021-04-25 09:27 | PDOC ---
PROGRESS NOTES Date of Service: DATE: 04/25/21 TIME: 09:26 Subjective Subjective improving Objective Objective Vital Signs Date Time Temp Pulse Resp B/P (MAP) Pulse Ox O2 Delivery O2 Flow Rate FiO2 04/25/21 09:06 92 136/88 04/25/21 08:00 Mask 7.0 04/25/21 07:00 97.0 24 95 97.0 Intake and Output 04/25/21 07:00 Intake Total 150 ml Balance 150 ml Intake Oral 150 ml # Voids 2 Physical Exam Abdomen: Soft Heart: Regular rate, Normal S1, Normal S2 Extremities: No clubbing General: Alert HEENT: Atraumatic Lungs: Other (rales at base) MUSCULOSKELETAL: No swelling Neuro: Normal speech Psych/Mental Status: Mental status NL Skin: No breakdown Diagnosis Problem List Problems Medical Problems: (1) COVID-19 Status: Acute Assessment Assessment Problems Medical Problems: (1) COVID-19 Status: Acute FINAL IMPRESSION:Pneumonia with hypoxia 1. COVID pneumonia.Break through infection,pt vaccinated not boosted. 2. Immune compromised, patient is on chemo for small cell lung cancer. 3. Small cell lung cancer, getting chemotherapy. 4. Hypertension. 5. Hyperlipidemia. PLAN: [facility] screen. xanax for anxiety. d/mehran iv antibiotics and steroids on face mask 7 L, will wean down oxygen WBC 9. down ,bmp -normal d/mehran iv fluids DVT prevention with Lovenox LTAC screen,spoke with renal case manager Plan Plan of Care Problems Medical Problems: (1) COVID-19 Status: Acute Comment Review of Relevant I have reviewed the following items ankit (where applicable) has been applied. Medications Current Medications Alprazolam (Xanax) 0.25 mg PRN Q8HRS PRN PO ANXIETY / AGITATION Last administered on 04/24/21at 13:03; Start 04/24/21 at 11:15 Vitals/I & O Vital Sign - Last 24 Hours 04/24/21 04/24/21 04/24/21 04/24/21 10:40 14:43 19:00 19:45 Temp 97.5 96.8 97.5 97.5 96.8 97.5 Pulse 105 103 110 Resp 22 20 20 B/P (MAP) 132/86 (101) 147/84 (105) 136/91 (106) Pulse Ox 99 97 93 O2 Delivery NonRebreather Mask NonRebreather Mask NonRebreather Mask Mask O2 Flow Rate 10.0 10.0 7.0 7.0 04/24/21 04/25/21 04/25/21 04/25/21 23:00 03:00 07:00 08:00 Temp 97.0 97.0 Pulse 98 86 92 Resp 20 16 24 B/P (MAP) 149/90 (109) 105/66 (79) 136/88 (104) Pulse Ox 93 99 95 O2 Delivery Nasal Cannula NonRebreather Mask NonRebreather Mask Mask O2 Flow Rate 7.0 7.0 7.0 7.0 04/25/21 04/25/21 09:06 09:06 Pulse 92 92 B/P (MAP) 136/88 136/88 Intake and Output 04/24/21 04/24/21 04/25/21 15:00 23:00 07:00 Intake Total 0 ml 150 ml 0 ml Balance 0 ml 150 ml 0 ml Justifications for Admission Other Justification WALKER DAVILA MD Apr 25, 2021 09:27
--- NOTE | 2021-04-25 10:47 | PDOC ---
PULMONARY PROGRESS NOTES DATE: 04/25/21 TIME: 10:42 Subjective patient seen resting in bed mask on 7L O2 oxygen saturation 93% no increased shortness of breath Vitals Vital Signs Date Time Temp Pulse Resp B/P (MAP) Pulse Ox O2 Delivery O2 Flow Rate FiO2 04/25/21 09:06 92 136/88 04/25/21 08:00 Mask 7.0 04/25/21 07:00 97.0 24 95 97.0 ROS: No Nausea, No Chest Pain, No Abdominal Pain, No Increase Cough General: Alert, No acute distress Lungs: Clear Cardiovascular: S1, S2 Abdomen: Soft Neuro Exam: Alert Extremities: No Edema Skin: Warm Labs Laboratory Tests Test 04/24/21 06:15 White Blood Count 9.3 x10^3/uL (4.0-11.0) Red Blood Count 4.07 x10^6/uL (3.50-5.40) Hemoglobin 12.9 g/dL (12.0-15.5) Hematocrit 39.5 % (36.0-47.0) Mean Corpuscular Volume 97 fL (79-100) Mean Corpuscular Hemoglobin 32 pg (25-35) Mean Corpuscular Hemoglobin Concent 33 g/dL (31-37) Red Cell Distribution Width 14.9 % (11.5-14.5) Platelet Count 224 x10^3/uL (140-400) Neutrophils (%) (Auto) 80 % (31-73) Lymphocytes (%) (Auto) 11 % (24-48) Monocytes (%) (Auto) 5 % (0-9) Eosinophils (%) (Auto) 4 % (0-3) Basophils (%) (Auto) 0 % (0-3) Neutrophils # (Auto) 7.5 x10^3/uL (1.8-7.7) Lymphocytes # (Auto) 1.0 x10^3/uL (1.0-4.8) Monocytes # (Auto) 0.5 x10^3/uL (0.0-1.1) Eosinophils # (Auto) 0.4 x10^3/uL (0.0-0.7) Basophils # (Auto) 0.0 x10^3/uL (0.0-0.2) Sodium Level 144 mmol/L (136-145) Potassium Level 4.5 mmol/L (3.5-5.1) Chloride Level 103 mmol/L (98-107) Carbon Dioxide Level 29 mmol/L (21-32) Anion Gap 12 (6-14) Blood Urea Nitrogen 42 mg/dL (7-20) Creatinine 1.0 mg/dL (0.6-1.0) Estimated GFR (Cockcroft-Gault) 64.2 Glucose Level 102 mg/dL (70-99) Calcium Level 9.2 mg/dL (8.5-10.1) Medications Active Scripts Medications Dose Route/Sig Max Daily Dose Days Date Category Hydrocodone-Apap 5-325 (Hydrocodone Bit/Acetaminophen) 1 Tab Tablet 1 Tab PO PRN Q8HRS PRN 04/04/21 Reported Magnesium Oxide 400 Mg Tablet 1 Tab PO DAILY 04/04/21 Reported Singulair Tablet (Montelukast Sodium) 10 Mg Tablet 10 Mg PO HS 04/04/21 Reported Pantoprazole Sodium 40 Mg Tablet.dr 40 Mg PO DAILY 04/04/21 Reported Benzonatate 100 Mg Capsule 1 Cap PO TID PRN 01/02/21 Reported Proair Hfa Inhaler (Albuterol Sulfate) 8.5 Gm Hfa.aer.ad 2 Puff IH PRN Q4HRS PRN 21 01/02/21 Reported Meloxicam 7.5 Mg Tablet 7.5 Mg PO DAILY 10/23/19 Reported Klor-Con M20 (Potassium Chloride) 20 Meq Tab.er.prt 1 Tab PO DAILY 30 10/23/19 Reported Dicyclomine Hcl 10 Mg Capsule 20 Mg PO DAILY 10/23/19 Reported Tramadol Hcl 50 Mg Tablet 50 Mg PO Q6HRS PRN 07/17/17 Reported Norvasc (Amlodipine Besylate) 5 Mg Tablet 5 Mg PO DAILY 07/17/17 Reported Dyazide 37.5-25 Capsule (Triamterene/Hydrochlorothiazid) 1 Each Capsule 1 Cap PO QMWF 07/17/17 Reported Losartan Potassium (Losartan Potassium) 25 Mg Tablet 25 Mg PO DAILY 07/17/17 Reported Amitriptyline Hcl 50 Mg Tablet 25 Mg PO HS 07/17/[address] chest reviewed 04/10/2021 Diffuse emphysema, worse in the upper lobes. Development of groundglass infiltrates bilaterally. Is post radiation treatment in the left perihilar area. Impression . 1. Acute hypoxic respiratory failure secondary to COVID-19 viral pneumonia. 2. Underlying chronic obstructive pulmonary disease, the patient is not on home oxygen. 3. History of lung cancer, the patient reports radiation and chemo. Last CT chest from 01/27/2021 showed post-radiation changes in the left perihilar area. New CT chest 04/10/2021 was reviewed. Development of new bilateral groundglass infiltrates compatible with COVID-19 viral pneumonia. 4. Left upper lobe spiculated nodule unchanged in size since January. Plan . 04/25 continue to wean oxygen as able patient is s/p remdesivir completed anbx and steroid continues on daily lasix, oral progressive activity as tolerated Updated 04/24 Physical therapy as able Continue nasal cannula oxygen nonrebreather 100% FiO2, titrate as able Up to chair as tolerated completed steroid daily Lasix MARIBEL VOGT MD Apr 25, 2021 10:47
[2021-04-25 11:00] VITALS: BP 140/90
--- NOTE | 2021-04-25 11:42 | NUR ---
SW following. Discussed with RN, pt from home with daughter. Pt accepted at [facility] pending insurance approval. SW checked with [facility] - still not insurance determination as of yet. SW will continue to follow.
[2021-04-25 15:00] VITALS: BP 105/72
[2021-04-25] MEDS: ALPRAZolam 0.25 MG TABLET PO PRN (16:23)
[2021-04-25 19:00] VITALS: BP 101/67
[2021-04-25] MEDS: AMITRIPTYLINE HCL 25 MG TABLET. PO SCH (20:13)
[2021-04-25] MEDS: MONTELUKAST SODIUM 10 MG TABLET. PO SCH (20:13)
[2021-04-25] MEDS: ENOXAPARIN 40 MG/0.4 ML SYRINGE. SQ SCH (20:13)
[2021-04-25 23:02] VITALS: BP 117/70
[2021-04-26 03:05] VITALS: BP 108/72
[2021-04-26 07:00] VITALS: BP 117/78
[2021-04-26] MEDS: MAGNESIUM OXIDE 400 MG TABLET PO SCH (09:01)
[2021-04-26] MEDS: guaiFENesin DM 600/30MG 1 TAB TAB.ER.12H PO SCH ×2 (09:01→20:30)
[2021-04-26] MEDS: POTASSIUM CHLORIDE 20 MEQ TABLET.ER. PO SCH (09:02)
[2021-04-26] MEDS: PANTOPRAZOLE 40 MG TABLET.DR. PO SCH (09:02)
[2021-04-26] MEDS: FUROSEMIDE 40 MG TABLET. PO SCH (09:02)
[2021-04-26] MEDS: DICYCLOMINE HCL 10 MG CAPSULE PO SCH (09:02)
[2021-04-26] MEDS: LOSARTAN POTASSIUM 25 MG TABLET. PO SCH (09:03)
[2021-04-26] MEDS: IPRATROPIUM/ALBUTEROL 20/100mcg/INH INHALER. INH SCH ×4 (09:04→20:30)
--- NOTE | 2021-04-26 09:29 | PDOC ---
PROGRESS NOTES Date of Service: DATE: 04/26/21 TIME: 09:27 Subjective Subjective no new problems Objective Objective Vital Signs Date Time Temp Pulse Resp B/P (MAP) Pulse Ox O2 Delivery O2 Flow Rate FiO2 04/26/21 09:03 84 117/78 04/26/21 07:00 98.6 20 92 Simple Mask 98.6 04/25/21 19:00 9.0 Intake and Output 04/26/21 07:00 Intake Total 240 ml Output Total 0 ml Balance 240 ml Intake Oral 240 ml Output Urine Total 0 ml # Voids 2 Physical Exam Abdomen: Soft Heart: Regular rate, Normal S1, Normal S2 Extremities: No clubbing General: Alert HEENT: Atraumatic Lungs: Other (rales at base) MUSCULOSKELETAL: No swelling Neuro: Normal speech Psych/Mental Status: Mental status NL Skin: No breakdown Diagnosis Problem List Problems Medical Problems: (1) COVID-19 Status: Acute Assessment Assessment Problems Medical Problems: (1) COVID-19 Status: Acute FINAL IMPRESSION:Pneumonia with hypoxia 1. COVID pneumonia.Break through infection,pt vaccinated not boosted. 2. Immune compromised, patient is on chemo for small cell lung cancer. 3. Small cell lung cancer, getting chemotherapy. 4. Hypertension. 5. Hyperlipidemia. PLAN: LTAC screen.waiting for insurance approval. xanax for anxiety. d/mehran iv antibiotics and steroids on face mask 7 L, will wean down oxygen WBC 9. down ,bmp -normal d/mehran iv fluids . PT/OT?rehab. DVT prevention with Lovenox LTAC screen,spoke with casework supervisor Plan Plan of Care Problems Medical Problems: (1) COVID-19 Status: Acute Comment Review of Relevant I have reviewed the following items ankit (where applicable) has been applied. Vitals/I & O Vital Sign - Last 24 Hours 04/25/21 04/25/21 04/25/21 04/25/21 11:00 15:00 19:00 19:00 Temp 97.8 97.5 97.8 97.8 97.5 97.8 Pulse 94 101 96 Resp 24 20 20 B/P (MAP) 140/90 (107) 105/72 (83) 101/67 (78) Pulse Ox 98 96 98 O2 Delivery NonRebreather Mask NonRebreather Mask Simple Mask Mask O2 Flow Rate 7.0 7.0 9.0 04/25/21 04/26/21 04/26/21 04/26/21 23:02 03:05 07:00 09:03 Temp 97.4 97.5 98.6 97.4 97.5 98.6 Pulse 89 82 84 84 Resp 20 20 20 B/P (MAP) 117/70 (86) 108/72 (84) 117/78 (91) 117/78 Pulse Ox 98 98 92 O2 Delivery Simple Mask Simple Mask Simple Mask 04/26/21 09:03 Pulse 84 B/P (MAP) 117/78 l Intake and Output 04/25/21 04/25/21 04/26/21 15:00 23:00 07:00 Intake Total 240 ml Output Total 0 ml Balance 240 ml 0 ml Justifications for Admission Other Justification WALKER DAVILA MD Apr 26, 2021 09:29
[2021-04-26 11:00] VITALS: BP 128/82
--- NOTE | 2021-04-26 11:32 | NUR ---
SW following. Discussed with RN, insurance approved transfer to [facility], awaiting bed availability. Dr. Spencer notified. RENEE will continue to follow.
[2021-04-26] MEDS: ALPRAZolam 0.25 MG TABLET PO PRN ×2 (11:39→20:30)
--- NOTE | 2021-04-26 13:30 | PDOC ---
PULMONARY PROGRESS NOTES DATE: 04/26/21 TIME: 13:29 Subjective Cannula oxygen, feels better Vitals Vital Signs Date Time Temp Pulse Resp B/P (MAP) Pulse Ox O2 Delivery O2 Flow Rate FiO2 04/26/21 11:00 97.5 93 20 128/82 (97) 94 Simple Mask 97.5 04/26/21 08:00 7.0 ROS: No Nausea, No Chest Pain, No Abdominal Pain, No Increase Cough General: Alert, No acute distress Lungs: Clear Cardiovascular: S1, S2 Abdomen: Soft Neuro Exam: Alert Extremities: No Edema Skin: Warm Medications Active Scripts Medications Dose Route/Sig Max Daily Dose Days Date Category Hydrocodone-Apap 5-325 (Hydrocodone Bit/Acetaminophen) 1 Tab Tablet 1 Tab PO PRN Q8HRS PRN 04/04/21 Reported Magnesium Oxide 400 Mg Tablet 1 Tab PO DAILY 04/04/21 Reported Singulair Tablet (Montelukast Sodium) 10 Mg Tablet 10 Mg PO HS 04/04/21 Reported Pantoprazole Sodium 40 Mg Tablet.dr 40 Mg PO DAILY 04/04/21 Reported Benzonatate 100 Mg Capsule 1 Cap PO TID PRN 01/02/21 Reported Proair Hfa Inhaler (Albuterol Sulfate) 8.5 Gm Hfa.aer.ad 2 Puff IH PRN Q4HRS PRN 21 01/02/21 Reported Meloxicam 7.5 Mg Tablet 7.5 Mg PO DAILY 10/23/19 Reported Klor-Con M20 (Potassium Chloride) 20 Meq Tab.er.prt 1 Tab PO DAILY 30 10/23/19 Reported Dicyclomine Hcl 10 Mg Capsule 20 Mg PO DAILY 10/23/19 Reported Tramadol Hcl 50 Mg Tablet 50 Mg PO Q6HRS PRN 07/17/17 Reported Norvasc (Amlodipine Besylate) 5 Mg Tablet 5 Mg PO DAILY 07/17/17 Reported Dyazide 37.5-25 Capsule (Triamterene/Hydrochlorothiazid) 1 Each Capsule 1 Cap PO QMWF 07/17/17 Reported Losartan Potassium (Losartan Potassium) 25 Mg Tablet 25 Mg PO DAILY 07/17/17 Reported Amitriptyline Hcl 50 Mg Tablet 25 Mg PO HS 07/17/[address] chest reviewed 04/10/2021 Diffuse emphysema, worse in the upper lobes. Development of groundglass infiltrates bilaterally. Is post radiation treatment in the left perihilar area. Impression . 1. Acute hypoxic respiratory failure secondary to COVID-19 viral pneumonia. 2. Underlying chronic obstructive pulmonary disease, the patient is not on home oxygen. 3. History of lung cancer, the patient reports radiation and chemo. Last CT chest from 01/27/2021 showed post-radiation changes in the left perihilar area. New CT chest 04/10/2021 was reviewed. Development of new bilateral groundglass infiltrates compatible with COVID-19 viral pneumonia. 4. Left upper lobe spiculated nodule unchanged in size since January. Plan . Updated 04/26 PT eval Getting closer to possibly transferring to residential unit continue to wean oxygen as able patient is s/p remdesivir completed anbx and steroid continues on daily lasix, oral progressive activity as tolerated MARIBEL VOGT MD Apr 26, 2021 13:30
[2021-04-26 15:00] VITALS: BP 146/89
[2021-04-26 19:00] VITALS: BP 98/58
[2021-04-26] MEDS: AMITRIPTYLINE HCL 25 MG TABLET. PO SCH (20:30)
[2021-04-26] MEDS: MONTELUKAST SODIUM 10 MG TABLET. PO SCH (20:30)
[2021-04-26] MEDS: ENOXAPARIN 40 MG/0.4 ML SYRINGE. SQ SCH (20:31)
[2021-04-26 23:00] VITALS: BP 90/58
[2021-04-27 03:15] VITALS: BP 102/65
[2021-04-27] MEDS: BENZONATATE 100 MG CAPSULE. PO PRN (05:49)
[2021-04-27] MEDS: ALPRAZolam 0.25 MG TABLET PO PRN (05:49)
[2021-04-27 07:00] VITALS: BP 110/64
[2021-04-27] MEDS: IPRATROPIUM/ALBUTEROL 20/100mcg/INH INHALER. INH SCH ×4 (07:33→20:00)
[2021-04-27] MEDS: PANTOPRAZOLE 40 MG TABLET.DR. PO SCH (07:33)
[2021-04-27] MEDS: guaiFENesin DM 600/30MG 1 TAB TAB.ER.12H PO SCH ×2 (08:01→21:46)
[2021-04-27] MEDS: POTASSIUM CHLORIDE 20 MEQ TABLET.ER. PO SCH (08:02)
[2021-04-27] MEDS: DICYCLOMINE HCL 10 MG CAPSULE PO SCH (08:02)
[2021-04-27] MEDS: FUROSEMIDE 40 MG TABLET. PO SCH (08:02)
[2021-04-27] MEDS: MAGNESIUM OXIDE 400 MG TABLET PO SCH (08:03)
[2021-04-27] MEDS: LOSARTAN POTASSIUM 25 MG TABLET. PO SCH (08:03)
--- NOTE | 2021-04-27 08:55 | PDOC ---
PROGRESS NOTES Date of Service: DATE: 04/27/21 TIME: 08:53 Subjective Subjective feels ok ,some what tired Objective Objective Vital Signs Date Time Temp Pulse Resp B/P (MAP) Pulse Ox O2 Delivery O2 Flow Rate FiO2 04/27/21 08:03 89 110/64 04/27/21 07:00 97.1 20 94 Nasal Cannula 97.1 04/27/21 07:00 4.0 Intake and Output 04/27/21 06:59 Output Total 300 ml Balance -300 ml Output Urine Total 300 ml # Bowel Movements 1 Physical Exam Abdomen: Soft Heart: Regular rate, Normal S1, Normal S2 Extremities: No clubbing General: Alert HEENT: Atraumatic Lungs: Other (rales at base) MUSCULOSKELETAL: No swelling Neuro: Normal speech Psych/Mental Status: Mental status NL Skin: No breakdown Diagnosis Problem List Problems Medical Problems: (1) COVID-19 Status: Acute Assessment Assessment Problems Medical Problems: (1) COVID-19 Status: Acute FINAL IMPRESSION:Pneumonia with hypoxia 1. COVID pneumonia.Break through infection,pt vaccinated not boosted. 2. Immune compromised, patient is on chemo for small cell lung cancer. 3. Small cell lung cancer, getting chemotherapy. 4. Hypertension. 5. Hyperlipidemia. PLAN:Hopefully can d/c to [facility] today. LTAC screen.waiting for insurance approval. xanax for anxiety. d/mehran iv antibiotics and steroids on face mask 7 L, will wean down oxygen WBC 9. down ,bmp -normal d/mehran iv fluids . PT/OT?rehab. DVT prevention with Lovenox LTAC screen,spoke with case managers Plan Plan of Care Problems Medical Problems: (1) COVID-19 Status: Acute Comment Review of Relevant I have reviewed the following items ankit (where applicable) has been applied. Vitals/I & O Vital Sign - Last 24 Hours 04/26/21 04/26/21 04/26/21 04/26/21 09:03 09:03 11:00 15:00 Temp 97.5 98.0 97.5 98.0 Pulse 84 84 93 91 Resp 20 20 B/P (MAP) 117/78 117/78 128/82 (97) 146/89 (108) Pulse Ox 94 97 O2 Delivery Simple Mask Simple Mask O2 Flow Rate 4.0 04/26/21 04/26/21 04/26/21 04/27/21 19:00 19:05 23:00 03:15 Temp 97.5 97.4 97.8 97.5 97.4 97.8 Pulse 88 84 78 Resp 19 19 20 B/P (MAP) 98/58 (71) 90/58 (69) 102/65 (77) Pulse Ox 98 97 94 O2 Delivery Nasal Cannula Nasal Cannula Nasal Cannula Nasal Cannula O2 Flow Rate 4.0 4.0 04/27/21 04/27/21 04/27/21 04/27/21 07:00 07:00 08:01 08:03 Temp 97.1 97.1 Pulse 89 89 89 Resp 20 B/P (MAP) 110/64 (79) 110/64 110/64 Pulse Ox 94 O2 Delivery Nasal Cannula Nasal Cannula O2 Flow Rate 4.0 Intake and Output 04/26/21 04/26/21 04/27/21 14:59 22:59 06:59 Output Total 300 ml 0 ml Balance -300 ml 0 ml Justifications for Admission Other Justification WALKER DAVILA MD Apr 27, 2021 08:55
[2021-04-27] MEDS ORDERED: FURO40TA4 PO (08:59)
[2021-04-27] MEDS ORDERED: ALPR0.254 PO (08:59)
[2021-04-27] MEDS ORDERED: IPRA4AER INH (08:59)
[2021-04-27] MEDS ORDERED: ENOX40DI3 SQ (08:59)
--- NOTE | 2021-04-27 09:00 | SNU/HH DC ---
DISCHARGE ORDERS DISCHARGE INFORMATION: DISCHARGE DATE: Apr 27, 2021 FINAL DIAGNOSIS Problems Medical Problems: (1) COVID-19 Status: Acute CONDITION ON DISCHARGE: Stable CODE STATUS: Code Status: Full FPC: SNF STAY <30 DAYS: Yes LTAC: ADMIT TO LTAC: Yes POST DISCHARGE ORDERS: ACTIVITY ORDERS: Activity as tolerated WEIGHT BEARING STATUS: No restrictions BATHING ORDERS: Shower-keep dressing dry, No Tub Bath until see DIET AFTER DISCHARGE: Cardiac WOUND/INCISION CARE: Ice to area for comfort, Do not change dressing CHECKS AFTER DISCHARGE: CHECKS AFTER DISCHARGE: Check blood press - daily TREATMENT/EQUIPMENT ORDERS: ADAPTIVE EQUIPMENT NEEDED: None Physical Therapy For: Evalulation/Treatment Occupational Therapy For: Evaluation/Treatment Speech Language Pathology For: Evaluation/Treatment DISCHARGE MEDICATIONS: Home Meds Active Scripts Furosemide (FUROSEMIDE) 40 Mg Tablet, 40 MG PO DAILY for chf for 30 Days, #30 TAB Prov:WALKER DAVILA MD 04/27/21 Alprazolam (ALPRAZOLAM) 0.25 Mg Tablet, 0.25 MG PO PRN Q8HRS PRN for ANXIETY / AGITATION for 30 Days, TAB Prov:WALKER DAVILA MD 04/27/21 Ipratropium/Albuterol Sulfate (COMBIVENT RESPIMAT INHAL) 4 Gm Aer.w.adap, 1 PUFF INH RTQID for copd for 30 Days, INH Prov:WALKER DAVILA MD 04/27/21 Enoxaparin Sodium (ENOXAPARIN SODIUM) 40 Mg/0.4 Ml Disp.syrin, 40 MG SQ Q24H for dvt prevention for 30 Days, DIS.SYR Prov:WALKER DAVILA MD 04/27/21 Reported Medications Hydrocodone Bit/Acetaminophen (HYDROCODONE-APAP 5-325 ) 1 Tab Tablet, 1 TAB PO PRN Q8HRS PRN for PAIN, TAB 0 Refills 04/04/21 Magnesium Oxide (MAGNESIUM OXIDE) 400 Mg Tablet, 1 TAB PO DAILY for SUPPLEMENT , #30 TAB 5 Refills 04/04/21 Montelukast Sodium (SINGULAIR TABLET ) 10 Mg Tablet, 10 MG PO HS for FOR ASTHMA, TAB 0 Refills 04/04/21 Pantoprazole Sodium (Pantoprazole Sodium) 40 Mg Tablet.dr, 40 MG PO DAILY for GERD, TAB.SR 04/04/21 Benzonatate (BENZONATATE) 100 Mg Capsule, 1 CAP PO TID PRN for cough 01/02/21 Albuterol Sulfate (PROAIR HFA INHALER) 8.5 Gm Hfa.aer.ad, 2 PUFF IH PRN Q4HRS PRN for wheezing for 21 Days, #1 INHALER 0 Refills 01/02/21 Potassium Chloride (KLOR-CON M20) 20 Meq Tab.er.prt, 1 TAB PO DAILY for k+ replacement for 30 Days, #30 TAB 0 Refills 10/23/19 Dicyclomine Hcl (DICYCLOMINE HCL) 10 Mg Capsule, 20 MG PO DAILY for pain, CAP 10/23/19 Tramadol Hcl (TRAMADOL HCL) 50 Mg Tablet, 50 MG PO Q6HRS PRN for PAIN, TAB 07/17/17 Amlodipine Besylate (NORVASC) 5 Mg Tablet, 5 MG PO DAILY, TAB 07/17/17 Losartan Potassium (LOSARTAN POTASSIUM ) 25 Mg Tablet, 25 MG PO DAILY for htn, TAB 07/17/17 Amitriptyline Hcl (AMITRIPTYLINE HCL) 50 Mg Tablet, 25 MG PO HS for sleep aid, TAB 07/17/17 Discontinued Reported Medications Meloxicam (MELOXICAM) 7.5 Mg Tablet, 7.5 MG PO DAILY for pain, TAB 10/23/19 Triamterene/Hydrochlorothiazid (DYAZIDE 37.5-25 CAPSULE) 1 Each Capsule, 1 CAP PO QMWF for diuretic, CAP 07/17/17 WALKER DAVILA MD Apr 27, 2021 09:00
--- NOTE | 2021-04-27 10:24 | PDOC ---
PULMONARY PROGRESS NOTES DATE: 04/27/21 TIME: 10:21 Subjective sitting up in bed, resting comfortably. on 4L NC. denies pain or shortness of breath Vitals Vital Signs Date Time Temp Pulse Resp B/P (MAP) Pulse Ox O2 Delivery O2 Flow Rate FiO2 04/27/21 08:03 89 110/64 04/27/21 07:00 97.1 20 94 Nasal Cannula 97.1 04/27/21 07:00 4.0 ROS: No Nausea, No Chest Pain, No Abdominal Pain, No Increase Cough General: Alert, No acute distress Lungs: Clear Cardiovascular: S1, S2 Abdomen: Soft Neuro Exam: Alert Extremities: No Edema Skin: Warm Medications Active Scripts Medications Dose Route/Sig Max Daily Dose Days Date Category Hydrocodone-Apap 5-325 (Hydrocodone Bit/Acetaminophen) 1 Tab Tablet 1 Tab PO PRN Q8HRS PRN 04/04/21 Reported Magnesium Oxide 400 Mg Tablet 1 Tab PO DAILY 04/04/21 Reported Singulair Tablet (Montelukast Sodium) 10 Mg Tablet 10 Mg PO HS 04/04/21 Reported Pantoprazole Sodium 40 Mg Tablet.dr 40 Mg PO DAILY 04/04/21 Reported Benzonatate 100 Mg Capsule 1 Cap PO TID PRN 01/02/21 Reported Proair Hfa Inhaler (Albuterol Sulfate) 8.5 Gm Hfa.aer.ad 2 Puff IH PRN Q4HRS PRN 21 01/02/21 Reported Meloxicam 7.5 Mg Tablet 7.5 Mg PO DAILY 10/23/19 Reported Klor-Con M20 (Potassium Chloride) 20 Meq Tab.er.prt 1 Tab PO DAILY 30 10/23/19 Reported Dicyclomine Hcl 10 Mg Capsule 20 Mg PO DAILY 10/23/19 Reported Tramadol Hcl 50 Mg Tablet 50 Mg PO Q6HRS PRN 07/17/17 Reported Norvasc (Amlodipine Besylate) 5 Mg Tablet 5 Mg PO DAILY 07/17/17 Reported Dyazide 37.5-25 Capsule (Triamterene/Hydrochlorothiazid) 1 Each Capsule 1 Cap PO QMWF 07/17/17 Reported Losartan Potassium (Losartan Potassium) 25 Mg Tablet 25 Mg PO DAILY 07/17/17 Reported Amitriptyline Hcl 50 Mg Tablet 25 Mg PO HS 07/17/[address] chest reviewed 04/10/2021 Diffuse emphysema, worse in the upper lobes. Development of groundglass infiltrates bilaterally. Is post radiation treatment in the left perihilar area. Impression . 1. Acute hypoxic respiratory failure secondary to COVID-19 viral pneumonia. 2. Underlying chronic obstructive pulmonary disease, the patient is not on home oxygen. 3. History of lung cancer, the patient reports radiation and chemo. Last CT chest from 01/27/2021 showed post-radiation changes in the left perihilar area. New CT chest 04/10/2021 was reviewed. Development of new bilateral groundglass infiltrates compatible with COVID-19 viral pneumonia. 4. Left upper lobe spiculated nodule unchanged in size since January. Plan . 04/27 continue supplemental oxygen, wean as able therapy as tolerated continue with lasix patient is s/p remdesivir completed anbx and steroid Updated 04/26 PT eval Getting closer to possibly transferring to residential unit continue to wean oxygen as able patient is s/p remdesivir completed anbx and steroid continues on daily lasix, oral progressive activity as tolerated MARIBEL VOGT MD Apr 27, 2021 10:23
[2021-04-27 10:58] VITALS: BP 121/70
[2021-04-27 14:41] VITALS: BP 144/73
[2021-04-27] MEDS: traMADol 50 MG TABLET PO PRN (16:04)
[2021-04-27 19:00] VITALS: BP 121/72
[2021-04-27] MEDS: HYDROcodone/APAP 5/325MG 1 TAB TABLET PO PRN (21:47)
[2021-04-27] MEDS: MONTELUKAST SODIUM 10 MG TABLET. PO SCH (21:47)
[2021-04-27] MEDS: ENOXAPARIN 40 MG/0.4 ML SYRINGE. SQ SCH (21:47)
[2021-04-27] MEDS: AMITRIPTYLINE HCL 25 MG TABLET. PO SCH (21:48)
[2021-04-27 23:00] VITALS: BP 109/71
[2021-04-28 03:04] VITALS: BP 92/61
[2021-04-28 07:00] VITALS: BP 113/67
[2021-04-28] MEDS: PANTOPRAZOLE 40 MG TABLET.DR. PO SCH (08:35)
[2021-04-28] MEDS: DICYCLOMINE HCL 10 MG CAPSULE PO SCH (08:36)
[2021-04-28] MEDS: MAGNESIUM OXIDE 400 MG TABLET PO SCH (08:36)
[2021-04-28] MEDS: guaiFENesin DM 600/30MG 1 TAB TAB.ER.12H PO SCH ×2 (08:36→21:45)
[2021-04-28] MEDS: POTASSIUM CHLORIDE 20 MEQ TABLET.ER. PO SCH (08:36)
[2021-04-28] MEDS: IPRATROPIUM/ALBUTEROL 20/100mcg/INH INHALER. INH SCH ×4 (09:21→21:44)
--- NOTE | 2021-04-28 09:55 | PDOC ---
PULMONARY PROGRESS NOTES DATE: 04/28/21 TIME: 09:51 Subjective Patient sitting up in bed on examination today, continues on 4L NC, feeling no better nor worse. No productive cough or SOA noted Vitals Vital Signs Date Time Temp Pulse Resp B/P (MAP) Pulse Ox O2 Delivery O2 Flow Rate FiO2 04/28/21 08:00 Nasal Cannula 4.0 04/28/21 07:00 98.4 76 18 113/67 (82) 98 98.4 ROS: No Nausea, No Chest Pain, No Abdominal Pain, No Increase Cough General: Alert, No acute distress Lungs: Clear Cardiovascular: S1, S2 Abdomen: Soft Neuro Exam: Alert Extremities: No Edema Skin: Warm Medications Active Scripts Medications Dose Route/Sig Max Daily Dose Days Date Category Hydrocodone-Apap 5-325 (Hydrocodone Bit/Acetaminophen) 1 Tab Tablet 1 Tab PO PRN Q8HRS PRN 04/04/21 Reported Magnesium Oxide 400 Mg Tablet 1 Tab PO DAILY 04/04/21 Reported Singulair Tablet (Montelukast Sodium) 10 Mg Tablet 10 Mg PO HS 04/04/21 Reported Pantoprazole Sodium 40 Mg Tablet.dr 40 Mg PO DAILY 04/04/21 Reported Benzonatate 100 Mg Capsule 1 Cap PO TID PRN 01/02/21 Reported Proair Hfa Inhaler (Albuterol Sulfate) 8.5 Gm Hfa.aer.ad 2 Puff IH PRN Q4HRS PRN 21 01/02/21 Reported Meloxicam 7.5 Mg Tablet 7.5 Mg PO DAILY 10/23/19 Reported Klor-Con M20 (Potassium Chloride) 20 Meq Tab.er.prt 1 Tab PO DAILY 30 10/23/19 Reported Dicyclomine Hcl 10 Mg Capsule 20 Mg PO DAILY 10/23/19 Reported Tramadol Hcl 50 Mg Tablet 50 Mg PO Q6HRS PRN 07/17/17 Reported Norvasc (Amlodipine Besylate) 5 Mg Tablet 5 Mg PO DAILY 07/17/17 Reported Dyazide 37.5-25 Capsule (Triamterene/Hydrochlorothiazid) 1 Each Capsule 1 Cap PO QMWF 07/17/17 Reported Losartan Potassium (Losartan Potassium) 25 Mg Tablet 25 Mg PO DAILY 07/17/17 Reported Amitriptyline Hcl 50 Mg Tablet 25 Mg PO HS 07/17/[address] chest reviewed 04/10/2021 Diffuse emphysema, worse in the upper lobes. Development of groundglass infiltrates bilaterally. Is post radiation treatment in the left perihilar area. Impression . 1. Acute hypoxic respiratory failure secondary to COVID-19 viral pneumonia. 2. Underlying chronic obstructive pulmonary disease, the patient is not on home oxygen. 3. History of lung cancer, the patient reports radiation and chemo. Last CT chest from 01/27/2021 showed post-radiation changes in the left perihilar area. New CT chest 04/10/2021 was reviewed. Development of new bilateral groundglass infiltrates compatible with COVID-19 viral pneumonia. 4. Left upper lobe spiculated nodule unchanged in size since January. Plan . 04/28 PT per recommendations Continue weaning O2 as tolerated Continue Lasix remdesivir, abx, and steroid completed Case management following 04/27 continue supplemental oxygen, wean as able therapy as tolerated continue with lasix patient is s/p remdesivir completed anbx and steroid Updated 04/26 PT eval Getting closer to possibly transferring to alf unit continue to wean oxygen as able patient is s/p remdesivir completed anbx and steroid continues on daily lasix, oral progressive activity as tolerated MARIBEL VOGT MD Apr 28, 2021 09:55
[2021-04-28 11:00] VITALS: BP 121/71
--- NOTE | 2021-04-28 11:05 | NUR ---
SW following. Discussed with RN, pt no longer qualifies for LTAC due to oxygen requirement being at 4L and no longer on any IV medications. RENEE spoke with pt's daughter, she is fine with pt coming home. RENEE sent message to Dr. Spencer about a 6 minute walk and discharge home, awaiting response. RENEE will continue to follow.
[2021-04-28] MEDS: FUROSEMIDE 40 MG TABLET. PO SCH (11:31)
[2021-04-28] MEDS: LOSARTAN POTASSIUM 25 MG TABLET. PO SCH (11:31)
[2021-04-28 14:57] VITALS: BP 118/66
--- NOTE | 2021-04-28 17:42 | PDOC ---
PROGRESS NOTES Date of Service: DATE: 04/28/21 TIME: 17:40 Subjective Subjective no new problems ,weak Objective Objective Vital Signs Date Time Temp Pulse Resp B/P (MAP) Pulse Ox O2 Delivery O2 Flow Rate FiO2 04/28/21 14:57 98.0 89 19 118/66 (83) 98 Nasal Cannula 4.0 98.0 Intake and Output 04/28/21 07:00 Output Total 0 ml Balance 0 ml Output Urine Total 0 ml # Voids 1 Physical Exam Abdomen: Soft Heart: Regular rate, Normal S1, Normal S2 Extremities: No clubbing General: Alert HEENT: Atraumatic Lungs: Other (rales at base) MUSCULOSKELETAL: No swelling Neuro: Normal speech Psych/Mental Status: Mental status NL Skin: No breakdown Diagnosis Problem List Problems Medical Problems: (1) COVID-19 Status: Acute Assessment Assessment Problems Medical Problems: (1) COVID-19 Status: Acute FINAL IMPRESSION:Pneumonia with hypoxia 1. COVID pneumonia.Break through infection,pt vaccinated not boosted. 2. Immune compromised, patient is on chemo for small cell lung cancer. 3. Small cell lung cancer, getting chemotherapy. 4. Hypertension. 5. Hyperlipidemia. PLAN:d/c home with home health tomorrow LTAC screen.denied xanax for anxiety. d/mehran iv antibiotics and steroids on foxygen N/C 4 L, will wean down oxygen WBC 9. down ,bmp -normal d/mehran iv fluids . Spoke with director of casework department Plan Plan of Care Problems Medical Problems: (1) COVID-19 Status: Acute Comment Review of Relevant I have reviewed the following items ankit (where applicable) has been applied. Vitals/I & O Vital Sign - Last 24 Hours 04/27/21 04/27/21 04/27/21 04/27/21 19:00 20:00 21:47 23:00 Temp 97.6 97.5 97.6 97.5 Pulse 108 90 Resp 20 20 B/P (MAP) 121/72 (88) 109/71 (84) Pulse Ox 92 92 99 O2 Delivery Nasal Cannula Nasal Cannula Nasal Cannula Nasal Cannula O2 Flow Rate 4.0 4.0 04/27/21 04/28/21 04/28/21 04/28/21 23:28 03:04 07:00 08:00 Temp 97.5 98.4 97.5 98.4 Pulse 77 76 Resp 18 18 B/P (MAP) 92/61 (71) 113/67 (82) Pulse Ox 92 98 98 O2 Delivery Nasal Cannula Nasal Cannula Nasal Cannula Nasal Cannula O2 Flow Rate 4.0 4.0 4.0 04/28/21 04/28/21 04/28/21 04/28/21 11:00 11:31 11:31 14:57 Temp 97.3 98.0 97.3 98.0 Pulse 81 81 81 89 Resp 17 19 B/P (MAP) 121/71 (88) 121/71 121/71 118/66 (83) Pulse Ox 96 98 O2 Delivery Nasal Cannula Nasal Cannula O2 Flow Rate 4.0 4.0 Intake and Output 04/27/21 04/27/21 04/28/21 15:00 23:00 07:00 Output Total 0 ml Balance 0 ml Justifications for Admission Other Justification WALKER DAVILA MD Apr 28, 2021 17:42
[2021-04-28] MEDS: HYDROcodone/APAP 5/325MG 1 TAB TABLET PO PRN (18:01)
[2021-04-28 19:00] VITALS: BP 95/61
[2021-04-28] MEDS: ENOXAPARIN 40 MG/0.4 ML SYRINGE. SQ SCH (21:43)
[2021-04-28] MEDS: AMITRIPTYLINE HCL 25 MG TABLET. PO SCH (21:45)
[2021-04-28] MEDS: MONTELUKAST SODIUM 10 MG TABLET. PO SCH (21:45)
[2021-04-28 23:00] VITALS: BP 80/53
[2021-04-29 03:00] VITALS: BP 96/63
[2021-04-29] MEDS: traMADol 50 MG TABLET PO PRN (04:37)
[2021-04-29 07:00] VITALS: BP 90/52
[2021-04-29] MEDS: IPRATROPIUM/ALBUTEROL 20/100mcg/INH INHALER. INH SCH ×4 (07:36→21:47)
[2021-04-29] MEDS: PANTOPRAZOLE 40 MG TABLET.DR. PO SCH (07:36)
--- NOTE | 2021-04-29 08:16 | PDOC ---
PULMONARY PROGRESS NOTES DATE: 04/29/21 TIME: 08:16 Subjective Patient resting in bed. awakens easily. reports she is sleepy today. denies shortness of breath or cough. continues on 4 L O@ Vitals Vital Signs Date Time Temp Pulse Resp B/P (MAP) Pulse Ox O2 Delivery O2 Flow Rate FiO2 04/29/21 07:00 97.6 77 14 90/52 (65) 94 Nasal Cannula 4.0 97.6 ROS: No Nausea, No Chest Pain, No Abdominal Pain, No Increase Cough General: Alert, No acute distress Lungs: Clear Cardiovascular: S1, S2 Abdomen: Soft Neuro Exam: Alert Extremities: No Edema Skin: Warm Medications Active Scripts Medications Dose Route/Sig Max Daily Dose Days Date Category Hydrocodone-Apap 5-325 (Hydrocodone Bit/Acetaminophen) 1 Tab Tablet 1 Tab PO PRN Q8HRS PRN 04/04/21 Reported Magnesium Oxide 400 Mg Tablet 1 Tab PO DAILY 04/04/21 Reported Singulair Tablet (Montelukast Sodium) 10 Mg Tablet 10 Mg PO HS 04/04/21 Reported Pantoprazole Sodium 40 Mg Tablet.dr 40 Mg PO DAILY 04/04/21 Reported Benzonatate 100 Mg Capsule 1 Cap PO TID PRN 01/02/21 Reported Proair Hfa Inhaler (Albuterol Sulfate) 8.5 Gm Hfa.aer.ad 2 Puff IH PRN Q4HRS PRN 21 01/02/21 Reported Meloxicam 7.5 Mg Tablet 7.5 Mg PO DAILY 10/23/19 Reported Klor-Con M20 (Potassium Chloride) 20 Meq Tab.er.prt 1 Tab PO DAILY 30 10/23/19 Reported Dicyclomine Hcl 10 Mg Capsule 20 Mg PO DAILY 10/23/19 Reported Tramadol Hcl 50 Mg Tablet 50 Mg PO Q6HRS PRN 07/17/17 Reported Norvasc (Amlodipine Besylate) 5 Mg Tablet 5 Mg PO DAILY 07/17/17 Reported Dyazide 37.5-25 Capsule (Triamterene/Hydrochlorothiazid) 1 Each Capsule 1 Cap PO QMWF 07/17/17 Reported Losartan Potassium (Losartan Potassium) 25 Mg Tablet 25 Mg PO DAILY 07/17/17 Reported Amitriptyline Hcl 50 Mg Tablet 25 Mg PO HS 07/17/[address] chest reviewed 04/10/2021 Diffuse emphysema, worse in the upper lobes. Development of groundglass infiltrates bilaterally. Is post radiation treatment in the left perihilar area. Impression . 1. Acute hypoxic respiratory failure secondary to COVID-19 viral pneumonia. 2. Underlying chronic obstructive pulmonary disease, the patient is not on home oxygen. 3. History of lung cancer, the patient reports radiation and chemo. Last CT chest from 01/27/2021 showed post-radiation changes in the left perihilar area. New CT chest 04/10/2021 was reviewed. Development of new bilateral groundglass infiltrates compatible with COVID-19 viral pneumonia. 4. Left upper lobe spiculated nodule unchanged in size since January. Plan . 04/29 continue with supplemental oxygen increase activity, therapy as able remdesivir, abx, and steroid completed Case management following Follow-up in my office in June 18 PT per recommendations Continue weaning O2 as tolerated Continue Lasix remdesivir, abx, and steroid completed Case management following 04/27 continue supplemental oxygen, wean as able therapy as tolerated continue with lasix patient is s/p remdesivir completed anbx and steroid Updated 04/26 PT eval Getting [facility] continue to wean oxygen as able patient is s/p remdesivir completed anbx and steroid continues on daily lasix, oral progressive activity as tolerated MARIBEL VOGT MD Apr 29, 2021 08:16
[2021-04-29] MEDS: DICYCLOMINE HCL 10 MG CAPSULE PO SCH (08:22)
[2021-04-29] MEDS: MAGNESIUM OXIDE 400 MG TABLET PO SCH (08:22)
[2021-04-29] MEDS: FUROSEMIDE 40 MG TABLET. PO SCH (08:22)
[2021-04-29] MEDS: guaiFENesin DM 600/30MG 1 TAB TAB.ER.12H PO SCH ×2 (08:22→21:47)
[2021-04-29] MEDS: POTASSIUM CHLORIDE 20 MEQ TABLET.ER. PO SCH (08:23)
[2021-04-29] MEDS: LOSARTAN POTASSIUM 25 MG TABLET. PO SCH ×2 (08:26→09:00)
--- NOTE | 2021-04-29 08:59 | PDOC ---
PROGRESS NOTES Date of Service: DATE: 04/29/21 TIME: 08:57 Subjective Subjective no new problems Objective Objective Vital Signs Date Time Temp Pulse Resp B/P (MAP) Pulse Ox O2 Delivery O2 Flow Rate FiO2 04/29/21 07:00 97.6 77 14 90/52 (65) 94 Nasal Cannula 4.0 97.6 Intake and Output 04/29/21 07:00 Intake Total 0 ml Balance 0 ml Intake Oral 0 ml Physical Exam Abdomen: Soft Heart: Regular rate, Normal S1, Normal S2 Extremities: No clubbing General: Alert HEENT: Atraumatic Lungs: Other (rales at base) MUSCULOSKELETAL: No swelling Neuro: Normal speech Psych/Mental Status: Mental status NL Skin: No breakdown Diagnosis Problem List Problems Medical Problems: (1) COVID-19 Status: Acute Assessment Assessment Problems Medical Problems: (1) COVID-19 Status: Acute FINAL IMPRESSION:Pneumonia with hypoxia 1. COVID pneumonia.Break through infection,pt vaccinated not boosted. 2. Immune compromised, patient is on chemo for small cell lung cancer. 3. Small cell lung cancer, getting chemotherapy. 4. Hypertension. 5. Hyperlipidemia. PLAN:d/c home with home health today LTAC screen.denied xanax for anxiety. d/mehran iv antibiotics and steroids on foxygen N/C 4 L, will wean down oxygen WBC 9. down ,bmp -normal Spoke with RN Plan Plan of Care Problems Medical Problems: (1) COVID-19 Status: Acute Comment Review of Relevant I have reviewed the following items ankit (where applicable) has been applied. Vitals/I & O Vital Sign - Last 24 Hours 04/28/21 04/28/21 04/28/21 04/28/21 11:00 11:31 11:31 14:57 Temp 97.3 98.0 97.3 98.0 Pulse 81 81 81 89 Resp 17 19 B/P (MAP) 121/71 (88) 121/71 121/71 118/66 (83) Pulse Ox 96 98 O2 Delivery Nasal Cannula Nasal Cannula O2 Flow Rate 4.0 4.0 04/28/21 04/28/21 04/28/21 04/28/21 18:01 18:44 19:00 19:30 Temp 98.0 98.0 Pulse 99 Resp 20 B/P (MAP) 95/61 (72) Pulse Ox 95 O2 Delivery Room Air Room Air Nasal Cannula Nasal Cannula O2 Flow Rate 4.0 4.0 04/28/21 04/29/21 04/29/21 04/29/21 23:00 03:00 04:37 05:07 Pulse 79 80 Resp 16 20 20 20 B/P (MAP) 80/53 (62) 96/63 (74) Pulse Ox 100 95 O2 Delivery Nasal Cannula Nasal Cannula Nasal Cannula Nasal Cannula O2 Flow Rate 4.0 4.0 4.0 4.0 04/29/21 07:00 Temp 97.6 97.6 Pulse 77 Resp 14 B/P (MAP) 90/52 (65) Pulse Ox 94 O2 Delivery Nasal Cannula O2 Flow Rate 4.0 Intake and Output 04/28/21 04/28/21 04/29/21 15:00 23:00 07:00 Intake Total 0 ml Balance 0 ml Justifications for Admission Other Justification WALKER DAVILA MD Apr 29, 2021 08:59
--- NOTE | 2021-04-29 09:02 | SNU/HH DC ---
DISCHARGE WITH HOME HEALTH DISCHARGE INFORMATION: Discharge Date: Apr 29, 2021 Final Diagnosis: Problems Medical Problems: (1) COVID-19 Status: Acute Condition on Discharge: Stable CODE STATUS: Code Status: Full HOME HEALTH: Face to Face: I certify this patient is under my care and that I, or a nurse practitioner or physician's family readiness support assistant working with me, had a face to face encounter that meets the physician face to face encounter requirements with this patient on []. Medical Complications: Pneumonia Snf For: Assess Cardiopulm Status RN For Eval/Treatment: Yes Physical Therapy For: Evalulation/Treatment Occupational Therapy For: Evaluation/Treatment EQUIPMENT SCHEDULER For: Community Resources Pt Meets Homebound Status: Poor coordination w/ amb. POST DISCHARGE ORDERS: Activity Instructions for Disc: Activity as tolerated Weight Bearing Status after Di: No restrictions Bathing Instructions: Shower-keep dressing dry, No Tub Bath until see DIET AFTER DISCHARGE: Cardiac Wound/Incision Care: Ice to area for comfort CHECKS AFTER DISCHARGE: Checks after discharge: Check blood press - daily TREATMENT/EQUIPMENT ORDERS: Adaptive Equipment Issued: None, Wheelchair Discharge Respiratory Equipmen: Oxygen CERTIFICATION STATEMENT: Certification Statement: Certification Statement: Based on the above finding, I certify that this patient is confined to the home and needs intermittent usp care, physical therapy and/or speech therapy, or continues to need occupational therapy.~ This patient is under my care, and I have initiated the establishment of the plan of care.~ This patient will be followed by myself or a community physician who will periodically review the plan of care. Home Meds Active Scripts Furosemide (FUROSEMIDE) 40 Mg Tablet, 40 MG PO DAILY for chf for 30 Days, #30 TAB Prov:WALKER DAVILA MD 04/27/21 Alprazolam (ALPRAZOLAM) 0.25 Mg Tablet, 0.25 MG PO PRN Q8HRS PRN for ANXIETY / AGITATION for 30 Days, TAB Prov:WALKER DAVILA MD 04/27/21 Ipratropium/Albuterol Sulfate (COMBIVENT RESPIMAT INHAL) 4 Gm Aer.w.adap, 1 PUFF INH RTQID for copd for 30 Days, INH Prov:WALKER DAVILA MD 04/27/21 Reported Medications Hydrocodone Bit/Acetaminophen (HYDROCODONE-APAP 5-325 ) 1 Tab Tablet, 1 TAB PO PRN Q8HRS PRN for PAIN, TAB 0 Refills 04/04/21 Magnesium Oxide (MAGNESIUM OXIDE) 400 Mg Tablet, 1 TAB PO DAILY for SUPPLEMENT , #30 TAB 5 Refills 04/04/21 Montelukast Sodium (SINGULAIR TABLET ) 10 Mg Tablet, 10 MG PO HS for FOR ASTHMA, TAB 0 Refills 04/04/21 Pantoprazole Sodium (Pantoprazole Sodium) 40 Mg Tablet.dr, 40 MG PO DAILY for GERD, TAB.SR 04/04/21 Benzonatate (BENZONATATE) 100 Mg Capsule, 1 CAP PO TID PRN for cough 01/02/21 Albuterol Sulfate (PROAIR HFA INHALER) 8.5 Gm Hfa.aer.ad, 2 PUFF IH PRN Q4HRS PRN for wheezing for 21 Days, #1 INHALER 0 Refills 01/02/21 Potassium Chloride (KLOR-CON M20) 20 Meq Tab.er.prt, 1 TAB PO DAILY for k+ replacement for 30 Days, #30 TAB 0 Refills 10/23/19 Dicyclomine Hcl (DICYCLOMINE HCL) 10 Mg Capsule, 20 MG PO DAILY for pain, CAP 10/23/19 Tramadol Hcl (TRAMADOL HCL) 50 Mg Tablet, 50 MG PO Q6HRS PRN for PAIN, TAB 07/17/17 Amlodipine Besylate (NORVASC) 5 Mg Tablet, 5 MG PO DAILY, TAB 07/17/17 Losartan Potassium (LOSARTAN POTASSIUM ) 25 Mg Tablet, 25 MG PO DAILY for htn, TAB 07/17/17 Amitriptyline Hcl (AMITRIPTYLINE HCL) 50 Mg Tablet, 25 MG PO HS for sleep aid, TAB 07/17/17 Discontinued Reported Medications Meloxicam (MELOXICAM) 7.5 Mg Tablet, 7.5 MG PO DAILY for pain, TAB 10/23/19 Triamterene/Hydrochlorothiazid (DYAZIDE 37.5-25 CAPSULE) 1 Each Capsule, 1 CAP PO QMWF for diuretic, CAP 07/17/17 WALKER DAVILA MD Apr 29, 2021 09:02
[2021-04-29 10:37] VITALS: BP 110/64
--- NOTE | 2021-04-29 11:19 | NUR ---
RENEE following. Discussed with RN, 6 minute walk with discharge home today. Awaiting 6 minute walk. RENEE will continue to follow. Addendum: 04/29/21 at 1325 by JEANNE DURAN Pt unable to complete 6 minute walk. ABG done for testing. Referral faxed to [facility], awaiting approval to give tank. Addendum: 04/29/21 at 1547 by JEANNE DURAN Pt approved with [facility]. Discharge cancelled because pt worked with therapy and oxygen levels dropped significantly. Pt to work with therapy over weekend and recheck oxygen.
[2021-04-29 12:28] LABS: BASE EXCESS ABG 4 mmol/L (-3-3); HCO3 ABG 28 mmol/L (21-28); PCO2 ABG 40 mmHg (35-46); SAT O2 ABG 76 % (92-99)
[2021-04-29 12:59] LABS: FIO2 ABG 21%; PO2 ABG 39 mmHg (65-108)
[2021-04-29 15:00] VITALS: BP 92/71
[2021-04-29 19:00] VITALS: BP 100/58
[2021-04-29] MEDS: ENOXAPARIN 40 MG/0.4 ML SYRINGE. SQ SCH (21:47)
[2021-04-29] MEDS: MONTELUKAST SODIUM 10 MG TABLET. PO SCH (21:47)
[2021-04-29] MEDS: AMITRIPTYLINE HCL 25 MG TABLET. PO SCH (21:47)
[2021-04-29 23:00] VITALS: BP 98/58
[2021-04-30 03:00] VITALS: BP 91/61
[2021-04-30 07:00] VITALS: BP 98/56
--- NOTE | 2021-04-30 10:08 | PDOC ---
PROGRESS NOTES Date of Service: DATE: 04/30/21 TIME: 10:04 Subjective Subjective does not feel good Objective Objective Vital Signs Date Time Temp Pulse Resp B/P (MAP) Pulse Ox O2 Delivery O2 Flow Rate FiO2 04/30/21 07:00 97.6 82 18 98/56 (70) 97 Nasal Cannula 4.0 97.6 Physical Exam Abdomen: Soft Heart: Regular rate, Normal S1, Normal S2 Extremities: No clubbing General: Alert HEENT: Atraumatic Lungs: Other (rales at base) MUSCULOSKELETAL: No swelling Neuro: Normal speech Psych/Mental Status: Mental status NL Skin: No breakdown Diagnosis Problem List Problems Medical Problems: (1) COVID-19 Status: Acute Assessment Assessment Problems Medical Problems: (1) COVID-19 Status: Acute FINAL IMPRESSION: Tachycardia . Pneumonia with hypoxia 1. COVID pneumonia.Break through infection,pt vaccinated not boosted. 2. Immune compromised, patient is on chemo for small cell lung cancer. 3. Small cell lung cancer, getting chemotherapy. 4. Hypertension. 5. Hyperlipidemia. PLAN:cancelled discharge due to weakness and hypoxia. iv fluids +low dose dexa methasone pt needs LTAC or SNU labs today xanax for anxiety. on oxygen N/C 4 L-8 L with mobility. Plan Plan of Care Problems Medical Problems: (1) COVID-19 Status: Acute Comment Review of Relevant I have reviewed the following items ankit (where applicable) has been applied. Labs Laboratory Tests Test 04/29/21 12:20 O2 Saturation 76 % (92-99) Arterial Blood pH 7.47 (7.35-7.45) Arterial Blood pCO2 at Patient Temp 40 mmHg (35-46) Arterial Blood pO2 at Patient Temp 39 mmHg (65-108) Arterial Blood HCO3 28 mmol/L (21-28) Arterial Blood Base Excess 4 mmol/L (-3-3) FiO2 21% Vitals/I & O Vital Sign - Last 24 Hours 04/29/21 04/29/21 04/29/21 04/29/21 10:37 12:20 15:00 19:00 Temp 97.7 97.7 97.6 97.7 97.7 97.6 Pulse 73 101 89 Resp 14 16 13 B/P (MAP) 110/64 (79) 92/71 (78) 100/58 (72) Pulse Ox 96 97 100 O2 Delivery Nasal Cannula Room Air Nasal Cannula Nasal Cannula O2 Flow Rate 4.0 4.0 9.0 04/29/21 04/29/21 04/30/21 04/30/21 19:45 23:00 03:00 07:00 Temp 97.6 97.6 97.6 97.6 97.6 97.6 Pulse 80 80 82 Resp 15 15 18 B/P (MAP) 98/58 (71) 91/61 (71) 98/56 (70) Pulse Ox 100 100 97 O2 Delivery Nasal Cannula Nasal Cannula Nasal Cannula Nasal Cannula O2 Flow Rate 4.0 9.0 9.0 4.0 Justifications for Admission Other Justification WALKER DAVILA MD Apr 30, 2021 10:08
[2021-04-30] MEDS: IV NORMAL SALINE 1000ML BAG 1,000 ML IV SCH ×2 (10:15→20:15)
--- NOTE | 2021-04-30 10:45 | PDOC ---
PULMONARY PROGRESS NOTES DATE: 04/30/21 TIME: 10:41 Subjective Patient sitting edge of bed, resting comfortably on 4 L nasal cannula Denies any shortness of breath, reports nonproductive cough Afebrile Overnight concerns from nursing Vitals Vital Signs Date Time Temp Pulse Resp B/P (MAP) Pulse Ox O2 Delivery O2 Flow Rate FiO2 04/30/21 07:00 97.6 82 18 98/56 (70) 97 Nasal Cannula 4.0 97.6 ROS: No Nausea, No Chest Pain, No Abdominal Pain, No Increase Cough General: Alert, No acute distress Lungs: Clear Cardiovascular: S1, S2 Abdomen: Soft Neuro Exam: Alert Extremities: No Edema Skin: Warm Labs Laboratory Tests Test 04/29/21 12:20 O2 Saturation 76 % (92-99) Arterial Blood pH 7.47 (7.35-7.45) Arterial Blood pCO2 at Patient Temp 40 mmHg (35-46) Arterial Blood pO2 at Patient Temp 39 mmHg (65-108) Arterial Blood HCO3 28 mmol/L (21-28) Arterial Blood Base Excess 4 mmol/L (-3-3) FiO2 21% Laboratory Tests Test 04/29/21 12:20 O2 Saturation 76 % (92-99) Arterial Blood pH 7.47 (7.35-7.45) Arterial Blood pCO2 at Patient Temp 40 mmHg (35-46) Arterial Blood pO2 at Patient Temp 39 mmHg (65-108) Arterial Blood HCO3 28 mmol/L (21-28) Arterial Blood Base Excess 4 mmol/L (-3-3) FiO2 21% Medications Active Scripts Medications Dose Route/Sig Max Daily Dose Days Date Category Hydrocodone-Apap 5-325 (Hydrocodone Bit/Acetaminophen) 1 Tab Tablet 1 Tab PO PRN Q8HRS PRN 04/04/21 Reported Magnesium Oxide 400 Mg Tablet 1 Tab PO DAILY 04/04/21 Reported Singulair Tablet (Montelukast Sodium) 10 Mg Tablet 10 Mg PO HS 04/04/21 Reported Pantoprazole Sodium 40 Mg Tablet.dr 40 Mg PO DAILY 04/04/21 Reported Benzonatate 100 Mg Capsule 1 Cap PO TID PRN 01/02/21 Reported Proair Hfa Inhaler (Albuterol Sulfate) 8.5 Gm Hfa.aer.ad 2 Puff IH PRN Q4HRS PRN 21 01/02/21 Reported Meloxicam 7.5 Mg Tablet 7.5 Mg PO DAILY 10/23/19 Reported Klor-Con M20 (Potassium Chloride) 20 Meq Tab.er.prt 1 Tab PO DAILY 30 10/23/19 Reported Dicyclomine Hcl 10 Mg Capsule 20 Mg PO DAILY 10/23/19 Reported Tramadol Hcl 50 Mg Tablet 50 Mg PO Q6HRS PRN 07/17/17 Reported Norvasc (Amlodipine Besylate) 5 Mg Tablet 5 Mg PO DAILY 07/17/17 Reported Dyazide 37.5-25 Capsule (Triamterene/Hydrochlorothiazid) 1 Each Capsule 1 Cap PO QMWF 07/17/17 Reported Losartan Potassium (Losartan Potassium) 25 Mg Tablet 25 Mg PO DAILY 07/17/17 Reported Amitriptyline Hcl 50 Mg Tablet 25 Mg PO HS 07/17/[address] chest reviewed 04/10/2021 Diffuse emphysema, worse in the upper lobes. Development of groundglass infiltrates bilaterally. Is post radiation treatment in the left perihilar area. Impression . 1. Acute hypoxic respiratory failure secondary to COVID-19 viral pneumonia. 2. Underlying chronic obstructive pulmonary disease, the patient is not on home oxygen. 3. History of lung cancer, the patient reports radiation and chemo. Last CT chest from 01/27/2021 showed post-radiation changes in the left perihilar area. New CT chest 04/10/2021 was reviewed. Development of new bilateral groundglass infiltrates compatible with COVID-19 viral pneumonia. 4. Left upper lobe spiculated nodule unchanged in size since January. Plan . Updated 04/30/2021 Continue current supplemental oxygen, 4 L nasal cannula, wean as tolerated Physical therapy/occupational therapy, increase activity, out of bed 3 times daily Patient has completed a full course of remdesivir, antibiotics Dexamethasone Bronchodilators Follow-up in the office with Dr. Vogt in June 2021 DVT/GI prophylaxis: Protonix/Lovenox CODE STATUS: Full 04/29 continue with supplemental oxygen increase activity, therapy as able remdesivir, abx, and steroid completed Case management following Follow-up in my office in June 18 PT per recommendations Continue weaning O2 as tolerated Continue Lasix remdesivir, abx, and steroid completed Case management following 04/27 continue supplemental oxygen, wean as able therapy as tolerated continue with lasix patient is s/p remdesivir completed anbx and steroid Updated 04/26 PT eval Getting closer to possibly transferring to snf unit continue to wean oxygen as able patient is s/p remdesivir completed anbx and steroid continues on daily lasix, oral progressive activity as tolerated MARIBEL VOGT MD Apr 30, 2021 10:45
[2021-04-30 11:00] VITALS: BP 108/66
[2021-04-30] MEDS: POTASSIUM CHLORIDE 20 MEQ TABLET.ER. PO SCH (13:13)
[2021-04-30] MEDS: guaiFENesin DM 600/30MG 1 TAB TAB.ER.12H PO SCH ×2 (13:13→22:47)
[2021-04-30] MEDS: MAGNESIUM OXIDE 400 MG TABLET PO SCH (13:14)
[2021-04-30] MEDS: DICYCLOMINE HCL 10 MG CAPSULE PO SCH (13:14)
[2021-04-30] MEDS: FUROSEMIDE 40 MG TABLET. PO SCH (13:14)
[2021-04-30] MEDS: PANTOPRAZOLE 40 MG TABLET.DR. PO SCH (13:14)
[2021-04-30] MEDS: IPRATROPIUM/ALBUTEROL 20/100mcg/INH INHALER. INH SCH ×4 (13:16→23:09)
[2021-04-30] MEDS: LOSARTAN POTASSIUM 25 MG TABLET. PO SCH (14:11)
--- NOTE | 2021-04-30 14:58 | NUR ---
Informed Dr Spencer that patient refuses IV access, both to accessing port and to having peripheral access placed. Patient declines providing a reason. (Patient refusing many things, or wanting to postpone them.
[2021-04-30 15:00] VITALS: BP 102/62
[2021-04-30 19:00] VITALS: BP 96/55
[2021-04-30] MEDS: MONTELUKAST SODIUM 10 MG TABLET. PO SCH (22:47)
[2021-04-30] MEDS: ENOXAPARIN 40 MG/0.4 ML SYRINGE. SQ SCH (22:47)
[2021-04-30] MEDS: AMITRIPTYLINE HCL 25 MG TABLET. PO SCH (22:47)
[2021-04-30 23:00] VITALS: BP 113/74
[2021-05-01] MEDS: traMADol 50 MG TABLET PO PRN (01:17)
[2021-05-01] MEDS: ALPRAZolam 0.25 MG TABLET PO PRN (01:17)
--- NOTE | 2021-05-01 01:39 | NUR ---
Patient has been complaining about her telemetry wires, the lead-stickers, through the night, "I need something for this pain in my stomach..do you have something for me to take for this pain.?' This journalists and other writers brings ultram for her pain, as she is again on the call light, "I need someone to call Dr Spencer.." When this journalists and other writers informs her a pain pill is right in my hand to give to her, she replies, "I don't need no pain pill...I just need him to take this off...its killing me...". After unsuccessfully attempting to reason with this patient about needing to know her heart rate, the leads were removed, she is informed that the oxygen sensor will stay on, she does not argue about this. Will attempt to replace the leads/monitor when able.
--- NOTE | 2021-05-01 02:41 | NUR ---
Spot checking patient's oxygen level--99% on 4 L, continuing to monitor her.
[2021-05-01 03:11] VITALS: BP 103/56
--- NOTE | 2021-05-01 05:23 | NUR ---
Noted patient's oxygen level at 84%, entered room, her nasal cannula on top of nose, replaced, saturation level increased to 95% quickly. Monitoring.
[2021-05-01] MEDS: IV NORMAL SALINE 1000ML BAG 1,000 ML IV SCH ×2 (05:55→16:15)
[2021-05-01 07:00] VITALS: BP 92/55
[2021-05-01 07:51] LABS: BASO % 0 % (0-3); EOS % 1 % (0-3); HEMATOCRIT 39.1 % (36.0-47.0); HEMOGLOBIN 12.8 g/dL (12.0-15.5); LYMPH # 0.6 x10^3/uL (1.0-4.8); LYMPH % 9 % (24-48); MEAN CORPUSCULAR HEMOGLOBIN 32 pg (25-35); MEAN CORPUSCULAR HGB CONC 33 g/dL (31-37); MEAN CORPUSCULAR VOLUME 98 fL (79-100); MONO # 0.5 x10^3/uL (0.0-1.1); MONO % 6 % (0-9); NEUT # 6.3 x10^3/uL (1.8-7.7); NEUT % 84 % (31-73); PLATELET COUNT 223 x10^3/uL (140-400); RED BLOOD COUNT 4.01 x10^6/uL (3.50-5.40); RED CELL DISTRIBUTION WIDTH 15.2 % (11.5-14.5); WHITE BLOOD COUNT 7.5 x10^3/uL (4.0-11.0)
[2021-05-01] MEDS: IPRATROPIUM/ALBUTEROL 20/100mcg/INH INHALER. INH SCH ×4 (08:00→20:00)
[2021-05-01] MEDS ORDERED: DEXAMETHASONE 4 MG TABLET PO SCH (08:00)
[2021-05-01 08:25] LABS: CALCIUM 9.5 mg/dL (8.5-10.1); GFR 28.9; POTASSIUM 4.7 mmol/L (3.5-5.1)
[2021-05-01] MEDS: LOSARTAN POTASSIUM 25 MG TABLET. PO SCH (09:00)
--- NOTE | 2021-05-01 09:10 | PDOC ---
IM PROGRESS NOTES- Subjective Subjective Cough and congestion are improving. Continues to require oxygen. Objective Vitals/I&O Vital Signs Date Time Temp Pulse Resp B/P (MAP) Pulse Ox O2 Delivery O2 Flow Rate FiO2 05/01/21 03:11 97.4 87 18 103/56 (72) 98 Nasal Cannula 97.4 04/30/21 20:20 4.0 I & O 04/30/21 04/30/21 05/01/21 15:00 23:00 07:00 Intake Total 273 ml Output Total 0 ml Balance 273 ml 0 ml Physical Exam Physical Exam General Appearance - alert and in no distress Chest - decreased breath sounds at bases Heart - S1 and S2 normal Abdomen - soft, non tender Neurological -weak Musculoskeletal - generalized weakness Extremities - no edema Labs Laboratory Tests Test 04/30/21 11:42 05/01/21 06:30 Glucose (Fingerstick) 102 mg/dL (70-99) H White Blood Count 7.5 x10^3/uL (4.0-11.0) Red Blood Count 4.01 x10^6/uL (3.50-5.40) Hemoglobin 12.8 g/dL (12.0-15.5) Hematocrit 39.1 % (36.0-47.0) Mean Corpuscular Volume 98 fL (79-100) Mean Corpuscular Hemoglobin 32 pg (25-35) Mean Corpuscular Hemoglobin Concent 33 g/dL (31-37) Red Cell Distribution Width 15.2 % (11.5-14.5) H Platelet Count 223 x10^3/uL (140-400) Neutrophils (%) (Auto) 84 % (31-73) H Lymphocytes (%) (Auto) 9 % (24-48) L Monocytes (%) (Auto) 6 % (0-9) Eosinophils (%) (Auto) 1 % (0-3) Basophils (%) (Auto) 0 % (0-3) Neutrophils # (Auto) 6.3 x10^3/uL (1.8-7.7) Lymphocytes # (Auto) 0.6 x10^3/uL (1.0-4.8) L Monocytes # (Auto) 0.5 x10^3/uL (0.0-1.1) Eosinophils # (Auto) 0.0 x10^3/uL (0.0-0.7) Basophils # (Auto) 0.0 x10^3/uL (0.0-0.2) Sodium Level 143 mmol/L (136-145) Potassium Level 4.7 mmol/L (3.5-5.1) Chloride Level 102 mmol/L (98-107) Carbon Dioxide Level 28 mmol/L (21-32) Anion Gap 13 (6-14) Blood Urea Nitrogen 64 mg/dL (7-20) H Creatinine 2.0 mg/dL (0.6-1.0) H Estimated GFR (Cockcroft-Gault) 28.9 Glucose Level 101 mg/dL (70-99) H Calcium Level 9.5 mg/dL (8.5-10.1) Laboratory Tests 05/01/21 06:30 Laboratory Tests 05/01/21 06:30 Assessment Assessment Problems Medical Problems: (1) COVID-19 Status: Acute FINAL IMPRESSION: Tachycardia . Pneumonia with hypoxia 1. COVID pneumonia.Break through infection,pt vaccinated not boosted. 2. Immune compromised, patient is on chemo for small cell lung cancer. 3. Small cell lung cancer, getting chemotherapy. 4. Hypertension. 5. Hyperlipidemia. PLAN: Renal function is getting worse. BUN 64, creatinine 2.0. Continue IV fluids. Stop Lasix for now. Recheck labs in a.m. low dose dexa methasone pt needs LTAC or SNU xanax for anxiety. on oxygen N/C 4 L-8 L with mobility. Plan Plan For more details regarding further plans, please refer to the orders. Justifications for Admission Other Justification DAV MENDEZ MD May 01, 2021 09:10
[2021-05-01 11:00] VITALS: BP 101/60
--- NOTE | 2021-05-01 11:36 | PDOC ---
PULMONARY PROGRESS NOTES DATE: 05/01/21 TIME: 11:33 Subjective Patient now more short of air Not wanting to eat breakfast Denies any shortness of breath, reports nonproductive cough Afebrile Overnight concerns from nursing Vitals Vital Signs Date Time Temp Pulse Resp B/P (MAP) Pulse Ox O2 Delivery O2 Flow Rate FiO2 05/01/21 07:00 97.7 90 16 92/55 (67) 100 Nasal Cannula 4.0 97.7 ROS: No Nausea, No Chest Pain, No Abdominal Pain, No Increase Cough General: Alert, No acute distress Lungs: Clear Cardiovascular: S1, S2 Abdomen: Soft Neuro Exam: Alert Extremities: No Edema Skin: Warm Labs Laboratory Tests Test 04/29/21 12:20 04/30/21 11:42 05/01/21 06:30 O2 Saturation 76 % (92-99) Arterial Blood pH 7.47 (7.35-7.45) Arterial Blood pCO2 at Patient Temp 40 mmHg (35-46) Arterial Blood pO2 at Patient Temp 39 mmHg (65-108) Arterial Blood HCO3 28 mmol/L (21-28) Arterial Blood Base Excess 4 mmol/L (-3-3) FiO2 21% Glucose (Fingerstick) 102 mg/dL (70-99) White Blood Count 7.5 x10^3/uL (4.0-11.0) Red Blood Count 4.01 x10^6/uL (3.50-5.40) Hemoglobin 12.8 g/dL (12.0-15.5) Hematocrit 39.1 % (36.0-47.0) Mean Corpuscular Volume 98 fL (79-100) Mean Corpuscular Hemoglobin 32 pg (25-35) Mean Corpuscular Hemoglobin Concent 33 g/dL (31-37) Red Cell Distribution Width 15.2 % (11.5-14.5) Platelet Count 223 x10^3/uL (140-400) Neutrophils (%) (Auto) 84 % (31-73) Lymphocytes (%) (Auto) 9 % (24-48) Monocytes (%) (Auto) 6 % (0-9) Eosinophils (%) (Auto) 1 % (0-3) Basophils (%) (Auto) 0 % (0-3) Neutrophils # (Auto) 6.3 x10^3/uL (1.8-7.7) Lymphocytes # (Auto) 0.6 x10^3/uL (1.0-4.8) Monocytes # (Auto) 0.5 x10^3/uL (0.0-1.1) Eosinophils # (Auto) 0.0 x10^3/uL (0.0-0.7) Basophils # (Auto) 0.0 x10^3/uL (0.0-0.2) Sodium Level 143 mmol/L (136-145) Potassium Level 4.7 mmol/L (3.5-5.1) Chloride Level 102 mmol/L (98-107) Carbon Dioxide Level 28 mmol/L (21-32) Anion Gap 13 (6-14) Blood Urea Nitrogen 64 mg/dL (7-20) Creatinine 2.0 mg/dL (0.6-1.0) Estimated GFR (Cockcroft-Gault) 28.9 Glucose Level 101 mg/dL (70-99) Calcium Level 9.5 mg/dL (8.5-10.1) Laboratory Tests Test 04/30/21 11:42 05/01/21 06:30 Glucose (Fingerstick) 102 mg/dL (70-99) White Blood Count 7.5 x10^3/uL (4.0-11.0) Red Blood Count 4.01 x10^6/uL (3.50-5.40) Hemoglobin 12.8 g/dL (12.0-15.5) Hematocrit 39.1 % (36.0-47.0) Mean Corpuscular Volume 98 fL (79-100) Mean Corpuscular Hemoglobin 32 pg (25-35) Mean Corpuscular Hemoglobin Concent 33 g/dL (31-37) Red Cell Distribution Width 15.2 % (11.5-14.5) Platelet Count 223 x10^3/uL (140-400) Neutrophils (%) (Auto) 84 % (31-73) Lymphocytes (%) (Auto) 9 % (24-48) Monocytes (%) (Auto) 6 % (0-9) Eosinophils (%) (Auto) 1 % (0-3) Basophils (%) (Auto) 0 % (0-3) Neutrophils # (Auto) 6.3 x10^3/uL (1.8-7.7) Lymphocytes # (Auto) 0.6 x10^3/uL (1.0-4.8) Monocytes # (Auto) 0.5 x10^3/uL (0.0-1.1) Eosinophils # (Auto) 0.0 x10^3/uL (0.0-0.7) Basophils # (Auto) 0.0 x10^3/uL (0.0-0.2) Sodium Level 143 mmol/L (136-145) Potassium Level 4.7 mmol/L (3.5-5.1) Chloride Level 102 mmol/L (98-107) Carbon Dioxide Level 28 mmol/L (21-32) Anion Gap 13 (6-14) Blood Urea Nitrogen 64 mg/dL (7-20) Creatinine 2.0 mg/dL (0.6-1.0) Estimated GFR (Cockcroft-Gault) 28.9 Glucose Level 101 mg/dL (70-99) Calcium Level 9.5 mg/dL (8.5-10.1) Medications Active Scripts Medications Dose Route/Sig Max Daily Dose Days Date Category Hydrocodone-Apap 5-325 (Hydrocodone Bit/Acetaminophen) 1 Tab Tablet 1 Tab PO PRN Q8HRS PRN 04/04/21 Reported Magnesium Oxide 400 Mg Tablet 1 Tab PO DAILY 04/04/21 Reported Singulair Tablet (Montelukast Sodium) 10 Mg Tablet 10 Mg PO HS 04/04/21 Reported Pantoprazole Sodium 40 Mg Tablet.dr 40 Mg PO DAILY 04/04/21 Reported Benzonatate 100 Mg Capsule 1 Cap PO TID PRN 01/02/21 Reported Proair Hfa Inhaler (Albuterol Sulfate) 8.5 Gm Hfa.aer.ad 2 Puff IH PRN Q4HRS PRN 21 01/02/21 Reported Meloxicam 7.5 Mg Tablet 7.5 Mg PO DAILY 10/23/19 Reported Klor-Con M20 (Potassium Chloride) 20 Meq Tab.er.prt 1 Tab PO DAILY 30 10/23/19 Reported Dicyclomine Hcl 10 Mg Capsule 20 Mg PO DAILY 10/23/19 Reported Tramadol Hcl 50 Mg Tablet 50 Mg PO Q6HRS PRN 07/17/17 Reported Norvasc (Amlodipine Besylate) 5 Mg Tablet 5 Mg PO DAILY 07/17/17 Reported Dyazide 37.5-25 Capsule (Triamterene/Hydrochlorothiazid) 1 Each Capsule 1 Cap PO QMWF 07/17/17 Reported Losartan Potassium (Losartan Potassium) 25 Mg Tablet 25 Mg PO DAILY 07/17/17 Reported Amitriptyline Hcl 50 Mg Tablet 25 Mg PO HS 07/17/[address] chest reviewed 04/10/2021 Diffuse emphysema, worse in the upper lobes. Development of groundglass infiltrates bilaterally. Is post radiation treatment in the left perihilar area. Impression . 1. Acute hypoxic respiratory failure secondary to COVID-19 viral pneumonia. 2. Underlying chronic obstructive pulmonary disease, the patient is not on home oxygen. 3. History of lung cancer, the patient reports radiation and chemo. Last CT chest from 01/27/2021 showed post-radiation changes in the left perihilar area. New CT chest 04/10/2021 was reviewed. Development of new bilateral groundglass infiltrates compatible with COVID-19 viral pneumonia. 4. Left upper lobe spiculated nodule unchanged in size since January. Plan . Updated 05/01 Continue oxygen supplementation PT OT Possible transfer to rehab Taper off of steroids will be off by the of the month Updated 04/30/2021 Continue current supplemental oxygen, 4 L nasal cannula, wean as tolerated Physical therapy/occupational therapy, increase activity, out of bed 3 times daily Patient has completed a full course of remdesivir, antibiotics Dexamethasone Bronchodilators Follow-up in the office with Dr. Vogt in June 2021 DVT/GI prophylaxis: Protonix/Lovenox CODE STATUS: Full MARIBEL VOGT MD May 01, 2021 11:36
[2021-05-01] MEDS: MAGNESIUM OXIDE 400 MG TABLET PO SCH (11:51)
[2021-05-01] MEDS: DICYCLOMINE HCL 10 MG CAPSULE PO SCH (11:51)
[2021-05-01] MEDS: PANTOPRAZOLE 40 MG TABLET.DR. PO SCH (11:51)
[2021-05-01] MEDS: guaiFENesin DM 600/30MG 1 TAB TAB.ER.12H PO SCH ×2 (11:51→21:00)
[2021-05-01] MEDS: POTASSIUM CHLORIDE 20 MEQ TABLET.ER. PO SCH (12:32)
[2021-05-01 15:00] VITALS: BP 127/100
[2021-05-01 19:47] VITALS: BP 91/59
[2021-05-01] MEDS: AMITRIPTYLINE HCL 25 MG TABLET. PO SCH (21:00)
[2021-05-01] MEDS: MONTELUKAST SODIUM 10 MG TABLET. PO SCH (21:00)
[2021-05-01] MEDS: ENOXAPARIN 30 MG/0.3 ML SYRINGE. SQ SCH (22:00)
[2021-05-01 23:32] VITALS: BP 95/56
--- NOTE | 2021-05-01 23:53 | NUR ---
Patient has been groggy, hs meds holding to see if she awakens to want to take them, monitoring.
[2021-05-02] MEDS: IV NORMAL SALINE 1000ML BAG 1,000 ML IV SCH ×3 (02:15→21:23)
[2021-05-02 03:11] VITALS: BP 102/66
--- NOTE | 2021-05-02 03:39 | NUR ---
Patient, again tonight, has been groggy, flat affect, awaiting to see if she will take her medications, monitoring, her telemetry remains off, as she refuses to wear it, so this comic book writer is going to 'non-administer' the medications for now.
[2021-05-02 07:00] VITALS: BP 109/67
[2021-05-02 08:35] LABS: CALCIUM 9.6 mg/dL (8.5-10.1); CREATININE 1.8 mg/dL (0.6-1.0); GFR 32.6; POTASSIUM 4.4 mmol/L (3.5-5.1)
--- NOTE | 2021-05-02 08:48 | PDOC ---
PULMONARY PROGRESS NOTES DATE: 05/02/21 TIME: 08:43 Subjective Patient was resting this morning, arouses to name, denies shortness of air, currently on 4L NC, reports feeling a little better, no interest in breakfast this morning Vitals Vital Signs Date Time Temp Pulse Resp B/P (MAP) Pulse Ox O2 Delivery O2 Flow Rate FiO2 05/02/21 07:00 98.1 87 20 109/67 (81) 100 Nasal Cannula 4.0 98.1 ROS: No Nausea, No Chest Pain, No Abdominal Pain, No Increase Cough General: Alert, No acute distress Lungs: Clear Cardiovascular: S1, S2 Abdomen: Soft Neuro Exam: Alert Extremities: No Edema Skin: Warm Labs Laboratory Tests Test 04/30/21 11:42 05/01/21 06:30 05/02/21 07:25 Glucose (Fingerstick) 102 mg/dL (70-99) White Blood Count 7.5 x10^3/uL (4.0-11.0) Red Blood Count 4.01 x10^6/uL (3.50-5.40) Hemoglobin 12.8 g/dL (12.0-15.5) Hematocrit 39.1 % (36.0-47.0) Mean Corpuscular Volume 98 fL (79-100) Mean Corpuscular Hemoglobin 32 pg (25-35) Mean Corpuscular Hemoglobin Concent 33 g/dL (31-37) Red Cell Distribution Width 15.2 % (11.5-14.5) Platelet Count 223 x10^3/uL (140-400) Neutrophils (%) (Auto) 84 % (31-73) Lymphocytes (%) (Auto) 9 % (24-48) Monocytes (%) (Auto) 6 % (0-9) Eosinophils (%) (Auto) 1 % (0-3) Basophils (%) (Auto) 0 % (0-3) Neutrophils # (Auto) 6.3 x10^3/uL (1.8-7.7) Lymphocytes # (Auto) 0.6 x10^3/uL (1.0-4.8) Monocytes # (Auto) 0.5 x10^3/uL (0.0-1.1) Eosinophils # (Auto) 0.0 x10^3/uL (0.0-0.7) Basophils # (Auto) 0.0 x10^3/uL (0.0-0.2) Sodium Level 143 mmol/L (136-145) 144 mmol/L (136-145) Potassium Level 4.7 mmol/L (3.5-5.1) 4.4 mmol/L (3.5-5.1) Chloride Level 102 mmol/L (98-107) 102 mmol/L (98-107) Carbon Dioxide Level 28 mmol/L (21-32) 29 mmol/L (21-32) Anion Gap 13 (6-14) 13 (6-14) Blood Urea Nitrogen 64 mg/dL (7-20) 63 mg/dL (7-20) Creatinine 2.0 mg/dL (0.6-1.0) 1.8 mg/dL (0.6-1.0) Estimated GFR (Cockcroft-Gault) 28.9 32.6 Glucose Level 101 mg/dL (70-99) 111 mg/dL (70-99) Calcium Level 9.5 mg/dL (8.5-10.1) 9.6 mg/dL (8.5-10.1) Laboratory Tests Test 05/02/21 07:25 Sodium Level 144 mmol/L (136-145) Potassium Level 4.4 mmol/L (3.5-5.1) Chloride Level 102 mmol/L (98-107) Carbon Dioxide Level 29 mmol/L (21-32) Anion Gap 13 (6-14) Blood Urea Nitrogen 63 mg/dL (7-20) Creatinine 1.8 mg/dL (0.6-1.0) Estimated GFR (Cockcroft-Gault) 32.6 Glucose Level 111 mg/dL (70-99) Calcium Level 9.6 mg/dL (8.5-10.1) Medications Active Scripts Medications Dose Route/Sig Max Daily Dose Days Date Category Hydrocodone-Apap 5-325 (Hydrocodone Bit/Acetaminophen) 1 Tab Tablet 1 Tab PO PRN Q8HRS PRN 04/04/21 Reported Magnesium Oxide 400 Mg Tablet 1 Tab PO DAILY 04/04/21 Reported Singulair Tablet (Montelukast Sodium) 10 Mg Tablet 10 Mg PO HS 04/04/21 Reported Pantoprazole Sodium 40 Mg Tablet.dr 40 Mg PO DAILY 04/04/21 Reported Benzonatate 100 Mg Capsule 1 Cap PO TID PRN 01/02/21 Reported Proair Hfa Inhaler (Albuterol Sulfate) 8.5 Gm Hfa.aer.ad 2 Puff IH PRN Q4HRS PRN 21 01/02/21 Reported Meloxicam 7.5 Mg Tablet 7.5 Mg PO DAILY 10/23/19 Reported Klor-Con M20 (Potassium Chloride) 20 Meq Tab.er.prt 1 Tab PO DAILY 30 10/23/19 Reported Dicyclomine Hcl 10 Mg Capsule 20 Mg PO DAILY 10/23/19 Reported Tramadol Hcl 50 Mg Tablet 50 Mg PO Q6HRS PRN 07/17/17 Reported Norvasc (Amlodipine Besylate) 5 Mg Tablet 5 Mg PO DAILY 07/17/17 Reported Dyazide 37.5-25 Capsule (Triamterene/Hydrochlorothiazid) 1 Each Capsule 1 Cap PO QMWF 07/17/17 Reported Losartan Potassium (Losartan Potassium) 25 Mg Tablet 25 Mg PO DAILY 07/17/17 Reported Amitriptyline Hcl 50 Mg Tablet 25 Mg PO HS 07/17/[address] chest reviewed 04/10/2021 Diffuse emphysema, worse in the upper lobes. Development of groundglass infiltrates bilaterally. Is post radiation treatment in the left perihilar area. Impression . 1. Acute hypoxic respiratory failure secondary to COVID-19 viral pneumonia. 2. Underlying chronic obstructive pulmonary disease, the patient is not on home oxygen. 3. History of lung cancer, the patient reports radiation and chemo. Last CT chest from 01/27/2021 showed post-radiation changes in the left perihilar area. New CT chest 04/10/2021 was reviewed. Development of new bilateral groundglass infiltrates compatible with COVID-19 viral pneumonia. 4. Left upper lobe spiculated nodule unchanged in size since January. Plan . Updated 05/02 Continue current supplemental oxygen, currently 4L NC Titrate as tolerated Continue PT OT with out of bed Dexamethasone until 05/08 Labs reviewed; stable Updated 05/01 Continue oxygen supplementation PT OT Possible transfer to rehab Taper off of steroids will be off by the of the month Updated 04/30/2021 Continue current supplemental oxygen, 4 L nasal cannula, wean as tolerated Physical therapy/occupational therapy, increase activity, out of bed 3 times daily Patient has completed a full course of remdesivir, antibiotics Dexamethasone Bronchodilators Follow-up in the office with Dr. Vogt in June 2021 DVT/GI prophylaxis: Protonix/Lovenox CODE STATUS: Full MARIBEL VOGT MD May 02, 2021 08:48
--- NOTE | 2021-05-02 08:59 | PDOC ---
PROGRESS NOTES Date of Service: DATE: 05/02/21 TIME: 08:57 Subjective Subjective feees slightly better than sunday Objective Objective Vital Signs Date Time Temp Pulse Resp B/P (MAP) Pulse Ox O2 Delivery O2 Flow Rate FiO2 05/02/21 07:00 98.1 87 20 109/67 (81) 100 Nasal Cannula 4.0 98.1 Intake and Output 05/02/21 07:00 Intake Total 0 ml Balance 0 ml Intake Oral 0 ml # Voids 3 # Bowel Movements 1 Physical Exam Abdomen: Soft Heart: Regular rate, Normal S1, Normal S2 Extremities: No clubbing General: Alert HEENT: Atraumatic Lungs: Other (rales at base) MUSCULOSKELETAL: No swelling Neuro: Normal speech Psych/Mental Status: Mental status NL Skin: No breakdown Diagnosis Problem List Problems Medical Problems: (1) COVID-19 Status: Acute Assessment Assessment Problems Medical Problems: (1) COVID-19 Status: Acute FINAL IMPRESSION: Tachycardia . Pneumonia with hypoxia 1. COVID pneumonia.Break through infection,pt vaccinated not boosted. 2. Immune compromised, patient is on chemo for small cell lung cancer. 3. Small cell lung cancer, getting chemotherapy. 4. Hypertension. 5. Hyperlipidemia. PLAN:iv fluids today hopefully discharge tomorrow Renal function is getting worse. BUN 64, creatinine 1.8. Continue IV fluids. Stop Lasix+pot for now. Recheck labs in a.m. low dose prednisone 10 mg pt needs LTAC or SNU xanax for anxiety. on oxygen N/C 4 L-8 L with mobility. Plan Plan of Care Problems Medical Problems: (1) COVID-19 Status: Acute Comment Review of Relevant I have reviewed the following items ankit (where applicable) has been applied. Labs Laboratory Tests Test 05/02/21 07:25 Sodium Level 144 mmol/L (136-145) Potassium Level 4.4 mmol/L (3.5-5.1) Chloride Level 102 mmol/L (98-107) Carbon Dioxide Level 29 mmol/L (21-32) Anion Gap 13 (6-14) Blood Urea Nitrogen 63 mg/dL (7-20) Creatinine 1.8 mg/dL (0.6-1.0) Estimated GFR (Cockcroft-Gault) 32.6 Glucose Level 111 mg/dL (70-99) Calcium Level 9.6 mg/dL (8.5-10.1) Medications Current Medications Enoxaparin Sodium (Lovenox 30mg Syringe) 30 mg Q24H SQ ; Start 05/01/21 at 22:00 Prednisone (Prednisone) 10 mg DAILY PO ; Start 05/02/21 at 09:00; Stop 05/08/21 at 09:01 Vitals/I & O Vital Sign - Last 24 Hours 05/01/21 05/01/21 05/01/21 05/01/21 09:00 09:00 11:00 15:00 Temp 98.0 98.1 98.0 98.1 Pulse 90 90 88 95 Resp 17 18 B/P (MAP) 92/55 92/55 101/60 (74) 127/100 (109) Pulse Ox 98 O2 Delivery Nasal Cannula Nasal Cannula O2 Flow Rate 4.0 4.0 05/01/21 05/01/21 05/01/21 05/02/21 19:47 20:00 23:32 03:11 Temp 97.8 97.5 97.4 97.8 97.5 97.4 Pulse 91 87 85 Resp 18 18 20 B/P (MAP) 91/59 (70) 95/56 (69) 102/66 (78) Pulse Ox 97 98 100 O2 Delivery Nasal Cannula Nasal Cannula Nasal Cannula Nasal Cannula O2 Flow Rate 4.0 4.0 4.0 4.0 05/02/21 07:00 Temp 98.1 98.1 Pulse 87 Resp 20 B/P (MAP) 109/67 (81) Pulse Ox 100 O2 Delivery Nasal Cannula O2 Flow Rate 4.0 Intake and Output 05/01/21 05/01/21 05/02/21 15:00 23:00 07:00 Intake Total 0 ml Balance 0 ml Justifications for Admission Other Justification WALKER DAVILA MD May 02, 2021 08:59
[2021-05-02] MEDS: LOSARTAN POTASSIUM 25 MG TABLET. PO SCH ×2 (09:00→10:22)
[2021-05-02] MEDS: MAGNESIUM OXIDE 400 MG TABLET PO SCH (10:19)
[2021-05-02] MEDS: DICYCLOMINE HCL 10 MG CAPSULE PO SCH (10:20)
[2021-05-02] MEDS: guaiFENesin DM 600/30MG 1 TAB TAB.ER.12H PO SCH ×2 (10:20→21:23)
[2021-05-02] MEDS: predniSONE 10 MG TABLET PO SCH (10:21)
[2021-05-02] MEDS: IPRATROPIUM/ALBUTEROL 20/100mcg/INH INHALER. INH SCH ×4 (10:22→21:23)
[2021-05-02] MEDS: PANTOPRAZOLE 40 MG TABLET.DR. PO SCH (10:22)
[2021-05-02 11:00] VITALS: BP 97/61
--- NOTE | 2021-05-02 11:53 | NUR ---
SW following. Discussed with RN, SW sent updates to [facility] to see if pt qualifies again. Physician watching kidney function and will recheck tomorrow. Pt barely working with therapy. Awaiting information from [facility]. SW will continue to follow.
[2021-05-02 15:00] VITALS: BP 116/64
[2021-05-02 19:00] VITALS: BP 97/66
[2021-05-02] MEDS: AMITRIPTYLINE HCL 25 MG TABLET. PO SCH (21:23)
[2021-05-02] MEDS: ENOXAPARIN 30 MG/0.3 ML SYRINGE. SQ SCH (21:23)
[2021-05-02] MEDS: MONTELUKAST SODIUM 10 MG TABLET. PO SCH (21:23)
[2021-05-02 23:00] VITALS: BP 126/65
[2021-05-03 03:00] VITALS: BP 126/65
[2021-05-03 07:00] VITALS: BP 117/60
[2021-05-03] MEDS: IV NORMAL SALINE 1000ML BAG 1,000 ML IV SCH (07:08)
[2021-05-03 07:30] LABS: CALCIUM 8.4 mg/dL (8.5-10.1); CREATININE 1.3 mg/dL (0.6-1.0); GFR 47.5
--- NOTE | 2021-05-03 08:45 | PDOC ---
PULMONARY PROGRESS NOTES DATE: 05/03/21 TIME: 08:41 Subjective Patient lying in bed this morning, non-productive cough, currently on 2L NC, no overnight events. Patient is possible to discharge home today with home health. O2 provided at home. Vitals Vital Signs Date Time Temp Pulse Resp B/P (MAP) Pulse Ox O2 Delivery O2 Flow Rate FiO2 05/03/21 07:00 98.4 76 20 117/60 (79) 98 Nasal Cannula 4.0 98.4 ROS: No Nausea, No Chest Pain, No Abdominal Pain, No Increase Cough General: Alert, No acute distress Lungs: Clear Cardiovascular: S1, S2 Abdomen: Soft Neuro Exam: Alert Extremities: No Edema Skin: Warm Labs Laboratory Tests Test 05/02/21 07:25 05/03/21 06:30 Sodium Level 144 mmol/L (136-145) 145 mmol/L (136-145) Potassium Level 4.4 mmol/L (3.5-5.1) 4.0 mmol/L (3.5-5.1) Chloride Level 102 mmol/L (98-107) 109 mmol/L (98-107) Carbon Dioxide Level 29 mmol/L (21-32) 28 mmol/L (21-32) Anion Gap 13 (6-14) 8 (6-14) Blood Urea Nitrogen 63 mg/dL (7-20) 47 mg/dL (7-20) Creatinine 1.8 mg/dL (0.6-1.0) 1.3 mg/dL (0.6-1.0) Estimated GFR (Cockcroft-Gault) 32.6 47.5 Glucose Level 111 mg/dL (70-99) 86 mg/dL (70-99) Calcium Level 9.6 mg/dL (8.5-10.1) 8.4 mg/dL (8.5-10.1) Laboratory Tests Test 05/03/21 06:30 Sodium Level 145 mmol/L (136-145) Potassium Level 4.0 mmol/L (3.5-5.1) Chloride Level 109 mmol/L (98-107) Carbon Dioxide Level 28 mmol/L (21-32) Anion Gap 8 (6-14) Blood Urea Nitrogen 47 mg/dL (7-20) Creatinine 1.3 mg/dL (0.6-1.0) Estimated GFR (Cockcroft-Gault) 47.5 Glucose Level 86 mg/dL (70-99) Calcium Level 8.4 mg/dL (8.5-10.1) Medications Active Scripts Medications Dose Route/Sig Max Daily Dose Days Date Category Hydrocodone-Apap 5-325 (Hydrocodone Bit/Acetaminophen) 1 Tab Tablet 1 Tab PO PRN Q8HRS PRN 04/04/21 Reported Magnesium Oxide 400 Mg Tablet 1 Tab PO DAILY 04/04/21 Reported Singulair Tablet (Montelukast Sodium) 10 Mg Tablet 10 Mg PO HS 04/04/21 Reported Pantoprazole Sodium 40 Mg Tablet.dr 40 Mg PO DAILY 04/04/21 Reported Benzonatate 100 Mg Capsule 1 Cap PO TID PRN 01/02/21 Reported Proair Hfa Inhaler (Albuterol Sulfate) 8.5 Gm Hfa.aer.ad 2 Puff IH PRN Q4HRS PRN 21 01/02/21 Reported Meloxicam 7.5 Mg Tablet 7.5 Mg PO DAILY 10/23/19 Reported Klor-Con M20 (Potassium Chloride) 20 Meq Tab.er.prt 1 Tab PO DAILY 30 10/23/19 Reported Dicyclomine Hcl 10 Mg Capsule 20 Mg PO DAILY 10/23/19 Reported Tramadol Hcl 50 Mg Tablet 50 Mg PO Q6HRS PRN 07/17/17 Reported Norvasc (Amlodipine Besylate) 5 Mg Tablet 5 Mg PO DAILY 07/17/17 Reported Dyazide 37.5-25 Capsule (Triamterene/Hydrochlorothiazid) 1 Each Capsule 1 Cap PO QMWF 07/17/17 Reported Losartan Potassium (Losartan Potassium) 25 Mg Tablet 25 Mg PO DAILY 07/17/17 Reported Amitriptyline Hcl 50 Mg Tablet 25 Mg PO HS 07/17/[address] chest reviewed 04/10/2021 Diffuse emphysema, worse in the upper lobes. Development of groundglass infiltrates bilaterally. Is post radiation treatment in the left perihilar area. Impression . 1. Acute hypoxic respiratory failure secondary to COVID-19 viral pneumonia. 2. Underlying chronic obstructive pulmonary disease, the patient is not on home oxygen. 3. History of lung cancer, the patient reports radiation and chemo. Last CT chest from 01/27/2021 showed post-radiation changes in the left perihilar area. New CT chest 04/10/2021 was reviewed. Development of new bilateral groundglass infiltrates compatible with COVID-19 viral pneumonia. 4. Left upper lobe spiculated nodule unchanged in size since January. Plan . Updated 05/03 Continue current supplemental oxygen, currently 2L NC, increase with activity Encourage PT OT therapy participation Labs reviewed; stable Dexamethasone until 05/08 Possible discharge today with home health Updated 05/02 Continue current supplemental oxygen, currently 4L NC Titrate as tolerated Continue PT OT with out of bed Dexamethasone until 05/08 Labs reviewed; stable Updated 05/01 Continue oxygen supplementation PT OT Possible transfer to rehab Taper off of steroids will be off by the of the month Updated 04/30/2021 Continue current supplemental oxygen, 4 L nasal cannula, wean as tolerated Physical therapy/occupational therapy, increase activity, out of bed 3 times daily Patient has completed a full course of remdesivir, antibiotics Dexamethasone Bronchodilators Follow-up in the office with Dr. Vogt in June 2021 DVT/GI prophylaxis: Protonix/Lovenox CODE STATUS: Full MARIBEL VOGT MD May 03, 2021 08:45
--- NOTE | 2021-05-03 08:56 | PDOC ---
PROGRESS NOTES Date of Service: DATE: 05/03/21 TIME: 08:53 Subjective Subjective looks better getting stronger Objective Objective Vital Signs Date Time Temp Pulse Resp B/P (MAP) Pulse Ox O2 Delivery O2 Flow Rate FiO2 05/03/21 07:00 98.4 76 20 117/60 (79) 98 Nasal Cannula 4.0 98.4 Intake and Output 05/03/21 07:00 Intake Total 420 ml Output Total 300 ml Balance 120 ml Intake Oral 420 ml Output Urine Total 300 ml # Voids 1 # Bowel Movements 1 Physical Exam Abdomen: Soft Heart: Regular rate, Normal S1, Normal S2 Extremities: No clubbing General: Alert HEENT: Atraumatic Lungs: Other (rales at base) MUSCULOSKELETAL: No swelling Neuro: Normal speech Psych/Mental Status: Mental status NL Skin: No breakdown Diagnosis Problem List Problems Medical Problems: (1) COVID-19 Status: Acute Assessment Assessment Problems Medical Problems: (1) COVID-19 Status: Acute FINAL IMPRESSION: Tachycardia . Pneumonia with hypoxia 1. COVID pneumonia.Break through infection,pt vaccinated not boosted. 2. Immune compromised, patient is on chemo for small cell lung cancer. 3. Small cell lung cancer, getting chemotherapy. 4. Hypertension. 5. Hyperlipidemia. PLAN: d/c iv fluids today discharge home today with home health Renal function is improved BUN 44, creatinine 1.3. low dose prednisone 10 mg xanax for anxiety. on oxygen N/C 2 L-4 L with mobility. Plan Plan of Care Problems Medical Problems: (1) COVID-19 Status: Acute Comment Review of Relevant I have reviewed the following items ankit (where applicable) has been applied. Labs Laboratory Tests Test 05/03/21 06:30 Sodium Level 145 mmol/L (136-145) Potassium Level 4.0 mmol/L (3.5-5.1) Chloride Level 109 mmol/L (98-107) Carbon Dioxide Level 28 mmol/L (21-32) Anion Gap 8 (6-14) Blood Urea Nitrogen 47 mg/dL (7-20) Creatinine 1.3 mg/dL (0.6-1.0) Estimated GFR (Cockcroft-Gault) 47.5 Glucose Level 86 mg/dL (70-99) Calcium Level 8.4 mg/dL (8.5-10.1) Medications Current Medications Prednisone (Prednisone) 10 mg DAILY PO Last administered on 05/02/21at 10:21; Start 05/02/21 at 09:00; Stop 05/08/21 at 09:01 Vitals/I & O Vital Sign - Last 24 Hours 05/02/21 05/02/21 05/02/21 05/02/21 09:00 09:00 11:00 15:00 Temp 98.0 98.5 98.0 98.5 Pulse 83 83 82 75 Resp 20 20 B/P (MAP) 97/61 97/61 97/61 (73) 116/64 (81) Pulse Ox 95 100 O2 Delivery Nasal Cannula Nasal Cannula O2 Flow Rate 4.0 4.0 05/02/21 05/02/21 05/02/21 05/03/21 19:00 20:15 23:00 03:00 Temp 97.4 97.9 97.9 97.4 97.9 97.9 Pulse 84 75 75 Resp 20 20 20 B/P (MAP) 97/66 (76) 126/65 (85) 126/65 (85) Pulse Ox 94 100 100 O2 Delivery Nasal Cannula Nasal Cannula Nasal Cannula Nasal Cannula O2 Flow Rate 4.0 3.0 4.0 4.0 05/03/21 07:00 Temp 98.4 98.4 Pulse 76 Resp 20 B/P (MAP) 117/60 (79) Pulse Ox 98 O2 Delivery Nasal Cannula O2 Flow Rate 4.0 Intake and Output 05/02/21 05/02/21 05/03/21 15:00 23:00 07:00 Intake Total 420 ml Output Total 300 ml Balance 120 ml Justifications for Admission Other Justification WALKER DAVILA MD May 03, 2021 08:56
[2021-05-03] MEDS ORDERED: PRED20TA PO ×2 (09:00→09:01)
[2021-05-03] MEDS: guaiFENesin DM 600/30MG 1 TAB TAB.ER.12H PO SCH (09:12)
[2021-05-03] MEDS: MAGNESIUM OXIDE 400 MG TABLET PO SCH (09:12)
[2021-05-03] MEDS: DICYCLOMINE HCL 10 MG CAPSULE PO SCH (09:12)
[2021-05-03] MEDS: predniSONE 10 MG TABLET PO SCH (09:12)
[2021-05-03] MEDS: LOSARTAN POTASSIUM 25 MG TABLET. PO SCH (09:13)
[2021-05-03] MEDS: PANTOPRAZOLE 40 MG TABLET.DR. PO SCH (09:13)
[2021-05-03] MEDS: IPRATROPIUM/ALBUTEROL 20/100mcg/INH INHALER. INH SCH ×3 (09:13→16:00)
--- NOTE | 2021-05-03 09:13 | SNU/HH DC ---
DISCHARGE WITH HOME HEALTH DISCHARGE INFORMATION: Discharge Date: Apr 29, 2021 Final Diagnosis: Problems Medical Problems: (1) COVID-19 Status: Acute Condition on Discharge: Stable CODE STATUS: Code Status: Full HOME HEALTH: Face to Face: I certify this patient is under my care and that I, or a nurse practitioner or physician's orthopedic assistant working with me, had a face to face encounter that meets the physician face to face encounter requirements with this patient on []. RN For Eval/Treatment: Yes Physical Therapy For: Evalulation/Treatment Occupational Therapy For: Evaluation/Treatment Speech Language Pathology For: Evaluation/Treatment Home Health Aide For: Self-care SUPERANNUATION FUNDS MANAGER For: Community Resources Pt Meets Homebound Status: Poor coordination w/ amb. POST DISCHARGE ORDERS: Activity Instructions for Disc: Activity as tolerated Weight Bearing Status after Di: No restrictions Bathing Instructions: Shower-keep dressing dry DIET AFTER DISCHARGE: Cardiac Wound/Incision Care: Ice to area for comfort CHECKS AFTER DISCHARGE: Checks after discharge: Check blood press - daily FOLLOW-UP: Follow up with: follow up with Dr. Meek (pulmonary) Follow Up With: follow up with Dr. Spencer next week TREATMENT/EQUIPMENT ORDERS: Adaptive Equipment Issued: None, Wheelchair Discharge Respiratory Equipmen: Oxygen CERTIFICATION STATEMENT: Certification Statement: Certification Statement: Based on the above finding, I certify that this patient is confined to the home and needs intermittent long term care, physical therapy and/or speech therapy, or continues to need occupational therapy.~ This patient is under my care, and I have initiated the establishment of the plan of care.~ This patient will be followed by myself or a community physician who will periodically review the plan of care. Home Meds Active Scripts Prednisone (PREDNISONE) 20 Mg Tablet, 1 TAB PO DAILY for copd, #10 TAB Prov:WALKER SPENCER MD 05/03/21 Alprazolam (ALPRAZOLAM) 0.25 Mg Tablet, 0.25 MG PO PRN Q8HRS PRN for ANXIETY / AGITATION for 30 Days, TAB Prov:WALKER SPENCER MD 04/27/21 Ipratropium/Albuterol Sulfate (COMBIVENT RESPIMAT INHAL) 4 Gm Aer.w.adap, 1 PUFF INH RTQID for copd for 30 Days, INH Prov:WALKER SPENCER MD 04/27/21 Reported Medications Magnesium Oxide (MAGNESIUM OXIDE) 400 Mg Tablet, 1 TAB PO DAILY for SUPPLEMENT , #30 TAB 5 Refills 04/04/21 Montelukast Sodium (SINGULAIR TABLET ) 10 Mg Tablet, 10 MG PO HS for FOR ASTHMA, TAB 0 Refills 04/04/21 Pantoprazole Sodium (Pantoprazole Sodium) 40 Mg Tablet.dr, 40 MG PO DAILY for GERD, TAB.SR 04/04/21 Benzonatate (BENZONATATE) 100 Mg Capsule, 1 CAP PO TID PRN for cough 01/02/21 Albuterol Sulfate (PROAIR HFA INHALER) 8.5 Gm Hfa.aer.ad, 2 PUFF IH PRN Q4HRS PRN for wheezing for 21 Days, #1 INHALER 0 Refills 01/02/21 Dicyclomine Hcl (DICYCLOMINE HCL) 10 Mg Capsule, 20 MG PO DAILY for pain, CAP 10/23/19 Tramadol Hcl (TRAMADOL HCL) 50 Mg Tablet, 50 MG PO Q6HRS PRN for PAIN, TAB 07/17/17 Amlodipine Besylate (NORVASC) 5 Mg Tablet, 5 MG PO DAILY, TAB 07/17/17 Losartan Potassium (LOSARTAN POTASSIUM ) 25 Mg Tablet, 25 MG PO DAILY for htn, TAB 07/17/17 Amitriptyline Hcl (AMITRIPTYLINE HCL) 50 Mg Tablet, 25 MG PO HS for sleep aid, TAB 07/17/17 Discontinued Reported Medications Meloxicam (MELOXICAM) 7.5 Mg Tablet, 7.5 MG PO DAILY for pain, TAB 10/23/19 Triamterene/Hydrochlorothiazid (DYAZIDE 37.5-25 CAPSULE) 1 Each Capsule, 1 CAP PO QMWF for diuretic, CAP 07/17/17 WALKER SPENCER MD May 03, 2021 09:13
[2021-05-03 11:00] VITALS: BP 108/62
--- NOTE | 2021-05-03 11:25 | NUR ---
SW following. Discussed with RN, discharge orders for home with home health. [facility] tank provided to RN for discharge. [facility] already set up home oxygen last week when discharge was cancelled. Home health referral faxed to [facility] as they appear to be the only home health taking some medicaid referrals at this time. RN notified.
[2021-05-03 15:00] VITALS: BP 125/71
--- NOTE | 2021-05-03 17:13 | NUR ---
Discharge Note: JUSTIN RICH Discharge instructions and discharge home medications reviewed with Family Member and a copy given. All questions have been answered and understanding verbalized. The following instructions and handouts were given: worsening symptoms, follow up information, medications, and oxygen education. Discontinued lines and drains: Port deaccessed, skin intact, and telemetry removed. Patient discharged to home with family, [facility], and oxygen therapy, via private vehicle.
--- NOTE | 2021-05-05 21:22 | PDOC ---
Provider Note Date of Service: DATE: 05/05/21 TIME: 21:21 Provider Note Discharge summary dictated.#[id number]. Justifications for Admission Other Justification WALKER DAVILA MD May 05, 2021 21:22
--- NOTE | 2021-05-05 23:48 | DS ---
DATE OF DISCHARGE: 05/03/2021 REASON FOR ADMISSION TO THE HOSPITAL: COVID pneumonia. CONSULTATIONS: Dr. Jones, Pulmonology; Dr. Huff, Infectious Disease. HOSPITAL COURSE: The patient is an 80-year-old female with history of small cell lung cancer. She was getting radiation and chemo. She is on maintenance chemo from Dr. Chatterjee and she was having shortness of breath, came to the Emergency Room, found to have pneumonia. COVID was positive. The patient was treated with remdesivir, dexamethasone, and broad-spectrum antibiotics. The patient had 2 shots of COVID vaccination and the patient had a long stay in the hospital, requiring 40 liters of oxygen and slowly over the course of time, oxygen levels came down to nasal cannula between 2-4 liters and she also had some problem with sugars fluctuating because of the steroids and also renal insufficiency, given IV fluids and on the whole, the patient's condition improved and she was discharged home with home health and she does not qualify for LTAC facility and then she has done okay assisted facilities. The patient was discharged home with home health. FINAL DIAGNOSES: 1. COVID pneumonia. 2. COVID infection. 3. Underlying small cell lung cancer, getting chemotherapy. 4. Ex-smoker. 5. Hypertension. 6. Chronic obstructive pulmonary disease. DISPOSITION: Home with home health. See [facility] for discharge medications. The patient is discharged on home oxygen. I think 2-4 liters. RACHAEL/CHARLES/ALFREDO DR: RACHAEL/natalie TID: [id number]
== END 2021-05-03 16:30 | disposition home health service (06) | DRG 177 ==
LOC: ER 09:10 → ED HOLD 11:00 → 5 SOUTH 12:27 → 5 NORTH 04-12 05:27
PROVIDERS: ADMIT Internal Medicine; ATTEND Internal Medicine
PROC: XW033E5 Introduction of Remdesivir Anti-infective into Peripheral Vein, Percutaneous Approach, New Technology Group 5 (ICD-10-PCS; principal; 2021-04-10)
DX: U07.1 COVID-19 (principal); J12.82 Pneumonia due to coronavirus disease 2019; J96.01 Acute respiratory failure with hypoxia; N17.0 Acute kidney failure with tubular necrosis; C34.90 Malignant neoplasm of unspecified part of unspecified bronchus or lung; J44.0 Chronic obstructive pulmonary disease with (acute) lower respiratory infection; D84.9 Immunodeficiency, unspecified; E78.5 Hyperlipidemia, unspecified; I10 Essential (primary) hypertension; R04.0 Epistaxis; K21.9 Gastro-esophageal reflux disease without esophagitis; M19.90 Unspecified osteoarthritis, unspecified site; T38.0X5A Adverse effect of glucocorticoids and synthetic analogues, initial encounter; Y92.239 Unspecified place in hospital as the place of occurrence of the external cause; Z92.21 Personal history of antineoplastic chemotherapy; Z92.3 Personal history of irradiation; Z87.891 Personal history of nicotine dependence
CPT/HCPCS: 36415; 36600; 71045; 71250; 80048; 80053; 82805; 82962; 83880; 84484; 85025; 85651; 87428; 93005; 94618; 96374; J0696; J1642; J1650; J1940; J2020; J2543; J2930; J7030; J7050; J7512; 97110-GO; 97110-GP; 97530-GO; 97530-GP; 97535-GO; 99285-25; G0378

== ENCOUNTER 2021-05-08 10:10 | Inpatient (IN) | payer MEDICAID ==
[~2021-05-08] VITALS: Ht 167.6 cm; Wt 93.4 kg
[~2021-05-08 10:10] MED LIST changes: +ALPR0.254 PO; +ENOX40DI3 SQ; +FURO40TA4 PO; +HYDR-2761 PO; +IPRA4AER INH; +MONT10TA49 PO; +PANT40TA6 PO; +PRED20TA PO
[2021-05-08] MEDS ORDERED: FAMOTIDINE 20 MG/2 ML VIAL IVP ONE (10:30)
--- NOTE | 2021-05-08 10:43 | RAD ---
EXAM: Chest, single view. HISTORY: Shortness of air. COMPARISON: 04/19/2021 FINDINGS: A frontal view of the chest obtained. There is coarse diffuse increased interstitial opacit y due to chronic interstitial lung disease and superimposed interstitial infiltrate. There is a stabl e cardiac silhouette. There is a right chest wall port catheter with the tip in the superior vena cav a. There is no pneumothorax or pleural effusion. IMPRESSION: Stable diffuse interstitial infiltrate superimposed on chronic interstitial changes. Electronically signed by: Donya Hurd MD (05/08/2021 10:40 AM) [facility]
[2021-05-08 11:15] LABS: CALCIUM 9.1 mg/dL (8.5-10.1); CREATININE 1.3 mg/dL (0.6-1.0); GFR 47.5; POTASSIUM 4.3 mmol/L (3.5-5.1)
[2021-05-08 11:22] LABS: ALBUMIN 2.3 g/dL (3.4-5.0); ALBUMIN/GLOBULIN RATIO 0.5 (1.0-1.7); MAGNESIUM 1.7 mg/dL (1.8-2.4); TOTAL BILIRUBIN 0.3 mg/dL (0.2-1.0); TOTAL PROTEIN 7.1 g/dL (6.4-8.2)
[2021-05-08 12:04] LABS: BASO # 0.1 x10^3/uL (0.0-0.2); BASO % 1 % (0-3); EOS # 0.1 x10^3/uL (0.0-0.7); EOS % 2 % (0-3); HEMATOCRIT 35.1 % (36.0-47.0); HEMOGLOBIN 11.5 g/dL (12.0-15.5); LYMPH % 13 % (24-48); MEAN CORPUSCULAR HEMOGLOBIN 32 pg (25-35); MEAN CORPUSCULAR HGB CONC 33 g/dL (31-37); MEAN CORPUSCULAR VOLUME 98 fL (79-100); MONO # 0.6 x10^3/uL (0.0-1.1); MONO % 8 % (0-9); NEUT # 5.9 x10^3/uL (1.8-7.7); NEUT % 77 % (31-73); PLATELET COUNT 181 x10^3/uL (140-400); RED BLOOD COUNT 3.59 x10^6/uL (3.50-5.40); WHITE BLOOD COUNT 7.7 x10^3/uL (4.0-11.0)
[2021-05-08] MEDS ORDERED: IOHEXOL 350 MG/ML 100 ML VIAL. IV ONE (12:30)
[2021-05-08] MEDS ORDERED: CONTRAST GIVEN. MC PRN (12:45)
--- NOTE | 2021-05-08 15:19 | RAD ---
CT angiogram of the chest with contrast: Reason for examination: Short of breath. Evaluate for pulmonary embolus. History of Covid pneumonia. Comparison is made to previous study dated 04/10/2021. Helical images were obtained through the chest with intravenous administration of 54.3 cc of Omnipaqu e 350 using PE protocol. 3-D MIPS reconstruction was performed in sagittal and coronal planes. Exposure: One or more of the following individualized dose reduction techniques were utilized for thi s examination: 1. Automated exposure control 2. Adjustment of the mA and/or kV according to patient size 3. Use of iterative reconstruction technique. The thyroid gland is somewhat heterogeneous with possible nodule in the right lobe measuring approxim ately 1 cm in size. The trachea and mainstem bronchi show no intraluminal lesions. No abnormality seen at the esophagus. There is however a moderate size hiatal hernia. The thoracic aorta shows some arteriosclerotic vascular calcification. There is some mild dilatation of the ascending thoracic aorta at 3.5 cm. No dissection is seen. The heart size is normal with no pericardial effusion. No pulmonary embolus is evident. The lung buitrago bilaterally however show diffuse emphysematous changes which are most prominent in th e upper lobes and apices. There continue to be diffuse interstitial and groundglass opacities which m ay reflect Covid pneumonia or pulmonary edema. There is recurrence of a small left pleural effusion l ayering posteriorly. There also continue to be parenchymal changes in the left upper lobe and left pe rihilar region which are slightly more prominent than on the previous exam and probably related to jace radford's history of lung cancer however this may be related to superimposition of infiltrates in the l eft upper lobe considering the increasing opacities seen bilaterally. No acute bony abnormalities are evident. No abnormalities are seen in the visualized portions of the liver, spleen, adrenal glands or pancreas . There is been previous cholecystectomy. The left kidney shows a 2.3 cm cyst in the upper pole. IMPRESSION: No pulmonary embolus identified. 1.0 cm nodule in the right lobe of the thyroid gland. This can be further evaluated with ultrasound o n a nonemergent basis. Moderate size hiatal hernia. Mild dilatation of the ascending thoracic aorta at 3.5 cm. Diffuse emphysematous changes bilaterally. Increased diffuse interstitial and groundglass opacities bilaterally throughout the lung buitrago with a small left pleural effusion evident. Increased parenchymal changes in the left upper lobe peripherally and perihilar left upper lobe proba ruddy related to patient's lung cancer and to superimposed diffuse increased interstitial and alveolar infiltrates. 2.3 cm cyst in the upper pole the left kidney. Electronically signed by: Susana Garnett MD (05/08/2021 3:17 PM) [id number]
[2021-05-08] MEDS ORDERED: DEXAMETHASONE SOD PHOS 4 MG/ML VIAL IVP ONE (15:45)
--- NOTE | 2021-05-08 15:46 | ED.ADGEN ---
Past Medical History Past Medical History: Arthritis, Cancer, GERD, Hypertension, Other Additional Past Medical Histor: small cell lung cancer Past Surgical History: Other Additional Past Surgical Histo: R ELBOW, HERNIA Smoking Status: Former Smoker Alcohol Use: None Drug Use: None General Adult EDM: Chief Complaint: SHORTNESS OF BREATH HPI: HPI: Patient is a 80 year old AA female who presents emergency department via EMS today with reports of shortness of breath that worsened this morning. Patient has a history of COPD and states that she always wears oxygen at 4 L via nasal cannula. Today she continue to wear her oxygen at 4 L but it was not helping. Patient states she did use her steroid inhaler prior to ambulance arrival and that did help a little. Patient states she did have Covid towards the end of last month. She denies any fever, abdominal pain, nausea, vomiting, diarrhea, body aches, or fever. She denies any recent change in her cough. Patient denies any palpitations, she does report indigestion but denies chest pain. Isrrael radford states she has a history of indigestion and that is what her discomfort feels like. She currently denies any pain. Review of Systems: Review of Systems: Complete ROS is negative unless otherwise noted in the HPI. Current Medications: Current Medications Medications (Trade) Dose Ordered Sig/Prabhjot Start Time Stop Time Status Last Admin Dose Admin Dexamethasone Sodium Phosphate (Decadron) 10 mg 1X ONCE 05/08/21 15:45 05/08/21 15:46 DC Famotidine (Pepcid Vial) 20 mg 1X ONCE 05/08/21 10:30 05/08/21 10:31 DC 05/08/21 10:51 20 MG Info (CONTRAST GIVEN -- Rx MONITORING) 1 each PRN DAILY PRN 05/08/21 12:45 05/10/21 12:44 Iohexol (Omnipaque 350 Mg/ml) 80 ml 1X ONCE 05/08/21 12:30 05/08/21 12:34 DC 05/08/21 12:30 80 ML Allergies: Allergies: Allergies Coded Allergies Type Severity Reaction Last Updated Verified No Known Drug Allergies 01/02/21 No Physical Exam: PE: See above Constitutional: Well developed, well nourished, no acute distress, non-toxic ap pearance. [] HENT: Normocephalic, atraumatic, bilateral external ears normal, nose normal. [] Eyes: PERRLA, EOMI, conjunctiva normal, no discharge. [] Neck: Normal range of motion, no stridor. [] Cardiovascular:Heart rate regular tachycardic rhythm, no murmur Lungs & Thorax: Respirations even and unlabored, no retractions, no respiratory distress, no wheezing, lungs clear in upper lobes, diminished posteriorly Abdomen: soft, no tenderness Skin: Warm, dry, no erythema, no rash. [] Extremities: No cyanosis, ROM intact, 1+ edema BLE Neurologic: Alert and oriented X 3, no focal deficits noted. [] Psychologic: Affect normal, judgement normal, mood normal. [] Current Patient Data: Labs: Laboratory Tests Test 05/08/21 10:50 05/08/21 11:55 D-Dimer (Tessy) 2.75 ug/mlFEU (0.00-0.50) H Sodium Level 144 mmol/L (136-145) Potassium Level 4.3 mmol/L (3.5-5.1) Chloride Level 105 mmol/L (98-107) Carbon Dioxide Level 29 mmol/L (21-32) Anion Gap 10 (6-14) Blood Urea Nitrogen 24 mg/dL (7-20) H Creatinine 1.3 mg/dL (0.6-1.0) H Estimated GFR (Cockcroft-Gault) 47.5 BUN/Creatinine Ratio 18 (6-20) Glucose Level 128 mg/dL (70-99) H Calcium Level 9.1 mg/dL (8.5-10.1) Magnesium Level 1.7 mg/dL (1.8-2.4) L Total Bilirubin 0.3 mg/dL (0.2-1.0) Aspartate Amino Transferase (AST) 21 U/L (15-37) Alanine Aminotransferase (ALT) 25 U/L (14-59) Alkaline Phosphatase 68 U/L (46-116) Troponin I High Sensitivity 34 ng/L (4-50) XL-Xzy-D-Type Natriuretic Peptide 788 pg/mL (0-449) H Total Protein 7.1 g/dL (6.4-8.2) Albumin 2.3 g/dL (3.4-5.0) L Albumin/Globulin Ratio 0.5 (1.0-1.7) L White Blood Count 7.7 x10^3/uL (4.0-11.0) Red Blood Count 3.59 x10^6/uL (3.50-5.40) Hemoglobin 11.5 g/dL (12.0-15.5) L Hematocrit 35.1 % (36.0-47.0) L Mean Corpuscular Volume 98 fL (79-100) Mean Corpuscular Hemoglobin 32 pg (25-35) Mean Corpuscular Hemoglobin Concent 33 g/dL (31-37) Red Cell Distribution Width 16.0 % (11.5-14.5) H Platelet Count 181 x10^3/uL (140-400) Neutrophils (%) (Auto) 77 % (31-73) H Lymphocytes (%) (Auto) 13 % (24-48) L Monocytes (%) (Auto) 8 % (0-9) Eosinophils (%) (Auto) 2 % (0-3) Basophils (%) (Auto) 1 % (0-3) Neutrophils # (Auto) 5.9 x10^3/uL (1.8-7.7) Lymphocytes # (Auto) 1.0 x10^3/uL (1.0-4.8) Monocytes # (Auto) 0.6 x10^3/uL (0.0-1.1) Eosinophils # (Auto) 0.1 x10^3/uL (0.0-0.7) Basophils # (Auto) 0.1 x10^3/uL (0.0-0.2) Laboratory Tests 05/08/21 11:55 Laboratory Tests 05/08/21 10:50 Vital Signs: Vital Signs Date Time Temp Pulse Resp B/P (MAP) Pulse Ox O2 Delivery O2 Flow Rate FiO2 05/08/21 10:25 97.5 112 25 127/67 (87) 97 Nasal Cannula 4.0 97.5 EKG: EK-sinus tachycardia, rate 106, left axis deviation, no STEMI, read by Dr. Mccain [] Heart Score: C/O Chest Pain: No Radiology/Procedures: Radiology/Procedures: PROCEDURE: CHEST AP ONLY EXAM: Chest, single view. HISTORY: Shortness of air. COMPARISON: 04/19/2021 FINDINGS: A frontal view of the chest obtained. There is coarse diffuse increased interstitial opacity due to chronic interstitial lung disease and superimposed interstitial infiltrate. There is a stable cardiac silhouette. There is a right chest wall port catheter with the tip in the superior vena cava. There is no pneumothorax or pleural effusion. IMPRESSION: Stable diffuse interstitial infiltrate superimposed on chronic interstitial changes. Electronically signed by: Donya Hurd MD (05/08/2021 10:40 AM) [facility] [] PROCEDURE: CT ANGIOGRAPHY CHEST CT angiogram of the chest with contrast: Reason for examination: Short of breath. Evaluate for pulmonary embolus. History of Covid pneumonia. Comparison is made to previous study dated 04/10/2021. Helical images were obtained through the chest with intravenous administration of 54.3 cc of Omnipaque 350 using PE protocol. 3-D MIPS reconstruction was performed in sagittal and coronal planes. Exposure: One or more of the following individualized dose reduction techniques were utilized for this examination: 1. Automated exposure control 2. Adjustment of the mA and/or kV according to patient size 3. Use of iterative reconstruction technique. The thyroid gland is somewhat heterogeneous with possible nodule in the right lobe measuring approximately 1 cm in size. The trachea and mainstem bronchi show no intraluminal lesions. No abnormality seen at the esophagus. There is however a moderate size hiatal hernia. The thoracic aorta shows some arteriosclerotic vascular calcification. There is some mild dilatation of the ascending thoracic aorta at 3.5 cm. No dissection is seen. The heart size is normal with no pericardial effusion. No pulmonary embolus is evident. The lung buitrago bilaterally however show diffuse emphysematous changes which are most prominent in the upper lobes and apices. There continue to be diffuse interstitial and groundglass opacities which may reflect Covid pneumonia or pulmonary edema. There is recurrence of a small left pleural effusion layering posteriorly. There also continue to be parenchymal changes in the left upper lobe and left perihilar region which are slightly more prominent than on the previous exam and probably related to patient's history of lung cancer however this may be related to superimposition of infiltrates in the left upper lobe considering the increasing opacities seen bilaterally. No acute bony abnormalities are evident. No abnormalities are seen in the visualized portions of the liver, spleen, adrenal glands or pancreas. There is been previous cholecystectomy. The left kidney shows a 2.3 cm cyst in the upper pole. IMPRESSION: No pulmonary embolus identified. 1.0 cm nodule in the right lobe of the thyroid gland. This can be further evaluated with ultrasound on a nonemergent basis. Moderate size hiatal hernia. Mild dilatation of the ascending thoracic aorta at 3.5 cm. Diffuse emphysematous changes bilaterally. Increased diffuse interstitial and groundglass opacities bilaterally throughout the lung buitrago with a small left pleural effusion evident. Increased parenchymal changes in the left upper lobe peripherally and perihilar left upper lobe probably related to patient's lung cancer and to superimposed diffuse increased interstitial and alveolar infiltrates. 2.3 cm cyst in the upper pole the left kidney. Electronically signed by: Susana Garnett MD (05/08/2021 3:17 PM) [id number] Course & Med Decision Making: Course & Med Decision Making Pertinent Labs and Imaging studies reviewed. (See chart for details) 1535-spoke with Dr. Rosario who is the admitting physician, and care was assumed following discussion of patient. Will admit patient for acute respiratory failure with hypoxia. Will consult pulmonology as requested 1550-spoke with Dr. CASAS and advised her of the need for consult and the patient being admitted. Patient's vital signs stable. Patient remains afebrile, appears nontoxic, respirations even and unlabored at rest, saturations in the mid 90s with O2 at 4 L via nasal cannula. Patient will be admitted to the medical/telemetry floor. Patient's case and plan of care also discussed with Dr. Adán Appiah Disclaimer: Td Disclaimer: This electronic medical record was generated, in whole or in part, using a voice recognition dictation system. Departure Departure Referrals: WALKER DAVILA MD (PCP) MYA ZHANG APRN May 08, 2021 15:45
[2021-05-08 16:20] LABS: INFLUENZA A PATIENT NEGATIVE (NEGATIVE); INFLUENZA B PATIENT NEGATIVE (NEGATIVE)
[2021-05-08 17:50] VITALS: BP 118/77
--- NOTE | 2021-05-08 18:09 | EKG ---
[facility] [address] [place] [address] Test Date: 2021-05-08 Test Time: 10:27:37 Pat Name: JUSTIN RICH Department: Room: [facility] Gender: F Bufferer: : 1940 Requested By: MYA ZHANG Order Number: [id number] Reading MD: Sammy Orozco MD Measurements Intervals [place] Rate: 106 P: 10 TX: 144 QRS: -36 QRSD: 74 T: 64 QT: 292 QTc: 389 Interpretive Statements SINUS TACHYCARDIA Electronically Signed On 05-16-2021 16:34:15 LADLE MECHANIC by Sammy Orozco MD
[2021-05-08 19:00] VITALS: BP 104/67
[2021-05-08] MEDS ORDERED: ALBUTEROL SULFATE 2.5 MG/3 ML NEBU. NEB PRN (19:30)
[2021-05-08] MEDS: IPRATRPIUM/ALBUTEROL 0.5/2.5MG 3 ML NEBU. NEB SCH (20:00)
[2021-05-08] MEDS: AMITRIPTYLINE HCL 25 MG TABLET. PO SCH (20:51)
[2021-05-08] MEDS: MONTELUKAST SODIUM 10 MG TABLET. PO SCH (20:51)
[2021-05-08] MEDS: BENZONATATE 100 MG CAPSULE. PO PRN (20:51)
[2021-05-08] MEDS: traMADol 50 MG TABLET PO PRN (20:51)
[2021-05-08] MEDS: ALPRAZolam 0.25 MG TABLET PO PRN (20:51)
[2021-05-08 23:00] VITALS: BP 122/64
[2021-05-09 02:49] VITALS: BP 109/65
[2021-05-09 07:00] VITALS: BP 99/58
[2021-05-09] MEDS: IPRATRPIUM/ALBUTEROL 0.5/2.5MG 3 ML NEBU. NEB SCH ×4 (08:00→18:19)
[2021-05-09] MEDS: MAGNESIUM OXIDE 400 MG TABLET PO SCH (08:16)
[2021-05-09] MEDS: DICYCLOMINE HCL 10 MG CAPSULE PO SCH (08:16)
[2021-05-09] MEDS: LOSARTAN POTASSIUM 25 MG TABLET. PO SCH (08:17)
[2021-05-09] MEDS: PANTOPRAZOLE 40 MG TABLET.DR. PO SCH (08:18)
[2021-05-09] MEDS ORDERED: ACETAMINOPHEN 325 MG TABLET. PO PRN (08:45)
[2021-05-09] MEDS ORDERED: predniSONE 20 MG TABLET PO SCH (09:00)
[2021-05-09] MEDS ORDERED: BISACODYL 10 MG SUPP.RECT. PR PRN (09:45)
--- NOTE | 2021-05-09 09:51 | PDOC ---
Provider Note Date of Service: DATE: 05/09/21 TIME: 09:51 H&P dictated #[id number] Justifications for Admission Other Justification DAV MENDEZ MD May 09, 2021 09:51
[2021-05-09] MEDS ORDERED: methylPREDNISolone SOD SUCC PF 40 MG/ML VIAL. IV ONE (10:00)
[2021-05-09 11:00] VITALS: BP 104/56
--- NOTE | 2021-05-09 11:14 | HP ---
DATE OF SERVICE: 05/09/2021 ADMIT DATE: 05/08/2021 ADMITTING PHYSICIAN: Dr. Spencer. HISTORY OF PRESENT ILLNESS: This 80-year-old female who has a history of lung cancer, COPD and chronic respiratory failure, on oxygen by nasal cannula at 4 liters per minute and who was recently treated for COVID-19 pneumonia, was recently discharged from the hospital to home. At home, yesterday, she started having more dyspnea and even though she was using 4 liters per minute of oxygen, she continued to get worse, so she came to the Emergency Room. In the Emergency Room, WBC count was 7.7, hemoglobin 11.5, platelet count 181,000, sodium 144, potassium 4.3, BUN 24, creatinine 1.3, magnesium 1.7, BNP 788, troponin 34, albumin 2.3, AST 21, ALT 25. D-dimer was elevated at 2.75. Serology was negative for both influenza A and B, SARS-CoV-2 antigen rapid as well as PCR. CTA of the chest showed no pulmonary embolism. A 1 cm nodule in the right lower lobe of the thyroid gland, moderate-sized hiatal hernia, mild dilatation of the ascending thoracic aorta at 3.5 cm, diffuse emphysematous changes, increased diffuse interstitial and ground glass opacities bilaterally throughout the lung buitrago with a small left pleural effusion evident, increased parenchymal changes in the left upper lobe peripherally and perihilar left upper lobe, probably related to the patient's lung cancer and superimposed diffuse increased interstitial and alveolar infiltrates, 2.3 cm cyst in the upper pole in the left kidney. Because of the worsening acute respiratory failure and exacerbation of COPD, the patient was admitted for further evaluation and management. She was given IV steroids in the Emergency Room. SYSTEMS REVIEW: At this time, the patient's dyspnea is improving. She does have some cough and congestion, but denies any fever. She is not able to expectorate. She denies any nausea, vomiting, abdominal pain, diarrhea. She does have constipation and has not had any bowel movement for a week. Other systems reviewed and are negative. She admits to generalized weakness. PAST MEDICAL HISTORY: Just discharged from this institution on 05/03, treated for COVID-19 pneumonia; history of small cell lung cancer; hypertension; COPD; chronic hypoxic respiratory failure. PAST SURGICAL HISTORY: Positive for hernia. ALLERGIES: None. FAMILY HISTORY: Not available. SOCIAL HISTORY: The patient stopped smoking after she had lung cancer. Smoked for 30 years. No history of alcoholism or drug abuse. PHYSICAL EXAMINATION: VITAL SIGNS: Temperature 98.5, pulse 91 per minute, respirations 20 per minute, blood pressure 122/64 mmHg. GENERAL: The patient is an elderly female who is alert and oriented and not in acute distress at this time. The patient is alert, oriented. She appears to be chronically ill, on oxygen by nasal cannula. EYES: Pupils reactive to light. Conjunctivae pale. Sclerae muddy. HENT: Unremarkable. Again, this is a partial exam. NECK: Supple. JVP normal. No thyromegaly. Trachea midline. LUNGS: Decreased breath sounds at bases. She has right basal rales. CARDIOVASCULAR: S1, S2, regular. ABDOMEN: Soft, nontender, no guarding, no rigidity. Bowel sounds present. EXTREMITIES: No edema. CENTRAL NERVOUS SYSTEM: Alert and oriented. Generalized weakness. LABORATORY FINDINGS: As noted earlier. IMPRESSION: 1. Exacerbation of chronic obstructive pulmonary disease. 2. Acute on chronic respiratory failure. 3. Recent COVID-19 pneumonia. 4. Small cell lung cancer. 5. Hypertension. 6. Physical deconditioning. PLAN: I will give her another dose of IV Solu-Medrol this morning. Consult Dr. Meek for pulmonary evaluation and management. Continue oxygen by nasal cannula at 4 liters per minute. For details, please refer to the orders. Prognosis of this patient is poor due to her multiple medical problems. BASILIA/SUB/MAN DR: BASILIA/natalie TID: [id number] CC: WALKER SPENCER MD
--- NOTE | 2021-05-09 11:19 | PDOC ---
PULMONARY PROGRESS NOTES DATE: 05/09/21 TIME: 11:18 Vitals Vital Signs Date Time Temp Pulse Resp B/P (MAP) Pulse Ox O2 Delivery O2 Flow Rate FiO2 05/09/21 08:17 78 99/58 05/09/21 08:00 Nasal Cannula 4.0 05/09/21 07:00 98.2 18 99 98.2 General: Alert, No acute distress Lungs: Clear Cardiovascular: S1, S2 Abdomen: Soft Extremities: No Edema Labs Laboratory Tests Test 05/08/21 10:50 05/08/21 11:55 05/08/21 15:49 D-Dimer (Tessy) 2.75 ug/mlFEU (0.00-0.50) Sodium Level 144 mmol/L (136-145) Potassium Level 4.3 mmol/L (3.5-5.1) Chloride Level 105 mmol/L (98-107) Carbon Dioxide Level 29 mmol/L (21-32) Anion Gap 10 (6-14) Blood Urea Nitrogen 24 mg/dL (7-20) Creatinine 1.3 mg/dL (0.6-1.0) Estimated GFR (Cockcroft-Gault) 47.5 BUN/Creatinine Ratio 18 (6-20) Glucose Level 128 mg/dL (70-99) Calcium Level 9.1 mg/dL (8.5-10.1) Magnesium Level 1.7 mg/dL (1.8-2.4) Total Bilirubin 0.3 mg/dL (0.2-1.0) Aspartate Amino Transf (AST/SGOT) 21 U/L (15-37) Alanine Aminotransferase (ALT/SGPT) 25 U/L (14-59) Alkaline Phosphatase 68 U/L (46-116) Troponin I High Sensitivity 34 ng/L (4-50) XE-Cxh-H-Type Natriuretic Peptide 788 pg/mL (0-449) Total Protein 7.1 g/dL (6.4-8.2) Albumin 2.3 g/dL (3.4-5.0) Albumin/Globulin Ratio 0.5 (1.0-1.7) White Blood Count 7.7 x10^3/uL (4.0-11.0) Red Blood Count 3.59 x10^6/uL (3.50-5.40) Hemoglobin 11.5 g/dL (12.0-15.5) Hematocrit 35.1 % (36.0-47.0) Mean Corpuscular Volume 98 fL (79-100) Mean Corpuscular Hemoglobin 32 pg (25-35) Mean Corpuscular Hemoglobin Concent 33 g/dL (31-37) Red Cell Distribution Width 16.0 % (11.5-14.5) Platelet Count 181 x10^3/uL (140-400) Neutrophils (%) (Auto) 77 % (31-73) Lymphocytes (%) (Auto) 13 % (24-48) Monocytes (%) (Auto) 8 % (0-9) Eosinophils (%) (Auto) 2 % (0-3) Basophils (%) (Auto) 1 % (0-3) Neutrophils # (Auto) 5.9 x10^3/uL (1.8-7.7) Lymphocytes # (Auto) 1.0 x10^3/uL (1.0-4.8) Monocytes # (Auto) 0.6 x10^3/uL (0.0-1.1) Eosinophils # (Auto) 0.1 x10^3/uL (0.0-0.7) Basophils # (Auto) 0.1 x10^3/uL (0.0-0.2) Coronavirus (COVID-19)(PCR) Not detected (NOT DETECTD) Influenza Type A Antigen Negative (NEGATIVE) Influenza Type B Antigen Negative (NEGATIVE) SARS-CoV-2 Antigen (Rapid) Negative (NEGATIVE) Laboratory Tests Test 05/08/21 11:55 05/08/21 15:49 White Blood Count 7.7 x10^3/uL (4.0-11.0) Red Blood Count 3.59 x10^6/uL (3.50-5.40) Hemoglobin 11.5 g/dL (12.0-15.5) Hematocrit 35.1 % (36.0-47.0) Mean Corpuscular Volume 98 fL (79-100) Mean Corpuscular Hemoglobin 32 pg (25-35) Mean Corpuscular Hemoglobin Concent 33 g/dL (31-37) Red Cell Distribution Width 16.0 % (11.5-14.5) Platelet Count 181 x10^3/uL (140-400) Neutrophils (%) (Auto) 77 % (31-73) Lymphocytes (%) (Auto) 13 % (24-48) Monocytes (%) (Auto) 8 % (0-9) Eosinophils (%) (Auto) 2 % (0-3) Basophils (%) (Auto) 1 % (0-3) Neutrophils # (Auto) 5.9 x10^3/uL (1.8-7.7) Lymphocytes # (Auto) 1.0 x10^3/uL (1.0-4.8) Monocytes # (Auto) 0.6 x10^3/uL (0.0-1.1) Eosinophils # (Auto) 0.1 x10^3/uL (0.0-0.7) Basophils # (Auto) 0.1 x10^3/uL (0.0-0.2) Coronavirus (COVID-19)(PCR) Not detected (NOT DETECTD) Influenza Type A Antigen Negative (NEGATIVE) Influenza Type B Antigen Negative (NEGATIVE) SARS-CoV-2 Antigen (Rapid) Negative (NEGATIVE) Medications Active Scripts Medications Dose Route/Sig Max Daily Dose Days Date Category Prednisone 20 Mg Tablet 1 Tab PO DAILY 05/03/21 Rx Alprazolam 0.25 Mg Tablet 0.25 Mg PO PRN Q8HRS PRN 30 04/27/21 Rx Combivent Respimat Inhal (Ipratropium/Albuterol Sulfate) 4 Gm Aer.w.adap 1 Puff INH RTQID 30 04/27/21 Rx Magnesium Oxide 400 Mg Tablet 1 Tab PO DAILY 04/04/21 Reported Singulair Tablet (Montelukast Sodium) 10 Mg Tablet 10 Mg PO HS 04/04/21 Reported Pantoprazole Sodium 40 Mg Tablet.dr 40 Mg PO DAILY 04/04/21 Reported Benzonatate 100 Mg Capsule 1 Cap PO TID PRN 01/02/21 Reported Proair Hfa Inhaler (Albuterol Sulfate) 8.5 Gm Hfa.aer.ad 2 Puff IH PRN Q4HRS PRN 21 01/02/21 Reported Dicyclomine Hcl 10 Mg Capsule 20 Mg PO DAILY 10/23/19 Reported Tramadol Hcl 50 Mg Tablet 50 Mg PO Q6HRS PRN 07/17/17 Reported Norvasc (Amlodipine Besylate) 5 Mg Tablet 5 Mg PO DAILY 07/17/17 Reported Losartan Potassium (Losartan Potassium) 25 Mg Tablet 25 Mg PO DAILY 07/17/17 Reported Amitriptyline Hcl 50 Mg Tablet 25 Mg PO HS 07/17/17 Reported Impression . Full consult dictated Presumptive BOOP Acute exacerbation of COPD Chronic respiratory failure MARIBEL VOGT MD May 09, 2021 11:19
[2021-05-09] MEDS: HEPARIN for SUB-Q USE 5,000 UNIT/ML VIAL. SQ SCH ×2 (11:47→20:29)
[2021-05-09] MEDS: POLYETHYLENE GLYCOL 3350 17 GM PACKET. PO SCH (11:48)
--- NOTE | 2021-05-09 12:22 | CONS ---
DATE OF CONSULTATION: 05/09/2021 ATTENDING PHYSICIAN: Diann Rosario MD. REASON FOR CONSULTATION: The patient is seen in pulmonary consultation at the request of Dr. Rosario for abnormal chest CT. HISTORY OF PRESENT ILLNESS: The patient is an 80-year-old -[place] female that presented to the Emergency Room with increasing shortness of breath, [facility]. She has a history of COPD, chronically wears 4 liters of oxygen. She was also recently hospitalized with COVID-19. She was discharged on the 03/02. During her hospitalization, she was treated for COVID-19 viral pneumonia, possibly bacterial pneumonia. She has a history of small cell lung cancer, getting chemotherapy. The patient now presents with increasing shortness of breath. I reviewed her chest CT angiogram, which has actually worsened since her last admission. She has increased diffuse interstitial ground glass opacities and small left-sided effusion. There was also a left upper lobe peripheral opacity, which appeared to be different than previous CT. The patient denies fever, chills or night sweats. No hemoptysis. PAST MEDICAL HISTORY: Significant for small cell lung cancer, status post radiation and chemo. She has a history of hypertension, COPD, chronic respiratory failure and recent COVID-19 viral pneumonia as indicated above. PAST SURGICAL HISTORY: Hernia repair. ALLERGIES: No known drug allergies. MEDICATIONS: List was reviewed. SOCIAL HISTORY: She quit smoking. REVIEW OF SYSTEMS: As indicated above, otherwise a 10-point system was reviewed and negative. CURRENT MEDICATIONS: List was reviewed. She is currently on nebulized treatments, multiple other medications, heparin subcutaneously. PHYSICAL EXAMINATION: VITAL SIGNS: Since admission, the patient has been on 4 liters of oxygen supplementation. HEENT: Eyes: The sclerae were nonicteric. NECK: Jugular venous distention was not elevated. No lymphadenopathy. CHEST: Full expansion. LUNGS: Adequate flow with no wheezes. CARDIOVASCULAR: Regular rate and rhythm with S1, S2, no S3. ABDOMEN: Soft. EXTREMITIES: No clubbing, cyanosis or pitting edema. NEUROLOGIC: The patient was awake, alert, following commands. A detailed neuro exam was not performed. LABORATORY DATA: White count was normal. Arterial blood gas not obtained. BUN was 24, creatinine was 1.3. SARS-CoV-2 was negative PCR, negative rapid test. IMPRESSION: 1. Abnormal CT chest revealing increasing ground glass opacities and increased interstitial infiltrates compatible with combination of underlying chronic obstructive pulmonary disease, acute respiratory distress syndrome from previous COVID and changes related to radiation. 2. Chronic respiratory failure. 3. Acute exacerbation of chronic obstructive pulmonary disease. 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 5. Repeat SARS-CoV-2 testing negative. 6. Chronic renal insufficiency. 7. Chronic anemia. PLAN: 1. Recommend steroids for possible BOOP, we will slowly taper. 2. No need for antibiotics. 3. Continue oxygen supplementation. 4. DVT prophylaxis. 5. Nebulized treatments. 6. Repeat CT chest in 2-3 months. ACE/ARCHIE DR: Ivory TID: [id number]
--- NOTE | 2021-05-09 13:50 | NUR ---
SW following. Discussed with RN, pt from home with daughter, RenettaL (uses oxygen at home) cardiac diet. SW spoke with pt's daughter, Rosetta (ph: [phone]), plan to rescreen pt at [facility]. Referral phoned and faxed to [facility], awaiting acceptance decision and insurance auth. RENEE will continue to follow.
[2021-05-09 15:00] VITALS: BP 97/56
[2021-05-09] MEDS: methylPREDNISolone SOD SUCC PF 125 MG/2 ML VIAL. IV SCH ×2 (15:46→20:28)
[2021-05-09 19:00] VITALS: BP 106/52
[2021-05-09] MEDS: traMADol 50 MG TABLET PO PRN (20:28)
[2021-05-09] MEDS: BENZONATATE 100 MG CAPSULE. PO PRN (20:28)
[2021-05-09] MEDS: AMITRIPTYLINE HCL 25 MG TABLET. PO SCH (20:28)
[2021-05-09] MEDS: MONTELUKAST SODIUM 10 MG TABLET. PO SCH (20:28)
[2021-05-09] MEDS: ALPRAZolam 0.25 MG TABLET PO PRN (20:28)
[2021-05-09 23:00] VITALS: BP 101/61
[2021-05-10 03:10] VITALS: BP 136/82
[2021-05-10] MEDS: methylPREDNISolone SOD SUCC PF 125 MG/2 ML VIAL. IV SCH ×3 (05:37→20:29)
[2021-05-10] MEDS: IPRATRPIUM/ALBUTEROL 0.5/2.5MG 3 ML NEBU. NEB SCH ×4 (06:28→20:49)
[2021-05-10 07:00] VITALS: BP 123/64
[2021-05-10 07:18] LABS: BASO % 0 % (0-3); EOS % 0 % (0-3); HEMOGLOBIN 10.1 g/dL (12.0-15.5); LYMPH # 0.9 x10^3/uL (1.0-4.8); LYMPH % 8 % (24-48); MEAN CORPUSCULAR HEMOGLOBIN 32 pg (25-35); MEAN CORPUSCULAR HGB CONC 32 g/dL (31-37); MEAN CORPUSCULAR VOLUME 98 fL (79-100); MONO # 0.4 x10^3/uL (0.0-1.1); MONO % 3 % (0-9); NEUT # 10.8 x10^3/uL (1.8-7.7); NEUT % 89 % (31-73); PLATELET COUNT 207 x10^3/uL (140-400); RED BLOOD COUNT 3.18 x10^6/uL (3.50-5.40); WHITE BLOOD COUNT 12.1 x10^3/uL (4.0-11.0)
[2021-05-10 07:35] LABS: CALCIUM 8.7 mg/dL (8.5-10.1); CREATININE 1.4 mg/dL (0.6-1.0); GFR 43.6; POTASSIUM 4.6 mmol/L (3.5-5.1)
[2021-05-10] MEDS: PANTOPRAZOLE 40 MG TABLET.DR. PO SCH (08:10)
[2021-05-10] MEDS: MAGNESIUM OXIDE 400 MG TABLET PO SCH (08:11)
[2021-05-10] MEDS: DICYCLOMINE HCL 10 MG CAPSULE PO SCH (08:11)
[2021-05-10] MEDS: LOSARTAN POTASSIUM 25 MG TABLET. PO SCH (08:12)
[2021-05-10] MEDS: POLYETHYLENE GLYCOL 3350 17 GM PACKET. PO SCH (08:12)
[2021-05-10] MEDS: BENZONATATE 100 MG CAPSULE. PO PRN (08:16)
[2021-05-10] MEDS: HEPARIN for SUB-Q USE 5,000 UNIT/ML VIAL. SQ SCH ×2 (08:23→20:30)
--- NOTE | 2021-05-10 09:07 | PDOC ---
PROGRESS NOTES Date of Service: DATE: 05/10/21 TIME: 09:07 Subjective Subjective feels week Objective Objective Vital Signs Date Time Temp Pulse Resp B/P (MAP) Pulse Ox O2 Delivery O2 Flow Rate FiO2 05/10/21 08:12 92 123/64 05/10/21 07:52 Nasal Cannula 4.0 05/10/21 07:00 12 94 05/10/21 03:10 97.7 97.7 Intake and Output 05/10/21 07:00 Output Total 300 ml Balance -300 ml Output Urine Total 300 ml Physical Exam Abdomen: Soft Heart: Normal S1, Normal S2 Extremities: No clubbing General: Oriented X3 Lungs: Normal air movement MUSCULOSKELETAL: No swelling Neck: No JVD Neuro: Normal speech Skin: No breakdown Diagnosis Problem List Problems Medical Problems: (1) Acute respiratory failure with hypoxia Status: Acute Assessment Assessment Problems Medical Problems: (1) Acute respiratory failure with hypoxia Status: Acute IMPRESSION: 1. Exacerbation of chronic obstructive pulmonary disease. 2. Acute on chronic respiratory failure. 3. Recent COVID-19 pneumonia. 4. Small cell lung cancer. 5. Hypertension. 6. Physical deconditioning. PLAN: labs ok covid test -ve. cxr /ct scan reviewed -scarring from covid +copd SNU screen. I will give her another dose of IV Solu-Medrol this morning. Consult Dr. Meek for pulmonary evaluation and management. Continue oxygen by nasal cannula at 4 liters per minute. For details, please refer to the orders. Prognosis of this patient is poor due to her multiple medical problems. Plan Plan of Care Problems Medical Problems: (1) Acute respiratory failure with hypoxia Status: Acute Comment Review of Relevant I have reviewed the following items ankit (where applicable) has been applied. Labs Laboratory Tests Test 05/10/21 06:20 White Blood Count 12.1 x10^3/uL (4.0-11.0) Red Blood Count 3.18 x10^6/uL (3.50-5.40) Hemoglobin 10.1 g/dL (12.0-15.5) Hematocrit 31.0 % (36.0-47.0) Mean Corpuscular Volume 98 fL (79-100) Mean Corpuscular Hemoglobin 32 pg (25-35) Mean Corpuscular Hemoglobin Concent 32 g/dL (31-37) Red Cell Distribution Width 16.0 % (11.5-14.5) Platelet Count 207 x10^3/uL (140-400) Neutrophils (%) (Auto) 89 % (31-73) Lymphocytes (%) (Auto) 8 % (24-48) Monocytes (%) (Auto) 3 % (0-9) Eosinophils (%) (Auto) 0 % (0-3) Basophils (%) (Auto) 0 % (0-3) Neutrophils # (Auto) 10.8 x10^3/uL (1.8-7.7) Lymphocytes # (Auto) 0.9 x10^3/uL (1.0-4.8) Monocytes # (Auto) 0.4 x10^3/uL (0.0-1.1) Eosinophils # (Auto) 0.0 x10^3/uL (0.0-0.7) Basophils # (Auto) 0.0 x10^3/uL (0.0-0.2) Sodium Level 142 mmol/L (136-145) Potassium Level 4.6 mmol/L (3.5-5.1) Chloride Level 103 mmol/L (98-107) Carbon Dioxide Level 29 mmol/L (21-32) Anion Gap 10 (6-14) Blood Urea Nitrogen 29 mg/dL (7-20) Creatinine 1.4 mg/dL (0.6-1.0) Estimated GFR (Cockcroft-Gault) 43.6 Glucose Level 136 mg/dL (70-99) Calcium Level 8.7 mg/dL (8.5-10.1) Medications Current Medications Bisacodyl (Dulcolax Supp) 10 mg PRN DAILY PRN [place] CONSTIPATION; Start 05/09/21 at 09:45 Methylprednisolone Sodium Succinate (SOLU-Medrol 40MG VIAL) 40 mg 1X ONCE IV Last administered on 05/09/21at 11:48; Start 05/09/21 at 10:00; Stop 05/09/21 at 10:01; Status DC Methylprednisolone Sodium Succinate (SOLU-Medrol 125MG VIAL) 125 mg Q8HRS IV Last administered on 05/10/21at 05:37; Start 05/09/21 at 14:00 Polyethylene Glycol (miraLAX PACKET) 17 gm DAILY PO Last administered on 05/10/21at 08:12; Start 05/09/21 at 10:00 Vitals/I & O Vital Sign - Last 24 Hours 05/09/21 05/09/21 05/09/21 05/09/21 11:00 11:50 15:00 15:09 Temp 98.0 97.6 98.0 97.6 Pulse 93 100 Resp 18 18 B/P (MAP) 104/56 (72) 97/56 (70) Pulse Ox 98 98 100 100 O2 Delivery Nasal Cannula Nasal Cannula Nasal Cannula Nasal Cannula O2 Flow Rate 4.0 5.0 4.0 5.0 05/09/21 05/09/21 05/09/21 05/09/21 18:19 19:00 20:00 23:00 Temp 97.8 98.1 97.8 98.1 Pulse 109 102 Resp 20 20 B/P (MAP) 106/52 (70) 101/61 (74) Pulse Ox 100 98 99 O2 Delivery Nasal Cannula Nasal Cannula Nasal Cannula Nasal Cannula O2 Flow Rate 4.0 4.0 05/10/21 05/10/21 05/10/21 05/10/21 03:10 06:30 07:00 07:52 Temp 97.7 97.7 Pulse 102 77 Resp 20 12 B/P (MAP) 136/82 (100) 123/64 (83) Pulse Ox 98 100 94 O2 Delivery Nasal Cannula Nasal Cannula Nasal Cannula Nasal Cannula O2 Flow Rate 4.0 5.0 4.0 05/10/21 05/10/21 08:11 08:12 Pulse 89 92 B/P (MAP) 123/64 123/64 Intake and Output 05/09/21 05/09/21 05/10/21 15:00 23:00 07:00 Output Total 300 ml Balance -300 ml Justifications for Admission Other Justification WALKER DAVILA MD May 10, 2021 09:07
--- NOTE | 2021-05-10 10:33 | PDOC ---
PULMONARY PROGRESS NOTES DATE: 05/10/21 TIME: 10:33 Subjective Patient feels slightly better since the addition of steroids Currently on oxygen supplementation no chest pain no pressure Vitals Vital Signs Date Time Temp Pulse Resp B/P (MAP) Pulse Ox O2 Delivery O2 Flow Rate FiO2 05/10/21 08:12 92 123/64 05/10/21 07:52 Nasal Cannula 4.0 05/10/21 07:00 12 94 05/10/21 03:10 97.7 97.7 General: Alert, No acute distress Lungs: Clear, Crackles Cardiovascular: S1, S2 Abdomen: Soft Neuro Exam: Alert Extremities: No Edema Skin: Warm Labs Laboratory Tests Test 05/08/21 10:50 05/08/21 11:55 05/08/21 15:49 05/10/21 06:20 D-Dimer (Tessy) 2.75 ug/mlFEU (0.00-0.50) Sodium Level 144 mmol/L (136-145) 142 mmol/L (136-145) Potassium Level 4.3 mmol/L (3.5-5.1) 4.6 mmol/L (3.5-5.1) Chloride Level 105 mmol/L (98-107) 103 mmol/L (98-107) Carbon Dioxide Level 29 mmol/L (21-32) 29 mmol/L (21-32) Anion Gap 10 (6-14) 10 (6-14) Blood Urea Nitrogen 24 mg/dL (7-20) 29 mg/dL (7-20) Creatinine 1.3 mg/dL (0.6-1.0) 1.4 mg/dL (0.6-1.0) Estimated GFR (Cockcroft-Gault) 47.5 43.6 BUN/Creatinine Ratio 18 (6-20) Glucose Level 128 mg/dL (70-99) 136 mg/dL (70-99) Calcium Level 9.1 mg/dL (8.5-10.1) 8.7 mg/dL (8.5-10.1) Magnesium Level 1.7 mg/dL (1.8-2.4) Total Bilirubin 0.3 mg/dL (0.2-1.0) Aspartate Amino Transf (AST/SGOT) 21 U/L (15-37) Alanine Aminotransferase (ALT/SGPT) 25 U/L (14-59) Alkaline Phosphatase 68 U/L (46-116) Troponin I High Sensitivity 34 ng/L (4-50) NH-Xuw-C-Type Natriuretic Peptide 788 pg/mL (0-449) Total Protein 7.1 g/dL (6.4-8.2) Albumin 2.3 g/dL (3.4-5.0) Albumin/Globulin Ratio 0.5 (1.0-1.7) White Blood Count 7.7 x10^3/uL (4.0-11.0) 12.1 x10^3/uL (4.0-11.0) Red Blood Count 3.59 x10^6/uL (3.50-5.40) 3.18 x10^6/uL (3.50-5.40) Hemoglobin 11.5 g/dL (12.0-15.5) 10.1 g/dL (12.0-15.5) Hematocrit 35.1 % (36.0-47.0) 31.0 % (36.0-47.0) Mean Corpuscular Volume 98 fL (79-100) 98 fL (79-100) Mean Corpuscular Hemoglobin 32 pg (25-35) 32 pg (25-35) Mean Corpuscular Hemoglobin Concent 33 g/dL (31-37) 32 g/dL (31-37) Red Cell Distribution Width 16.0 % (11.5-14.5) 16.0 % (11.5-14.5) Platelet Count 181 x10^3/uL (140-400) 207 x10^3/uL (140-400) Neutrophils (%) (Auto) 77 % (31-73) 89 % (31-73) Lymphocytes (%) (Auto) 13 % (24-48) 8 % (24-48) Monocytes (%) (Auto) 8 % (0-9) 3 % (0-9) Eosinophils (%) (Auto) 2 % (0-3) 0 % (0-3) Basophils (%) (Auto) 1 % (0-3) 0 % (0-3) Neutrophils # (Auto) 5.9 x10^3/uL (1.8-7.7) 10.8 x10^3/uL (1.8-7.7) Lymphocytes # (Auto) 1.0 x10^3/uL (1.0-4.8) 0.9 x10^3/uL (1.0-4.8) Monocytes # (Auto) 0.6 x10^3/uL (0.0-1.1) 0.4 x10^3/uL (0.0-1.1) Eosinophils # (Auto) 0.1 x10^3/uL (0.0-0.7) 0.0 x10^3/uL (0.0-0.7) Basophils # (Auto) 0.1 x10^3/uL (0.0-0.2) 0.0 x10^3/uL (0.0-0.2) Coronavirus (COVID-19)(PCR) Not detected (NOT DETECTD) Influenza Type A Antigen Negative (NEGATIVE) Influenza Type B Antigen Negative (NEGATIVE) SARS-CoV-2 Antigen (Rapid) Negative (NEGATIVE) Laboratory Tests Test 05/10/21 06:20 White Blood Count 12.1 x10^3/uL (4.0-11.0) Red Blood Count 3.18 x10^6/uL (3.50-5.40) Hemoglobin 10.1 g/dL (12.0-15.5) Hematocrit 31.0 % (36.0-47.0) Mean Corpuscular Volume 98 fL (79-100) Mean Corpuscular Hemoglobin 32 pg (25-35) Mean Corpuscular Hemoglobin Concent 32 g/dL (31-37) Red Cell Distribution Width 16.0 % (11.5-14.5) Platelet Count 207 x10^3/uL (140-400) Neutrophils (%) (Auto) 89 % (31-73) Lymphocytes (%) (Auto) 8 % (24-48) Monocytes (%) (Auto) 3 % (0-9) Eosinophils (%) (Auto) 0 % (0-3) Basophils (%) (Auto) 0 % (0-3) Neutrophils # (Auto) 10.8 x10^3/uL (1.8-7.7) Lymphocytes # (Auto) 0.9 x10^3/uL (1.0-4.8) Monocytes # (Auto) 0.4 x10^3/uL (0.0-1.1) Eosinophils # (Auto) 0.0 x10^3/uL (0.0-0.7) Basophils # (Auto) 0.0 x10^3/uL (0.0-0.2) Sodium Level 142 mmol/L (136-145) Potassium Level 4.6 mmol/L (3.5-5.1) Chloride Level 103 mmol/L (98-107) Carbon Dioxide Level 29 mmol/L (21-32) Anion Gap 10 (6-14) Blood Urea Nitrogen 29 mg/dL (7-20) Creatinine 1.4 mg/dL (0.6-1.0) Estimated GFR (Cockcroft-Gault) 43.6 Glucose Level 136 mg/dL (70-99) Calcium Level 8.7 mg/dL (8.5-10.1) Medications Active Scripts Medications Dose Route/Sig Max Daily Dose Days Date Category Prednisone 20 Mg Tablet 1 Tab PO DAILY 05/03/21 Rx Alprazolam 0.25 Mg Tablet 0.25 Mg PO PRN Q8HRS PRN 30 04/27/21 Rx Combivent Respimat Inhal (Ipratropium/Albuterol Sulfate) 4 Gm Aer.w.adap 1 Puff INH RTQID 30 04/27/21 Rx Magnesium Oxide 400 Mg Tablet 1 Tab PO DAILY 04/04/21 Reported Singulair Tablet (Montelukast Sodium) 10 Mg Tablet 10 Mg PO HS 04/04/21 Reported Pantoprazole Sodium 40 Mg Tablet.dr 40 Mg PO DAILY 04/04/21 Reported Benzonatate 100 Mg Capsule 1 Cap PO TID PRN 01/02/21 Reported Proair Hfa Inhaler (Albuterol Sulfate) 8.5 Gm Hfa.aer.ad 2 Puff IH PRN Q4HRS PRN 21 01/02/21 Reported Dicyclomine Hcl 10 Mg Capsule 20 Mg PO DAILY 10/23/19 Reported Tramadol Hcl 50 Mg Tablet 50 Mg PO Q6HRS PRN 07/17/17 Reported Norvasc (Amlodipine Besylate) 5 Mg Tablet 5 Mg PO DAILY 07/17/17 Reported Losartan Potassium (Losartan Potassium) 25 Mg Tablet 25 Mg PO DAILY 07/17/17 Reported Amitriptyline Hcl 50 Mg Tablet 25 Mg PO HS 07/17/17 Reported Impression . IMPRESSION: 1. Abnormal CT chest revealing increasing ground glass opacities and increased interstitial infiltrates compatible with combination of underlying chronic obstructive pulmonary disease, acute respiratory distress syndrome from previous COVID and changes related to radiation. 2. Chronic respiratory failure. 3. Acute exacerbation of chronic obstructive pulmonary disease. 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 5. Repeat SARS-CoV-2 testing negative. 6. Chronic renal insufficiency. 7. Chronic anemia. Plan . Updated 05/10 Patient feels better today Discussed with daughter at the bedside Continue steroids Repeat CT in 2 to 3 months group home unit evaluation PLAN: 1. Recommend steroids for possible BOOP, we will slowly taper. 2. No need for antibiotics. 3. Continue oxygen supplementation. 4. DVT prophylaxis. 5. Nebulized treatments. 6. Repeat CT chest in 2-3 months. MARIBEL VOGT MD May 10, 2021 10:33
[2021-05-10 11:00] VITALS: BP 106/62
--- NOTE | 2021-05-10 11:12 | NUR ---
SW following. Discussed with RN, pt accepted at [facility] pending insurance auth. Awaiting therapy notes to send to [facility]. SW will continue to follow.
[2021-05-10 15:00] VITALS: BP 132/70
[2021-05-10 19:00] VITALS: BP 105/60
[2021-05-10] MEDS: AMITRIPTYLINE HCL 25 MG TABLET. PO SCH (20:29)
[2021-05-10] MEDS: MONTELUKAST SODIUM 10 MG TABLET. PO SCH (20:29)
[2021-05-10] MEDS: traMADol 50 MG TABLET PO PRN (20:37)
[2021-05-10] MEDS: ALPRAZolam 0.25 MG TABLET PO PRN (20:37)
[2021-05-10 23:00] VITALS: BP 110/61
[2021-05-11 03:00] VITALS: BP 107/62
[2021-05-11] MEDS: methylPREDNISolone SOD SUCC PF 125 MG/2 ML VIAL. IV SCH (05:57)
[2021-05-11 07:00] VITALS: BP 136/71
[2021-05-11] MEDS: PANTOPRAZOLE 40 MG TABLET.DR. PO SCH (08:04)
[2021-05-11] MEDS: POLYETHYLENE GLYCOL 3350 17 GM PACKET. PO SCH (08:04)
[2021-05-11] MEDS: MAGNESIUM OXIDE 400 MG TABLET PO SCH (08:06)
[2021-05-11] MEDS: LOSARTAN POTASSIUM 25 MG TABLET. PO SCH (08:06)
[2021-05-11] MEDS: HEPARIN for SUB-Q USE 5,000 UNIT/ML VIAL. SQ SCH ×2 (08:10→20:41)
[2021-05-11] MEDS: IPRATRPIUM/ALBUTEROL 0.5/2.5MG 3 ML NEBU. NEB SCH ×4 (08:23→18:22)
--- NOTE | 2021-05-11 08:30 | PDOC ---
PULMONARY PROGRESS NOTES DATE: 05/11/21 TIME: 08:27 Subjective Patient is resting comfortably in bed on 3.5 L nasal cannula, denies shortness of breath, reports nonproductive cough States that she is overall feeling better today Afebrile, no overnight concerns Vitals Vital Signs Date Time Temp Pulse Resp B/P (MAP) Pulse Ox O2 Delivery O2 Flow Rate FiO2 05/11/21 08:25 98 Nasal Cannula 3.5 05/11/21 08:06 81 136/74 05/11/21 07:00 98.4 12 98.4 ROS: No Nausea, No Chest Pain, No Abdominal Pain General: Alert, No acute distress Lungs: Clear, Crackles Cardiovascular: S1, S2 Abdomen: Soft Neuro Exam: Alert Extremities: No Edema Skin: Warm Labs Laboratory Tests Test 05/10/21 06:20 White Blood Count 12.1 x10^3/uL (4.0-11.0) Red Blood Count 3.18 x10^6/uL (3.50-5.40) Hemoglobin 10.1 g/dL (12.0-15.5) Hematocrit 31.0 % (36.0-47.0) Mean Corpuscular Volume 98 fL (79-100) Mean Corpuscular Hemoglobin 32 pg (25-35) Mean Corpuscular Hemoglobin Concent 32 g/dL (31-37) Red Cell Distribution Width 16.0 % (11.5-14.5) Platelet Count 207 x10^3/uL (140-400) Neutrophils (%) (Auto) 89 % (31-73) Lymphocytes (%) (Auto) 8 % (24-48) Monocytes (%) (Auto) 3 % (0-9) Eosinophils (%) (Auto) 0 % (0-3) Basophils (%) (Auto) 0 % (0-3) Neutrophils # (Auto) 10.8 x10^3/uL (1.8-7.7) Lymphocytes # (Auto) 0.9 x10^3/uL (1.0-4.8) Monocytes # (Auto) 0.4 x10^3/uL (0.0-1.1) Eosinophils # (Auto) 0.0 x10^3/uL (0.0-0.7) Basophils # (Auto) 0.0 x10^3/uL (0.0-0.2) Sodium Level 142 mmol/L (136-145) Potassium Level 4.6 mmol/L (3.5-5.1) Chloride Level 103 mmol/L (98-107) Carbon Dioxide Level 29 mmol/L (21-32) Anion Gap 10 (6-14) Blood Urea Nitrogen 29 mg/dL (7-20) Creatinine 1.4 mg/dL (0.6-1.0) Estimated GFR (Cockcroft-Gault) 43.6 Glucose Level 136 mg/dL (70-99) Calcium Level 8.7 mg/dL (8.5-10.1) Medications Active Scripts Medications Dose Route/Sig Max Daily Dose Days Date Category Prednisone 20 Mg Tablet 1 Tab PO DAILY 05/03/21 Rx Alprazolam 0.25 Mg Tablet 0.25 Mg PO PRN Q8HRS PRN 30 04/27/21 Rx Combivent Respimat Inhal (Ipratropium/Albuterol Sulfate) 4 Gm Aer.w.adap 1 Puff INH RTQID 30 04/27/21 Rx Magnesium Oxide 400 Mg Tablet 1 Tab PO DAILY 04/04/21 Reported Singulair Tablet (Montelukast Sodium) 10 Mg Tablet 10 Mg PO HS 04/04/21 Reported Pantoprazole Sodium 40 Mg Tablet.dr 40 Mg PO DAILY 04/04/21 Reported Benzonatate 100 Mg Capsule 1 Cap PO TID PRN 01/02/21 Reported Proair Hfa Inhaler (Albuterol Sulfate) 8.5 Gm Hfa.aer.ad 2 Puff IH PRN Q4HRS PRN 21 01/02/21 Reported Dicyclomine Hcl 10 Mg Capsule 20 Mg PO DAILY 10/23/19 Reported Tramadol Hcl 50 Mg Tablet 50 Mg PO Q6HRS PRN 07/17/17 Reported Norvasc (Amlodipine Besylate) 5 Mg Tablet 5 Mg PO DAILY 07/17/17 Reported Losartan Potassium (Losartan Potassium) 25 Mg Tablet 25 Mg PO DAILY 07/17/17 Reported Amitriptyline Hcl 50 Mg Tablet 25 Mg PO HS 07/17/[address] CHEST IMPRESSION: No pulmonary embolus identified. 1.0 cm nodule in the right lobe of the thyroid gland. This can be further evaluated with ultrasound on a nonemergent basis. Moderate size hiatal hernia. Mild dilatation of the ascending thoracic aorta at 3.5 cm. Diffuse emphysematous changes bilaterally. Increased diffuse interstitial and groundglass opacities bilaterally throughout the lung buitrago with a small left pleural effusion evident. Increased parenchymal changes in the left upper lobe peripherally and perihilar left upper lobe probably related to patient's lung cancer and to superimposed diffuse increased interstitial and alveolar infiltrates. 2.3 cm cyst in the upper pole the left kidney. Impression . IMPRESSION: 1. Abnormal CT chest revealing increasing ground glass opacities and increased interstitial infiltrates compatible with combination of underlying chronic obstructive pulmonary disease, acute respiratory distress syndrome from previous COVID and changes related to radiation. 2. Chronic respiratory failure. 3. Acute exacerbation of chronic obstructive pulmonary disease. 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 5. Repeat SARS-CoV-2 testing negative. 6. Chronic renal insufficiency. 7. Chronic anemia. Plan . Updated 05/11/2021 Continue supplemental oxygen to keep oxygen saturation greater than 92%, currently on 3.5 L nasal cannula Continue high-dose steroids, plan to taper slowly Bronchodilators Repeat CT of chest in 2 to 3 months Physical therapy/Occupational Therapy Social work for [place] planning: Possible discharge to [facility] Discussed with RN DVT/GI prophylaxis: Protonix/subcutaneous heparin Updated 05/10 Patient feels better today Discussed with daughter at the bedside Continue steroids Repeat CT in 2 to 3 months [facility] unit evaluation PLAN: 1. Recommend steroids for possible BOOP, we will slowly taper. 2. No need for antibiotics. 3. Continue oxygen supplementation. 4. DVT prophylaxis. 5. Nebulized treatments. 6. Repeat CT chest in 2-3 months. MARIBEL VOGT MD May 11, 2021 08:30
[2021-05-11] MEDS: DICYCLOMINE HCL 10 MG CAPSULE PO SCH (08:39)
--- NOTE | 2021-05-11 09:28 | PDOC ---
PROGRESS NOTES Date of Service: DATE: 05/11/21 TIME: 09:28 Subjective Subjective feels ok Objective Objective Vital Signs Date Time Temp Pulse Resp B/P (MAP) Pulse Ox O2 Delivery O2 Flow Rate FiO2 05/11/21 08:25 98 Nasal Cannula 3.5 05/11/21 08:06 81 136/74 05/11/21 07:00 98.4 12 98.4 Intake and Output 05/11/21 07:00 Intake Total 840 ml Balance 840 ml Intake Oral 840 ml # Voids 3 Physical Exam Abdomen: Soft Heart: Normal S1, Normal S2 Extremities: No clubbing General: Oriented X3 Lungs: Normal air movement MUSCULOSKELETAL: No swelling Neck: No JVD Neuro: Normal speech Skin: No breakdown Diagnosis Problem List Problems Medical Problems: (1) Acute respiratory failure with hypoxia Status: Acute Assessment Assessment Problems Medical Problems: (1) Acute respiratory failure with hypoxia Status: Acute IMPRESSION: 1. Exacerbation of chronic obstructive pulmonary disease. 2. Acute on chronic respiratory failure. 3. Recent COVID-19 pneumonia. 4. Small cell lung cancer. 5. Hypertension. 6. Physical deconditioning. PLAN: change to oral prednisone spoke with case enid covid test -ve. cxr /ct scan reviewed -scarring from covid +copd SNU screen. Plan Plan of Care Problems Medical Problems: (1) Acute respiratory failure with hypoxia Status: Acute Comment Review of Relevant I have reviewed the following items ankit (where applicable) has been applied. Vitals/I & O Vital Sign - Last 24 Hours 05/10/21 05/10/21 05/10/21 05/10/21 11:00 12:25 15:00 15:51 Temp 98.0 98.5 98.0 98.5 Pulse 74 93 Resp 13 11 B/P (MAP) 106/62 (77) 132/70 (90) Pulse Ox 96 95 95 O2 Delivery Nasal Cannula Nasal Cannula Nasal Cannula Nasal Cannula O2 Flow Rate 5.0 2.0 5.0 2.0 05/10/21 05/10/21 05/10/21 05/10/21 19:00 20:30 20:47 23:00 Temp 97.5 98.0 97.5 98.0 Pulse 116 94 Resp 18 18 B/P (MAP) 105/60 (75) 110/61 (77) Pulse Ox 95 96 100 O2 Delivery Nasal Cannula Nasal Cannula O2 Flow Rate 4.0 4.0 05/11/21 05/11/21 05/11/21 05/11/21 03:00 07:00 08:00 08:05 Temp 98.2 98.4 98.2 98.4 Pulse 90 81 81 Resp 16 12 B/P (MAP) 107/62 (77) 136/71 (92) 136/74 Pulse Ox 100 93 O2 Delivery Nasal Cannula Nasal Cannula O2 Flow Rate 5.0 4.0 05/11/21 05/11/21 08:06 08:25 Pulse 81 B/P (MAP) 136/74 Pulse Ox 98 O2 Delivery Nasal Cannula O2 Flow Rate 3.5 Intake and Output 05/10/21 05/10/21 05/11/21 15:00 23:00 07:00 Intake Total 600 ml 120 ml 120 ml Balance 600 ml 120 ml 120 ml Justifications for Admission Other Justification WALKER DAVILA MD May 11, 2021 09:28
--- NOTE | 2021-05-11 10:20 | NUR ---
SW following. Discussed with RN, pt from home with daughter. Insurance denied LTAC this morning. RENEE sent information for peer to peer to Dr. Spencer if he decides to do this, awaiting confirmation. RENEE will continue to follow.
[2021-05-11 11:00] VITALS: BP 115/67
--- NOTE | 2021-05-11 14:39 | PDOC2 ---
CONSULT Date of Consult Date of Consult DATE: 05/11/21 TIME: 14:17 Reason for Consult Reason for Consult: Small cell lung cancer Referring Physician Referring Physician: Dr. Spencer Identification/Chief Complaint Chief Complaint Shortness of breath Source Source: Caregiver, Chart review, Patient History of Present Illness Reason for Visit: Ms. Effie Ramesh is an 80-year-old female with extensive stage small cell lung carcinoma, history of COPD and tobacco use and chronic hypoxic respiratory failure who has been admitted for acute on chronic hypoxic respiratory failure and shortness of breath. Patient was recently hospitalized at [facility] due to COVID-19. She developed COVID-19 pneumonia and was discharged home on oxygen, 4 L. She subsequently presented to the emergency room with worsening exertional dyspnea and dyspnea at rest. Clinical assessment was consistent with COPD exacerbation. Since CT scans were obtained did not show evidence of progression of small cell lung cancer. She most recently received atezolizumab treatment on 04/07/2020. CT scan showed new onset bilateral interstitial opacities consistent with viral pneumonia. Medical oncology consult has been requested due to patient's known diagnosis of small cell lung cancer and are going treatment with atezolizumab. Patient was accompanied by her daughter in her room. She reports dyspnea has improved since admission to hospital Past Medical History Cardiovascular: HTN Pulmonary: No pertinent hx GI: No pertinent hx Heme/Onc: No pertinent hx Hepatobiliary: No pertinent hx Psych: No pertinent hx Rheumatologic: No pertinent hx Infectious disease: No pertinent hx Renal/: No pertinent hx Endocrine: No pertinent hx Past Surgical History Past Surgical History: Cholecystectomy, No pertinent history Family History Family History: Cancer, Diabetes, Hypertension Social History ALCOHOL: none Drugs: None Lives: with Family Current Problem List Problem List Problems Medical Problems: (1) Acute respiratory failure with hypoxia Status: Acute Current Medications Current Medications Current Medications Famotidine (Pepcid Vial) 20 mg 1X ONCE IVP Last administered on 05/08/21at 10:51; Start 05/08/21 at 10:30; Stop 05/08/21 at 10:31; Status DC Iohexol (Omnipaque 350 Mg/ml) 80 ml 1X ONCE IV Last administered on 05/08/21at 12:30; Start 05/08/21 at 12:30; Stop 05/08/21 at 12:34; Status DC Info (CONTRAST GIVEN -- Rx MONITORING) 1 each PRN DAILY PRN MC SEE COMMENTS; Start 05/08/21 at 12:45; Stop 05/10/21 at 12:44; Status DC Dexamethasone Sodium Phosphate (Decadron) 10 mg 1X ONCE IVP Last administered on 05/08/21at 16:04; Start 05/08/21 at 15:45; Stop 05/08/21 at 15:46; Status DC Albuterol Sulfate (Ventolin Neb Soln) 2.5 mg PRN Q4HRS PRN NEB WHEEZING; Start 05/08/21 at 19:30 Alprazolam (Xanax) 0.25 mg PRN Q8HRS PRN PO ANXIETY / AGITATION Last administered on 05/10/21at 20:37; Start 05/08/21 at 19:30 Amlodipine Besylate (Norvasc) 5 mg DAILY PO Last administered on 05/11/21at 08:05; Start 05/09/21 at 09:00 Benzonatate (Tessalon Perle) 100 mg PRN TID PRN PO COUGH Last administered on 05/10/21at 08:16; Start 05/08/21 at 19:30 Dicyclomine HCl (Bentyl) 20 mg DAILY PO Last administered on 05/11/21at 08:39; Start 05/09/21 at 09:00 Losartan Potassium (Cozaar) 25 mg DAILY PO Last administered on 05/11/21at 08:06; Start 05/09/21 at 09:00 Magnesium Oxide (Magnesium Oxide) 400 mg DAILY PO Last administered on 05/11/21at 08:06; Start 05/09/21 at 09:00 Montelukast Sodium (Singulair) 10 mg HS PO Last administered on 05/10/21at 20:29; Start 05/08/21 at 21:00 Pantoprazole Sodium (Protonix) 40 mg DAILYAC PO Last administered on 05/11/21at 08:04; Start 05/09/21 at 07:30 Prednisone (Prednisone) 20 mg DAILY PO Last administered on 05/09/21at 08:18; Start 05/09/21 at 09:00; Stop 05/09/21 at 11:22; Status DC Tramadol HCl (Ultram) 50 mg PRN Q6HRS PRN PO MODERATE-SEVERE PAIN Last administered on 05/10/21at 20:37; Start 05/08/21 at 19:30 Amitriptyline HCl (Elavil) 25 mg QHS PO Last administered on 05/10/21at 20:29; Start 05/08/21 at 21:00 Albuterol/ Ipratropium (Duoneb) 3 ml RTQID NEB Last administered on 05/11/21at 11:38; Start 05/08/21 at 20:00 Acetaminophen (Tylenol) 650 mg PRN Q6HRS PRN PO MILD PAIN / TEMP > 100.3'F; Start 05/09/21 at 08:45 Heparin Sodium (Porcine) (Heparin Sodium) 5,000 unit Q12HR SQ Last administered on 05/11/21at 08:10; Start 05/09/21 at 09:00 Methylprednisolone Sodium Succinate (SOLU-Medrol 40MG VIAL) 40 mg 1X ONCE IV Last administered on 05/09/21at 11:48; Start 05/09/21 at 10:00; Stop 05/09/21 at 10:01; Status DC Polyethylene Glycol (miraLAX PACKET) 17 gm DAILY PO Last administered on 05/11/21at 08:04; Start 05/09/21 at 10:00 Bisacodyl (Dulcolax Supp) 10 mg PRN DAILY PRN [place] CONSTIPATION; Start 05/09/21 at 09:45 Methylprednisolone Sodium Succinate (SOLU-Medrol 125MG VIAL) 125 mg Q8HRS IV Last administered on 05/11/21at 05:57; Start 05/09/21 at 14:00; Stop 05/11/21 at 12:13; Status DC Prednisone (Prednisone) 50 mg 1X ONCE PO ; Start 05/12/21 at 09:00; Stop 05/12/21 at 09:01 Prednisone (Prednisone) 30 mg 1X ONCE PO ; Start 05/13/21 at 09:00; Stop 05/13/21 at 09:01 Prednisone (Prednisone) 20 mg DAILY PO ; Start 05/14/21 at 09:00 Prednisone (Prednisone) 10 mg DAILY PO ; Start 05/15/21 at 09:00 Active Scripts Active Prednisone 20 Mg Tablet 1 Tab PO DAILY Alprazolam 0.25 Mg Tablet 0.25 Mg PO PRN Q8HRS PRN 30 Days Combivent Respimat Inhal (Ipratropium/Albuterol Sulfate) 4 Gm Aer.w.adap 1 Puff INH RTQID 30 Days Reported Magnesium Oxide 400 Mg Tablet 1 Tab PO DAILY Singulair Tablet (Montelukast Sodium) 10 Mg Tablet 10 Mg PO HS Pantoprazole Sodium 40 Mg Tablet.dr 40 Mg PO DAILY Benzonatate 100 Mg Capsule 1 Cap PO TID PRN Proair Hfa Inhaler (Albuterol Sulfate) 8.5 Gm Hfa.aer.ad 2 Puff IH PRN Q4HRS PRN 21 Days Dicyclomine Hcl 10 Mg Capsule 20 Mg PO DAILY Tramadol Hcl 50 Mg Tablet 50 Mg PO Q6HRS PRN Norvasc (Amlodipine Besylate) 5 Mg Tablet 5 Mg PO DAILY Losartan Potassium (Losartan Potassium) 25 Mg Tablet 25 Mg PO DAILY Amitriptyline Hcl 50 Mg Tablet 25 Mg PO HS Allergies Allergies: Coded Allergies: No Known Drug Allergies (Unverified , 01/02/21) ROS Review of System Negative unless stated otherwise in HPI Physical Exam Physical Exam Alert and oriented Bilateral wheezing auscultated Normal heart sounds Lower extremity edema Abdomen soft Vitals VITALS Vital Signs Date Time Temp Pulse Resp B/P (MAP) Pulse Ox O2 Delivery O2 Flow Rate FiO2 05/11/21 11:39 97 Nasal Cannula 2.5 05/11/21 11:00 98.1 13 13 115/67 (83) 98.1 Labs Labs Laboratory Tests Test 05/10/21 06:20 White Blood Count 12.1 x10^3/uL (4.0-11.0) Red Blood Count 3.18 x10^6/uL (3.50-5.40) Hemoglobin 10.1 g/dL (12.0-15.5) Hematocrit 31.0 % (36.0-47.0) Mean Corpuscular Volume 98 fL (79-100) Mean Corpuscular Hemoglobin 32 pg (25-35) Mean Corpuscular Hemoglobin Concent 32 g/dL (31-37) Red Cell Distribution Width 16.0 % (11.5-14.5) Platelet Count 207 x10^3/uL (140-400) Neutrophils (%) (Auto) 89 % (31-73) Lymphocytes (%) (Auto) 8 % (24-48) Monocytes (%) (Auto) 3 % (0-9) Eosinophils (%) (Auto) 0 % (0-3) Basophils (%) (Auto) 0 % (0-3) Neutrophils # (Auto) 10.8 x10^3/uL (1.8-7.7) Lymphocytes # (Auto) 0.9 x10^3/uL (1.0-4.8) Monocytes # (Auto) 0.4 x10^3/uL (0.0-1.1) Eosinophils # (Auto) 0.0 x10^3/uL (0.0-0.7) Basophils # (Auto) 0.0 x10^3/uL (0.0-0.2) Sodium Level 142 mmol/L (136-145) Potassium Level 4.6 mmol/L (3.5-5.1) Chloride Level 103 mmol/L (98-107) Carbon Dioxide Level 29 mmol/L (21-32) Anion Gap 10 (6-14) Blood Urea Nitrogen 29 mg/dL (7-20) Creatinine 1.4 mg/dL (0.6-1.0) Estimated GFR (Cockcroft-Gault) 43.6 Glucose Level 136 mg/dL (70-99) Calcium Level 8.7 mg/dL (8.5-10.1) Assessment/Plan Assessment/Plan Assessment: Extensive stage small cell lung cancer Bone metastasis Acute on chronic hypoxic respiratory failure COVID-19 pneumonia COPD, and exacerbation Normocytic anemia Recommendations: -Continue supportive care for COPD per pulmonology recommendations -No evidence of cancer progression noted on recently obtaining CT scans. Plan to continue with current therapy -Will arrange outpatient medical oncology follow-up to continue atezolizumab maintenance treatment. -Rest per Dr. Tj Tirado MD Medical Oncology/Hematology Ph: [phone] OUSMANE TIRADO MD May 11, 2021 14:39
[2021-05-11 15:00] VITALS: BP 108/68
[2021-05-11 19:00] VITALS: BP 103/69
[2021-05-11] MEDS: MONTELUKAST SODIUM 10 MG TABLET. PO SCH (20:39)
[2021-05-11] MEDS: AMITRIPTYLINE HCL 25 MG TABLET. PO SCH (20:39)
[2021-05-11] MEDS: ALPRAZolam 0.25 MG TABLET PO PRN (20:39)
[2021-05-11] MEDS: traMADol 50 MG TABLET PO PRN (20:39)
[2021-05-11 23:00] VITALS: BP 138/83
[2021-05-12 03:00] VITALS: BP 121/67
[2021-05-12] MEDS: IPRATRPIUM/ALBUTEROL 0.5/2.5MG 3 ML NEBU. NEB SCH ×4 (06:09→18:29)
[2021-05-12 07:00] VITALS: BP 121/69
[2021-05-12] MEDS: DICYCLOMINE HCL 10 MG CAPSULE PO SCH (07:54)
[2021-05-12] MEDS: PANTOPRAZOLE 40 MG TABLET.DR. PO SCH (07:54)
[2021-05-12] MEDS: POLYETHYLENE GLYCOL 3350 17 GM PACKET. PO SCH (07:54)
[2021-05-12] MEDS: MAGNESIUM OXIDE 400 MG TABLET PO SCH (07:54)
[2021-05-12] MEDS: LOSARTAN POTASSIUM 25 MG TABLET. PO SCH (07:55)
[2021-05-12] MEDS: HEPARIN for SUB-Q USE 5,000 UNIT/ML VIAL. SQ SCH ×2 (07:58→23:00)
[2021-05-12] MEDS ORDERED: predniSONE 10 MG TABLET PO ONE (09:00)
--- NOTE | 2021-05-12 10:43 | PDOC ---
PULMONARY PROGRESS NOTES DATE: 05/12/21 TIME: 10:43 Subjective Patient with no new symptoms Patient is resting comfortably in bed on 3.5 L nasal cannula, denies shortness of breath, reports nonproductive cough States that she is overall feeling better today Afebrile, no overnight concerns Vitals Vital Signs Date Time Temp Pulse Resp B/P (MAP) Pulse Ox O2 Delivery O2 Flow Rate FiO2 05/12/21 08:00 Nasal Cannula 2.0 05/12/21 07:55 84 121/67 05/12/21 07:00 98.4 18 94 98.4 ROS: No Nausea, No Chest Pain, No Abdominal Pain General: Alert, No acute distress Lungs: Clear, Crackles Cardiovascular: S1, S2 Abdomen: Soft Neuro Exam: Alert Extremities: No Edema Skin: Warm Medications Active Scripts Medications Dose Route/Sig Max Daily Dose Days Date Category Prednisone 20 Mg Tablet 1 Tab PO DAILY 05/03/21 Rx Alprazolam 0.25 Mg Tablet 0.25 Mg PO PRN Q8HRS PRN 30 04/27/21 Rx Combivent Respimat Inhal (Ipratropium/Albuterol Sulfate) 4 Gm Aer.w.adap 1 Puff INH RTQID 30 04/27/21 Rx Magnesium Oxide 400 Mg Tablet 1 Tab PO DAILY 04/04/21 Reported Singulair Tablet (Montelukast Sodium) 10 Mg Tablet 10 Mg PO HS 04/04/21 Reported Pantoprazole Sodium 40 Mg Tablet.dr 40 Mg PO DAILY 04/04/21 Reported Benzonatate 100 Mg Capsule 1 Cap PO TID PRN 01/02/21 Reported Proair Hfa Inhaler (Albuterol Sulfate) 8.5 Gm Hfa.aer.ad 2 Puff IH PRN Q4HRS PRN 21 01/02/21 Reported Dicyclomine Hcl 10 Mg Capsule 20 Mg PO DAILY 10/23/19 Reported Tramadol Hcl 50 Mg Tablet 50 Mg PO Q6HRS PRN 07/17/17 Reported Norvasc (Amlodipine Besylate) 5 Mg Tablet 5 Mg PO DAILY 07/17/17 Reported Losartan Potassium (Losartan Potassium) 25 Mg Tablet 25 Mg PO DAILY 07/17/17 Reported Amitriptyline Hcl 50 Mg Tablet 25 Mg PO HS 07/17/[address] CHEST IMPRESSION: No pulmonary embolus identified. 1.0 cm nodule in the right lobe of the thyroid gland. This can be further evaluated with ultrasound on a nonemergent basis. Moderate size hiatal hernia. Mild dilatation of the ascending thoracic aorta at 3.5 cm. Diffuse emphysematous changes bilaterally. Increased diffuse interstitial and groundglass opacities bilaterally throughout the lung buitrago with a small left pleural effusion evident. Increased parenchymal changes in the left upper lobe peripherally and perihilar left upper lobe probably related to patient's lung cancer and to superimposed diffuse increased interstitial and alveolar infiltrates. 2.3 cm cyst in the upper pole the left kidney. Impression . IMPRESSION: 1. Abnormal CT chest revealing increasing ground glass opacities and increased interstitial infiltrates compatible with combination of underlying chronic obstructive pulmonary disease, acute respiratory distress syndrome from previous COVID and changes related to radiation. 2. Chronic respiratory failure. 3. Acute exacerbation of chronic obstructive pulmonary disease. 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 5. Repeat SARS-CoV-2 testing negative. 6. Chronic renal insufficiency. 7. Chronic anemia. Plan . Updated 05/12 Patient working with PT, improving Refer to [facility] Prednisone taper slowly Continue supplemental oxygen to keep oxygen saturation greater than 92%, curr ently on 3.5 L nasal cannula Bronchodilators Repeat CT of chest in 2 to 3 months Physical therapy/Occupational Therapy Discussed with RN DVT/GI prophylaxis: Protonix/subcutaneous heparin Updated 05/10 Patient feels better today Discussed with daughter at the bedside Continue steroids Repeat CT in 2 to 3 months half-way unit evaluation PLAN: 1. Recommend steroids for possible BOOP, we will slowly taper. 2. No need for antibiotics. 3. Continue oxygen supplementation. 4. DVT prophylaxis. 5. Nebulized treatments. 6. Repeat CT chest in 2-3 months. MARIBEL VOGT MD May 12, 2021 10:43
[2021-05-12 11:00] VITALS: BP 110/64
--- NOTE | 2021-05-12 11:44 | NUR ---
SW following. Discussed with RN, referral was sent to [facility], pt accepted pending insurance auth. Family aware. SW will continue to follow.
--- NOTE | 2021-05-12 12:39 | PDOC ---
PROGRESS NOTES Date of Service: DATE: 05/12/21 TIME: 12:37 Subjective Subjective SOB with minimal exertion Objective Objective Vital Signs Date Time Temp Pulse Resp B/P (MAP) Pulse Ox O2 Delivery O2 Flow Rate FiO2 05/12/21 11:47 98 Nasal Cannula 2.0 05/12/21 11:00 98.1 69 18 110/64 (79) 98.1 Intake and Output 05/12/21 07:00 Intake Total 120 ml Output Total 200 ml Balance -80 ml Intake Oral 120 ml Output Urine Total 200 ml Physical Exam Abdomen: Soft Heart: Normal S1, Normal S2 Extremities: No clubbing General: Oriented X3 Lungs: Normal air movement MUSCULOSKELETAL: No swelling Neck: No JVD Neuro: Normal speech Skin: No breakdown Diagnosis Problem List Problems Medical Problems: (1) Acute respiratory failure with hypoxia Status: Acute Assessment Assessment Problems Medical Problems: (1) Acute respiratory failure with hypoxia Status: Acute IMPRESSION: 1. Exacerbation of chronic obstructive pulmonary disease. 2. Acute on chronic respiratory failure. 3. Recent COVID-19 pneumonia. 4. Small cell lung cancer. 5. Hypertension. 6. Physical deconditioning. PLAN: MAR screen ,severe deconditioning. changed to oral prednisone spoke with becky enid ashwinid test -ve. cxr /ct scan reviewed -scarring from covid +copd Plan Plan of Care Problems Medical Problems: (1) Acute respiratory failure with hypoxia Status: Acute Comment Review of Relevant I have reviewed the following items ankit (where applicable) has been applied. Medications Current Medications Prednisone (Prednisone) 10 mg DAILY PO ; Start 05/15/21 at 09:00 Prednisone (Prednisone) 20 mg DAILY PO ; Start 05/14/21 at 09:00 Prednisone (Prednisone) 30 mg 1X ONCE PO ; Start 05/13/21 at 09:00; Stop at 09:01 Prednisone (Prednisone) 50 mg 1X ONCE PO Last administered on 05/12/21at 07:55; Start 05/12/21 at 09:00; Stop 05/12/21 at 09:01; Status DC Vitals/I & O Vital Sign - Last 24 Hours 05/11/21 05/11/21 05/11/21 05/11/21 15:00 19:00 20:40 23:00 Temp 98.7 97.9 98.1 98.7 97.9 98.1 Pulse 115 78 109 Resp 18 22 B/P (MAP) 108/68 (81) 103/69 (80) 138/83 (101) Pulse Ox 100 99 99 O2 Delivery Nasal Cannula Nasal Cannula O2 Flow Rate 5.0 3.0 05/12/21 05/12/21 05/12/21 05/12/21 03:00 06:10 07:00 07:55 Temp 98.0 98.4 98.0 98.4 Pulse 84 78 84 Resp 16 18 B/P (MAP) 121/67 (85) 121/69 (86) 121/67 Pulse Ox 98 98 94 O2 Delivery Nasal Cannula O2 Flow Rate 2.0 05/12/21 05/12/21 05/12/21 05/12/21 07:55 08:00 11:00 11:47 Temp 98.1 98.1 Pulse 84 69 Resp 18 B/P (MAP) 121/67 110/64 (79) Pulse Ox 97 98 O2 Delivery Nasal Cannula Nasal Cannula O2 Flow Rate 2.0 2.0 Intake and Output 05/11/21 05/11/21 05/12/21 15:00 23:00 07:00 Intake Total 120 ml Output Total 200 ml Balance 120 ml -200 ml Justifications for Admission Other Justification WALKER DAVILA MD May 12, 2021 12:39
[2021-05-12 15:00] VITALS: BP 123/71
[2021-05-12 19:00] VITALS: BP 107/64
[2021-05-12 22:44] VITALS: BP 110/66
[2021-05-12] MEDS: AMITRIPTYLINE HCL 25 MG TABLET. PO SCH (22:57)
[2021-05-12] MEDS: traMADol 50 MG TABLET PO PRN (22:57)
[2021-05-12] MEDS: MONTELUKAST SODIUM 10 MG TABLET. PO SCH (22:57)
[2021-05-12] MEDS: ALPRAZolam 0.25 MG TABLET PO PRN (22:58)
[2021-05-13 02:43] VITALS: BP 137/74
[2021-05-13 07:00] VITALS: BP 108/64
[2021-05-13] MEDS: POLYETHYLENE GLYCOL 3350 17 GM PACKET. PO SCH (07:34)
[2021-05-13] MEDS: IPRATRPIUM/ALBUTEROL 0.5/2.5MG 3 ML NEBU. NEB SCH ×4 (08:03→20:30)
[2021-05-13] MEDS: DICYCLOMINE HCL 10 MG CAPSULE PO SCH (08:07)
[2021-05-13] MEDS: PANTOPRAZOLE 40 MG TABLET.DR. PO SCH (08:07)
[2021-05-13] MEDS: MAGNESIUM OXIDE 400 MG TABLET PO SCH (08:08)
[2021-05-13] MEDS: LOSARTAN POTASSIUM 25 MG TABLET. PO SCH (08:08)
[2021-05-13] MEDS: HEPARIN for SUB-Q USE 5,000 UNIT/ML VIAL. SQ SCH ×2 (08:19→21:15)
[2021-05-13] MEDS ORDERED: predniSONE 10 MG TABLET PO ONE (09:00)
--- NOTE | 2021-05-13 09:06 | PDOC ---
PROGRESS NOTES Date of Service: DATE: 05/13/21 TIME: 09:04 Subjective Subjective comfortable in bed Objective Objective Vital Signs Date Time Temp Pulse Resp B/P (MAP) Pulse Ox O2 Delivery O2 Flow Rate FiO2 05/13/21 08:10 74 108/64 05/13/21 08:04 100 Nasal Cannula 2.0 05/13/21 07:00 98.1 16 98.1 Intake and Output 05/13/21 07:00 # Voids 2 # Bowel Movements 1 Physical Exam Abdomen: Soft Heart: Normal S1, Normal S2 Extremities: No clubbing General: Oriented X3 Lungs: Normal air movement MUSCULOSKELETAL: No swelling Neck: No JVD Neuro: Normal speech Skin: No breakdown Diagnosis Problem List Problems Medical Problems: (1) Acute respiratory failure with hypoxia Status: Acute Assessment Assessment Problems Medical Problems: (1) Acute respiratory failure with hypoxia Status: Acute IMPRESSION: 1. Exacerbation of chronic obstructive pulmonary disease. 2. Acute on chronic respiratory failure. 3. Recent COVID-19 pneumonia. 4. Small cell lung cancer. 5. Hypertension. 6. Physical deconditioning. PLAN:oxygen 4 L N/C Waiting for insurence to give OK to go to [facility]. [facility] accepted pt ,severe deconditioning. changed to oral prednisone spoke with case enid jaqueline test -ve. cxr /ct scan reviewed -scarring from covid +copd Plan Plan of Care Problems Medical Problems: (1) Acute respiratory failure with hypoxia Status: Acute Comment Review of Relevant I have reviewed the following items anikt (where applicable) has been applied. Medications Current Medications Prednisone (Prednisone) 10 mg DAILY PO ; Start 05/15/21 at 09:00 Prednisone (Prednisone) 20 mg DAILY PO ; Start 05/14/21 at 09:00 Prednisone (Prednisone) 30 mg 1X ONCE PO Last administered on 05/13/21at 08:08; Start 05/13/21 at 09:00; Stop 05/13/21 at 09:01; Status DC Vitals/I & O Vital Sign - Last 24 Hours 05/12/21 05/12/21 05/12/21 05/12/21 11:00 11:47 15:00 15:36 Temp 98.1 98.0 98.1 98.0 Pulse 69 72 Resp 18 18 B/P (MAP) 110/64 (79) 123/71 (88) Pulse Ox 97 98 96 97 O2 Delivery Nasal Cannula Nasal Cannula O2 Flow Rate 2.0 2.0 05/12/21 05/12/21 05/12/21 05/12/21 18:30 19:00 22:44 23:00 Temp 97.9 97.9 97.9 97.9 Pulse 78 74 Resp 17 17 B/P (MAP) 107/64 (78) 110/66 (81) Pulse Ox 99 98 98 O2 Delivery Nasal Cannula Nasal Cannula Nasal Cannula Nasal Cannula O2 Flow Rate 2.0 2.0 2.0 2.0 05/13/21 05/13/21 05/13/21 05/13/21 02:43 07:00 08:00 08:04 Temp 97.8 98.1 97.8 98.1 Pulse 86 74 Resp 18 16 B/P (MAP) 137/74 (95) 108/64 (79) Pulse Ox 95 100 O2 Delivery Nasal Cannula Nasal Cannula Nasal Cannula Nasal Cannula O2 Flow Rate 2.0 5.0 2.0 2.0 05/13/21 05/13/21 08:08 08:10 Pulse 74 74 B/P (MAP) 108/64 108/64 Justifications for Admission Other Justification WALKER DAVILA MD May 13, 2021 09:06
--- NOTE | 2021-05-13 09:35 | PDOC ---
PULMONARY PROGRESS NOTES DATE: 05/13/21 TIME: 09:35 Subjective Sitting up eating lunch patient with no new symptoms Patient is resting comfortably in bed on 3.5 L nasal cannula, denies shortness of breath, reports nonproductive cough States that she is overall feeling better today Afebrile, no overnight concerns Vitals Vital Signs Date Time Temp Pulse Resp B/P (MAP) Pulse Ox O2 Delivery O2 Flow Rate FiO2 05/13/21 08:10 74 108/64 05/13/21 08:04 100 Nasal Cannula 2.0 05/13/21 07:00 98.1 16 98.1 ROS: No Nausea, No Chest Pain, No Abdominal Pain General: Alert, No acute distress Lungs: Clear, Crackles Cardiovascular: S1, S2 Abdomen: Soft Neuro Exam: Alert Extremities: No Edema Skin: Warm Medications Active Scripts Medications Dose Route/Sig Max Daily Dose Days Date Category Prednisone 20 Mg Tablet 1 Tab PO DAILY 05/03/21 Rx Alprazolam 0.25 Mg Tablet 0.25 Mg PO PRN Q8HRS PRN 30 04/27/21 Rx Combivent Respimat Inhal (Ipratropium/Albuterol Sulfate) 4 Gm Aer.w.adap 1 Puff INH RTQID 30 04/27/21 Rx Magnesium Oxide 400 Mg Tablet 1 Tab PO DAILY 04/04/21 Reported Singulair Tablet (Montelukast Sodium) 10 Mg Tablet 10 Mg PO HS 04/04/21 Reported Pantoprazole Sodium 40 Mg Tablet.dr 40 Mg PO DAILY 04/04/21 Reported Benzonatate 100 Mg Capsule 1 Cap PO TID PRN 01/02/21 Reported Proair Hfa Inhaler (Albuterol Sulfate) 8.5 Gm Hfa.aer.ad 2 Puff IH PRN Q4HRS PRN 21 01/02/21 Reported Dicyclomine Hcl 10 Mg Capsule 20 Mg PO DAILY 10/23/19 Reported Tramadol Hcl 50 Mg Tablet 50 Mg PO Q6HRS PRN 07/17/17 Reported Norvasc (Amlodipine Besylate) 5 Mg Tablet 5 Mg PO DAILY 07/17/17 Reported Losartan Potassium (Losartan Potassium) 25 Mg Tablet 25 Mg PO DAILY 07/17/17 Reported Amitriptyline Hcl 50 Mg Tablet 25 Mg PO HS 07/17/[address] CHEST IMPRESSION: No pulmonary embolus identified. 1.0 cm nodule in the right lobe of the thyroid gland. This can be further evaluated with ultrasound on a nonemergent basis. Moderate size hiatal hernia. Mild dilatation of the ascending thoracic aorta at 3.5 cm. Diffuse emphysematous changes bilaterally. Increased diffuse interstitial and groundglass opacities bilaterally throughout the lung buitrago with a small left pleural effusion evident. Increased parenchymal changes in the left upper lobe peripherally and perihilar left upper lobe probably related to patient's lung cancer and to superimposed diffuse increased interstitial and alveolar infiltrates. 2.3 cm cyst in the upper pole the left kidney. Impression . IMPRESSION: 1. Abnormal CT chest revealing increasing ground glass opacities and increased interstitial infiltrates compatible with combination of underlying chronic obstructive pulmonary disease, acute respiratory distress syndrome from previous COVID and changes related to radiation. 2. Chronic respiratory failure. 3. Acute exacerbation of chronic obstructive pulmonary disease. 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 5. Repeat SARS-CoV-2 testing negative. 6. Chronic renal insufficiency. 7. Chronic anemia. Plan . Updated 05/13 Continue oxygen supplementation Bronchodilators Repeat CT chest in 2 to 3 months Awaiting insurance for approval to [facility] rehab Updated 05/12 Patient working with PT, improving Refer to [facility] Prednisone taper slowly Continue supplemental oxygen to keep oxygen saturation greater than 92%, currently on 3.5 L nasal cannula Bronchodilators Repeat CT of chest in 2 to 3 months Physical therapy/Occupational Therapy Discussed with RN DVT/GI prophylaxis: Protonix/subcutaneous heparin MARIBEL VOGT MD May 13, 2021 09:35
[2021-05-13 11:00] VITALS: BP 111/67
--- NOTE | 2021-05-13 11:37 | NUR ---
RENEE following. Discussed with RN, still pending insurance for [facility]. RENEE spoke with pt's daughter, Rosetta- if insurance denies acute rehab, family wants to take the pt home with [facility] rather than try SNF in [place]. Dr. Spencer notified. RENEE will continue to follow. Addendum: 05/13/21 at 1510 by JEANNE DURAN Insurance denied acute rehab. Pt accepted with [facility]. RENEE requested [facility] visit with pt at home to do DPOA paperwork if pt is more clear at home. Rosetta contacted [facility] [employer] per RENEE advisement, RENEE spoke with [facility] (ph: [phone]), they will try to connect with Rosetta when pt is home and perhaps more clear also. They may assist with getting some home based services arranged as well. Dr. Spencer notified of discharge plan. Possible discharge over the weekend per Dr. Spencer.
[2021-05-13] MEDS: traMADol 50 MG TABLET PO PRN ×2 (12:45→22:46)
[2021-05-13] MEDS ORDERED: dilTIAZem HCL 30 MG TABLET PO SCH ×2 (14:10→14:15)
[2021-05-13 15:00] VITALS: BP 102/61
[2021-05-13] MEDS ORDERED: MAGNESIUM HYDROXIDE 2,400 MG/30 ML ORAL.SUSP. PO PRN (17:30)
[2021-05-13] MEDS ORDERED: BUPIVACAINE MPF 0.25% 10 ML VIAL. IJ ONE (17:30)
[2021-05-13] MEDS ORDERED: TRIAMCINOLONE ACETONIDE 40 MG/ML VIAL. INT ART ONE (17:45)
--- NOTE | 2021-05-13 17:48 | PDOC4 ---
PROCEDURE Procedure At her request,I have injected painful left knee joint under aseptic skin te chnique with alcohol skin prep,using 2 ml of 0.25% marcaine solution mixed with 1 ml of triamcinilone acetonide 40 mg/ 1 ml solution and shje tolerated the procedure satisfactorily without any side effects NAVEEN WEEMS MD May 13, 2021 17:48
--- NOTE | 2021-05-13 18:07 | NUR ---
Dr. Mariee administered prescribed injectable medications to the patient at approximately 1730
[2021-05-13 19:00] VITALS: BP 110/55
[2021-05-13] MEDS: MINERAL OIL/PETROLATUM TOPICAL CREAM 113GM JAR. TP SCH (21:00)
[2021-05-13] MEDS: DICLOFENAC SODIUM 1% TOPICAL GEL 100GM TUBE. TP SCH (21:11)
[2021-05-13] MEDS: MONTELUKAST SODIUM 10 MG TABLET. PO SCH (21:11)
[2021-05-13] MEDS: AMITRIPTYLINE HCL 25 MG TABLET. PO SCH (21:11)
--- NOTE | 2021-05-13 21:39 | CONS ---
DATE OF CONSULTATION: 05/13/2021 LOCATION: She is in room 500. ATTENDING PHYSICIAN: Gaurav Spencer MD REASON FOR CONSULTATION: The patient was seen at the request of Dr. Spencer for rehab evaluation. HISTORY OF PRESENT ILLNESS: This is an 80-year-old female with known carcinoma of the lung, chronic obstructive pulmonary disease and chronic respiratory failure, on nasal cannula oxygen at 4 liters per minute and was recently treated for COVID-19 pneumonia and discharged to home on 05/03/2021, admitted on 05/08/2021, having increasing dyspnea despite using oxygen at 4 liters per minute and she is getting more weak. She was found in the Emergency Room negative for influenza A and B and SARS-CoV-2 antigen rapid as well as PCR test. CTA of the chest revealed no pulmonary embolism. Again, 1 cm nodule in the right lower lobe of the thyroid gland, moderate sized hiatal hernia, mild dilatation of the ascending thoracic aorta at 3.5 cm, diffuse emphysematous changes, increasing diffuse interstitial and ground glass opacities bilaterally throughout the lung buitrago with a small left pleural effusion, increased parenchymal changes in the left upper lobe peripherally and perihilar left upper lobe, probably related to patient's lung carcinoma and superimposed diffuse increased interstitial and alveolar infiltrate and 2.3 cm cyst in the upper pole in the left kidney. Because of her worsening acute respiratory failure and exacerbation of chronic obstructive pulmonary disease, she has been admitted and she has been getting treatment. The patient is being evaluated for transfer to inpatient rehab unit, but apparently her insurance company did not approve it. Plans for her to go home with home health. She started having left knee pain interfering with her mobility. The patient denies any back pain at present time. The patient is constipated for 2 days. Nursing staff reports of her not eating much. PAST MEDICAL HISTORY: Also includes hypertension. ALLERGIES: She is not known allergic to any medications. SOCIAL HISTORY: She lives with her family in [facility], has few steps to manage their previous surgery for hernia. PHYSICAL EXAMINATION: GENERAL: Today revealed an elderly female. She is alert, oriented to time, place, person and circumstance, follows commands appropriately. NEUROLOGIC: Moves all 4 extremities voluntarily where she had 4+/5 grade muscle strength. Deep tendon reflexes are decreased overall with absent knee and ankle jerks and she had equal perception of touch and pinprick sensation bilaterally. She had minimal tenderness to palpation over sacroiliac joint area. Straight leg raising test is negative bilaterally. She had pain free range of motion of both hip joints. She had crepitus on range of motion of her knee joint with mild knee joint effusion and mild laxity of knee joint collateral ligaments. She had dry scaly skin of her feet and legs. She is independent rolling from side to side. I have not tested her transfers or ambulation skills at present time, but she apparently got up and walked for a few feet at bedside with physical therapy this morning. Her physical endurance seems to be low. She admits some numbness in her hands, but I did not see any significant changes in sensation. Negative Tinel sign over median nerve at the wrist and elbow and over ulnar nerve at the wrist and elbow. She had mild thenar eminence muscle atrophy. ASSESSMENT: The patient with chronic respiratory failure in a patient with known chronic obstructive pulmonary disease, carcinoma of lung and a recent COVID-19 pneumonia earlier this month, treated, clinical evidence of peripheral neuropathy, obesity, degenerative joint disease of both knees. RECOMMENDATIONS: To proceed with injecting painful left knee joint to help ease her pain. I have instructed an isometric strengthening exercise to her lower extremity muscle groups. Home when medically stable with home health followup. Dr. Spencer, I appreciate asking me to participate in the care of this interesting patient. I will be glad to see her for followup with you on as needed basis. HUONG/ANDRADE MOBLEY: Kosta TID: [id number]
[2021-05-13 23:00] VITALS: BP 118/64
[2021-05-14 03:11] VITALS: BP 126/69
[2021-05-14 07:00] VITALS: BP 119/70
[2021-05-14] MEDS: IPRATRPIUM/ALBUTEROL 0.5/2.5MG 3 ML NEBU. NEB SCH ×4 (07:19→19:40)
--- NOTE | 2021-05-14 07:45 | PDOC ---
PULMONARY PROGRESS NOTES DATE: 05/14/21 TIME: 07:44 Subjective on 02 sob better has occ cough on home 02 3lpm Vitals Vital Signs Date Time Temp Pulse Resp B/P (MAP) Pulse Ox O2 Delivery O2 Flow Rate FiO2 05/14/21 07:20 100 Nasal Cannula 2.0 05/14/21 03:11 97.9 74 20 126/69 (88) 97.9 ROS: No Nausea, No Chest Pain, No Abdominal Pain General: Alert, No acute distress Lungs: Clear, Crackles Cardiovascular: S1, S2 Abdomen: Soft Neuro Exam: Alert Extremities: No Edema Skin: Warm Medications Active Scripts Medications Dose Route/Sig Max Daily Dose Days Date Category Prednisone 20 Mg Tablet 1 Tab PO DAILY 05/03/21 Rx Alprazolam 0.25 Mg Tablet 0.25 Mg PO PRN Q8HRS PRN 30 04/27/21 Rx Combivent Respimat Inhal (Ipratropium/Albuterol Sulfate) 4 Gm Aer.w.adap 1 Puff INH RTQID 30 04/27/21 Rx Magnesium Oxide 400 Mg Tablet 1 Tab PO DAILY 04/04/21 Reported Singulair Tablet (Montelukast Sodium) 10 Mg Tablet 10 Mg PO HS 04/04/21 Reported Pantoprazole Sodium 40 Mg Tablet.dr 40 Mg PO DAILY 04/04/21 Reported Benzonatate 100 Mg Capsule 1 Cap PO TID PRN 01/02/21 Reported Proair Hfa Inhaler (Albuterol Sulfate) 8.5 Gm Hfa.aer.ad 2 Puff IH PRN Q4HRS PRN 21 01/02/21 Reported Dicyclomine Hcl 10 Mg Capsule 20 Mg PO DAILY 10/23/19 Reported Tramadol Hcl 50 Mg Tablet 50 Mg PO Q6HRS PRN 07/17/17 Reported Norvasc (Amlodipine Besylate) 5 Mg Tablet 5 Mg PO DAILY 07/17/17 Reported Losartan Potassium (Losartan Potassium) 25 Mg Tablet 25 Mg PO DAILY 07/17/17 Reported Amitriptyline Hcl 50 Mg Tablet 25 Mg PO HS 07/17/[address] CHEST IMPRESSION: No pulmonary embolus identified. 1.0 cm nodule in the right lobe of the thyroid gland. This can be further evaluated with ultrasound on a nonemergent basis. Moderate size hiatal hernia. Mild dilatation of the ascending thoracic aorta at 3.5 cm. Diffuse emphysematous changes bilaterally. Increased diffuse interstitial and groundglass opacities bilaterally throughout the lung buitrago with a small left pleural effusion evident. Increased parenchymal changes in the left upper lobe peripherally and perihilar left upper lobe probably related to patient's lung cancer and to superimposed diffuse increased interstitial and alveolar infiltrates. 2.3 cm cyst in the upper pole the left kidney. Impression . IMPRESSION: 1. Abnormal CT chest revealing increasing ground glass opacities and increased interstitial infiltrates compatible with combination of underlying chronic obstructive pulmonary disease, acute respiratory distress syndrome from previous COVID and changes related to radiation. 2. Chronic respiratory failure. 3. Acute exacerbation of chronic obstructive pulmonary disease. 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 5. Repeat SARS-CoV-2 testing negative. 6. Chronic renal insufficiency. 7. Chronic anemia. Plan . 05/[address] in 2-3 mo w fu w pulm group BD increase activity await placement Updated 05/13 Continue oxygen supplementation Bronchodilators Repeat CT chest in 2 to 3 months Awaiting insurance for approval to [facility] rehab Updated 05/12 Patient working with PT, improving Refer to [facility] Prednisone taper slowly Continue supplemental oxygen to keep oxygen saturation greater than 92%, currently on 3.5 L nasal cannula Bronchodilators Repeat CT of chest in 2 to 3 months Physical therapy/Occupational Therapy Discussed with RN DVT/GI prophylaxis: Protonix/subcutaneous heparin ROSARIO CASAS MD May 14, 2021 07:45
[2021-05-14] MEDS: MAGNESIUM OXIDE 400 MG TABLET PO SCH (08:05)
[2021-05-14] MEDS: PANTOPRAZOLE 40 MG TABLET.DR. PO SCH (08:07)
[2021-05-14] MEDS: LOSARTAN POTASSIUM 25 MG TABLET. PO SCH (08:07)
[2021-05-14] MEDS: DICYCLOMINE HCL 10 MG CAPSULE PO SCH (08:08)
[2021-05-14] MEDS: POLYETHYLENE GLYCOL 3350 17 GM PACKET. PO SCH (08:11)
[2021-05-14] MEDS: BISACODYL 5 MG TABLET.DR. PO SCH (08:11)
[2021-05-14] MEDS: HEPARIN for SUB-Q USE 5,000 UNIT/ML VIAL. SQ SCH ×2 (08:17→20:40)
[2021-05-14] MEDS: DICLOFENAC SODIUM 1% TOPICAL GEL 100GM TUBE. TP SCH ×2 (09:00→20:47)
[2021-05-14] MEDS: MINERAL OIL/PETROLATUM TOPICAL CREAM 113GM JAR. TP SCH ×2 (09:00→20:48)
[2021-05-14] MEDS ORDERED: predniSONE 20 MG TABLET PO SCH (09:00)
--- NOTE | 2021-05-14 10:53 | PDOC ---
PROGRESS NOTES Date of Service DATE: 05/14/21 TIME: 10:50 Subjective Subjective She feels better with her left knee pain but remains constipated. Objective Objective Vital Signs Date Time Temp Pulse Resp B/P (MAP) Pulse Ox O2 Delivery O2 Flow Rate FiO2 05/14/21 08:07 72 119/70 05/14/21 08:00 Nasal Cannula 2.0 05/14/21 07:20 100 05/14/21 07:00 98.1 18 98.1 Intake and Output 05/14/21 07:00 Intake Total 460 ml Output Total 0 ml Balance 460 ml Intake Oral 460 ml Output Urine Total 0 ml # Voids 2 Physical Exam Physical Exam She is alert,supine in bed and moves all 4 extremities to commands. I spoke to . Assessment Assessment Problems Medical Problems: (1) Acute respiratory failure with hypoxia Status: Acute Plan Plan of Care Agree with plans for home with home health follow up when medically stable. Comment Review of Relevant I have reviewed the following items ankit (where applicable) has been applied. Medications Current Medications Famotidine (Pepcid Vial) 20 mg 1X ONCE IVP Last administered on 05/08/21at 10:51; Start 05/08/21 at 10:30; Stop 05/08/21 at 10:31; Status DC Iohexol (Omnipaque 350 Mg/ml) 80 ml 1X ONCE IV Last administered on 05/08/21at 12:30; Start 05/08/21 at 12:30; Stop 05/08/21 at 12:34; Status DC Info (CONTRAST GIVEN -- Rx MONITORING) 1 each PRN DAILY PRN MC SEE COMMENTS; Start 05/08/21 at 12:45; Stop 05/10/21 at 12:44; Status DC Dexamethasone Sodium Phosphate (Decadron) 10 mg 1X ONCE IVP Last administered on 05/08/21at 16:04; Start 05/08/21 at 15:45; Stop 05/08/21 at 15:46; Status DC Albuterol Sulfate (Ventolin Neb Soln) 2.5 mg PRN Q4HRS PRN NEB WHEEZING; Start 05/08/21 at 19:30 Alprazolam (Xanax) 0.25 mg PRN Q8HRS PRN PO ANXIETY / AGITATION Last admini stered on 05/12/21at 22:58; Start 05/08/21 at 19:30 Amlodipine Besylate (Norvasc) 5 mg DAILY PO Last administered on 05/14/21at 0 8:06; Start 05/09/21 at 09:00 Benzonatate (Tessalon Perle) 100 mg PRN TID PRN PO COUGH Last administered on 05/10/21 08:16; Start 05/08/21 at 19:30 Dicyclomine HCl (Bentyl) 20 mg DAILY PO Last administered on 05/14/21at 08:08; Start 05/09/21 at 09:00 Losartan Potassium (Cozaar) 25 mg DAILY PO Last administered on 05/14/21 08:07; Start 05/09/21 at 09:00 Magnesium Oxide (Magnesium Oxide) 400 mg DAILY PO Last administered on 05/14/21 08:05; Start 05/09/21 at 09:00 Montelukast Sodium (Singulair) 10 mg HS PO Last administered on 05/13/21 21:11; Start 05/08/21 at 21:00 Pantoprazole Sodium (Protonix) 40 mg DAILYAC PO Last administered on 05/14/21 08:07; Start 05/09/21 at 07:30 Prednisone (Prednisone) 20 mg DAILY PO Last administered on 05/09/21 08:18; Start 05/09/21 at 09:00; Stop 05/09/21 at 11:22; Status DC Tramadol HCl (Ultram) 50 mg PRN Q6HRS PRN PO MODERATE-SEVERE PAIN Last administered on 05/13/21 22:46; Start 05/08/21 at 19:30 Amitriptyline HCl (Elavil) 25 mg QHS PO Last administered on 05/13/21 21:11; Start 05/08/21 at 21:00 Albuterol/ Ipratropium (Duoneb) 3 ml RTQID NEB Last administered on 05/14/21 07:19; Start 05/08/21 at 20:00 Acetaminophen (Tylenol) 650 mg PRN Q6HRS PRN PO MILD PAIN / TEMP > 100.3'F; Start 05/09/21 at 08:45 Heparin Sodium (Porcine) (Heparin Sodium) 5,000 unit Q12HR SQ Last administered on 2/25/22at 21:15; Start 05/09/21 at 09:00 Methylprednisolone Sodium Succinate (SOLU-Medrol 40MG VIAL) 40 mg 1X ONCE IV Last administered on 05/09/21at 11:48; Start 05/09/21 at 10:00; Stop 05/09/21 at 10:01; Status DC Polyethylene Glycol (miraLAX PACKET) 17 gm DAILY PO Last administered on 05/14/21at 08:11; Start 05/09/21 at 10:00 Bisacodyl (Dulcolax Supp) 10 mg PRN DAILY PRN HI CONSTIPATION; Start 05/09/21 at 09:45 Methylprednisolone Sodium Succinate (SOLU-Medrol 125MG VIAL) 125 mg Q8HRS IV Last administered on 05/11/21at 05:57; Start 05/09/21 at 14:00; Stop 05/11/21 at 12:13; Status DC Prednisone (Prednisone) 50 mg 1X ONCE PO Last administered on 05/12/21at 07:55; Start 05/12/21 at 09:00; Stop 05/12/21 at 09:01; Status DC Prednisone (Prednisone) 30 mg 1X ONCE PO Last administered on 05/13/21at 08:08; Start 05/13/21 at 09:00; Stop 05/13/21 at 09:01; Status DC Prednisone (Prednisone) 20 mg DAILY PO Last administered on 05/14/21at 08:06; Start 05/14/21 at 09:00; Stop 05/14/21 at 09:01; Status DC Prednisone (Prednisone) 10 mg DAILY PO ; Start 05/15/21 at 09:00 Diltiazem HCl (Cardizem) 120 mg Q8HRS PO ; Start 05/13/21 at 14:10; Stop 05/13/21 at 14:15; Status DC Diltiazem HCl (Cardizem) 120 mg DAILY PO ; Start 05/13/21 at 14:15; Stop 05/13/21 at 14:21; Status DC Diltiazem HCl (Cardizem 24hr Cd) 120 mg DAILY PO Last administered on 05/14/21at 08:05; Start 05/13/21 at 14:30 Triamcinolone Acetonide (Kenalog-40) 40 mg 1X ONCE INT ART ; Start 05/13/21 at 17:45; Stop 05/13/21 at 17:46; Status DC Bupivacaine HCl (Sensorcaine-Mpf 0.25%) 10 ml 1X ONCE IJ ; Start 05/13/21 at 17:30; Stop 05/13/21 at 17:31; Status DC Multi-Ingredient Ointment (Hydrocerin, Eucerin Cream) 1 miles BID TP Last adm inistered on 05/14/21at 09:00; Start 05/13/21 at 21:00 Magnesium Hydroxide (Milk Of Magnesia) 2,400 mg PRN DAILY PRN PO CONSTIPATION; Start 05/13/21 at 17:30 Bisacodyl (Dulcolax Tab) 10 mg DAILY PO Last administered on 05/14/21at 08:11; Start 05/14/21 at 09:00 Diclofenac Sodium (Voltaren) 1 miles BID TP Last administered on 05/13/21at 21:11; Start 05/13/21 at 21:00 Active Scripts Active Prednisone 20 Mg Tablet 1 Tab PO DAILY Alprazolam 0.25 Mg Tablet 0.25 Mg PO PRN Q8HRS PRN 30 Days Combivent Respimat Inhal (Ipratropium/Albuterol Sulfate) 4 Gm Aer.w.adap 1 Puff INH RTQID 30 Days Reported Magnesium Oxide 400 Mg Tablet 1 Tab PO DAILY Singulair Tablet (Montelukast Sodium) 10 Mg Tablet 10 Mg PO HS Pantoprazole Sodium 40 Mg Tablet.dr 40 Mg PO DAILY Benzonatate 100 Mg Capsule 1 Cap PO TID PRN Proair Hfa Inhaler (Albuterol Sulfate) 8.5 Gm Hfa.aer.ad 2 Puff IH PRN Q4HRS PRN 21 Days Dicyclomine Hcl 10 Mg Capsule 20 Mg PO DAILY Tramadol Hcl 50 Mg Tablet 50 Mg PO Q6HRS PRN Norvasc (Amlodipine Besylate) 5 Mg Tablet 5 Mg PO DAILY Losartan Potassium (Losartan Potassium) 25 Mg Tablet 25 Mg PO DAILY Amitriptyline Hcl 50 Mg Tablet 25 Mg PO HS Vitals/I & O Vital Sign - Last 24 Hours 05/13/21 05/13/21 05/13/21 05/13/21 11:00 11:18 12:45 13:16 Temp 97.9 97.9 Pulse 114 Resp 20 B/P (MAP) 111/67 (82) Pulse Ox 97 97 97 O2 Delivery Nasal Cannula Nasal Cannula Nasal Cannula Nasal Cannula O2 Flow Rate 5.0 2.0 2.0 2.0 05/13/21 05/13/21 05/13/21 05/13/21 14:25 15:00 19:00 20:00 Temp 98.0 97.6 98.0 97.6 Pulse 114 96 91 Resp 20 20 B/P (MAP) 111/67 102/61 (75) 110/55 (73) Pulse Ox 98 94 O2 Delivery Nasal Cannula Nasal Cannula Nasal Cannula O2 Flow Rate 5.0 4.0 2.5 05/13/21 05/13/21 05/13/21 05/13/21 20:32 22:46 23:00 23:59 Temp 97.7 97.7 Pulse 85 Resp 20 B/P (MAP) 118/64 (82) Pulse Ox 100 100 95 O2 Delivery Nasal Cannula Nasal Cannula Nasal Cannula Nasal Cannula O2 Flow Rate 2.5 2.5 4.0 05/14/21 05/14/21 05/14/21 05/14/21 03:11 07:00 07:20 08:00 Temp 97.9 98.1 97.9 98.1 Pulse 74 72 Resp 20 18 B/P (MAP) 126/69 (88) 119/70 (86) Pulse Ox 96 98 100 O2 Delivery Nasal Cannula Nasal Cannula Nasal Cannula Nasal Cannula O2 Flow Rate 4.0 4.0 2.0 2.0 05/14/21 05/14/21 05/14/21 08:05 08:06 08:07 Pulse 72 72 72 B/P (MAP) 119/70 119/70 119/70 Intake and Output 0 05/13/21 05/13/21 05/14/21 15:00 23:00 07:00 Intake Total 60 ml 400 ml Output Total 0 ml 0 ml Balance 0 ml 60 ml 400 ml Justifications for Admission Other Justification NAVEEN WEEMS MD May 14, 2021 10:53
[2021-05-14 11:00] VITALS: BP 135/67
--- NOTE | 2021-05-14 11:39 | PDOC ---
PROGRESS NOTES Date of Service: DATE: 05/14/21 TIME: 11:37 Subjective Subjective feels better, want to go home later today Objective Objective Vital Signs Date Time Temp Pulse Resp B/P (MAP) Pulse Ox O2 Delivery O2 Flow Rate FiO2 05/14/21 11:24 97 Nasal Cannula 1.5 05/14/21 08:07 72 119/70 05/14/21 07:00 98.1 18 98.1 Intake and Output0 05/14/21 07:00 Intake Total 460 ml Output Total 0 ml Balance 460 ml Intake Oral 460 ml Output Urine Total 0 ml # Voids 2 Physical Exam Abdomen: Soft Heart: Normal S1, Normal S2 Extremities: No clubbing General: Oriented X3 Lungs: Normal air movement MUSCULOSKELETAL: No swelling Neck: No JVD Neuro: Normal speech Skin: No breakdown Diagnosis Problem List Problems Medical Problems: (1) Acute respiratory failure with hypoxia Status: Acute Assessment Assessment Problems Medical Problems: (1) Acute respiratory failure with hypoxia Status: Acute IMPRESSION: 1. Exacerbation of chronic obstructive pulmonary disease. 2. Acute on chronic respiratory failure. 3. Recent COVID-19 pneumonia. 4. Small cell lung cancer. 5. Hypertension. 6. Physical deconditioning. PLAN:d/c home with home health Tachycardia yesterday ,placed on cardizam , today hr 80 oxygen 2 L N/C insurence denied MAY/SNU. got cortisone inj to knee, helped her pain changed to oral prednisone spoke with case enid christophertracey test -ve. cxr /ct scan reviewed -scarring from covid +copd Plan Plan of Care Problems Medical Problems: (1) Acute respiratory failure with hypoxia Status: Acute Comment Review of Relevant I have reviewed the following items ankit (where applicable) has been applied. Medications Current Medications Bisacodyl (Dulcolax Tab) 10 mg DAILY PO Last administered on 05/14/21at 08:11; Start 05/14/21 at 09:00 Bupivacaine HCl (Sensorcaine-Mpf 0.25%) 10 ml 1X ONCE IJ ; Start 05/13/21 at 17:30; Stop 05/13/21 at 17:31; Status DC Diclofenac Sodium (Voltaren) 1 miles BID TP Last administered on 05/13/21at 21:11; Start 05/13/21 at 21:00 Diltiazem HCl (Cardizem 24hr Cd) 120 mg DAILY PO Last administered on 05/14/21at 08:05; Start 05/13/21 at 14:30 Diltiazem HCl (Cardizem) 120 mg DAILY PO ; Start 05/13/21 at 14:15; Stop 05/13/21 at 14:21; Status DC Diltiazem HCl (Cardizem) 120 mg Q8HRS PO ; Start 05/13/21 at 14:10; Stop 05/13/21 at 14:15; Status DC Magnesium Hydroxide (Milk Of Magnesia) 2,400 mg PRN DAILY PRN PO CONSTIPATION; Start 05/13/21 at 17:30 Multi-Ingredient Ointment (Hydrocerin, Eucerin Cream) 1 miles BID TP Last administered on 05/14/21at 09:00; Start 05/13/21 at 21:00 Prednisone (Prednisone) 10 mg DAILY PO ; Start 05/15/21 at 09:00 Prednisone (Prednisone) 20 mg DAILY PO Last administered on 05/14/21at 08:06; Start 05/14/21 at 09:00; Stop 05/14/21 at 09:01; Status DC Triamcinolone Acetonide (Kenalog-40) 40 mg 1X ONCE INT ART ; Start 05/13/21 at 17:45; Stop 05/13/21 at 17:46; Status DC Vitals/I & O Vital Sign - Last 24 Hours 05/13/21 05/13/21 05/13/21 05/13/21 12:45 13:16 14:25 15:00 Temp 98.0 98.0 Pulse 114 96 Resp 20 B/P (MAP) 111/67 102/61 (75) Pulse Ox 97 97 98 O2 Delivery Nasal Cannula Nasal Cannula Nasal Cannula O2 Flow Rate 2.0 2.0 5.0 05/13/21 05/13/21 05/13/21 05/13/21 19:00 20:00 20:32 22:46 Temp 97.6 97.6 Pulse 91 Resp 20 B/P (MAP) 110/55 (73) Pulse Ox 94 100 100 O2 Delivery Nasal Cannula Nasal Cannula Nasal Cannula Nasal Cannula O2 Flow Rate 4.0 2.5 2.5 2.5 05/13/21 05/13/21 05/14/21 05/14/21 23:00 23:59 03:11 07:00 Temp 97.7 97.9 98.1 97.7 97.9 98.1 Pulse 85 74 72 Resp 20 20 18 B/P (MAP) 118/64 (82) 126/69 (88) 119/70 (86) Pulse Ox 95 96 98 O2 Delivery Nasal Cannula Nasal Cannula Nasal Cannula Nasal Cannula O2 Flow Rate 4.0 4.0 4.0 05/14/21 05/14/21 05/14/21 05/14/21 07:20 08:00 08:05 08:06 Pulse 72 72 B/P (MAP) 119/70 119/70 Pulse Ox 100 O2 Delivery Nasal Cannula Nasal Cannula O2 Flow Rate 2.0 2.0 05/14/21 05/14/21 08:07 11:24 Pulse 72 B/P (MAP) 119/70 Pulse Ox 97 O2 Delivery Nasal Cannula O2 Flow Rate 1.5 Intake and Output 05/13/21 05/13/21 05/14/21 15:00 23:00 07:00 Intake Total 60 ml 400 ml Output Total 0 ml 0 ml Balance 0 ml 60 ml 400 ml Justifications for Admission Other Justification WALKER DAVILA MD May 14, 2021 11:39
[2021-05-14] MEDS ORDERED: DILT120C99 PO (11:42)
--- NOTE | 2021-05-14 11:43 | SNU/HH DC ---
DISCHARGE WITH HOME HEALTH DISCHARGE INFORMATION: Discharge Date: May 14, 2021 Final Diagnosis: Problems Medical Problems: (1) Acute respiratory failure with hypoxia Status: Acute Condition on Discharge: Stable CODE STATUS: Code Status: Full HOME HEALTH: Face to Face: I certify this patient is under my care and that I, or a nurse practitioner or physician's assistant women's basketball coach working with me, had a face to face encounter that meets the physician face to face encounter requirements with this patient on []. RN For Eval/Treatment: Yes Physical Therapy For: Evalulation/Treatment Occupational Therapy For: Evaluation/Treatment PLANT RELIABILITY ENGINEER For: Community Resources Pt Meets Homebound Status: Poor coordination w/ amb. POST DISCHARGE ORDERS: Activity Instructions for Disc: Activity as tolerated Weight Bearing Status after Di: No restrictions Bathing Instructions: Shower-keep dressing dry DIET AFTER DISCHARGE: Cardiac Wound/Incision Care: Ice to area for comfort CHECKS AFTER DISCHARGE: Checks after discharge: Check blood press - daily TREATMENT/EQUIPMENT ORDERS: Adaptive Equipment Issued: None, Wheelchair Discharge Respiratory Equipmen: Oxygen CERTIFICATION STATEMENT: Certification Statement: Certification Statement: Based on the above finding, I certify that this patient is confined to the home and needs intermittent alf care, physical therapy and/or speech therapy, or continues to need occupational therapy.~ This patient is under my care, and I have initiated the establishment of the plan of care.~ This patient will be followed by myself or a community physician who will periodically review the plan of care. Home Meds Active Scripts Diltiazem Hcl (DILTIAZEM 24HR CD) 120 Mg Cap.er.24h, 120 MG PO DAILY for htn for 30 Days, #30 CAP.SR Prov:WALKER DAVILA MD 05/14/21 Prednisone (PREDNISONE) 20 Mg Tablet, 1 TAB PO DAILY for copd, #10 TAB Prov:WALKER DAVILA MD 05/03/21 Alprazolam (ALPRAZOLAM) 0.25 Mg Tablet, 0.25 MG PO PRN Q8HRS PRN for ANXIETY / AGITATION for 30 Days, TAB Prov:WALKER DAVILA MD 04/27/21 Ipratropium/Albuterol Sulfate (COMBIVENT RESPIMAT INHAL) 4 Gm Aer.w.adap, 1 PUFF INH RTQID for copd for 30 Days, INH Prov:WALKER DAVILA MD 04/27/21 Reported Medications Magnesium Oxide (MAGNESIUM OXIDE) 400 Mg Tablet, 1 TAB PO DAILY for SUPPLEMENT , #30 TAB 5 Refills 04/04/21 Montelukast Sodium (SINGULAIR TABLET ) 10 Mg Tablet, 10 MG PO HS for FOR ASTHMA, TAB 0 Refills 04/04/21 Pantoprazole Sodium (Pantoprazole Sodium) 40 Mg Tablet.dr, 40 MG PO DAILY for GERD, TAB.SR 04/04/21 Benzonatate (BENZONATATE) 100 Mg Capsule, 1 CAP PO TID PRN for cough 01/02/21 Albuterol Sulfate (PROAIR HFA INHALER) 8.5 Gm Hfa.aer.ad, 2 PUFF IH PRN Q4HRS PRN for wheezing for 21 Days, #1 INHALER 0 Refills 01/02/21 Dicyclomine Hcl (DICYCLOMINE HCL) 10 Mg Capsule, 20 MG PO DAILY for pain, CAP 10/23/19 Tramadol Hcl (TRAMADOL HCL) 50 Mg Tablet, 50 MG PO Q6HRS PRN for PAIN, TAB 07/17/17 Amlodipine Besylate (NORVASC) 5 Mg Tablet, 5 MG PO DAILY, TAB 07/17/17 Losartan Potassium (LOSARTAN POTASSIUM ) 25 Mg Tablet, 25 MG PO DAILY for htn, TAB 07/17/17 Amitriptyline Hcl (AMITRIPTYLINE HCL) 50 Mg Tablet, 25 MG PO HS for sleep aid, TAB 07/17/17 WALKER DAVILA MD May 14, 2021 11:43
--- NOTE | 2021-05-14 13:56 | NUR ---
While patient was getting her knee xray she started to de-sat, patient was in the low 80's, advised radiology team to turn patients oxygen up to 5L. during that time patient was sitting on the edge of the bed and still at 83-84% on the 5L. Page to Dr Spencer, advised him of the situation and that this nurse does not advise patient discharging home with home health today, agreeable with plan. Call to daughter, she happened to be in patients room. Face to face with daughter and advised her of the situation as well and how this nurse was not comfortable discharging her home today. verbalized understanding. no other needs.
[2021-05-14 15:00] VITALS: BP 110/67
--- NOTE | 2021-05-14 16:03 | RAD ---
Exam performed: X-ray bilateral knees. HISTORY: Pain. DATE OF SERVICE: September 11, 2021. COMPARISON: None available Findings and impression: Single AP view of bilateral knees demonstrates mild narrowing of the left medial tibiofemoral joint. Normal alignment of the right medial and lateral tibiofemoral joint is seen. There is no acute fract ure or dislocation. No soft tissue swelling is identified. Electronically signed by: Carissa Bains MD (05/14/2021 4:01 PM) [facility]
[2021-05-14 19:00] VITALS: BP 112/60
[2021-05-14] MEDS: AMITRIPTYLINE HCL 25 MG TABLET. PO SCH (20:39)
[2021-05-14] MEDS: ALPRAZolam 0.25 MG TABLET PO PRN (20:39)
[2021-05-14] MEDS: MONTELUKAST SODIUM 10 MG TABLET. PO SCH (20:39)
[2021-05-14] MEDS: traMADol 50 MG TABLET PO PRN (20:41)
[2021-05-14 22:50] VITALS: BP 114/63
[2021-05-15 03:25] VITALS: BP 109/59
[2021-05-15 07:00] VITALS: BP 134/70
--- NOTE | 2021-05-15 07:07 | PDOC ---
PULMONARY PROGRESS NOTES DATE: 05/15/21 TIME: 07:07 Subjective on 02 sob better has occ cough on home 02 3lpm Vitals Vital Signs Date Time Temp Pulse Resp B/P (MAP) Pulse Ox O2 Delivery O2 Flow Rate FiO2 05/15/21 03:25 97.7 71 17 109/59 (76) 100 Nasal Cannula 4.0 97.7 ROS: No Nausea, No Chest Pain, No Abdominal Pain General: Alert, No acute distress Lungs: Clear, Crackles Cardiovascular: S1, S2 Abdomen: Soft Neuro Exam: Alert Extremities: No Edema Skin: Warm Medications Active Scripts Medications Dose Route/Sig Max Daily Dose Days Date Category Prednisone 20 Mg Tablet 1 Tab PO DAILY 05/03/21 Rx Alprazolam 0.25 Mg Tablet 0.25 Mg PO PRN Q8HRS PRN 30 04/27/21 Rx Combivent Respimat Inhal (Ipratropium/Albuterol Sulfate) 4 Gm Aer.w.adap 1 Puff INH RTQID 30 04/27/21 Rx Magnesium Oxide 400 Mg Tablet 1 Tab PO DAILY 04/04/21 Reported Singulair Tablet (Montelukast Sodium) 10 Mg Tablet 10 Mg PO HS 04/04/21 Reported Pantoprazole Sodium 40 Mg Tablet.dr 40 Mg PO DAILY 04/04/21 Reported Benzonatate 100 Mg Capsule 1 Cap PO TID PRN 01/02/21 Reported Proair Hfa Inhaler (Albuterol Sulfate) 8.5 Gm Hfa.aer.ad 2 Puff IH PRN Q4HRS PRN 21 01/02/21 Reported Dicyclomine Hcl 10 Mg Capsule 20 Mg PO DAILY 10/23/19 Reported Tramadol Hcl 50 Mg Tablet 50 Mg PO Q6HRS PRN 07/17/17 Reported Norvasc (Amlodipine Besylate) 5 Mg Tablet 5 Mg PO DAILY 07/17/17 Reported Losartan Potassium (Losartan Potassium) 25 Mg Tablet 25 Mg PO DAILY 07/17/17 Reported Amitriptyline Hcl 50 Mg Tablet 25 Mg PO HS 07/17/[address] CHEST IMPRESSION: No pulmonary embolus identified. 1.0 cm nodule in the right lobe of the thyroid gland. This can be further evaluated with ultrasound on a nonemergent basis. Moderate size hiatal hernia. Mild dilatation of the ascending thoracic aorta at 3.5 cm. Diffuse emphysematous changes bilaterally. Increased diffuse interstitial and groundglass opacities bilaterally throughout the lung buitrago with a small left pleural effusion evident. Increased parenchymal changes in the left upper lobe peripherally and perihilar left upper lobe probably related to patient's lung cancer and to superimposed diffuse increased interstitial and alveolar infiltrates. 2.3 cm cyst in the upper pole the left kidney. Impression . IMPRESSION: 1. Abnormal CT chest revealing increasing ground glass opacities and increased interstitial infiltrates compatible with combination of underlying chronic obstructive pulmonary disease, acute respiratory distress syndrome from previous COVID and changes related to radiation. 2. Chronic respiratory failure. 3. Acute exacerbation of chronic obstructive pulmonary disease. 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 5. Repeat SARS-CoV-2 testing negative. 6. Chronic renal insufficiency. 7. Chronic anemia. Plan . 05/15 01 titration on home fu ct in 2-3 mo w fu w pulm group BD increase activity await placement 05/[address] in 2-3 mo w fu w pulm group BD increase activity await placement Updated 05/13 Continue oxygen supplementation Bronchodilators Repeat CT chest in 2 to 3 months Awaiting insurance for approval to [facility] rehab Updated 05/12 Patient working with PT, [facility] taper slowly Continue supplemental oxygen to keep oxygen saturation greater than 92%, currently on 3.5 L nasal cannula Bronchodilators Repeat CT of chest in 2 to 3 months Physical therapy/Occupational Therapy Discussed with RN DVT/GI prophylaxis: Protonix/subcutaneous heparin ROSARIO CASAS MD May 15, 2021 07:07
[2021-05-15] MEDS: IPRATRPIUM/ALBUTEROL 0.5/2.5MG 3 ML NEBU. NEB SCH ×4 (08:00→19:33)
[2021-05-15] MEDS: MINERAL OIL/PETROLATUM TOPICAL CREAM 113GM JAR. TP SCH ×2 (09:00→20:47)
[2021-05-15] MEDS: DICLOFENAC SODIUM 1% TOPICAL GEL 100GM TUBE. TP SCH ×2 (09:00→20:46)
[2021-05-15] MEDS: POLYETHYLENE GLYCOL 3350 17 GM PACKET. PO SCH (09:00)
--- NOTE | 2021-05-15 09:29 | PDOC ---
IM PROGRESS NOTES- Subjective Subjective Complaints of weakness. Dyspnea is improving. Objective Vitals/I&O Vital Signs Date Time Temp Pulse Resp B/P (MAP) Pulse Ox O2 Delivery O2 Flow Rate FiO2 05/15/21 07:00 98.0 77 18 134/70 (91) 100 Nasal Cannula 4.0 98.0 I & O 05/14/21 05/14/21 05/15/21 15:00 23:00 07:00 Intake Total 200 ml Balance 200 ml Physical Exam Physical Exam General Appearance - alert and in no distress Chest - decreased breath sounds at bases Heart - S1 and S2 normal Abdomen - soft, non tender Neurological - alert and oriented Musculoskeletal - generalized weakness Extremities - no edema Assessment Assessment Problems Medical Problems: (1) Acute respiratory failure with hypoxia Status: Acute IMPRESSION: 1. Exacerbation of chronic obstructive pulmonary disease. 2. Acute on chronic respiratory failure. 3. Recent COVID-19 pneumonia. 4. Small cell lung cancer. 5. Hypertension. 6. Physical deconditioning. PLAN: oxygen 4 L N/C She had an injection with steroids in the left knee and this is helping her pain. Continue oral prednisone. covid test -ve. cxr /ct scan reviewed -scarring from covid +copd Plan Plan For more details regarding further plans, please refer to the orders. Justifications for Admission Other Justification DAV MENDEZ MD May 15, 2021 09:29
[2021-05-15] MEDS: PANTOPRAZOLE 40 MG TABLET.DR. PO SCH (09:35)
[2021-05-15] MEDS: DICYCLOMINE HCL 10 MG CAPSULE PO SCH (09:36)
[2021-05-15] MEDS: MAGNESIUM OXIDE 400 MG TABLET PO SCH (09:36)
[2021-05-15] MEDS: LOSARTAN POTASSIUM 25 MG TABLET. PO SCH (09:37)
[2021-05-15] MEDS: predniSONE 10 MG TABLET PO SCH (09:37)
[2021-05-15] MEDS: BISACODYL 5 MG TABLET.DR. PO SCH (09:38)
[2021-05-15] MEDS: HEPARIN for SUB-Q USE 5,000 UNIT/ML VIAL. SQ SCH ×2 (09:46→20:47)
[2021-05-15 11:00] VITALS: BP 109/62
[2021-05-15 15:00] VITALS: BP 97/50
[2021-05-15 19:33] VITALS: BP 114/61
[2021-05-15] MEDS: AMITRIPTYLINE HCL 25 MG TABLET. PO SCH (20:46)
[2021-05-15] MEDS: traMADol 50 MG TABLET PO PRN (20:46)
[2021-05-15] MEDS: BENZONATATE 100 MG CAPSULE. PO PRN (20:46)
[2021-05-15] MEDS: ALPRAZolam 0.25 MG TABLET PO PRN (20:46)
[2021-05-15] MEDS: MONTELUKAST SODIUM 10 MG TABLET. PO SCH (20:46)
[2021-05-15 22:30] VITALS: BP 117/64
[2021-05-16 02:39] VITALS: BP 117/68
[2021-05-16 07:00] VITALS: BP 113/71
[2021-05-16] MEDS: IPRATRPIUM/ALBUTEROL 0.5/2.5MG 3 ML NEBU. NEB SCH ×2 (08:13→12:00)
[2021-05-16] MEDS: DICYCLOMINE HCL 10 MG CAPSULE PO SCH (08:32)
[2021-05-16] MEDS: MAGNESIUM OXIDE 400 MG TABLET PO SCH (08:32)
[2021-05-16] MEDS: LOSARTAN POTASSIUM 25 MG TABLET. PO SCH (08:32)
[2021-05-16] MEDS: predniSONE 10 MG TABLET PO SCH (08:33)
[2021-05-16] MEDS: BISACODYL 5 MG TABLET.DR. PO SCH (08:33)
[2021-05-16] MEDS: HEPARIN for SUB-Q USE 5,000 UNIT/ML VIAL. SQ SCH (08:34)
[2021-05-16] MEDS: POLYETHYLENE GLYCOL 3350 17 GM PACKET. PO SCH (08:35)
[2021-05-16] MEDS: PANTOPRAZOLE 40 MG TABLET.DR. PO SCH (08:35)
[2021-05-16] MEDS: MINERAL OIL/PETROLATUM TOPICAL CREAM 113GM JAR. TP SCH (08:37)
[2021-05-16] MEDS: DICLOFENAC SODIUM 1% TOPICAL GEL 100GM TUBE. TP SCH (08:37)
--- NOTE | 2021-05-16 09:12 | PDOC ---
PULMONARY PROGRESS NOTES DATE: 05/16/21 TIME: 09:08 Subjective The patient was slightly sob on room air this morning, uses 3L NC at home, she was using bedside commode at the time. She is scheduled to go home with home health today, will use home oxygen continuous. No overnight concerns. Vitals Vital Signs Date Time Temp Pulse Resp B/P (MAP) Pulse Ox O2 Delivery O2 Flow Rate FiO2 05/16/21 08:33 78 113/71 05/16/21 08:17 99 Nasal Cannula 3.0 05/16/21 02:39 98.1 18 98.1 ROS: No Nausea, No Chest Pain, No Abdominal Pain General: Alert, No acute distress Lungs: Clear, Crackles Cardiovascular: S1, S2 Abdomen: Soft Neuro Exam: Alert Extremities: No Edema Skin: Warm Medications Active Scripts Medications Dose Route/Sig Max Daily Dose Days Date Category Prednisone 20 Mg Tablet 1 Tab PO DAILY 05/03/21 Rx Alprazolam 0.25 Mg Tablet 0.25 Mg PO PRN Q8HRS PRN 30 04/27/21 Rx Combivent Respimat Inhal (Ipratropium/Albuterol Sulfate) 4 Gm Aer.w.adap 1 Puff INH RTQID 30 04/27/21 Rx Magnesium Oxide 400 Mg Tablet 1 Tab PO DAILY 04/04/21 Reported Singulair Tablet (Montelukast Sodium) 10 Mg Tablet 10 Mg PO HS 04/04/21 Reported Pantoprazole Sodium 40 Mg Tablet.dr 40 Mg PO DAILY 04/04/21 Reported Benzonatate 100 Mg Capsule 1 Cap PO TID PRN 01/02/21 Reported Proair Hfa Inhaler (Albuterol Sulfate) 8.5 Gm Hfa.aer.ad 2 Puff IH PRN Q4HRS PRN 21 01/02/21 Reported Dicyclomine Hcl 10 Mg Capsule 20 Mg PO DAILY 10/23/19 Reported Tramadol Hcl 50 Mg Tablet 50 Mg PO Q6HRS PRN 07/17/17 Reported Norvasc (Amlodipine Besylate) 5 Mg Tablet 5 Mg PO DAILY 07/17/17 Reported Losartan Potassium (Losartan Potassium) 25 Mg Tablet 25 Mg PO DAILY 07/17/17 Reported Amitriptyline Hcl 50 Mg Tablet 25 Mg PO HS 07/17/[address] CHEST IMPRESSION: No pulmonary embolus identified. 1.0 cm nodule in the right lobe of the thyroid gland. This can be further evaluated with ultrasound on a nonemergent basis. Moderate size hiatal hernia. Mild dilatation of the ascending thoracic aorta at 3.5 cm. Diffuse emphysematous changes bilaterally. Increased diffuse interstitial and groundglass opacities bilaterally throughout the lung buitrago with a small left pleural effusion evident. Increased parenchymal changes in the left upper lobe peripherally and perihilar left upper lobe probably related to patient's lung cancer and to superimposed diffuse increased interstitial and alveolar infiltrates. 2.3 cm cyst in the upper pole the left kidney. Impression . IMPRESSION: 1. Abnormal CT chest revealing increasing ground glass opacities and increased interstitial infiltrates compatible with combination of underlying chronic obstructive pulmonary disease, acute respiratory distress syndrome from previous COVID and changes related to radiation. 2. Chronic respiratory failure. 3. Acute exacerbation of chronic obstructive pulmonary disease. 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 5. Repeat SARS-CoV-2 testing negative. 6. Chronic renal insufficiency. 7. Chronic anemia. Plan . Updated 05/16 Currently on 3L; home O2 level Will discharge today to home with home health Continue pulmonary hygiene at home follow up with pulmonary group in 2-3 months 05/15 02 titration on home [address] in 2-3 mo w fu w pulm group BD increase activity await placement 05/[address] in 2-3 mo w fu w pulm group BD increase activity await placement Updated 05/13 Continue oxygen supplementation Bronchodilators Repeat CT chest in 2 to 3 months Awaiting insurance for approval to [facility] rehab Updated 05/12 Patient working with PT, improving Refer to [facility] Prednisone taper slowly Continue supplemental oxygen to keep oxygen saturation greater than 92%, currently on 3.5 L nasal cannula Bronchodilators Repeat CT of chest in 2 to 3 months Physical therapy/Occupational Therapy Discussed with RN DVT/GI prophylaxis: Protonix/subcutaneous heparin MARIBEL VOGT MD May 16, 2021 09:12
--- NOTE | 2021-05-16 09:22 | PDOC ---
PROGRESS NOTES Date of Service: DATE: 05/16/21 TIME: 09:21 Subjective Subjective feels stronger, want to go home Objective Objective Vital Signs Date Time Temp Pulse Resp B/P (MAP) Pulse Ox O2 Delivery O2 Flow Rate FiO2 05/16/21 08:33 78 113/71 05/16/21 08:17 99 Nasal Cannula 3.0 05/16/21 07:00 98.1 18 98.1 Intake and Output 05/16/21 07:00 Intake Total 660 ml Balance 660 ml Intake Oral 660 ml # Voids 1 # Bowel Movements 3 Physical Exam Abdomen: Soft Heart: Normal S1, Normal S2 Extremities: No clubbing General: Oriented X3 Lungs: Normal air movement MUSCULOSKELETAL: No swelling Neck: No JVD Neuro: Normal speech Skin: No breakdown Diagnosis Problem List Problems Medical Problems: (1) Acute respiratory failure with hypoxia Status: Acute Assessment Assessment Problems Medical Problems: (1) Acute respiratory failure with hypoxia Status: Acute IMPRESSION: 1. Exacerbation of chronic obstructive pulmonary disease. 2. Acute on chronic respiratory failure. 3. Recent COVID-19 pneumonia. 4. Small cell lung cancer. 5. Hypertension. 6. Physical deconditioning. PLAN: d/c home with home health oxygen 2-4 L N/C She had an injection with steroids in the left knee and this is helping her pain. Continue oral prednisone. covid test -ve. cxr /ct scan reviewed -scarring from covid +copd Plan Plan of Care Problems Medical Problems: (1) Acute respiratory failure with hypoxia Status: Acute Comment Review of Relevant I have reviewed the following items ankit (where applicable) has been applied. Vitals/I & O Vital Sign - Last 24 Hours 05/15/21 05/15/21 05/15/21 05/15/21 09:36 09:37 09:37 11:00 Temp 98.0 98.0 Pulse 77 77 77 99 Resp 18 B/P (MAP) 134/70 134/70 134/70 109/62 (78) Pulse Ox 100 O2 Delivery Nasal Cannula O2 Flow Rate 4.0 05/15/21 05/15/21 05/15/21 05/15/21 11:35 15:00 19:33 20:00 Temp 98.3 98.2 98.3 98.2 Pulse 76 86 Resp 18 18 B/P (MAP) 97/50 (66) 114/61 (78) Pulse Ox 100 99 98 O2 Delivery Nasal Cannula Nasal Cannula Nasal Cannula Nasal Cannula O2 Flow Rate 3.0 4.0 3.0 2.0 05/15/21 05/15/21 05/15/21 05/16/21 20:46 21:16 22:30 02:39 Temp 98.6 98.1 98.6 98.1 Pulse 77 70 Resp 18 18 18 18 B/P (MAP) 117/64 (81) 117/68 (84) Pulse Ox 98 98 99 100 O2 Delivery Nasal Cannula Nasal Cannula Nasal Cannula Nasal Cannula O2 Flow Rate 3.0 3.0 3.0 3.0 05/16/21 05/16/21 05/16/21 05/16/21 07:00 08:00 08:17 08:32 Temp 98.1 98.1 Pulse 78 78 Resp 18 B/P (MAP) 113/71 (85) 113/71 Pulse Ox 100 99 O2 Delivery Nasal Cannula Nasal Cannula Nasal Cannula O2 Flow Rate 3.0 3.0 3.0 05/16/21 05/16/21 08:33 08:33 Pulse 78 78 B/P (MAP) 113/71 113/71 Intake and Output 05/15/21 05/15/21 05/16/21 15:00 23:00 07:00 Intake Total 360 ml 300 ml Balance 360 ml 300 ml Justifications for Admission Other Justification WALKER DAVILA MD May 16, 2021 09:22
[2021-05-16] MEDS ORDERED: PRED-220 PO (09:24)
--- NOTE | 2021-05-16 10:21 | PDOC ---
PROGRESS NOTES Date of Service DATE: 05/16/21 TIME: 10:19 Subjective Subjective She feels better. Objective Objective Vital Signs Date Time Temp Pulse Resp B/P (MAP) Pulse Ox O2 Delivery O2 Flow Rate FiO2 05/16/21 08:33 78 113/71 05/16/21 08:17 99 Nasal Cannula 3.0 05/16/21 07:00 98.1 18 98.1 Intake and Output 05/16/21 07:00 Intake Total 660 ml Balance 660 ml Intake Oral 660 ml # Voids 1 # Bowel Movements 3 Physical Exam Physical Exam She is alert,supine in bed and she moves all 4 extremities actively. X-ray of knees revealed narrowing of medial knee joint line,left>right. Assessment Assessment Problems Medical Problems: (1) Acute respiratory failure with hypoxia Status: Acute Plan Plan of Care Agree with plans for home with home health follow up when medically stable. Comment Review of Relevant I have reviewed the following items ankit (where applicable) has been applied. Medications Current Medications Famotidine (Pepcid Vial) 20 mg 1X ONCE IVP Last administered on 05/08/21at 10:51; Start 05/08/21 at 10:30; Stop 05/08/21 at 10:31; Status DC Iohexol (Omnipaque 350 Mg/ml) 80 ml 1X ONCE IV Last administered on 05/08/21at 12:30; Start 05/08/21 at 12:30; Stop 05/08/21 at 12:34; Status DC Info (CONTRAST GIVEN -- Rx MONITORING) 1 each PRN DAILY PRN MC SEE COMMENTS; Start 05/08/21 at 12:45; Stop 05/10/21 at 12:44; Status DC Dexamethasone Sodium Phosphate (Decadron) 10 mg 1X ONCE IVP Last administered on 05/08/21at 16:04; Start 05/08/21 at 15:45; Stop 05/08/21 at 15:46; Status DC Albuterol Sulfate (Ventolin Neb Soln) 2.5 mg PRN Q4HRS PRN NEB WHEEZING; Start 05/08/21 at 19:30 Alprazolam (Xanax) 0.25 mg PRN Q8HRS PRN PO ANXIETY / AGITATION Last administered on 05/15/21at 20:46; Start 05/08/21 at 19:30 Amlodipine Besylate (Norvasc) 5 mg DAILY PO Last administered on 05/16/21 08:33; Start 05/09/21 at 09:00 Benzonatate (Tessalon Perle) 100 mg PRN TID PRN PO COUGH Last administered on 05/15/21 20:46; Start 05/08/21 at 19:30 Dicyclomine HCl (Bentyl) 20 mg DAILY PO Last administered on 05/16/21 08:32; Start 05/09/21 at 09:00 Losartan Potassium (Cozaar) 25 mg DAILY PO Last administered on 05/16/21 08:32; Start 05/09/21 at 09:00 Magnesium Oxide (Magnesium Oxide) 400 mg DAILY PO Last administered on 05/16/21 08:32; Start 05/09/21 at 09:00 Montelukast Sodium (Singulair) 10 mg HS PO Last administered on 05/15/21 20:46; Start 05/08/21 at 21:00 Pantoprazole Sodium (Protonix) 40 mg DAILYAC PO Last administered on 05/16/21 08:35; Start 05/09/21 at 07:30 Prednisone (Prednisone) 20 mg DAILY PO Last administered on 05/09/21 08:18; Start 05/09/21 at 09:00; Stop 05/09/21 at 11:22; Status DC Tramadol HCl (Ultram) 50 mg PRN Q6HRS PRN PO MODERATE-SEVERE PAIN Last administered on 05/15/21 20:46; Start 05/08/21 at 19:30 Amitriptyline HCl (Elavil) 25 mg QHS PO Last administered on 05/15/21 20:46; Start 05/08/21 at 21:00 Albuterol/ Ipratropium (Duoneb) 3 ml RTQID NEB Last administered on 05/16/21 08:13; Start 05/08/21 at 20:00 Acetaminophen (Tylenol) 650 mg PRN Q6HRS PRN PO MILD PAIN / TEMP > 100.3'F; Start 05/09/21 at 08:45 Heparin Sodium (Porcine) (Heparin Sodium) 5,000 unit Q12HR SQ Last administered on 05/16/21 08:34; Start 05/09/21 at 09:00 Methylprednisolone Sodium Succinate (SOLU-Medrol 40MG VIAL) 40 mg 1X ONCE IV Last administered on 05/09/21at 11:48; Start 05/09/21 at 10:00; Stop 05/09/21 at 10:01; Status DC Polyethylene Glycol (miraLAX PACKET) 17 gm DAILY PO Last administered on 05/14/21at 08:11; Start 05/09/21 at 10:00 Bisacodyl (Dulcolax Supp) 10 mg PRN DAILY PRN DE CONSTIPATION; Start 05/09/21 at 09:45 Methylprednisolone Sodium Succinate (SOLU-Medrol 125MG VIAL) 125 mg Q8HRS IV Last administered on 05/11/21at 05:57; Start 05/09/21 at 14:00; Stop 05/11/21 at 12:13; Status DC Prednisone (Prednisone) 50 mg 1X ONCE PO Last administered on 05/12/21at 07:55; Start 05/12/21 at 09:00; Stop 05/12/21 at 09:01; Status DC Prednisone (Prednisone) 30 mg 1X ONCE PO Last administered on 05/13/21at 08:08; Start 05/13/21 at 09:00; Stop 05/13/21 at 09:01; Status DC Prednisone (Prednisone) 20 mg DAILY PO Last administered on 05/14/21at 08:06; Start 05/14/21 at 09:00; Stop 05/14/21 at 09:01; Status DC Prednisone (Prednisone) 10 mg DAILY PO Last administered on 05/16/21at 08:33; Start 05/15/21 at 09:00 Diltiazem HCl (Cardizem) 120 mg Q8HRS PO ; Start 05/13/21 at 14:10; Stop 05/13/21 at 14:15; Status DC Diltiazem HCl (Cardizem) 120 mg DAILY PO ; Start 05/13/21 at 14:15; Stop 05/13/21 at 14:21; Status DC Diltiazem HCl (Cardizem 24hr Cd) 120 mg DAILY PO Last administered on 05/16/21at 08:33; Start 05/13/21 at 14:30 Triamcinolone Acetonide (Kenalog-40) 40 mg 1X ONCE INT ART ; Start 05/13/21 at 17:45; Stop 05/13/21 at 17:46; Status DC Bupivacaine HCl (Sensorcaine-Mpf 0.25%) 10 ml 1X ONCE IJ ; Start 05/13/21 at 17:30; Stop 05/13/21 at 17:31; Status DC Multi-Ingredient Ointment (Hydrocerin, Eucerin Cream) 1 miles BID TP Last administered on 05/16/21at 08:37; Start 05/13/21 at 21:00 Magnesium Hydroxide (Milk Of Magnesia) 2,400 mg PRN DAILY PRN PO CONSTIPATION; Start 05/13/21 at 17:30 Bisacodyl (Dulcolax Tab) 10 mg DAILY PO Last administered on 05/16/21at 08:33; Start 05/14/21 at 09:00 Diclofenac Sodium (Voltaren) 1 miles BID TP Last administered on 05/15/21at 20:46; Start 05/13/21 at 21:00 Active Scripts Active Prednisone (Prednisone) 10 Mg Tablet 10 Mg PO DAILY 10 Days Diltiazem 24HR Cd (Diltiazem Hcl) 120 Mg Cap.er.24h 120 Mg PO DAILY 30 Days Alprazolam 0.25 Mg Tablet 0.25 Mg PO PRN Q8HRS PRN 30 Days Combivent Respimat Inhal (Ipratropium/Albuterol Sulfate) 4 Gm Aer.w.adap 1 Puff INH RTQID 30 Days Reported Magnesium Oxide 400 Mg Tablet 1 Tab PO DAILY Singulair Tablet (Montelukast Sodium) 10 Mg Tablet 10 Mg PO HS Pantoprazole Sodium 40 Mg Tablet.dr 40 Mg PO DAILY Benzonatate 100 Mg Capsule 1 Cap PO TID PRN Proair Hfa Inhaler (Albuterol Sulfate) 8.5 Gm Hfa.aer.ad 2 Puff IH PRN Q4HRS PRN 21 Days Dicyclomine Hcl 10 Mg Capsule 20 Mg PO DAILY Tramadol Hcl 50 Mg Tablet 50 Mg PO Q6HRS PRN Norvasc (Amlodipine Besylate) 5 Mg Tablet 5 Mg PO DAILY Losartan Potassium (Losartan Potassium) 25 Mg Tablet 25 Mg PO DAILY Amitriptyline Hcl 50 Mg Tablet 25 Mg PO HS Vitals/I & O Vital Sign - Last 24 Hours 05/15/21 05/15/21 05/15/21 05/15/21 11:00 11:35 15:00 19:33 Temp 98.0 98.3 98.2 98.0 98.3 98.2 Pulse 99 76 86 Resp 18 18 18 B/P (MAP) 109/62 (78) 97/50 (66) 114/61 (78) Pulse Ox 100 100 99 98 O2 Delivery Nasal Cannula Nasal Cannula Nasal Cannula Nasal Cannula O2 Flow Rate 4.0 3.0 4.0 3.0 05/15/21 05/15/21 05/15/21 05/15/21 20:00 20:46 21:16 22:30 Temp 98.6 98.6 Pulse 77 Resp 18 18 18 B/P (MAP) 117/64 (81) Pulse Ox 98 98 99 O2 Delivery Nasal Cannula Nasal Cannula Nasal Cannula Nasal Cannula O2 Flow Rate 2.0 3.0 3.0 3.0 05/16/21 05/16/21 05/16/21 05/16/21 02:39 07:00 08:00 08:17 Temp 98.1 98.1 98.1 98.1 Pulse 70 78 Resp 18 18 B/P (MAP) 117/68 (84) 113/71 (85) Pulse Ox 100 100 99 O2 Delivery Nasal Cannula Nasal Cannula Nasal Cannula Nasal Cannula O2 Flow Rate 3.0 3.0 3.0 3.0 05/16/21 05/16/21 05/16/21 08:32 08:33 08:33 Pulse 78 78 78 B/P (MAP) 113/71 113/71 113/71 Intake and Output 05/15/21 05/15/21 05/16/21 15:00 23:00 07:00 Intake Total 360 ml 300 ml Balance 360 ml 300 ml Justifications for Admission Other Justification NAVEEN WEEMS MD May 16, 2021 10:21
--- NOTE | 2021-05-16 10:47 | NUR ---
SW following. Discussed with RN, discharge orders faxed to [facility]. Pt is a high risk readmission.
[2021-05-16 11:00] VITALS: BP 112/63
--- NOTE | 2021-05-16 12:40 | NUR ---
Discharge Note: JUSTIN RICH Discharge instructions and discharge home medications reviewed with Family Member and a copy given. All questions have been answered and understanding verbalized. The following instructions and handouts were given: worsening symptoms, medications, follow up, and education on hypoxia. Discontinued lines and drains: IV removed from L wrist, telemetry removed, skin intact. Patient discharged to home with home health, via private vehicle accompanied by daughter.
== END 2021-05-16 12:00 | disposition home health service (06) | DRG 189 ==
LOC: ER 10:10 → 5 NORTH 15:38
PROVIDERS: ADMIT Internal Medicine; ATTEND Internal Medicine
PROC: 3E0U33Z Introduction of Anti-inflammatory into Joints, Percutaneous Approach (ICD-10-PCS; principal; 2021-05-08)
PROC: 3E0U3BZ Introduction of Anesthetic Agent into Joints, Percutaneous Approach (ICD-10-PCS; 2021-05-08)
DX: J96.21 Acute and chronic respiratory failure with hypoxia (principal); J44.1 Chronic obstructive pulmonary disease with (acute) exacerbation; C34.12 Malignant neoplasm of upper lobe, left bronchus or lung; C34.31 Malignant neoplasm of lower lobe, right bronchus or lung; C79.51 Secondary malignant neoplasm of bone; J44.0 Chronic obstructive pulmonary disease with (acute) lower respiratory infection; D64.9 Anemia, unspecified; I12.9 Hypertensive chronic kidney disease with stage 1 through stage 4 chronic kidney disease, or unspecified chronic kidney disease; I77.810 Thoracic aortic ectasia; J84.89 Other specified interstitial pulmonary diseases; K44.9 Diaphragmatic hernia without obstruction or gangrene; K59.00 Constipation, unspecified; M17.0 Bilateral primary osteoarthritis of knee; N18.9 Chronic kidney disease, unspecified; Z82.49 Family history of ischemic heart disease and other diseases of the circulatory system; Z83.3 Family history of diabetes mellitus; Z85.118 Personal history of other malignant neoplasm of bronchus and lung; Z87.891 Personal history of nicotine dependence; Z92.21 Personal history of antineoplastic chemotherapy; Z92.3 Personal history of irradiation; E66.9 Obesity, unspecified; G62.9 Polyneuropathy, unspecified; K21.9 Gastro-esophageal reflux disease without esophagitis; M19.90 Unspecified osteoarthritis, unspecified site
CPT/HCPCS: 36415; 71045; 71275; 80048; 80053; 83735; 83880; 84484; 85025; 85379; 87428; 93005; 94640; 94760; 96374; 96375; J1100; J1644; J2920; J2930; J3301; J3490; J7512; Q9967; U0003; 73560-50; 97530-GP; 97535-GO; 99285-25; G0378

== ENCOUNTER 2021-06-24 20:11 | Emergency (ER) | payer MEDICAID ==
[~2021-06-24] VITALS: Ht 157.5 cm; Wt 100.0 kg
[~2021-06-24 20:11] MED LIST changes: -ACET1TAB37 PO; +ACET1TAB63 PO; +DILT120C99 PO; +PRED-220 PO
[2021-06-24 23:34] LABS: BASO # 0.1 x10^3/uL (0.0-0.2); BASO % 1 % (0-3); EOS # 0.2 x10^3/uL (0.0-0.7); EOS % 2 % (0-3); HEMATOCRIT 36.3 % (36.0-47.0); LYMPH # 3.1 x10^3/uL (1.0-4.8); LYMPH % 26 % (24-48); MEAN CORPUSCULAR HEMOGLOBIN 32 pg (25-35); MEAN CORPUSCULAR HGB CONC 33 g/dL (31-37); MEAN CORPUSCULAR VOLUME 98 fL (79-100); MONO % 8 % (0-9); NEUT # 7.3 x10^3/uL (1.8-7.7); NEUT % 62 % (31-73); PLATELET COUNT 352 x10^3/uL (140-400); RED CELL DISTRIBUTION WIDTH 16.1 % (11.5-14.5); WHITE BLOOD COUNT 11.7 x10^3/uL (4.0-11.0)
[2021-06-24 23:45] LABS: CALCIUM 10.2 mg/dL (8.5-10.1); CREATININE 1.8 mg/dL (0.6-1.0); GFR 32.6
[2021-06-24 23:50] LABS: ALBUMIN 3.1 g/dL (3.4-5.0); ALBUMIN/GLOBULIN RATIO 0.7 (1.0-1.7); TOTAL BILIRUBIN 0.3 mg/dL (0.2-1.0); TOTAL PROTEIN 7.6 g/dL (6.4-8.2)
--- NOTE | 2021-06-25 00:46 | EKG ---
[facility] [address] [place] [address] Test Date: 2021-06-25 Test Time: 00:08:02 Pat Name: JUSTIN RICH Department: Room: Gender: F [employer] Gre[employer]: : 1940 Requested By: CHATO GRUBER Order Number: [id number] Reading MD: Yonny Glaser Measurements Intervals [place] Rate: 101 P: 43 NC: 150 QRS: -6 QRSD: 78 T: -1 QT: 322 QTc: 418 Interpretive Statements SINUS TACHYCARDIA LEFTWARD AXIS QRS(T) CONTOUR ABNORMALITY CONSIDER ANTEROSEPTAL MYOCARDIAL DAMAGE Electronically Signed On 07-01-2021 14:13:22 CDT by Yonny Glaser
--- NOTE | 2021-06-25 01:06 | RAD ---
Exam: CT abdomen/pelvis without intravenous contrast Indication: Upper abdominal pain Comparison: CT abdomen pelvis 10/04/2020 Technique: Helical CT imaging performed of the abdomen and pelvis without the use of intravenous cont rast. Sagittal and coronal reformats were obtained. One or more of the following individualized dose reduction techniques were utilized for this examinat ion: 1. Automated exposure control 2. Adjustment of the mA and/or kV according to patient size 3. Use of iterative reconstruction technique. Findings: Inherently limited evaluation without intravenous contrast. Lower chest: New small area of consolidation in the posterior right middle lobe. Groundglass opacitie s have decreased. Background interstitial lung disease in the bases is unchanged. Unchanged small lef t pleural effusion. Small hiatal hernia. Liver: Unremarkable Gallbladder/Biliary Tree: Cholecystectomy. Bile ducts are normal. Pancreas: Normal. Spleen: Normal. Adrenal Glands: Normal. Kidneys/Ureters/Bladder: There is mild fullness of the left renal collecting system without obstructi on seen, unchanged. No nephrolithiasis. Ureters are normal. Bladder is normal. Unchanged simple left renal cyst. Reproductive Organs: Uterus and ovaries are unremarkable. Stomach, small bowel, and colon: Small hiatal hernia. There is no small bowel obstruction. The append ix is normal. The colon is normal. Vasculature: No aortic aneurysm. Mild calcified aortoiliac atherosclerosis. Lymph Nodes: There are multiple small retrocrural and gastrohepatic lymph nodes. Peritoneum and retroperitoneum: No pneumoperitoneum or pneumatosis. Bones: No acute osseous abnormalities. There is a 6 mm anterolisthesis of L4 on L5. Mild degenerative disc disease. Miscellaneous: Surgical changes of ventral hernia repair with small fat-containing ventral hernia inf eriorly. IMPRESSION: 1. No acute abnormality in the abdomen and pelvis. 2. Small hiatal hernia. 3. Small fat-containing ventral hernia. 4. Decreased groundglass opacities in the lung bases. New small consolidation in the posterior right middle lobe. Stable interstitial lung disease and small left pleural effusion. Electronically signed by: Debi Crenshaw MD (06/25/2021 1:03 AM) [facility]
--- NOTE | 2021-06-25 01:44 | PHYS DOC ---
Past Medical History Past Medical History: Arthritis, Cancer, GERD, Hypertension, Other Additional Past Medical Histor: Lung Cx, COVID pneumonia 03/2021 Past Surgical History: No Surgical History Additional Past Surgical Histo: R ELBOW, HERNIA Smoking Status: Former Smoker Alcohol Use: None Drug Use: None General Adult EDM: Chief Complaint: ABDOMINAL PAIN HPI: HPI: Patient is a 80 year old female with multiple abdominal surgeries currently being treated for a lung cancer presents today with upper abdominal pain. Onset several days ago but is intermittently been going on for months. History of gastritis. On antiacid medication already. Has some nausea but no vomiting. No diarrhea. Is passing gas and stool. No history of small bowel obstruction. No fever or chills. No melena or hematochezia. Regularly sees a PCP. Review of Systems: Review of Systems: Constitutional: Denies fever or chills. [] Eyes: Denies change in visual acuity. [] HENT: Denies nasal congestion or sore throat. [] Respiratory: Denies cough or shortness of breath. [] Cardiovascular: Denies chest pain or edema. [] GI: Upper abdominal pain : Denies dysuria. [] Musculoskeletal: Denies back pain or joint pain. [] Integument: Denies rash. [] Neurologic: Denies headache, focal weakness or sensory changes. [] Endocrine: Denies polyuria or polydipsia. [] Lymphatic: Denies swollen glands. [] Psychiatric: Denies depression or anxiety. [] Heart Score: C/O Chest Pain: No Risk Factors: Risk Factors: DM, Current or recent (<one month) smoker, HTN, HLP, family history of CAD, obesity. Risk Scores: Score 0 - 3: 2.5% MACE over next 6 weeks - Discharge Home Score 4 - 6: 20.3% MACE over next 6 weeks - Admit for Clinical Observation Score 7 - 10: 72.7% MACE over next 6 weeks - Early Invasive Strategies Current Medications: Current Medications Medications (Trade) Dose Ordered Sig/Prabhjot Start Time Stop Time Status Last Admin Dose Admin Multi-Ingredient Mouthwash/Gargle (Gi Cocktail) 20 ml 1X ONCE 06/25/21 02:00 06/25/21 02:01 Allergies: Allergies: Allergies Coded Allergies Type Severity Reaction Last Updated Verified No Known Drug Allergies 01/02/21 No Physical Exam: PE: Constitutional: Well developed, well nourished, no acute distress, non-toxic appearance. [] HENT: Normocephalic, atraumatic, bilateral external ears normal, oropharynx m oist, no oral exudates, nose normal. [] Eyes: PERRLA, EOMI, conjunctiva normal, no discharge. [] Neck: Normal range of motion, no tenderness, supple, no stridor. [] Cardiovascular:Heart rate regular rhythm, no murmur [] Lungs & Thorax: Bilateral breath sounds clear to auscultation [] Abdomen: Bowel sounds normal, soft, no tenderness, no masses, no pulsatile masses. [] Skin: Warm, dry, no erythema, no rash. [] Back: No tenderness, no CVA tenderness. [] Extremities: No tenderness, no cyanosis, no clubbing, ROM intact, no edema. [] Neurologic: Alert and oriented X 3, normal motor function, normal sensory function, no focal deficits noted. [] Psychologic: Affect normal, judgement normal, mood normal. [] Current Patient Data: Labs: Laboratory Tests Test 06/24/21 23:25 White Blood Count 11.7 x10^3/uL (4.0-11.0) H Red Blood Count 3.70 x10^6/uL (3.50-5.40) Hemoglobin 12.0 g/dL (12.0-15.5) Hematocrit 36.3 % (36.0-47.0) Mean Corpuscular Volume 98 fL (79-100) Mean Corpuscular Hemoglobin 32 pg (25-35) Mean Corpuscular Hemoglobin Concent 33 g/dL (31-37) Red Cell Distribution Width 16.1 % (11.5-14.5) H Platelet Count 352 x10^3/uL (140-400) Neutrophils (%) (Auto) 62 % (31-73) Lymphocytes (%) (Auto) 26 % (24-48) Monocytes (%) (Auto) 8 % (0-9) Eosinophils (%) (Auto) 2 % (0-3) Basophils (%) (Auto) 1 % (0-3) Neutrophils # (Auto) 7.3 x10^3/uL (1.8-7.7) Lymphocytes # (Auto) 3.1 x10^3/uL (1.0-4.8) Monocytes # (Auto) 1.0 x10^3/uL (0.0-1.1) Eosinophils # (Auto) 0.2 x10^3/uL (0.0-0.7) Basophils # (Auto) 0.1 x10^3/uL (0.0-0.2) Sodium Level 141 mmol/L (136-145) Potassium Level 4.0 mmol/L (3.5-5.1) Chloride Level 100 mmol/L (98-107) Carbon Dioxide Level 30 mmol/L (21-32) Anion Gap 11 (6-14) Blood Urea Nitrogen 19 mg/dL (7-20) Creatinine 1.8 mg/dL (0.6-1.0) H Estimated GFR (Cockcroft-Gault) 32.6 BUN/Creatinine Ratio 11 (6-20) Glucose Level 116 mg/dL (70-99) H Calcium Level 10.2 mg/dL (8.5-10.1) H Total Bilirubin 0.3 mg/dL (0.2-1.0) Aspartate Amino Transferase (AST) 19 U/L (15-37) Alanine Aminotransferase (ALT) 18 U/L (14-59) Alkaline Phosphatase 83 U/L (46-116) Troponin I High Sensitivity 26 ng/L (4-50) Total Protein 7.6 g/dL (6.4-8.2) Albumin 3.1 g/dL (3.4-5.0) L Albumin/Globulin Ratio 0.7 (1.0-1.7) L Lipase 58 U/L (73-393) L Laboratory Tests 06/24/21 23:25 Laboratory Tests 06/24/21 23:25 Vital Signs: Vital Signs Date Time Temp Pulse Resp B/P (MAP) Pulse Ox O2 Delivery O2 Flow Rate FiO2 06/24/21 20:16 97.8 79 20 157/87 (110) 100 Nasal Cannula 2.0 97.8 EKG: EKG: [] Radiology/Procedures: Radiology/Procedures: [] Course & Med Decision Making: Course & Med Decision Making Pertinent Labs and Imaging studies reviewed. (See chart for details) CT scan and labs are unremarkable. Patient likely has gastritis versus peptic ulcer disease. I will have the patient follow-up with PCP. She is already on antiacid medication. Dragon Disclaimer: Dragon Disclaimer: This electronic medical record was generated, in whole or in part, using a voice recognition dictation system. Departure Departure Impression: Primary Impression: Epigastric abdominal pain Disposition: HOME / SELF CARE / HOMELESS Condition: STABLE Referrals: WALKER DAVILA MD (PCP) Patient Instructions: Abdominal Pain Additional Instructions: Please follow-up with your primary care doctor if your pain becomes significantly worse. Your CT scan did not show any acute findings. I am thinking you possibly have gastritis versus peptic ulcer disease. Please continue the antiacid medication you have at home. CHATO GRUBER MD Jun 25, 2021 01:44
[2021-06-25] MEDS ORDERED: LIDO:MAALOX 1:1 20 ML SINGLE DOSE. SWSW ONE (02:00)
[2021-06-25 02:41] VITALS: BP 152/87
== END 2021-06-25 02:30 | disposition home or self-care (01) ==
LOC: ER 20:11
DX: R10.13 Epigastric pain (principal); K21.9 Gastro-esophageal reflux disease without esophagitis; I10 Essential (primary) hypertension; Z87.891 Personal history of nicotine dependence
CPT/HCPCS: 36415; 74176; 80053; 83690; 84484; 85025; 93005; 99285-25

== ENCOUNTER → 2021-06-29 | Outpatient (CLI) | payer MEDICAID ==
[2021-06-25 02:41] VITALS: BP 152/87
[2021-06-29 10:57] LABS: BASO % 1 % (0-3); EOS # 0.2 x10^3/uL (0.0-0.7); EOS % 2 % (0-3); HEMATOCRIT 34.5 % (36.0-47.0); HEMOGLOBIN 11.6 g/dL (12.0-15.5); LYMPH # 2.1 x10^3/uL (1.0-4.8); LYMPH % 24 % (24-48); MEAN CORPUSCULAR HEMOGLOBIN 33 pg (25-35); MEAN CORPUSCULAR HGB CONC 34 g/dL (31-37); MEAN CORPUSCULAR VOLUME 99 fL (79-100); MONO # 0.9 x10^3/uL (0.0-1.1); MONO % 10 % (0-9); NEUT # 5.4 x10^3/uL (1.8-7.7); NEUT % 63 % (31-73); PLATELET COUNT 371 x10^3/uL (140-400); RED CELL DISTRIBUTION WIDTH 15.7 % (11.5-14.5); WHITE BLOOD COUNT 8.6 x10^3/uL (4.0-11.0)
[2021-06-29 11:21] LABS: CALCIUM 11.6 mg/dL (8.5-10.1); CREATININE 1.7 mg/dL (0.6-1.0); GFR 34.8; POTASSIUM 3.6 mmol/L (3.5-5.1)
[2021-06-29 11:27] LABS: ALBUMIN 2.8 g/dL (3.4-5.0); ALBUMIN/GLOBULIN RATIO 0.6 (1.0-1.7); TOTAL BILIRUBIN 0.5 mg/dL (0.2-1.0); TOTAL PROTEIN 7.4 g/dL (6.4-8.2)
== END ==
LOC: ONCLAB 10:41
PROVIDERS: ATTEND Internal Medicine Hematology & Oncology
DX: C34.92 Malignant neoplasm of unspecified part of left bronchus or lung (principal)
CPT/HCPCS: 36415; 80053; 85025

== ENCOUNTER → 2021-07-20 | Outpatient (CLI) | payer MEDICAID ==
[2021-06-25 02:41] VITALS: BP 152/87
[2021-07-20 10:02] LABS: BASO # 0.1 x10^3/uL (0.0-0.2); BASO % 1 % (0-3); EOS # 0.1 x10^3/uL (0.0-0.7); EOS % 2 % (0-3); HEMATOCRIT 34.5 % (36.0-47.0); HEMOGLOBIN 11.4 g/dL (12.0-15.5); LYMPH # 1.8 x10^3/uL (1.0-4.8); LYMPH % 26 % (24-48); MEAN CORPUSCULAR HEMOGLOBIN 33 pg (25-35); MEAN CORPUSCULAR HGB CONC 33 g/dL (31-37); MEAN CORPUSCULAR VOLUME 100 fL (79-100); MONO # 0.7 x10^3/uL (0.0-1.1); MONO % 10 % (0-9); NEUT # 4.2 x10^3/uL (1.8-7.7); NEUT % 61 % (31-73); PLATELET COUNT 337 x10^3/uL (140-400); RED BLOOD COUNT 3.47 x10^6/uL (3.50-5.40); WHITE BLOOD COUNT 6.8 x10^3/uL (4.0-11.0)
[2021-07-20 10:19] LABS: CALCIUM 8.7 mg/dL (8.5-10.1); CREATININE 1.6 mg/dL (0.6-1.0); GFR 37.2; POTASSIUM 3.4 mmol/L (3.5-5.1)
[2021-07-20 10:24] LABS: ALBUMIN 2.6 g/dL (3.4-5.0); ALBUMIN/GLOBULIN RATIO 0.5 (1.0-1.7); TOTAL BILIRUBIN 0.3 mg/dL (0.2-1.0); TOTAL PROTEIN 7.7 g/dL (6.4-8.2)
== END ==
LOC: ONCLAB 09:31
PROVIDERS: ATTEND Internal Medicine Hematology & Oncology
DX: C34.92 Malignant neoplasm of unspecified part of left bronchus or lung (principal)
CPT/HCPCS: 36415; 80053; 85025

== ENCOUNTER → 2021-07-25 | Outpatient (CLI) | payer MEDICAID ==
[2021-06-25 02:41] VITALS: BP 152/87
--- NOTE | 2021-07-25 10:41 | RAD ---
EXAM: Chest CT without intravenous contrast. HISTORY: Shortness of breath. Lung cancer. TECHNIQUE: Computed tomographic images of the chest were obtained without contrast. Multiplanar refor matting was performed. *One or more of the following individualized dose reduction techniques were utilized for this examina tion: 1. Automated exposure control. 2. Adjustment of the mA and/or kV according to patient size. 3. Use of iterative reconstruction technique. COMPARISON: 05/08/2021. FINDINGS: There has been interval increase in partial left upper lobe consolidation and a small to mo derate left pleural effusion superimposed on emphysema and fibrosis. There is stable emphysema with s uperimposed chronic interstitial changes within the right lung. There is left suprahilar soft tissue likely due to previously demonstrated neoplasm or post treatment changes. The heart is normal in size . There is coronary artery calcification. There is a right chest wall port catheter with the tip in t he superior cavoatrial junction. There is a moderate hiatal hernia. No pathologically enlarged medias tinal or hilar lymph node is seen. There is no acute finding involving the upper abdomen. There is a 2.7 cm cyst within the superior left kidney. There are degenerative changes involving the spine. Ther e is no acute or suspicious osseous finding. IMPRESSION: 1. Increase in partial left upper lobe consolidation and a small to moderate left pleural effusion metz perimposed on bilateral emphysema and fibrosis. 2. Stable left suprahilar soft tissue due to residual neoplasm or posttreatment changes. Electronically signed by: Donya Hurd MD (07/25/2021 10:39 AM) [id number]
== END ==
LOC: CT 09:29
PROVIDERS: ATTEND Internal Medicine Hematology & Oncology
DX: J90 Pleural effusion, not elsewhere classified (principal); J43.9 Emphysema, unspecified; J84.10 Pulmonary fibrosis, unspecified; I25.10 Atherosclerotic heart disease of native coronary artery without angina pectoris; K44.9 Diaphragmatic hernia without obstruction or gangrene; M47.819 Spondylosis without myelopathy or radiculopathy, site unspecified; Z95.2 Presence of prosthetic heart valve; Z98.890 Other specified postprocedural states
CPT/HCPCS: 71250

== ENCOUNTER → 2021-08-10 | Outpatient (CLI) | payer MEDICAID ==
[2021-08-10 11:07] LABS: BASO # 0.1 x10^3/uL (0.0-0.2); BASO % 1 % (0-3); EOS # 0.2 x10^3/uL (0.0-0.7); EOS % 3 % (0-3); HEMATOCRIT 36.1 % (36.0-47.0); HEMOGLOBIN 12.2 g/dL (12.0-15.5); LYMPH # 1.9 x10^3/uL (1.0-4.8); LYMPH % 26 % (24-48); MEAN CORPUSCULAR HEMOGLOBIN 32 pg (25-35); MEAN CORPUSCULAR HGB CONC 34 g/dL (31-37); MEAN CORPUSCULAR VOLUME 96 fL (79-100); MONO # 0.8 x10^3/uL (0.0-1.1); MONO % 11 % (0-9); NEUT # 4.3 x10^3/uL (1.8-7.7); NEUT % 59 % (31-73); PLATELET COUNT 302 x10^3/uL (140-400); RED BLOOD COUNT 3.76 x10^6/uL (3.50-5.40); RED CELL DISTRIBUTION WIDTH 13.8 % (11.5-14.5); WHITE BLOOD COUNT 7.2 x10^3/uL (4.0-11.0)
[2021-08-10 11:23] LABS: CALCIUM 9.8 mg/dL (8.5-10.1); CREATININE 1.3 mg/dL (0.6-1.0); GFR 47.3
[2021-08-10 11:31] LABS: ALBUMIN 2.8 g/dL (3.4-5.0); ALBUMIN/GLOBULIN RATIO 0.6 (1.0-1.7); TOTAL BILIRUBIN 0.3 mg/dL (0.2-1.0); TOTAL PROTEIN 7.8 g/dL (6.4-8.2)
== END ==
LOC: ONCLAB 10:52
PROVIDERS: ATTEND Internal Medicine Hematology & Oncology
DX: C34.92 Malignant neoplasm of unspecified part of left bronchus or lung (principal)
CPT/HCPCS: 36415; 80053; 85025